=== PATIENT | male | born 1995 | race Caucasian/White ===

== ENCOUNTER 2020-10-13 09:24 | Outpatient (REF) | payer BC, SELFPAY ==
[2020-10-13 09:37] LABS: COVID-19 Test Positive (Negative)
== END 2020-10-13 09:25 | disposition home or self-care (01) ==
LOC: HO.LAB 09:24
PROVIDERS: PCP Internal Medicine; Visit Provider Internal Medicine
DX: Z20.828 Contact with and (suspected) exposure to other viral communicable diseases (principal)
CPT/HCPCS: 87635; C9803

== ENCOUNTER 2020-11-06 09:17 | Outpatient (REF) | payer BC, SELFPAY | END 2020-11-06 09:18 | disposition home or self-care (01) | LOC: HO.LAB 09:17 | PROVIDERS: Visit Provider Internal Medicine | DX: Z20.822 Contact with and (suspected) exposure to COVID-19 (principal) | CPT/HCPCS: 36415; C9803; U0003 ==

== ENCOUNTER 2021-03-29 10:19 | Outpatient (REF) | payer SELFPAY ==
[2021-03-29 11:08] LABS: Valproate 93.3 mcg/mL (50.0-100.0)
== END 2021-03-29 10:20 | disposition home or self-care (01) ==
LOC: HO.LNP 10:19
PROVIDERS: Visit Provider Internal Medicine
DX: G40.909 Epilepsy, unspecified, not intractable, without status epilepticus (principal); Z79.899 Other long term (current) drug therapy
CPT/HCPCS: 80164

== ENCOUNTER 2021-06-05 13:14 | Outpatient (REF) | payer OTHER, SELFPAY ==
[2021-06-05 13:18] LABS: MANUAL DIFF FLAG NO
[2021-06-05 13:22] LABS: Basophils Absolute Auto 0.1 X10*3/uL (0.0-0.2); Eosinophils Absolute Auto 0.1 X10*3/uL (0.0-0.4); Eosinophils Percent Auto 1.4 % (0-4); Hematocrit 42.7 % (42-52); Hemoglobin 14.8 g/dl (14.0-18.0); Imm Gran Abs Auto 0.02 X10*3/uL (0.00-0.03); Imm Gran Pct Auto 0.3 % (0.0-0.4); Lymphocytes Absolute Auto 1.4 X10*3/uL (1.2-4.9); Mean Corpuscular HGB Conc 34.7 g/dl (31.0-36.0); Mean Corpuscular Hemoglobin 33.9 pg (27.0-33.0); Mean Corpuscular Volume 97.7 fL (80-98); Mean Platelet Volume 10.6 fL (9.4-12.4); Monocytes Absolute Auto 0.7 X10*3/uL (0.1-1.2); Monocytes Percent Auto 10.6 % (2-11); Neutrophils Absolute Auto 4.6 X10*3/uL (2.0-8.3); Neutrophils Percent Auto 66.7 % (45-73); Platelet Count 117 X10*3/uL (160-400); Red Blood Count 4.37 X10*6/uL (4.60-5.80); Red Cell Distribution Width 11.9 % (11.0-16.0)
[2021-06-05 14:23] LABS: Alanine Aminotransferase 34 U/L (0-40); Albumin Level 3.9 g/dL (3.5-5.0); Alkaline Phosphatase 237 U/L (39-117); Aspartate Amino Transferase 115 U/L (5-37); Bilirubin Direct 1.3 mg/dL (0.0-0.5); Bilirubin Total 2.4 mg/dL (0.0-1.0); Magnesium 1.3 mg/dL (1.6-2.6); Potassium 3.6 mmol/L (3.3-5.1); Total Protein 7.8 g/dL (6.5-8.0)
== END 2021-06-05 13:15 | disposition home or self-care (01) ==
LOC: HO.LNP 13:14
PROVIDERS: Visit Provider Internal Medicine
DX: D69.6 Thrombocytopenia, unspecified (principal); E87.6 Hypokalemia; E83.42 Hypomagnesemia; K85.20 Alcohol induced acute pancreatitis without necrosis or infection
CPT/HCPCS: 80076; 83735; 84132; 85025

== ENCOUNTER 2021-06-11 11:04 | Outpatient (REF) | payer OTHER, SELFPAY | END 2021-06-11 11:05 | disposition home or self-care (01) | LOC: HO.LNP 11:04 | PROVIDERS: Visit Provider Internal Medicine | DX: E83.42 Hypomagnesemia (principal) | CPT/HCPCS: 83735 ==

== ENCOUNTER 2021-08-11 09:15 | Outpatient (REF) | payer OTHER, SELFPAY ==
[2021-08-11 09:39] LABS: MANUAL DIFF FLAG NO
[2021-08-11 09:51] LABS: Basophils Absolute Auto 0.1 X10*3/uL (0.0-0.2); Basophils Percent Auto 1.6 % (0-2); Eosinophils Absolute Auto 0.1 X10*3/uL (0.0-0.4); Eosinophils Percent Auto 1.9 % (0-4); Hematocrit 38.9 % (42-52); Imm Gran Abs Auto 0.05 X10*3/uL (0.00-0.03); Imm Gran Pct Auto 0.7 % (0.0-0.4); Lymphocytes Absolute Auto 1.5 X10*3/uL (1.2-4.9); Lymphocytes Percent Auto 21.6 % (20-40); Mean Corpuscular Hemoglobin 34.1 pg (27.0-33.0); Mean Corpuscular Volume 94.6 fL (80-98); Mean Platelet Volume 10.8 fL (9.4-12.4); Monocytes Absolute Auto 1.3 X10*3/uL (0.1-1.2); Monocytes Percent Auto 18.2 % (2-11); Neutrophils Absolute Auto 3.9 X10*3/uL (2.0-8.3); Platelet Count 208 X10*3/uL (160-400); Red Blood Count 4.11 X10*6/uL (4.60-5.80); Red Cell Distribution Width 17.9 % (11.0-16.0)
[2021-08-11 09:57] LABS: INTERNATIONAL NORM RATIO 1.5 (0.9-1.1)
[2021-08-11 10:05] LABS: Ammonia 35 umol/L (13-55)
[2021-08-11 10:54] LABS: Ferritin 1037 ng/mL (20-250)
[2021-08-11 11:17] LABS: Alanine Aminotransferase 23 U/L (0-40); Albumin Level 3.2 g/dL (3.5-5.0); Alkaline Phosphatase 203 U/L (39-117); Amylase 28 U/L (28-100); Anion Gap 14 (12-20); Aspartate Amino Transferase 111 U/L (5-37); Blood Urea Nitrogen 4 mg/dL (9-16); Calcium 8.5 mg/dL (8.4-10.2); Carbon Dioxide 28 mmol/L (22-29); Chloride 94 mmol/L (96-108); Estimated Glomerular Filt Rate > 60; Glucose Fasting 93 mg/dL (60-99); Iron 95 mcg/dL (45-160); Lipase 18 U/L (8-78); Percent Iron Saturation 47 % (15-50); Potassium 3.2 mmol/L (3.3-5.1); Sodium 133 mmol/L (135-145); Total Iron Binding Capacity 204 mcg/dL (228-428); Unsaturated Iron Binding 109 ug/dL
[2021-08-11 11:31] LABS: Bilirubin Total 19.8 mg/dL (0.0-1.0)
[2021-08-11 11:33] LABS: Bilirubin Direct 15.1 mg/dL (0.0-0.5)
[2021-08-13 12:47] LABS: Alpha Fetoprotein 5.9 ng/mL (<6.1)
[2021-08-13 18:07] LABS: Anti Nuclear Antibody Screen NEGATIVE (NEGATIVE)
[2021-08-13 21:41] LABS: Alpha 1 Anti-trypsin 229 mg/dL (83-199); Ceruloplasmin 35 mg/dL (18-36)
[2021-08-14 08:52] LABS: ~HepC Num1 0.11 S/CO (0.00-0.79); ~Hepatitis C Antibody Nonreactive (Nonreactive)
[2021-08-14 08:58] LABS: HBS Num1 7.41 mIU/mL (0-7.99); Hepatitis B Core Antibody Nonreactive (Nonreactive); Hepatitis B Surface Antigen Negative (Negative); ~Hepatitis B Surface Antibody NONREACTIVE (Nonreactive)
[2021-08-15 07:56] LABS: Hepatitis A Antibody IgM 0.15 Index (0-0.79); ~Hepatitis A Antibody IgM Nonreactive (Nonreactive)
[2021-08-15 12:35] LABS: Smooth Muscle Antibody <20 U (<20)
[2021-08-16 12:31] LABS: Mitochondrial Antibodies NEGATIVE (NEGATIVE)
== END 2021-08-11 09:16 | disposition home or self-care (01) ==
LOC: HO.LAB 09:15
PROVIDERS: PCP Internal Medicine; Visit Provider Internal Medicine
DX: R17 Unspecified jaundice (principal); K70.9 Alcoholic liver disease, unspecified
CPT/HCPCS: 36415; 80053; 80076; 82103; 82105; 82140; 82150; 82248; 82390; 82728; 83540; 83690; 85025; 85610; 86038; 86039; 86255; 86256; 86704; 86706; 86709; 86803; 87340

== ENCOUNTER 2021-08-17 08:36 | Outpatient (REF) | payer OTHER, SELFPAY ==
--- NOTE | ~2021-08-17 | US_ITS ---
EXAMINATION: US COMPLETE ABDOMEN WITH LIVER ELASTOGRAPHY CLINICAL INFORMATION: Jaundice, elevated liver enzymes. COMPARISON: None. TECHNIQUE: Real-time imaging of the abdominal viscera. Noninvasive ultrasound liver fibrosis assessment is performed using Madelaine ElastPQ point quantification shear wave elastography (pSWE) with a C5-2 MHz transducer. Multiple elastography samples are obtained. FINDINGS: PANCREAS: The head and the body of the pancreas is homogeneous in echotexture. The tail is obscured by overlying gas. ABDOMINAL AORTA: The proximal abdominal aorta is normal caliber. The mid and the distal abdominal segments are obscured by overlying gas. INFERIOR VENA CAVA: Visualized portions are normal. LIVER: The liver demonstrates normal size, contour and increased echogenicity. No focal lesion or intrahepatic biliary duct dilatation. There is moderate free fluid surrounding the liver. The right lobe measures 22.5 cm in length. The left lobe measures 15.4 cm in length. Portal flow is hepatopedal. Shear wave liver elastography median stiffness is 3.12 m/s. (Reference: Normal median stiffness is 1.3 m/s or less). IQR/median stiffness to assess sampling precision is (reference: Good quality data set is IQR/median stiffness of 0.15 or Less). GALLBLADDER: There is echogenic sludge adherent to the wall with mild gallbladder wall thickness measuring 0.98 cm. There is pericholecystic moderate fluid seen. Also visualized is mild fluid within the gallbladder wall. No echogenic stone seen. COMMON BILE DUCT: Normal in caliber measuring 0.54 cm in diameter. RIGHT KIDNEY: Normal. No hydronephrosis. No renal calculi or focal parenchymal lesions. The kidney measures 11.5 cm in maximum dimension. LEFT KIDNEY: Normal. No hydronephrosis. No renal calculi or focal parenchymal lesions. The kidney measures 11.8 cm in maximum dimension. SPLEEN: Normal. The spleen measures 15.8 cm maximum dimension. FREE FLUID: None. US/US abdomen comp w elastography IMPRESSION: 1. Mild hepatic steatosis with moderate fluid surrounding the liver. No focal lesion seen. The liver is enlarged. There is echogenic sludge adherent to gallbladder wall with mild wall thickening and fluid within the gallbladder wall. The gallbladder is enlarged measuring 11.6 cm in maximum length. There is fluid surrounding the gallbladder and the liver. 2. Liver elastography: Median liver stiffness is 2.4 m/s suggestive of CSPH. Reference: Society of Radiologists in ultrasound liver stiffness thresholds (2020): Liver stiffness thresholds: *Liver stiffness equal or less than 1.3 m/s: High probability of being normal. *Liver stiffness less than 1.7 m/s: In the absence of other known clinical signs, rules out compensated advanced chronic liver disease. *Liver stiffness 1.7 to 2.1 m/s: Suggestive of compensated advanced chronic liver disease but need further test for confirmation. *Liver stiffness over 2.1 m/s: Rules in compensated advanced chronic liver disease. *Liver stiffness over 2.4 m/s: Suggestive of clinically significant portal hypertension. Quality of data set: *IQR/median value equal or less than 0.15 implies a quality data set. *IQR/median value over 0.15 implies a poor quality data set. Significant change from prior exam: Significant change if liver stiffness measurement is 10% or greater from prior exam. Other considerations: The stage of liver fibrosis may be overestimated in the setting of acute hepatitis, liver inflammation, elevated liver function tests, hepatic vascular congestion, obstructive cholestasis, nonfasting state, and infiltrative diseases such as amyloidosis and lymphoma. In some patients with NAFLD, the liver stiffness thresholds for compensated advanced chronic liver disease may be lower. In causes other than viral hepatitis stiffness thresholds are not well established.
[2021-08-17 10:17] LABS: INTERNATIONAL NORM RATIO 1.4 (0.9-1.1)
[2021-08-17 10:37] LABS: Alanine Aminotransferase 32 U/L (0-40); Alkaline Phosphatase 199 U/L (39-117); Anion Gap 13 (12-20); Aspartate Amino Transferase 151 U/L (5-37); Blood Urea Nitrogen 3 mg/dL (9-16); Calcium 8.5 mg/dL (8.4-10.2); Carbon Dioxide 30 mmol/L (22-29); Chloride 96 mmol/L (96-108); Estimated Glomerular Filt Rate > 60; Glucose Random 86 mg/dL (60-115); Potassium 3.4 mmol/L (3.3-5.1); Sodium 136 mmol/L (135-145); Total Protein 6.6 g/dL (6.5-8.0)
[2021-08-17 10:51] LABS: Bilirubin Total 18.9 mg/dL (0.0-1.0)
[2021-08-17 10:59] LABS: Bilirubin Direct 14.7 mg/dL (0.0-0.5)
== END 2021-08-17 08:37 | disposition home or self-care (01) ==
LOC: HO.US 08:36
PROVIDERS: PCP Internal Medicine; Visit Provider Internal Medicine
DX: K70.9 Alcoholic liver disease, unspecified (principal); R74.8 Abnormal levels of other serum enzymes
CPT/HCPCS: 36415; 76705; 76981; 80053; 81256; 82248; 85610

== ENCOUNTER 2021-08-24 12:30 | Outpatient (REF) | payer OTHER, SELFPAY ==
[2021-08-24 13:06] LABS: INTERNATIONAL NORM RATIO 1.5 (0.9-1.1); Prothrombin Time 17.6 SEC (9.9-13.0)
[2021-08-24 13:45] LABS: Alanine Aminotransferase 23 U/L (0-40); Albumin Level 2.9 g/dL (3.5-5.0); Alkaline Phosphatase 188 U/L (39-117); Aspartate Amino Transferase 108 U/L (5-37); Bilirubin Direct 18.7 mg/dL (0.0-0.5); Bilirubin Total 24.4 mg/dL (0.0-1.0); Total Protein 6.3 g/dL (6.5-8.0)
== END 2021-08-24 12:31 | disposition home or self-care (01) ==
LOC: HO.LAB 12:30
PROVIDERS: PCP Internal Medicine; Visit Provider Internal Medicine
DX: R17 Unspecified jaundice (principal)
CPT/HCPCS: 36415; 80076; 85610

== ENCOUNTER 2021-08-31 07:06 | Outpatient (REF) | payer OTHER, SELFPAY ==
[2021-08-31 07:25] LABS: MANUAL DIFF FLAG NO
[2021-08-31 08:12] LABS: Basophils Absolute Auto 0.1 X10*3/uL (0.0-0.2); Basophils Percent Auto 1.5 % (0-2); Eosinophils Absolute Auto 0.2 X10*3/uL (0.0-0.4); Eosinophils Percent Auto 2.1 % (0-4); Hematocrit 35.3 % (42-52); Hemoglobin 12.8 g/dl (14.0-18.0); INTERNATIONAL NORM RATIO 1.4 (0.9-1.1); Imm Gran Abs Auto 0.09 X10*3/uL (0.00-0.03); Imm Gran Pct Auto 1.1 % (0.0-0.4); Lymphocytes Absolute Auto 1.6 X10*3/uL (1.2-4.9); Lymphocytes Percent Auto 20.6 % (20-40); Mean Corpuscular HGB Conc 36.3 g/dl (31.0-36.0); Mean Corpuscular Hemoglobin 36.9 pg (27.0-33.0); Mean Corpuscular Volume 101.7 fL (80-98); Monocytes Absolute Auto 1.4 X10*3/uL (0.1-1.2); Monocytes Percent Auto 18.1 % (2-11); Neutrophils Absolute Auto 4.5 X10*3/uL (2.0-8.3); Neutrophils Percent Auto 56.6 % (45-73); Platelet Count 144 X10*3/uL (160-400); Red Blood Count 3.47 X10*6/uL (4.60-5.80); Red Cell Distribution Width 15.3 % (11.0-16.0)
[2021-08-31 08:31] LABS: Alanine Aminotransferase 26 U/L (0-40); Alkaline Phosphatase 206 U/L (39-117); Anion Gap 15 (12-20); Aspartate Amino Transferase 129 U/L (5-37); Blood Urea Nitrogen 5 mg/dL (9-16); Calcium 8.4 mg/dL (8.4-10.2); Carbon Dioxide 27 mmol/L (22-29); Chloride 93 mmol/L (96-108); Estimated Glomerular Filt Rate > 60; Glucose Random 87 mg/dL (60-115); Potassium 3.1 mmol/L (3.3-5.1); Sodium 132 mmol/L (135-145); Total Protein 6.7 g/dL (6.5-8.0)
[2021-08-31 08:50] LABS: Bilirubin Direct 17.2 mg/dL (0.0-0.5); Bilirubin Total 22.6 mg/dL (0.0-1.0)
[2021-08-31 10:36] LABS: Cholesterol 182 mg/dL; HDL Cholesterol < 5 mg/dL; LDL Cholesterol Calculated 98 mg/dl; Triglycerides 396 mg/dL
[2021-08-31 10:48] LABS: Reflex LDLD? No
== END 2021-08-31 07:07 | disposition home or self-care (01) ==
LOC: HO.LABR 07:06
PROVIDERS: PCP Internal Medicine; Visit Provider Internal Medicine
DX: Z00.00 Encounter for general adult medical examination without abnormal findings (principal); I10 Essential (primary) hypertension; R94.5 Abnormal results of liver function studies; E78.00 Pure hypercholesterolemia, unspecified; E78.1 Pure hyperglyceridemia; F10.10 Alcohol abuse, uncomplicated; D69.6 Thrombocytopenia, unspecified; E83.42 Hypomagnesemia
CPT/HCPCS: 36415; 80053; 80061; 82248; 85025; 85610

== ENCOUNTER 2021-09-07 11:07 | Outpatient (REF) | payer OTHER, SELFPAY ==
[2021-09-07 11:19] LABS: MANUAL DIFF FLAG NO
[2021-09-07 11:57] LABS: Basophils Percent Auto 0.2 % (0-2); Eosinophils Percent Auto 0.2 % (0-4); Hematocrit 37.1 % (42.0-52.0); Imm Gran Abs Auto 0.14 X10*3/uL (0.00-0.03); Imm Gran Pct Auto 1.4 % (0.0-0.4); Lymphocytes Absolute Auto 0.8 X10*3/uL (1.2-4.9); Lymphocytes Percent Auto 7.7 % (20-40); Mean Corpuscular Hemoglobin 36.9 pg (27.0-33.0); Mean Corpuscular Volume 105.4 fL (80.0-98.0); Mean Platelet Volume 10.8 fL (9.4-12.4); Monocytes Absolute Auto 0.9 X10*3/uL (0.1-1.2); Monocytes Percent Auto 9.2 % (2-11); Neutrophils Absolute Auto 8.1 x10*3/uL (2.0-8.3); Neutrophils Percent Auto 81.3 % (45-73); Platelet Count 176 X10*3/uL (160-400); Red Blood Count 3.52 X10*6/uL (4.60-5.80); Red Cell Distribution Width 14.7 % (11.0-16.0); White Blood Count 9.9 X10*3/uL (4.8-10.8)
[2021-09-07 12:00] LABS: INTERNATIONAL NORM RATIO 1.3 (0.9-1.1); Prothrombin Time 14.7 SEC (9.9-13.0)
[2021-09-07 12:39] LABS: Alanine Aminotransferase 38 U/L (0-40); Albumin Level 3.3 g/dL (3.5-5.0); Alkaline Phosphatase 231 U/L (39-117); Anion Gap 16 (12-20); Aspartate Amino Transferase 127 U/L (5-37); Bilirubin Direct 10.2 mg/dL (0.0-0.5); Bilirubin Total 14.2 mg/dL (0.0-1.0); Blood Urea Nitrogen 9 mg/dL (9-16); Calcium 8.3 mg/dL (8.4-10.2); Carbon Dioxide 29 mmol/L (22-29); Chloride 95 mmol/L (96-108); Estimated Glomerular Filt Rate > 60; Glucose Random 129 mg/dL (60-115); Potassium 3.4 mmol/L (3.3-5.1); Sodium 137 mmol/L (135-145); Total Protein 7.2 g/dL (6.5-8.0)
== END 2021-09-07 11:08 | disposition home or self-care (01) ==
LOC: HO.LABR 11:07
PROVIDERS: PCP Internal Medicine; Visit Provider Internal Medicine
DX: K70.10 Alcoholic hepatitis without ascites (principal)
CPT/HCPCS: 36415; 80048; 80076; 85025; 85610

== ENCOUNTER 2021-09-07 14:06 | Outpatient (REF) | payer OTHER, SELFPAY ==
[2021-09-07 14:18] LABS: Appearance Urine HAZY; Color Urine BROWN; Glucose Urine UA NEG (NEG); Leukocyte Esterase Urine NEG (NEG); Nitrite Urine NEG (NEG); Urine Blood NEG (NEG); Urine Ketones NEG (NEG); Urine Protein TRACE MG/DL (NEG-TRACE)
[2021-09-07 14:26] LABS: Mucus Urine TRACE /LPF; RBC Urine 0 /HPF (0); Squamous Epithelial Cell Urine TRACE /LPF; WBC Urine 0 /HPF (0-4)
== END 2021-09-07 14:07 | disposition home or self-care (01) ==
LOC: HO.LNP 14:06
PROVIDERS: Visit Provider Internal Medicine
DX: Z00.00 Encounter for general adult medical examination without abnormal findings (principal); I10 Essential (primary) hypertension; R94.5 Abnormal results of liver function studies
CPT/HCPCS: 81001

== ENCOUNTER 2021-09-13 06:54 | Outpatient (REF) | payer OTHER, SELFPAY ==
[2021-09-13 07:39] LABS: Hemoglobin 12.3 g/dl (14.0-18.0); MANUAL DIFF FLAG SCAN; PLT CLUMP 1; SCAN SMEAR FLAG 1
[2021-09-13 07:41] LABS: Basophils Percent Auto 0.3 % (0-2); Eosinophils Percent Auto 0.4 % (0-4); Hematocrit 35.3 % (42.0-52.0); Imm Gran Abs Auto 0.08 X10*3/uL (0.00-0.03); Imm Gran Pct Auto 0.7 % (0.0-0.4); Lymphocytes Absolute Auto 2.5 X10*3/uL (1.2-4.9); Lymphocytes Percent Auto 22.3 % (20-40); Mean Corpuscular HGB Conc 34.8 g/dl (31.0-36.0); Mean Corpuscular Hemoglobin 36.6 pg (27.0-33.0); Mean Corpuscular Volume 105.1 fL (80.0-98.0); Mean Platelet Volume 10.1 fL (9.4-12.4); Monocytes Absolute Auto 1.4 X10*3/uL (0.1-1.2); Neutrophils Absolute Auto 7.3 x10*3/uL (2.0-8.3); Neutrophils Percent Auto 64.3 % (45-73); Platelet Count 131 X10*3/uL (160-400); Red Blood Count 3.36 X10*6/uL (4.60-5.80); White Blood Count 11.3 X10*3/uL (4.8-10.8)
[2021-09-13 07:43] LABS: INTERNATIONAL NORM RATIO 1.2 (0.9-1.1); Prothrombin Time 14.1 SEC (9.9-13.0)
[2021-09-13 08:27] LABS: Alanine Aminotransferase 58 U/L (0-40); Albumin Level 3.2 g/dL (3.5-5.0); Alkaline Phosphatase 210 U/L (39-117); Anion Gap 15 (12-20); Aspartate Amino Transferase 157 U/L (5-37); Bilirubin Direct 7.4 mg/dL (0.0-0.5); Bilirubin Total 10.6 mg/dL (0.0-1.0); Blood Urea Nitrogen 8 mg/dL (9-16); Calcium 8.6 mg/dL (8.4-10.2); Carbon Dioxide 27 mmol/L (22-29); Chloride 97 mmol/L (96-108); Estimated Glomerular Filt Rate > 60; Glucose Random 90 mg/dL (60-115); Potassium 3.7 mmol/L (3.3-5.1); Sodium 135 mmol/L (135-145); Total Protein 6.6 g/dL (6.5-8.0)
== END 2021-09-13 06:55 | disposition home or self-care (01) ==
LOC: HO.LABR 06:54
PROVIDERS: PCP Internal Medicine; Visit Provider Internal Medicine
DX: K70.10 Alcoholic hepatitis without ascites (principal)
CPT/HCPCS: 36415; 80053; 82248; 85025; 85610

== ENCOUNTER 2021-09-20 06:55 | Outpatient (REF) | payer OTHER, SELFPAY ==
[2021-09-20 07:44] LABS: Basophils Absolute Auto 0.1 X10*3/uL (0.0-0.2); Basophils Percent Auto 0.4 % (0-2); Eosinophils Absolute Auto 0.1 X10*3/uL (0.0-0.4); Eosinophils Percent Auto 0.6 % (0-4); Hematocrit 37.1 % (42.0-52.0); Hemoglobin 12.8 g/dl (14.0-18.0); Imm Gran Abs Auto 0.05 X10*3/uL (0.00-0.03); Imm Gran Pct Auto 0.4 % (0.0-0.4); Lymphocytes Absolute Auto 3.4 X10*3/uL (1.2-4.9); Lymphocytes Percent Auto 27.1 % (20-40); MANUAL DIFF FLAG SCAN; Mean Corpuscular HGB Conc 34.5 g/dl (31.0-36.0); Mean Corpuscular Hemoglobin 36.9 pg (27.0-33.0); Mean Corpuscular Volume 106.9 fL (80.0-98.0); Monocytes Absolute Auto 1.9 X10*3/uL (0.1-1.2); Monocytes Percent Auto 15.3 % (2-11); Neutrophils Percent Auto 56.2 % (45-73); Platelet Count 124 X10*3/uL (160-400); Red Blood Count 3.47 X10*6/uL (4.60-5.80); Red Cell Distribution Width 13.1 % (11.0-16.0); SCAN SMEAR FLAG 1; White Blood Count 12.5 X10*3/uL (4.8-10.8)
[2021-09-20 07:55] LABS: INTERNATIONAL NORM RATIO 1.2 (0.9-1.1); Prothrombin Time 13.7 SEC (9.9-13.0)
[2021-09-20 08:09] LABS: Alanine Aminotransferase 54 U/L (0-40); Albumin Level 3.5 g/dL (3.5-5.0); Alkaline Phosphatase 253 U/L (39-117); Anion Gap 16 (12-20); Aspartate Amino Transferase 134 U/L (5-37); Bilirubin Direct 5.6 mg/dL (0.0-0.5); Bilirubin Total 7.3 mg/dL (0.0-1.0); Blood Urea Nitrogen 9 mg/dL (9-16); Calcium 8.7 mg/dL (8.4-10.2); Carbon Dioxide 23 mmol/L (22-29); Chloride 104 mmol/L (96-108); Estimated Glomerular Filt Rate > 60; Glucose Random 83 mg/dL (60-115); Potassium 3.8 mmol/L (3.3-5.1); Sodium 139 mmol/L (135-145); Total Protein 7.1 g/dL (6.5-8.0)
[2021-09-20 08:11] LABS: SLIDE REVIEW VERIFIED
== END 2021-09-20 06:56 | disposition home or self-care (01) ==
LOC: HO.LABR 06:55
PROVIDERS: PCP Internal Medicine; Visit Provider Internal Medicine
DX: K70.10 Alcoholic hepatitis without ascites (principal)
CPT/HCPCS: 36415; 80053; 82248; 85025; 85610

== ENCOUNTER 2021-10-12 06:57 | Outpatient (REF) | payer OTHER, SELFPAY ==
[2021-10-12 07:03] LABS: MANUAL DIFF FLAG NO
[2021-10-12 08:30] LABS: Basophils Absolute Auto 0.1 X10*3/uL (0.0-0.2); Basophils Percent Auto 0.7 % (0-2); Eosinophils Absolute Auto 0.1 X10*3/uL (0.0-0.4); Hematocrit 38.6 % (42.0-52.0); Imm Gran Abs Auto 0.03 X10*3/uL (0.00-0.03); Imm Gran Pct Auto 0.4 % (0.0-0.4); Lymphocytes Absolute Auto 1.8 X10*3/uL (1.2-4.9); Lymphocytes Percent Auto 26.7 % (20-40); Mean Corpuscular HGB Conc 33.7 g/dl (31.0-36.0); Mean Corpuscular Hemoglobin 34.4 pg (27.0-33.0); Mean Corpuscular Volume 102.1 fL (80.0-98.0); Mean Platelet Volume 11.1 fL (9.4-12.4); Monocytes Percent Auto 15.1 % (2-11); Neutrophils Absolute Auto 3.7 x10*3/uL (2.0-8.3); Neutrophils Percent Auto 56.1 % (45-73); Red Blood Count 3.78 X10*6/uL (4.60-5.80); Red Cell Distribution Width 11.9 % (11.0-16.0); White Blood Count 6.7 X10*3/uL (4.8-10.8)
[2021-10-12 08:35] LABS: INTERNATIONAL NORM RATIO 1.4 (0.9-1.1); Prothrombin Time 15.9 SEC (9.9-13.0)
[2021-10-12 08:56] LABS: Platelet Count 78 X10*3/uL (160-400)
[2021-10-12 09:13] LABS: Alanine Aminotransferase 32 U/L (0-40); Albumin Level 3.4 g/dL (3.5-5.0); Alkaline Phosphatase 464 U/L (39-117); Anion Gap 15 (12-20); Aspartate Amino Transferase 100 U/L (5-37); Bilirubin Direct 5.3 mg/dL (0.0-0.5); Blood Urea Nitrogen 2 mg/dL (9-16); Calcium 8.7 mg/dL (8.4-10.2); Carbon Dioxide 26 mmol/L (22-29); Chloride 103 mmol/L (96-108); Estimated Glomerular Filt Rate > 60; Glucose Random 105 mg/dL (60-115); Potassium 3.1 mmol/L (3.3-5.1); Sodium 141 mmol/L (135-145); Total Protein 7.4 g/dL (6.5-8.0)
== END 2021-10-12 06:58 | disposition home or self-care (01) ==
LOC: HO.LABR 06:57
PROVIDERS: PCP Internal Medicine; Visit Provider Internal Medicine
DX: K70.10 Alcoholic hepatitis without ascites (principal)
CPT/HCPCS: 36415; 80053; 82248; 85025; 85610

== ENCOUNTER 2021-10-19 13:58 | Outpatient (REF) | payer OTHER, SELFPAY ==
[2021-10-19 14:11] LABS: Basophils Absolute Auto 0.1 X10*3/uL (0.0-0.2); Eosinophils Percent Auto 0.7 % (0-4); Hematocrit 38.9 % (42.0-52.0); Hemoglobin 13.4 g/dl (14.0-18.0); Imm Gran Abs Auto 0.03 X10*3/uL (0.00-0.03); Imm Gran Pct Auto 0.5 % (0.0-0.4); Lymphocytes Percent Auto 16.4 % (20-40); MANUAL DIFF FLAG SCAN; Mean Corpuscular HGB Conc 34.4 g/dl (31.0-36.0); Mean Corpuscular Volume 101.6 fL (80.0-98.0); Mean Platelet Volume 11.1 fL (9.4-12.4); Monocytes Absolute Auto 1.3 X10*3/uL (0.1-1.2); Monocytes Percent Auto 21.3 % (2-11); Neutrophils Absolute Auto 3.7 x10*3/uL (2.0-8.3); Neutrophils Percent Auto 60.1 % (45-73); Platelet Count 126 X10*3/uL (160-400); Red Blood Count 3.83 X10*6/uL (4.60-5.80); Red Cell Distribution Width 12.1 % (11.0-16.0); SCAN SMEAR FLAG 1; White Blood Count 6.1 X10*3/uL (4.8-10.8)
[2021-10-19 14:21] LABS: INTERNATIONAL NORM RATIO 1.6 (0.9-1.1); Prothrombin Time 18.5 SEC (9.9-13.0)
[2021-10-19 14:26] LABS: Alanine Aminotransferase 22 U/L (0-40); Albumin Level 3.1 g/dL (3.5-5.0); Alkaline Phosphatase 474 U/L (39-117); Anion Gap 15 (12-20); Aspartate Amino Transferase 97 U/L (5-37); Bilirubin Total 9.9 mg/dL (0.0-1.0); Blood Urea Nitrogen 3 mg/dL (9-16); Calcium 8.2 mg/dL (8.4-10.2); Carbon Dioxide 23 mmol/L (22-29); Chloride 98 mmol/L (96-108); Estimated Glomerular Filt Rate > 60; Glucose Random 100 mg/dL (60-115); Potassium 3.4 mmol/L (3.3-5.1); Sodium 133 mmol/L (135-145); Total Protein 7.4 g/dL (6.5-8.0)
[2021-10-19 14:43] LABS: SLIDE REVIEW VERIFIED
== END 2021-10-19 13:59 | disposition home or self-care (01) ==
LOC: HO.LNP 13:58
PROVIDERS: PCP Internal Medicine; Visit Provider Internal Medicine
DX: K72.00 Acute and subacute hepatic failure without coma (principal); D69.6 Thrombocytopenia, unspecified
CPT/HCPCS: 80053; 85025; 85610

== ENCOUNTER 2021-10-23 10:17 | Outpatient (REF) | payer OTHER, SELFPAY ==
[2021-10-23 10:41] LABS: Basophils Absolute Auto 0.1 X10*3/uL (0.0-0.2); Basophils Percent Auto 1.6 % (0-2); Eosinophils Absolute Auto 0.1 X10*3/uL (0.0-0.4); Hemoglobin 13.1 g/dl (14.0-18.0); Imm Gran Abs Auto 0.06 X10*3/uL (0.00-0.03); Imm Gran Pct Auto 0.8 % (0.0-0.4); Lymphocytes Absolute Auto 2.4 X10*3/uL (1.2-4.9); Lymphocytes Percent Auto 30.4 % (20-40); MANUAL DIFF FLAG SCAN; Mean Corpuscular HGB Conc 34.5 g/dl (31.0-36.0); Mean Corpuscular Hemoglobin 34.9 pg (27.0-33.0); Mean Corpuscular Volume 101.3 fL (80.0-98.0); Monocytes Absolute Auto 1.6 X10*3/uL (0.1-1.2); Monocytes Percent Auto 19.6 % (2-11); Neutrophils Absolute Auto 3.7 x10*3/uL (2.0-8.3); Neutrophils Percent Auto 46.6 % (45-73); Platelet Count 153 X10*3/uL (160-400); Red Blood Count 3.75 X10*6/uL (4.60-5.80); Red Cell Distribution Width 12.6 % (11.0-16.0); SCAN SMEAR FLAG 1
[2021-10-23 11:07] LABS: SLIDE REVIEW VERIFIED
== END 2021-10-23 10:18 | disposition home or self-care (01) ==
LOC: HO.LNP 10:17
PROVIDERS: Visit Provider Internal Medicine
DX: D69.6 Thrombocytopenia, unspecified (principal)
CPT/HCPCS: 85025

== ENCOUNTER 2022-01-07 15:44 | Outpatient (REF) | payer OTHER, SELFPAY ==
--- NOTE | ~2022-01-07 | XR_ITS ---
EXAMINATION: XR CHEST CLINICAL INFORMATION: Alcoholic hepatitis with ascites, chronic cough. COMPARISON: 11/16/2019 TECHNIQUE: 2 views of the chest were obtained. FINDINGS: The cardiomediastinal silhouette is stable. No vascular congestion or edema. New left basilar airspace disease and small to moderate pleural effusion. XR/XR chest 2V IMPRESSION: New left basilar airspace disease and small to moderate pleural effusion.
== END 2022-01-07 15:45 | disposition home or self-care (01) ==
LOC: HO.XRAY 15:44
PROVIDERS: PCP Internal Medicine; Visit Provider Internal Medicine
DX: K70.11 Alcoholic hepatitis with ascites (principal); R05.3 Chronic cough
CPT/HCPCS: 71046

== ENCOUNTER 2022-01-07 16:25 | Outpatient (REF) | payer OTHER, SELFPAY ==
[2022-01-07 16:29] LABS: MANUAL DIFF FLAG NO
[2022-01-07 16:37] LABS: Basophils Percent Auto 0.3 % (0-2); Eosinophils Percent Auto 0.1 % (0-4); Hematocrit 32.9 % (42.0-52.0); Hemoglobin 11.4 g/dl (14.0-18.0); Imm Gran Abs Auto 0.11 X10*3/uL (0.00-0.03); Lymphocytes Absolute Auto 2.1 X10*3/uL (1.2-4.9); Lymphocytes Percent Auto 19.4 % (20-40); Mean Corpuscular HGB Conc 34.7 g/dl (31.0-36.0); Mean Corpuscular Hemoglobin 37.3 pg (27.0-33.0); Mean Corpuscular Volume 107.5 fL (80.0-98.0); Mean Platelet Volume 9.4 fL (9.4-12.4); Monocytes Absolute Auto 1.6 X10*3/uL (0.1-1.2); Monocytes Percent Auto 14.9 % (2-11); Neutrophils Absolute Auto 6.8 x10*3/uL (2.0-8.3); Neutrophils Percent Auto 64.3 % (45-73); Platelet Count 147 X10*3/uL (160-400); Red Blood Count 3.06 X10*6/uL (4.60-5.80); Red Cell Distribution Width 14.6 % (11.0-16.0); SCAN SMEAR FLAG 1; White Blood Count 10.6 X10*3/uL (4.8-10.8)
[2022-01-07 16:44] LABS: INTERNATIONAL NORM RATIO 1.8 (0.9-1.1); Prothrombin Time 21.1 SEC (9.9-13.0)
[2022-01-07 16:55] LABS: Alanine Aminotransferase < 6 U/L (0-40); Albumin Level 2.7 g/dL (3.5-5.0); Alkaline Phosphatase 143 U/L (39-117); Anion Gap 15 (12-20); Aspartate Amino Transferase 46 U/L (5-37); Bilirubin Total 6.3 mg/dL (0.0-1.0); Blood Urea Nitrogen 9 mg/dL (9-16); Calcium 8.9 mg/dL (8.4-10.2); Carbon Dioxide 27 mmol/L (22-29); Chloride 92 mmol/L (96-108); Estimated Glomerular Filt Rate > 60; Glucose Random 99 mg/dL (60-115); Sodium 131 mmol/L (135-145); Total Protein 7.3 g/dL (6.5-8.0)
[2022-01-08 11:46] LABS: Appearance Urine CLOUDY; Color Urine BROWN; Glucose Urine UA 250 MG/DL (NEG); Leukocyte Esterase Urine TRACE (NEG); Nitrite Urine POS (NEG); Specific Gravity - Urine 1.015 (1.005-1.025); Urine Blood NEG (NEG); Urine Ketones 15 MG/DL (NEG); Urine Protein 2+ MG/DL (NEG-TRACE)
[2022-01-08 12:02] LABS: Bacteria Urine TRACE /LPF; Squamous Epithelial Cell Urine 1+ /LPF
== END 2022-01-07 16:26 | disposition home or self-care (01) ==
LOC: HO.LNP 16:25
PROVIDERS: PCP Internal Medicine; Visit Provider Internal Medicine
DX: K70.11 Alcoholic hepatitis with ascites (principal)
CPT/HCPCS: 80053; 81001; 85025; 85610

== ENCOUNTER 2022-01-10 14:57 | Outpatient (REF) | payer OTHER, SELFPAY ==
--- NOTE | ~2022-01-10 | US_ITS ---
EXAMINATION: US CHEST CLINICAL INFORMATION: Pleural effusion COMPARISON: Chest radiograph 01/07/2022 TECHNIQUE: Focused sonographic evaluation of the chest performed bilaterally. FINDINGS: There is a moderate to large left pleural effusion without loculation. There is no right pleural effusion. There is partially visualized ascites within the right upper quadrant. US/US chest IMPRESSION: Moderate to large right pleural effusion and partially visualized perihepatic ascites.
== END 2022-01-10 14:58 | disposition home or self-care (01) ==
LOC: HO.US 14:57
PROVIDERS: PCP Internal Medicine; Visit Provider Internal Medicine
DX: J90 Pleural effusion, not elsewhere classified (principal)
CPT/HCPCS: 76604

== ENCOUNTER 2022-01-10 15:23 | Inpatient (IN) | payer OTHER, SELFPAY ==
--- NOTE | ~2022-01-10 | XR_ITS ---
EXAMINATION: XR CHEST CLINICAL INFORMATION: Shortness of breath. COMPARISON: Chest radiograph 01/07/2022. TECHNIQUE: 2 views of the chest were obtained. FINDINGS: Lung volumes are low. There is a moderately sized left pleural effusion that obscures the left cardiac border. The right lung is clear. Upper mediastinal contours are normal. No acute osseous finding. XR/XR chest 2V IMPRESSION: There is a moderately sized left pleural effusion. Findings have not substantially changed when compared to recent prior imaging from 01/07/2022.
--- NOTE | ~2022-01-10 | XR_ITS ---
EXAMINATION: XR CHEST CLINICAL INFORMATION: Follow-up left pleural effusion, worsening cough. COMPARISON: Chest x-ray 01/10/[address] abdomen a chest 01/10/2022. TECHNIQUE: Frontal view of the chest was obtained. FINDINGS: There is moderate left pleural effusion with underlying atelectasis, similar to previous study 01/12/2022. The left upper lung remains expanded and clear. The right lung is hypoexpanded and clear. Heart size and progress clarities normal. XR/XR chest 1V IMPRESSION: Moderate left pleural effusion with underlying atelectasis. Recommend left thoracentesis.
--- NOTE | ~2022-01-10 | US_ITS ---
CLINICAL HISTORY: This patient is a 26-year-old male with a left pleural effusion jaundice, elevated liver enzymes.. The patient is referred to interventional radiology for ultrasound-guided thoracentesis. PROCEDURE: Ultrasound-guided thoracentesis. COMPARISON: Comparison is made to the CT scan demonstrating a large left pleural effusion. ACCESS: 5 Fr closed needle/catheter system. PROCEDURALIST: Interventional Radiologist: Mert Staton M.D., F.S.I.R., F.A.C.R.. MEDICATIONS: 10 mL of 1% lidocaine SQ. COMPLICATIONS: None. ESTIMATED BLOOD LOSS: <5 mL. SPECIMENS: Yellow, bilious-color fluid was drained. A sample of fluid was sent for the laboratory tests that were requested. PROCEDURE NOTE: Appropriate pre-procedure medical history and imaging studies were reviewed. Informed consent was obtained from the patient prior to the procedure. During this process, the procedure and potential alternatives were explained along with the intended outcome and benefits. The risks of the procedure, including the possibility of an unsuccessful procedure, as well as the risk of not doing the procedure, were discussed. The patient was given the opportunity to ask questions regarding the procedure and appeared competent to make decisions. A signed consent form documenting this discussion was placed in the medical record. SITE MARKING: As part of the preprocedure verification policy, a site marking procedure was initiated. Due to the nature the procedure, the insertion site could not be predetermined thus invoking the policy of exemption to site laterality and marking. Insertion site marking was performed in the procedure room in conjunction with imaging confirmation. A time-out procedure was performed. All elements of maximal sterile barrier technique followed including use of cap, mask, sterile gown, sterile gloves, a sterile full body drape and hand hygiene. Also followed skin preparation with 2% chlorhexidine for cutaneous antisepsis, and sterile ultrasound preparation with sterile gel and probe cover when applicable. The patient was brought to the ultrasound department and placed in the seated position. Ultrasound images of the left thorax were obtained to localize a moderate pleural effusion. Images were permanently saved to the record. An area of the patient's left back was prepped and draped in the standard sterile fashion. 10 mL of 1% lidocaine was used to obtain local anesthesia of the skin and deeper tissues. A standard small-bore needle was introduced to sample fluid and demonstrated a safe access route. There was no evidence of traversing adjacent organs or vascular structures. A 5 [place] closed needle/catheter system was utilized for access. 2800 mL of clear yellow fluid was aspirated before drainage ceased. The catheter was removed and a sterile dressing applied. The patient tolerated the procedure well without evidence of immediate complications. The patient tolerated the procedure well. A sterile dressing was placed. The patient was discharged from the room in unchanged condition. A post procedure chest x-ray was not necessary or performed. FINDINGS: Moderate simple left pleural effusion. Complications: None. US/US thoracentesis IMPRESSION: Successful left ultrasound-guided therapeutic and diagnostic thoracentesis. PLAN: 1. The patient was stable after the procedure and was discharged from the room in good condition after standard monitoring.
--- NOTE | ~2022-01-10 | US_ITS ---
EXAMINATION: US-GUIDED LEFT THORACENTESIS CLINICAL INFORMATION: SOB, dyspnea and coughing. COMPARISON: Ultrasound-guided left thoracentesis 01/11/2022 TECHNIQUE: Following explaining ultrasound-guided left thoracentesis procedure, benefits and risk, a written consent was obtained. Patient was placed sitting upright on ultrasound stretcher and preliminary ultrasound imaging was obtained through the left posterior chest. An optimal site was selected along the infrascapular line at approximately the T10 interspace and marked on the skin. The marked area was cleaned and draped in the usual sterile manner. 1% lidocaine was injected at puncture site. Through a small skin incision, a 4-[employer] catheter was advanced into the pleural space. After observing fluid return, stylet was withdrawn and catheter connected to vacuum bottle via connecting cannula. After obtaining all fluid and observing no more fluid return, catheter was withdrawn and complete hemostasis achieved at puncture site. FINDINGS: There is moderate left pleural effusion seen. Approximately 1.3 L of reddish color fluid was drained from the left pleural space. None of this fluid was sent to lab. US/US thoracentesis IMPRESSION: Successful therapeutic left thoracentesis performed without immediate compilations. A chest x-ray was to be obtained.
--- NOTE | ~2022-01-10 | XR_ITS ---
EXAMINATION: XR CHEST CLINICAL INFORMATION: Status post left thoracentesis. COMPARISON: Chest x-ray 01/12/2022 TECHNIQUE: 2 views of the chest were obtained. FINDINGS: Inspiration and expiration views of the chest reveal interval decrease in the left pleural effusion with left lower lobe platelike atelectasis. There is no visible pneumothorax. The heart size and pulmonary vascularity is normal. XR/XR chest 2V IMPRESSION: Status post left thoracentesis there is no pneumothorax. There is left lower lobe platelike atelectasis.
--- NOTE | ~2022-01-10 | CT_ITS ---
EXAMINATION: CT ANGIOGRAM OF THE CHEST WITH AND WITHOUT CONTRAST (CT PULMONARY ANGIOGRAM FOR PE) CLINICAL INFORMATION: Reason for Exam dyspnea, elevated ddimer COMPARISON: Chest x-ray earlier today as well as chest ultrasound. Abdominal ultrasound 08/17/2021 TECHNIQUE: Prior to contrast administration, noncontrast localization images were obtained. Subsequently, multidetector volumetric imaging was performed from the thoracic inlet to below the diaphragms following the administration of 70 mL Omnipaque 350 intravenous contrast. No contrast reaction reported Sagittal, coronal, and MIP oblique sagittal reformatted images were obtained on the CT workstation, uploaded to PACS, and reviewed. This CT examination was performed using dose optimization techniques as appropriate, variously including the following: *Automated exposure control *Adjustment of mA and/or kV according to patient size (this includes techniques or standardized protocols for targeted exams where dose is matched to indication/reason for exam; i.e. extremities or head) *Use of iterative reconstruction technique Total exam dose-length product 282 mGy-cm FINDINGS: QUALITY OF STUDY/CONTRAST BOLUS: Satisfactory. PULMONARY ARTERIES: No central or segmental pulmonary emboli. THORACIC AORTA: No aneurysm or dissection. LUNGS AND PLEURA: The lung volumes are low with elevation right hemidiaphragm and a large left pleural effusion with only a small amount of aerated lung in the left upper lobe. There is complete collapse of the lingula and left lower lobe. No right-sided infiltrates are seen. Some right basilar atelectasis is present. No suspicious lung masses are seen. MEDIASTINUM: Normal heart size. No pericardial effusion. No hilar or mediastinal lymphadenopathy. No evidence of septal bowing or right heart strain. CHEST WALL/AXILLA: No axillary or internal mammary lymphadenopathy. OSSEOUS STRUCTURES: No acute or suspicious osseous abnormality. UPPER ABDOMEN: Large volume ascites is present. On the abdominal ultrasound dated 08/17/2021, no ascites was present. No reflux of contrast into the hepatic veins to suggest elevated right heart pressures. CT/CT angio chest PE protocol IMPRESSION: 1. No evidence of pulmonary emboli 2. Large left pleural effusion with complete collapse of the lingula and left lower lobe. 3. Large volume ascites. 4. These 2 factors could probably account for the patient's dyspnea. VTE: negative
--- NOTE | ~2022-01-10 | XR_ITS ---
EXAMINATION: XR CHEST CLINICAL INFORMATION: Shortness of breath. COMPARISON: 01/14/2022 TECHNIQUE: Frontal view of the chest was obtained. FINDINGS: Low lung volumes. Left basilar airspace opacities. Small left pleural effusion. No pneumothorax. The cardiomediastinal silhouette is within normal limits. XR/XR chest 1V IMPRESSION: Small left pleural effusion. Left basilar airspace opacities could represent atelectasis or pneumonia.
--- NOTE | ~2022-01-10 | US_ITS ---
CLINICAL HISTORY: This patient is a 26 years old Male with ascites and jaundice found on physical exam, who is referred to interventional radiology for ultrasound-guided paracentesis. PROCEDURE: Ultrasound-guided paracentesis. PROCEDURALIST: Interventional Radiologist: Mert Staton M.D., F.S.I.R., F.KylieC.Amy. MEDICATIONS: 10 mL of 1% lidocaine SQ. COMPLICATIONS: None. ESTIMATED BLOOD LOSS: <5 mL. SPECIMENS: A sample of fluid was sent for the laboratory tests that were requested. The specimen was marked appropriately in order to inform the referring physician of the results. PROCEDURE NOTE: Informed consent was obtained from the patient prior to the procedure. During this process, the procedure and potential alternatives were explained along with the intended outcome and benefits. The risks of the procedure, including the possibility of an unsuccessful procedure, as well as the risk of not doing the procedure, were discussed. The patient was given the opportunity to ask questions regarding the procedure and appeared competent to make decisions. A signed consent form documenting this discussion was placed in the medical record. SITE MARKING: As part of the preprocedure verification policy, a site marking procedure was initiated. Due to the nature the procedure, the insertion site could not be predetermined thus invoking the policy of exemption to site laterality and marking. Insertion site marking was performed in the procedure room in conjunction with imaging confirmation. All elements of maximal sterile barrier technique followed including use of cap, mask, sterile gown, sterile gloves, a sterile full body drape and hand hygiene. Also followed skin preparation with 2% chlorhexidine for cutaneous antisepsis, and sterile ultrasound preparation with sterile gel and probe cover when applicable. Appropriate pre-procedure medical history and imaging studies were reviewed. The patient was brought to the ultrasound room and placed in the supine position. A time-out procedure was performed. Ultrasound images of the abdomen were obtained to localize a large collection of ascites. Images were permanently saved to the record. An area of the right lower quadrant was prepped and draped in the standard sterile fashion. 10 mL of 1% lidocaine was used to obtain local anesthesia of the skin and deeper tissues. A standard small-bore needle was introduced to sample fluid and demonstrated a safe access route. There was no evidence of traversing adjacent organs or vascular structures. A 5 [place] closed needle/catheter system was utilized for access. 2800 mL of clear mario-colored fluid was aspirated before drainage ceased. The catheter was removed and sterile dressing applied. The patient tolerated the procedure well without evidence of complications. The patient tolerated the procedure well. The patient was discharged from the room in unchanged condition. FINDINGS: Moderate simple abdominal ascites as detailed above. Complications: None. US/US paracentesis abd w/image IMPRESSION: Successful ultrasound-guided therapeutic and diagnostic paracentesis. PLAN: The patient was stable after the procedure. The patient will be transferred to his room in unchanged condition.
[2022-01-10 15:54] VITALS: BP 154/81; PULSE 123; RESP 16; TEMP 36.5; O2SAT 100; BMI 27.0
--- NOTE | 2022-01-10 19:30 | ECG_ITS ---
Test Reason : shortness of breath Blood Pressure : / mmHG Vent. Rate : 119 BPM Atrial Rate : 000 BPM P-R Int : 000 ms QRS Dur : 080 ms QT Int : 444 ms P-R-T Axes : 000 -07 052 degrees QTc Int : 624 ms Sinus tachycardia Cannot rule out Anterior infarct , age undetermined Nonspecific ST and T wave abnormality Abnormal ECG When compared with ECG of 21-MAR-2017 15:04, Vent. rate has increased BY [address] no longer elevated in Lateral leads Nonspecific T wave abnormality now evident in Lateral leads Referred By: Leida Fuller Electronically Signed By:LITO MORENO MD
--- NOTE | 2022-01-10 19:34 | ED_ITS ---
HPI - SOB/Dyspnea General Chief Complaint: Dyspnea Stated Complaint: sent from ultrasound,sob Time Seen by Provider: 01/10/22 15:32 Source: patient and family Mode of arrival: ambulatory Limitations: no limitations History of Present Illness HPI Narrative: 26-year-old male with a history of alcoholic hepatitis here with reports of shortness of breath and cough. Patient tells me he was diagnosed with alcoholic hepatitis last fall. He has been seen and followed by Dr. Silav. At that time he completed a course of prednisone and has a follow-up appointment with Dr. Silva on January 25 to discuss his plan of care. He tells me he has been feeling well. Unfortunately, over the last 2 months he developed a dry cough and over the last few weeks increasing shortness of breath. There is no associated fevers, chills, chest pain. He had outpatient x-ray on January 07 that was concerning for pleural effusion and he had a ultrasound today that showed a moderate to large right pleural effusion. The patient tells me over the last few days his shortness of breath has gotten worse. Initially it was only with exertion but now it occurs with lying flat and even talking. Related Data Home Medications Medication Instructions Recorded Confirmed amlodipine 5 mg tablet 2 tab PO DAILY 01/10/22 01/10/22 clonidine HCl 0.1 mg tablet 1 tab PO DAILY 01/10/22 01/10/22 divalproex 500 mg tablet,extended 1 tab PO BID 01/10/22 01/10/22 release 24 hr potassium chloride 10 mEq 1 tab PO DAILY 01/10/22 01/10/22 tablet,extended release spironolactone 25 mg tablet 1 tab PO DAILY 01/10/22 01/10/22 Allergies Allergy/AdvReac Type Severity Reaction Status Date / Time No Known Allergies Allergy Unverified 01/10/22 15:53 Review of Systems Review of Systems: Yes all other systems are reviewed and are negative Constitutional: Constitutional: Reports no additional constitutional complaints, Denies body ache(s), Denies chills, Denies fever(s), Denies headache(s) and Denies weakness Eyes: Eyes: Reports no additional eye complaints and Denies change in vision ENT: Reports system reviewed and no additional complaints, except as documented, Denies dizziness, Denies headache(s), Denies nasal congestion, Denies nasal discharge and Denies neck pain Cardiovascular: Cardiovascular: Reports no additional cardiovascular complaints, Denies chest pain, Denies leg edema and Reports dyspnea Respiratory: Respiratory: Reports no additional respiratory complaints, Reports cough and Reports dyspnea Gastrointestinal: Gastrointestinal: Reports no additional gastrointestinal complaints, Denies abdominal pain, Denies diarrhea, Denies nausea and Denies vomiting Genitourinary: Genitourinary: Denies urinary incontinence Musculoskeletal: Musculoskeletal: Reports no additional musculoskeletal complaints, Denies back pain, Denies arthralgias, Denies joint swelling, Denies neck pain, Denies numbness and Denies tingling Integumentary/Breasts: Skin/Breast: Reports system reviewed and no additional complaints, except as docu and Denies rash Neurologic: Reports system reviewed and no additional complaints, except as documented, Denies Abnormal speech present, Denies dizziness, Denies headache(s), Denies numbness, Denies tingling and Denies weakness PMFSH Past Medical History Attestation statement: The following information was validated with the patient. Source: old records reviewed and nursing notes reviewed Medical History HTN (hypertension) Social History Social History Advance Directives: No Advance Directives Information Provided: No Physical Exam Vital Signs: Vital Signs: Last Vital Signs Temp 98.5 F 01/10/22 20:24 Pulse 118 H 01/10/22 20:24 Resp 18 01/10/22 20:24 BP 135/71 01/10/22 20:24 Pulse Ox 95 01/10/22 20:24 BMI result Body Mass Index 27.0 Const: General: cooperative, healthy appearing, comfortable and no acute distress Orientation/consciousness: patient oriented x3 Limitations: no limitations HENMT: Other: Tacky mucous membranes Head: Yes normal to inspection Ears: hearing grossly normal bilaterally General nose exam: Normal external nose present Face and sinus: Yes normal facial exam Mouth: Normal oral and palatal mucosa present Throat: Yes posterior oropharynx normal Eyes: General: appearance normal, both eyes and all related structures Sclerae: scleral abnormal (icterus ) Pupils: Equal, round and reactive pupils present Neck: Neck: Yes normal visual inspection, Yes full ROM, Yes no lymphadenopathy and Yes no meningeal signs Chest: Chest palpation & inspection: normal inspection of the chest Resp: Other: Diminished breath sounds right-sided Tachypnea with talking Cardio: Rate: tachycardic (123) Rhythm: regular rhythm Peripheral pulses: Peripheral pulses 2+ throughout GI: Inspection: Yes normal to inspection Palpation (GI): Soft to palpation and nontender Auscultation: normal bowel sounds Back/Spine/Pelvis: Thoracic/Lumbar Spine: thoracic and lumbar spine normal to inspection Skin: General skin exam: no rashes or lesions noted Neuro: General: patient oriented x3, no meningeal signs, no focal motor deficits and normal sensation to monofilament Cranial nerves: Yes Equal, round and reactive pupils present Cognition (Neuro): normal cognition Speech: No Abnormal speech present Gait exam (Neuro): Normal gait present Motor exam (neuro): 5/5 motor strength present throughout Extrem: General: Yes normal to inspection Course Course Course Narrative: 26-year-old male with a history of alcoholic hepatitis now with cough and increasing shortness of breath over the last 2 months with a new pleural effusion noted on chest ultrasound today. Patient on arrival is tachypneic with speaking and has diminished breath sounds on right side with tachycardia 123. He has tacky MM. Will check labs, EKG, give gentle hydration. Anticipate admission for thoracentesis 2119-reviewed labs which show transaminitis, hypo magnesemia, hyponatremia, thrombocytopenia, hypokalemia all likely secondary to underlying alcohol hepatitis. Patient tells me he is currently sober and has not had a drink since September. His heart rate has improved with mild hydration. Will give 1 dose of IV Lasix. Discussed case with Dr. Bailey who accepted patient. She is requesting a repeat chest x-ray and D-dimer that she will follow. MDM - SOB/Dyspnea Medical Records Attestation: I reviewed the patient's medical records. Lab Data Attestation: I reviewed the patient's lab results. Result diagrams: 01/10/22 20:19 01/10/22 20:19 Labs: Lab Results 01/10/22 01/10/22 01/10/22 Range/Units 20:19 20:19 20:19 WBC 11.6 H (4.8-10.8) X10*3/uL RBC 2.68 L (4.60-5.80) X10*6/uL Hgb 10.3 L (14.0-18.0) g/dl Hct 29.5 L (42.0-52.0) % MCV 110.1 H (80.0-98.0) fL MCH 38.4 H (27.0-33.0) pg MCHC 34.9 (31.0-36.0) g/dl RDW 15.9 (11.0-16.0) % Plt Count 102 L D (160-400) X10*3/uL MPV 8.7 L (9.4-12.4) fL Immature Gran % (Auto) 1.0 H (0.0-0.4) % Neut % (Auto) 73.4 H (45-73) % Lymph % (Auto) 11.8 L (20-40) % [place] % (Auto) 13.1 H (2-11) % Eos % (Auto) 0.3 (0-4) % Baso % (Auto) 0.4 (0-2) % Lymph # (Auto) 1.4 (1.2-4.9) X10*3/uL [place] # (Auto) 1.5 H (0.1-1.2) X10*3/uL Eos # (Auto) 0.0 (0.0-0.4) X10*3/uL Baso # (Auto) 0.1 (0.0-0.2) X10*3/uL Abs Immat Gran (auto) 0.12 H (0.00-0.03) X10*3/uL Absolute Neuts (auto) 8.5 H (2.0-8.3) x10*3/uL Absolute Nucleated RBC 0.000 (0.0-0.012) X10*3/uL Nucleated RBC % (auto) 0.0 (0.0-0.2) /100WBC Smear Tech's Comments VERIFIED PT 22.6 H (9.9-13.0) SEC INR 2.0 H (0.9-1.1) D-Dimer High Sensitivty 9597 NG/ML Sodium 130 L (135-145) mmol/L Potassium 3.2 L (3.3-5.1) mmol/L Chloride 91 L (96-108) mmol/L Carbon Dioxide 27 (22-29) mmol/L Anion Gap 15 (12-20) BUN 15 D (9-16) mg/dL Creatinine 0.84 (0.5-1.4) mg/dL Estim Creat Clear Calc 147.9 Estimated GFR > 60 Random Glucose 97 (60-115) mg/dL Calcium 8.6 (8.4-10.2) mg/dL Magnesium 1.5 L (1.6-2.6) mg/dL Total Bilirubin 8.0 H (0.0-1.0) mg/dL Direct Bilirubin 5.6 H (0.0-0.5) mg/dL AST 40 H (5-37) U/L ALT 6 (0-40) U/L Alkaline Phosphatase 142 H (39-117) U/L Total Protein 7.0 (6.5-8.0) g/dL Albumin 2.7 L (3.5-5.0) g/dL COVID-19 ([facility]) (Negative) COVID-19 Clin Com 01/10/22 Range/Units 20:19 WBC (4.8-10.8) X10*3/uL RBC (4.60-5.80) X10*6/uL Hgb (14.0-18.0) g/dl Hct (42.0-52.0) % MCV (80.0-98.0) fL MCH (27.0-33.0) pg MCHC (31.0-36.0) g/dl RDW (11.0-16.0) % Plt Count (160-400) X10*3/uL MPV (9.4-12.4) fL Immature Gran % (Auto) (0.0-0.4) % Neut % (Auto) (45-73) % Lymph % (Auto) (20-40) % [place] % (Auto) (2-11) % Eos % (Auto) (0-4) % Baso % (Auto) (0-2) % Lymph # (Auto) (1.2-4.9) X10*3/uL [place] # (Auto) (0.1-1.2) X10*3/uL Eos # (Auto) (0.0-0.4) X10*3/uL Baso # (Auto) (0.0-0.2) X10*3/uL Abs Immat Gran (auto) (0.00-0.03) X10*3/uL Absolute Neuts (auto) (2.0-8.3) x10*3/uL Absolute Nucleated RBC (0.0-0.012) X10*3/uL Nucleated RBC % (auto) (0.0-0.2) /100WBC Smear Tech's Comments PT (9.9-13.0) SEC INR (0.9-1.1) D-Dimer High Sensitivty NG/ML Sodium (135-145) mmol/L Potassium (3.3-5.1) mmol/L Chloride (96-108) mmol/L Carbon Dioxide (22-29) mmol/L Anion Gap (12-20) BUN (9-16) mg/dL Creatinine (0.5-1.4) mg/dL Estim Creat Clear Calc Estimated GFR Random Glucose (60-115) mg/dL Calcium (8.4-10.2) mg/dL Magnesium (1.6-2.6) mg/dL Total Bilirubin (0.0-1.0) mg/dL Direct Bilirubin (0.0-0.5) mg/dL AST (5-37) U/L ALT (0-40) U/L Alkaline Phosphatase (39-117) U/L Total Protein (6.5-8.0) g/dL Albumin (3.5-5.0) g/dL COVID-19 ([facility]) Negative (Negative) COVID-19 Clin Com See Note Imaging Data chest US: Attestation: I personally reviewed and interpreted this imaging study as follows: Radiologist's impression: EXAMINATION: US CHEST CLINICAL INFORMATION: Pleural effusion? COMPARISON: Chest radiograph 01/07/2022? TECHNIQUE: Focused sonographic evaluation of the chest performed bilaterally.? FINDINGS: There is a moderate to large left pleural effusion without loculation. There is no right pleural effusion. There is partially visualized ascites within the right upper quadrant.? US/US chest IMPRESSION: Moderate to large right pleural effusion and partially visualized perihepatic ascites.? ? ECG Data Attestation: I personally reviewed and interpreted this ECG as follows: ECG interpretation date: 01/10/22 ECG interpretation time: 20:09 Interpretation: Normal sinus rhythm with a rate of 119, normal QRS, QTC is 624 Discharge Plan Discharge Clinical Impression: Alcoholic hepatitis, Acute hyponatremia, Acute hypokalemia, Hypochloremia, Hypomagnesemia, Thrombocytopenia, Shortness of breath, Pleural effusion Patient Disposition: Admitted As Inpatient Prescriptions: No Action clonidine HCl 0.1 mg tablet 1 tab PO DAILY 0RF potassium chloride 10 mEq tablet extended release 1 tab PO DAILY 0RF amlodipine 5 mg tablet 2 tab PO DAILY 0RF spironolactone 25 mg tablet 1 tab PO DAILY 0RF divalproex 500 mg tablet extended release 24 hr 1 tab PO BID 0RF
[2022-01-10 20:24] VITALS: BP 135/71; PULSE 118; RESP 18; TEMP 36.9; O2SAT 95
[2022-01-10 20:26] LABS: Basophils Absolute Auto 0.1 X10*3/uL (0.0-0.2); Basophils Percent Auto 0.4 % (0-2); Eosinophils Percent Auto 0.3 % (0-4); Hematocrit 29.5 % (42.0-52.0); Hemoglobin 10.3 g/dl (14.0-18.0); Imm Gran Abs Auto 0.12 X10*3/uL (0.00-0.03); Lymphocytes Absolute Auto 1.4 X10*3/uL (1.2-4.9); Lymphocytes Percent Auto 11.8 % (20-40); MANUAL DIFF FLAG SCAN; Mean Corpuscular HGB Conc 34.9 g/dl (31.0-36.0); Mean Corpuscular Hemoglobin 38.4 pg (27.0-33.0); Mean Corpuscular Volume 110.1 fL (80.0-98.0); Mean Platelet Volume 8.7 fL (9.4-12.4); Monocytes Absolute Auto 1.5 X10*3/uL (0.1-1.2); Monocytes Percent Auto 13.1 % (2-11); Neutrophils Absolute Auto 8.5 x10*3/uL (2.0-8.3); Neutrophils Percent Auto 73.4 % (45-73); Platelet Count 102 X10*3/uL (160-400); Red Blood Count 2.68 X10*6/uL (4.60-5.80); Red Cell Distribution Width 15.9 % (11.0-16.0); SCAN SMEAR FLAG 1; White Blood Count 11.6 X10*3/uL (4.8-10.8)
[2022-01-10 20:37] LABS: Prothrombin Time 22.6 SEC (9.9-13.0)
[2022-01-10 20:42] LABS: COVID-19 Test Negative (Negative)
[2022-01-10 20:46] LABS: Alanine Aminotransferase 6 U/L (0-40); Albumin Level 2.7 g/dL (3.5-5.0); Alkaline Phosphatase 142 U/L (39-117); Anion Gap 15 (12-20); Aspartate Amino Transferase 40 U/L (5-37); Bilirubin Direct 5.6 mg/dL (0.0-0.5); Blood Urea Nitrogen 15 mg/dL (9-16); Calcium 8.6 mg/dL (8.4-10.2); Carbon Dioxide 27 mmol/L (22-29); Chloride 91 mmol/L (96-108); Creatinine Clr Calc Pharmacy 147.9; Estimated Glomerular Filt Rate > 60; Glucose Random 97 mg/dL (60-115); Magnesium 1.5 mg/dL (1.6-2.6); Potassium 3.2 mmol/L (3.3-5.1); Sodium 130 mmol/L (135-145)
[2022-01-10 20:49] LABS: SLIDE REVIEW VERIFIED
[2022-01-10] MEDS: 0.9 % Sodium Chloride 500 ML 999 ML IV (20:49)
[2022-01-10] MEDS: Furosemide 40 MG/4 ML VIAL IVPUSH (21:05)
--- NOTE | 2022-01-10 21:08 | PC.NURSE ---
pt taken to rad.
[2022-01-10 21:16] LABS: D Dimer High Sensitivity 9597 NG/ML
--- NOTE | 2022-01-10 21:22 | PHA.MEDREC ---
Pharmacy Consult ? Medication Reconciliation Pharmacy has completed the medication reconciliation. SPOKE WITH PATIENT WHO KNEW ALL MEDICATIONS. PT TOOK ALL MEDICATIONS TODAY
[2022-01-10] MEDS: Potassium Chloride Packet 20 MEQ PACKET 30 MEQ PO (21:29)
[2022-01-10] MEDS: Magnesium Sulfate/H2O 2 GM/50 ML PIGGYBACK IV (21:30)
[2022-01-10 22:00] VITALS: BP 135/71; PULSE 116; RESP 18
[2022-01-10] MEDS: iohexoL 350 MG/ML 100 ML INFUS..BTL IV (22:50)
--- NOTE | 2022-01-10 23:25 | P.HPHOSP_ITS ---
History of Present Illness Date of Service: 01/10/22 Chief Complaint: cough, sob This is a 26-year-old male with a recently diagnosed alcoholic hepatitis who presents to the hospital with worsening shortness of breath and cough. Patient reports that he has had a cough for few months, but then developed worsening shortness of breath for the past 1 month. He had an x-ray done at his PCPs office on 01/07 which showed new left basilar airspace disease and small to moderate pleural effusion, he then went to his doctor for follow-up on 01/10 and had a chest ultrasound done which showed moderate to large right pleural effusion and partially visualized perihepatic ascites. Due to his severe symptoms including dyspnea at rest and tachycardia patient was sent to the ED. patient denies having any chest pain but has left upper quadrant pain, denies any fever but has chills, no nausea or vomiting, no diarrhea constipation, no urinary symptoms and no lower extremity edema. He reports that his abdominal distention is not increased more than usual, he is jaundice but reports that has improved since his diagnosis of liver failure in August. He denies having any headache, no change in vision, no weakness numbness or tingling. On arrival to the ED patient's vitals are significant for heart rate of 123, respiratory rate of 16, satting 100% on room air. Has a temp of 97.7 degrees Labs are significant for WBC count of 11.6, hemoglobin of 10.3, hematocrit 29.5, INR of 2.0, plt ct of 102, sodium of 130, potassium of 3.2, Mag of 1.5, total bili of 8.0, direct bili of 5.6, AST of 40, alk-phos of 142, although in of 2.7. D-dimer of [address] angiogram of the chest which showed no evidence of PE, large left pleural effusion with complete collapse of the left lingula and left lower lobe, large volume ascites patient will be admitted for further management Review of Systems Review of Systems: Yes all other systems are reviewed and are negative [facility] Medical History (Updated 01/11/22 @ 05:59 by Calvin Bailey MD) Alcoholic hepatitis HTN (hypertension) Family History (Updated 01/11/22 @ 05:55 by Calvin Bailey MD) Other No family history of coronary artery disease Surgical History (Updated 01/11/22 @ 05:55 by Calvin Bailey MD) No pertinent past surgical history Social History (Updated 01/11/22 @ 05:56 by Calvin Bailey MD) Alcohol intake: former Patient Tobacco Use Status: Never used Tobacco Use of substances other than those prescribed or required for medical reasons: No Advance Directives: No Advance Directives Information Provided: No Meds Allergies Allergy/AdvReac Type Severity Reaction Status Date / Time No Known Allergies Allergy Unverified 01/10/22 15:53 Active Medications: Current Medications Pharmacy Consult (Consult Rx Perform Med Rec) 1 each MISCELLANE ONCE PRN PRN Reason: Consult order Home Medications Medication Instructions Recorded Confirmed Last Taken Type amlodipine 5 mg tablet 2 tab PO DAILY 01/10/22 01/10/22 01/10/22 History clonidine HCl 0.1 mg tablet 1 tab PO DAILY 01/10/22 01/10/22 01/10/22 History divalproex 500 mg tablet,extended 1 tab PO BID 01/10/22 01/10/22 01/10/22 History release 24 hr potassium chloride 10 mEq 1 tab PO DAILY 01/10/22 01/10/22 01/10/22 History tablet,extended release spironolactone 25 mg tablet 1 tab PO DAILY 01/10/22 01/10/22 01/10/22 History Physical Exam Vital Signs and Narrative: Vital Signs: Last Vital Signs Temp 98.5 F 01/10/22 20:24 Pulse 116 H 01/10/22 22:00 Resp 18 01/10/22 22:00 BP 135/71 01/10/22 22:00 Pulse Ox 95 01/10/22 20:24 BMI result Body Mass Index 27.0 Const: Other: patient appears labored, fatigue to, jaundiced General: cooperative Orientation/consciousness: patient oriented x3 Eyes: Other: scleral icterus General: appearance normal, both eyes and all related structures Pupils: Equal, round and reactive pupils present Resp: Effort & Inspection: normal respiratory effort Auscultation: clear to auscultation bilaterally Cardio: Rate: regular rate Rhythm: regular rhythm GI: Other: abdomen is soft, no tenderness, no rebound or guarding Palpation (GI): Soft to palpation Auscultation: normal bowel sounds Skin: Other: jaundice skin Neuro: General: patient oriented x3 Cranial nerves: Yes Equal, round and reactive pupils present Cognition (Neuro): normal cognition Extrem: General: Yes normal to inspection and Yes no pedal edema Results Labs CBC and Chem 7: 01/10/22 20:19 01/10/22 20:19 Labs: Laboratory Results - last 24 hr 01/10/22 01/10/22 01/10/22 20:19 20:19 20:19 MCV 110.1 H MCH 38.4 H MCHC 34.9 RDW 15.9 Plt Count 102 L D MPV 8.7 L Immature Gran % (Auto) 1.0 H Neut % (Auto) 73.4 H Lymph % (Auto) 11.8 L Tyrrell % (Auto) 13.1 H Eos % (Auto) 0.3 Baso % (Auto) 0.4 Lymph # (Auto) 1.4 Tyrrell # (Auto) 1.5 H Eos # (Auto) 0.0 Baso # (Auto) 0.1 Abs Immat Gran (auto) 0.12 H Absolute Neuts (auto) 8.5 H Absolute Nucleated RBC 0.000 Nucleated RBC % (auto) 0.0 Smear Tech's Comments VERIFIED PT 22.6 H INR 2.0 H D-Dimer High Sensitivty 9597 Anion Gap 15 Estim Creat Clear Calc 147.9 Estimated GFR > 60 Random Glucose 97 Calcium 8.6 Magnesium 1.5 L Total Bilirubin 8.0 H Direct Bilirubin 5.6 H AST 40 H ALT 6 Alkaline Phosphatase 142 H Total Protein 7.0 Albumin 2.7 L COVID-19 ([facility]) COVID-19 Clin Com 01/10/22 20:19 MCV MCH MCHC RDW Plt Count MPV Immature Gran % (Auto) Neut % (Auto) Lymph % (Auto) Tyrrell % (Auto) Eos % (Auto) Baso % (Auto) Lymph # (Auto) Tyrrell # (Auto) Eos # (Auto) Baso # (Auto) Abs Immat Gran (auto) Absolute Neuts (auto) Absolute Nucleated RBC Nucleated RBC % (auto) Smear Tech's Comments PT INR D-Dimer High Sensitivty Anion Gap Estim Creat Clear Calc Estimated GFR Random Glucose Calcium Magnesium Total Bilirubin Direct Bilirubin AST ALT Alkaline Phosphatase Total Protein Albumin COVID-19 ([facility]) Negative COVID-19 Clin Com See Note Imaging Radiologist's Impressions: Impressions Chest X-Ray 01/10/22 21:12 IMPRESSION: There is a moderately sized left pleural effusion. Findings have not substantially changed when compared to recent prior imaging from 01/07/2022. Chest CTA 01/10/22 22:50 IMPRESSION: 1. No evidence of pulmonary emboli 2. Large left pleural effusion with complete collapse of the lingula and left lower lobe. 3. Large volume ascites. 4. These 2 factors could probably account for the patient's dyspnea. VTE: negative Assessment and Plan (1) Pleural effusion: Status: Acute (2) Shortness of breath: Status: Acute (3) Thrombocytopenia: Status: Acute (4) Hypomagnesemia: Status: Acute (5) Acute hypokalemia: Status: Acute (6) Acute hyponatremia: Status: Acute (7) Coagulopathy: Status: Acute (8) Abdominal ascites: Status: Acute Plan 26-year-old male with recently diagnosed alcoholic hepatitis presents to the hospital with shortness of breath found to have a large pleural effusion # dyspnea - acute on chronic - secondary to large pleural effusion as well as abdominal ascites - CT of the chest shows large left pleural effusion with complete collapse of the lingula and left lower lobe of - no evidence of PE or pneumonia - will consult thoracic surgery for thoracocentesis in a.m. # abdominal ascites - secondary to liver failure - will consult GI - possibly need for paracentesis given his symptoms - patient has no abdominal pain, afebrile, no leukocytosis, SBP unlikely # electrolyte abnormality including hypomagnesemia, acute hypokalemia as well as hyponatremia - likely secondary to poor oral intake as well as liver failure - electrolytes have been repleted - follow BMP and magnesium level # hypernatremia - likely secondary hypovolemic hyponatremia - monitor BMP # coagulopathy - secondary to liver - follow PT INR - monitor for bleed # thrombocytopenia - secondary to above - follow CBC - monitor for bleed # history of alcoholic hepatitis - will consult GI DVT prophylaxis: SCDS in setting of anticipated thoracocentesis and paracentesis Quality Stroke Does the patient have a stroke diagnosis?: No VTE Prior VTE?: No VTE Risk Level:: Medical - moderate - high VTE Device Contraindication: N/A - Device Ordered VTE Drug Contraindication: Treatment Not Indicated
[2022-01-11] VITALS (9 sets, daily range): BP systolic 116–138; BP diastolic 63–77; PULSE 98–119; RESP 16–18; TEMP 36.3–37.2; O2SAT 92–97; BMI 27.8; BMI 24.6
--- NOTE | 2022-01-11 03:55 | PC.NURSE ---
pt sleeping skin warm dry and jaundice. pt resting and has been npo since midnight.
--- NOTE | 2022-01-11 04:48 | PC.NURSE ---
report given to luca stevenson in overflow pt is ready for transfer.
[2022-01-11] MEDS: oxyCODONE HCl Immed Release 5 MG TABLET PO (06:04)
[2022-01-11] MEDS: Potassium Chloride Packet 20 MEQ PACKET 40 MEQ PO (06:04)
--- NOTE | 2022-01-11 06:17 | PC.NURSE ---
Received report from ED nurse and took over patient care around 05:20. Pt A&Ox3, pleasant and cooperative. +Jaundice. LS-dim throughout. Pt c/o sob and dry cough. Abdomen distended and tender in left quadrant. Dr notified and Oxycodone given for pain. BS hypoactive throughtout. Pt tolerated PO Potassium in apple juice. IV RAC patent. PP+, No edema. Pt ambulates with a steady gait. Pt resting in bed with eyes closed and call rdz within reach. Will continue to monitor.
[2022-01-11 06:37] LABS: MANUAL DIFF FLAG NO
[2022-01-11 06:44] LABS: Basophils Absolute Auto 0.1 X10*3/uL (0.0-0.2); Basophils Percent Auto 0.5 % (0-2); Eosinophils Absolute Auto 0.1 X10*3/uL (0.0-0.4); Eosinophils Percent Auto 0.7 % (0-4); Hematocrit 27.2 % (42.0-52.0); Hemoglobin 9.3 g/dl (14.0-18.0); Imm Gran Abs Auto 0.12 X10*3/uL (0.00-0.03); Imm Gran Pct Auto 1.3 % (0.0-0.4); Lymphocytes Absolute Auto 1.2 X10*3/uL (1.2-4.9); Lymphocytes Percent Auto 12.6 % (20-40); Mean Corpuscular HGB Conc 34.2 g/dl (31.0-36.0); Mean Platelet Volume 9.3 fL (9.4-12.4); Monocytes Absolute Auto 1.3 X10*3/uL (0.1-1.2); Monocytes Percent Auto 14.2 % (2-11); Neutrophils Absolute Auto 6.7 x10*3/uL (2.0-8.3); Neutrophils Percent Auto 70.7 % (45-73); Red Blood Count 2.45 X10*6/uL (4.60-5.80); Red Cell Distribution Width 16.1 % (11.0-16.0); White Blood Count 9.5 X10*3/uL (4.8-10.8)
[2022-01-11 07:09] LABS: Anion Gap 14 (12-20); Blood Urea Nitrogen 16 mg/dL (9-16); Calcium 8.1 mg/dL (8.4-10.2); Carbon Dioxide 26 mmol/L (22-29); Chloride 92 mmol/L (96-108); Creatinine Clr Calc Pharmacy 169.9; Estimated Glomerular Filt Rate > 60; Glucose Random 92 mg/dL (60-115); Magnesium 1.8 mg/dL (1.6-2.6); Potassium 3.4 mmol/L (3.3-5.1); Sodium 129 mmol/L (135-145)
[2022-01-11 07:16] LABS: Platelet Count 75 X10*3/uL (160-400)
[2022-01-11] MEDS: Furosemide 40 MG/4 ML VIAL IVPUSH (09:52)
[2022-01-11] MEDS: Spironolactone 25 MG TABLET PO (09:52)
[2022-01-11] MEDS: Phytonadione (Vit K1) Oral 10 MG/ML AMPUL 5 MG PO (09:52)
--- NOTE | 2022-01-11 09:52 | HO.PM.IMPN ---
Subjective Subjective Date of Service: 01/11/22 Interval History: the patient was seen and evaluated this morning Laying in bed, complaining of difficulty breathing and coughing Denies any fever, chills or abdominal pain No reported other overnight events. Systemic review: No fever, chills but has increased ascites and difficulty breathing No chest pain, palpitation report dyspnea on exertion and coughing No abdominal pain, nausea or vomiting but abdominal distension No urinary symptoms No any rash or wounds Physical Exam Vital Signs: Vital Signs: Last Vital Signs Temp 98.2 F 01/11/22 05:24 Pulse 110 H 01/11/22 09:06 Resp 18 01/11/22 09:06 BP 126/73 01/11/22 09:06 Pulse Ox 96 01/11/22 09:06 BMI result Body Mass Index 27.8 Const: Other: Constitutional : Alert, oriented, jaundiced, not in distress Neck : Normal inspection, Supple Cardiovascular : RRR, S1 S2, trace bilateral lower extremity edema Respiratory : decreased air entry over the left lung to the mid lung level, fair entry on the right side, no wheezes Gastrointestinal: soft, lax, Normal bowel sounds, Non tender, moderately distended with ascites fluid Skin : Warm, Dry Neurological : Alert & oriented x3, No focal deficit Objective Data Active Medications Amlodipine Besylate (Amlodipine Besylate 10 Mg Tablet) 10 mg PO DAILY [facility]; Protocol Clonidine HCl (Clonidine Hcl 0.1 Mg Tablet) 0.1 mg PO DAILY [facility]; Protocol Divalproex Sodium (Divalproex Sodium Er 500 Mg Tab.Er.24h) 500 mg PO BID [facility] Docusate Sodium (Docusate Sodium 100 Mg Capsule) 100 mg PO DAILY PRN PRN Reason: Constipation Furosemide (Furosemide 40 Mg/4 Ml Vial) 40 mg IVPUSH DAILY [facility]; Protocol Ondansetron HCl (Ondansetron Hcl 4 Mg/2 Ml Vial) 4 mg IVPUSH Q8H PRN PRN Reason: Nausea and Vomiting Pharmacy Consult (Consult Rx Perform Med Rec) 1 each MISCELLANE ONCE PRN PRN Reason: Consult order Potassium Chloride (Potassium Chloride Er 10 Meq Capsule.Er) 10 meq PO DAILY [facility] Sodium Chloride (0.9 % Sodium Chloride Flush 3 Ml Syringe) 3 ml IVFLUSH QSHIFT [facility] Last Admin: 01/11/22 02:11 Dose: Not Given Documented by: HO.MCTA Non-Admin Reason: Med Not Available Spironolactone (Spironolactone 25 Mg Tablet) 25 mg PO DAILY [facility]; Protocol Labs CBC & Chem 7: 01/11/22 06:33 01/11/22 06:33 Labs: Laboratory Results - last 24 hr 01/10/22 01/10/22 01/10/22 20:19 20:19 20:19 MCV 110.1 H MCH 38.4 H MCHC 34.9 RDW 15.9 Plt Count 102 L D MPV 8.7 L Immature Gran % (Auto) 1.0 H Neut % (Auto) 73.4 H Lymph % (Auto) 11.8 L [place] % (Auto) 13.1 H Eos % (Auto) 0.3 Baso % (Auto) 0.4 Lymph # (Auto) 1.4 [place] # (Auto) 1.5 H Eos # (Auto) 0.0 Baso # (Auto) 0.1 Abs Immat Gran (auto) 0.12 H Absolute Neuts (auto) 8.5 H Absolute Nucleated RBC 0.000 Nucleated RBC % (auto) 0.0 Smear Tech's Comments VERIFIED Smear Path Review SEE NOTE PT 22.6 H INR 2.0 H D-Dimer High Sensitivty 9597 Anion Gap 15 Estim Creat Clear Calc 147.9 Estimated GFR > 60 Random Glucose 97 Calcium 8.6 Magnesium 1.5 L Total Bilirubin 8.0 H Direct Bilirubin 5.6 H AST 40 H ALT 6 Alkaline Phosphatase 142 H Total Protein 7.0 Albumin 2.7 L COVID-19 ([facility]) COVID-19 Clin Com 01/10/22 01/11/22 01/11/22 20:19 06:33 06:33 MCV 111.0 H MCH 38.0 H MCHC 34.2 RDW 16.1 H Plt Count 75 L D MPV 9.3 L Immature Gran % (Auto) 1.3 H Neut % (Auto) 70.7 Lymph % (Auto) 12.6 L [place] % (Auto) 14.2 H Eos % (Auto) 0.7 Baso % (Auto) 0.5 Lymph # (Auto) 1.2 [place] # (Auto) 1.3 H Eos # (Auto) 0.1 Baso # (Auto) 0.1 Abs Immat Gran (auto) 0.12 H Absolute Neuts (auto) 6.7 Absolute Nucleated RBC 0.000 Nucleated RBC % (auto) 0.0 Smear Tech's Comments Smear Path Review PT INR D-Dimer High Sensitivty Anion Gap 14 Estim Creat Clear Calc 169.9 Estimated GFR > 60 Random Glucose 92 Calcium 8.1 L Magnesium 1.8 Total Bilirubin Direct Bilirubin AST ALT Alkaline Phosphatase Total Protein Albumin COVID-19 ([facility]) Negative COVID-19 Clin Com See Note Assessment and Plan (1) Abdominal ascites: Status: Acute (2) Coagulopathy: Status: Acute (3) Alcoholic hepatitis: Status: Acute (4) Thrombocytopenia: Status: Acute (5) Acute hyponatremia: Status: Acute Plan 26-year-old male with recently diagnosed alcoholic hepatitis presents to the hospital with shortness of breath found to have a large pleural effusion # dyspnea 2/2 large left pleural effusion CT of the chest shows large left pleural effusion with complete collapse of the lingula and left lower lobe started on Lasix IR to do thoracentesis # alcoholic liver disease with ascites moderate amount to do paracentesis no abdominal pain, afebrile, no leukocytosis, SBP unlikely pending GI evaluation # hypomagnesemia, acute hypokalemia repleted Follow electrolyte levels # hyponatremia secondary to liver disease, likely chronic monitor BMP # coagulopathy secondary to liver, INR of 2 at admission follow PT INR monitor for bleed # thrombocytopenia secondary to chronic liver disease follow CBC monitor for bleed DVT prophylaxis SCDS in setting of anticipated thoracocentesis and paracentesis the patient needs to stay in the hospital for evaluation of pleural effusion and ascites with plan for Thoracentesis and paracentesis. pending GI evaluation. Quality Stroke Does the patient have a stroke diagnosis?: No VTE Prior VTE?: No VTE Risk Level:: Medical - moderate - high VTE Device Contraindication: N/A - Device Ordered VTE Drug Contraindication: Treatment Not Indicated
[2022-01-11] MEDS: Divalproex Sodium ER 500 MG TAB.ER.24H PO ×2 (09:53→22:15)
[2022-01-11] MEDS: amLODIPine Besylate 10 MG TABLET PO (09:53)
[2022-01-11 10:04] LABS: Prothrombin Time 23.5 SEC (9.9-13.0)
--- NOTE | 2022-01-11 11:00 | PC.NURSE ---
Addendum entered by Mouna Valderrama RN 01/11/22 11:02: Pt skin is jaundice and pt with distended abdomen. pt denies pain to the abdomen but verbalizes some discomfort in his left flank. Original Note: Pt is a/ox3. Medicated per MAR. Resting in the hospital bed. Pt independent and ambulatory. pt c/o sob on exertion but verbalizes that he is feeling better than when he came in to the hospital. Plan for pt to have a thoracentesis and paracentesis per providers note. Belongings and callbell within reach at this time.
--- NOTE | 2022-01-11 12:10 | PM.CNGS ---
History of Present Illness Consult details Consult date: 01/11/22 Narrative: 26-year-old male with known alcoholic hepatitis and liver failure who presented initially to his PCP with worsening cough and shortness of breath and had a chest x-ray done on 01/07/2022 which showed small possible pleural effusion on the left side. His symptoms continued to worsen and he had a chest x-ray again done on 01/10/2022 which showed a worsening effusion on the left and ultrasound which again showed moderate to large left-sided pleural effusion. He ultimately had a CTA on 01/10/2022 reviewed by me directly which shows a large simple left-sided pleural effusion and large volume ascites. Other than above, 12 point review of systems was done and documented separately in the office chart with detailed social and family history. [facility] Past Medical History Medical History Alcoholic hepatitis HTN (hypertension) Family History Family History Other No family history of coronary artery disease Surgical History Surgical History No pertinent past surgical history Social History Social History Alcohol intake: former Patient Tobacco Use Status: Never used Tobacco Use of substances other than those prescribed or required for medical reasons: No Advance Directives: No Advance Directives Information Provided: No Meds Allergies Allergy/AdvReac Type Severity Reaction Status Date / Time No Known Allergies Allergy Unverified 01/10/22 15:53 Active Medications: Current Medications Amlodipine Besylate (Amlodipine Besylate 10 Mg Tablet) 10 mg PO DAILY [facility]; Protocol Last Admin: 01/11/22 09:53 Dose: 10 mg Documented by: Clonidine HCl (Clonidine Hcl 0.1 Mg Tablet) 0.1 mg PO DAILY [facility]; Protocol Last Admin: 01/11/22 09:51 Dose: Not Given Documented by: Divalproex Sodium (Divalproex Sodium Er 500 Mg Tab.Er.24h) 500 mg PO BID [facility] Last Admin: 01/11/22 09:53 Dose: 500 mg Documented by: Docusate Sodium (Docusate Sodium 100 Mg Capsule) 100 mg PO DAILY PRN PRN Reason: Constipation Furosemide (Furosemide 40 Mg/4 Ml Vial) 40 mg IVPUSH DAILY [facility]; Protocol Last Admin: 01/11/22 09:52 Dose: 40 mg Documented by: Ondansetron HCl (Ondansetron Hcl 4 Mg/2 Ml Vial) 4 mg IVPUSH Q8H PRN PRN Reason: Nausea and Vomiting Pharmacy Consult (Consult Rx Perform Med Rec) 1 each MISCELLANE ONCE PRN PRN Reason: Consult order Potassium Chloride (Potassium Chloride Er 10 Meq Capsule.Er) 10 meq PO DAILY [facility] Last Admin: 01/11/22 09:53 Dose: 10 meq Documented by: Sodium Chloride (0.9 % Sodium Chloride Flush 3 Ml Syringe) 3 ml IVFLUSH QSHIFT [facility] Last Admin: 01/11/22 10:01 Dose: Not Given Documented by: Spironolactone (Spironolactone 25 Mg Tablet) 25 mg PO DAILY [facility]; Protocol Last Admin: 01/11/22 09:52 Dose: 25 mg Documented by: Home Medications Medication Instructions Recorded Confirmed Last Taken Type amlodipine 5 mg tablet 2 tab PO DAILY 01/10/22 01/10/22 01/10/22 History clonidine HCl 0.1 mg tablet 1 tab PO DAILY 01/10/22 01/10/22 01/10/22 History divalproex 500 mg tablet,extended 1 tab PO BID 01/10/22 01/10/22 01/10/22 History release 24 hr potassium chloride 10 mEq 1 tab PO DAILY 01/10/22 01/10/22 01/10/22 History tablet,extended release spironolactone 25 mg tablet 1 tab PO DAILY 01/10/22 01/10/22 01/10/22 History Physical Exam Vital Signs: Vital Signs: Last Vital Signs Temp 98.2 F 01/11/22 05:24 Pulse 110 H 01/11/22 09:06 Resp 18 01/11/22 09:06 BP 126/73 01/11/22 09:06 Pulse Ox 96 01/11/22 09:06 BMI result Body Mass Index 27.8 General: No acute distress, jaundice HEENT: Moist mucous membranes, normocephalic, pupils equal round and reactive to light. Neck: No thyromegaly, supple, no JVD Lymph: No cervical, supraclavicular, or other lymphadenopathy Chest: No chest wall abnormalities or deformities somewhat tachycardic Heart: Regular rate and rhythm Lungs: Clear to auscultation bilaterally Abdomen: Soft, nontender, distended with distant l bowel sounds Extremities: No edema, cyanosis, or clubbing. Full range of motion Neuro: Grossly intact, alert and oriented x3, and nonfocal Skin: Warm and dry no rashes Affect: Normal Results Labs Result diagrams: 01/11/22 06:33 01/11/22 06:33 Labs: Abnormal lab results 01/10/22 01/10/22 01/10/22 Range/Units 20:19 20:19 20:19 WBC 11.6 H (4.8-10.8) X10*3/uL RBC 2.68 L (4.60-5.80) X10*6/uL Hgb 10.3 L (14.0-18.0) g/dl Hct 29.5 L (42.0-52.0) % MCV 110.1 H (80.0-98.0) fL MCH 38.4 H (27.0-33.0) pg RDW (11.0-16.0) % Plt Count 102 L D (160-400) X10*3/uL MPV 8.7 L (9.4-12.4) fL Immature Gran % (Auto) 1.0 H (0.0-0.4) % Neut % (Auto) 73.4 H (45-73) % Lymph % (Auto) 11.8 L (20-40) % [place] % (Auto) 13.1 H (2-11) % [place] # (Auto) 1.5 H (0.1-1.2) X10*3/uL Abs Immat Gran (auto) 0.12 H (0.00-0.03) X10*3/uL Absolute Neuts (auto) 8.5 H (2.0-8.3) x10*3/uL PT 22.6 H (9.9-13.0) SEC INR 2.0 H (0.9-1.1) Sodium 130 L (135-145) mmol/L Potassium 3.2 L (3.3-5.1) mmol/L Chloride 91 L (96-108) mmol/L Calcium (8.4-10.2) mg/dL Magnesium 1.5 L (1.6-2.6) mg/dL Total Bilirubin 8.0 H (0.0-1.0) mg/dL Direct Bilirubin 5.6 H (0.0-0.5) mg/dL AST 40 H (5-37) U/L Alkaline Phosphatase 142 H (39-117) U/L Albumin 2.7 L (3.5-5.0) g/dL 01/11/22 01/11/22 01/11/22 Range/Units 06:33 06:33 09:50 WBC (4.8-10.8) X10*3/uL RBC 2.45 L (4.60-5.80) X10*6/uL Hgb 9.3 L (14.0-18.0) g/dl Hct 27.2 L (42.0-52.0) % MCV 111.0 H (80.0-98.0) fL MCH 38.0 H (27.0-33.0) pg RDW 16.1 H (11.0-16.0) % Plt Count 75 L D (160-400) X10*3/uL MPV 9.3 L (9.4-12.4) fL Immature Gran % (Auto) 1.3 H (0.0-0.4) % Neut % (Auto) (45-73) % Lymph % (Auto) 12.6 L (20-40) % [place] % (Auto) 14.2 H (2-11) % [place] # (Auto) 1.3 H (0.1-1.2) X10*3/uL Abs Immat Gran (auto) 0.12 H (0.00-0.03) X10*3/uL Absolute Neuts (auto) (2.0-8.3) x10*3/uL PT 23.5 H (9.9-13.0) SEC INR 2.0 H (0.9-1.1) Sodium 129 L (135-145) mmol/L Potassium (3.3-5.1) mmol/L Chloride 92 L (96-108) mmol/L Calcium 8.1 L (8.4-10.2) mg/dL Magnesium (1.6-2.6) mg/dL Total Bilirubin (0.0-1.0) mg/dL Direct Bilirubin (0.0-0.5) mg/dL AST (5-37) U/L Alkaline Phosphatase (39-117) U/L Albumin (3.5-5.0) g/dL Short CBC 01/10/22 01/11/22 Range/Units 20:19 06:33 WBC 11.6 H 9.5 (4.8-10.8) X10*3/uL Hgb 10.3 L 9.3 L (14.0-18.0) g/dl Hct 29.5 L 27.2 L (42.0-52.0) % Plt Count 102 L D 75 L D (160-400) X10*3/uL BMP 01/10/22 01/11/22 20:19 06:33 Sodium 130 L 129 L Potassium 3.2 L 3.4 Chloride 91 L 92 L Carbon Dioxide 27 26 BUN 15 D 16 Creatinine 0.84 0.79 Calcium 8.6 8.1 L Liver Function 01/10/22 Range/Units 20:19 Total Bilirubin 8.0 H (0.0-1.0) mg/dL Direct Bilirubin 5.6 H (0.0-0.5) mg/dL AST 40 H (5-37) U/L ALT 6 (0-40) U/L Alkaline Phosphatase 142 H (39-117) U/L Albumin 2.7 L (3.5-5.0) g/dL All other labs normal. 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 Recommendation for this would be for optimization of the medical management of his liver failure and a IR thoracentesis of large volume without leaving a tube in place as this would likely create significant electrolyte abnormalities and constant significant drainage. Again, the teresa here is optimization of the medical management of his liver failure. (2) Alcoholic hepatitis: Status: Acute See above Procedures Date of Service Date of Service: 01/11/22
--- NOTE | 2022-01-11 14:17 | MHC.CM.PN ---
PT REPORTS HE LIVES ALONE AND IS INDEPENDENT WITH CARE, WORKS AND DRIVES PT HAS NO DME AND NO HOME SERVICES PT DECLINES TO COMPLETE A HCP PT CONFIRMS HIS PCP BETH FERRIS PT REPORTS HE IS COVID-19 VACCINATED WITH PFIZER, NOT BOOSTED CURRENT DC PLAN IS HOME NO SERVICES PT WILL DRIVE HIMSELF HOME IF FEELING WELL ENOUGH, OTHERWISE FAMILY WILL TRANSPORT
[2022-01-11] MEDS: Lidocaine HCl 1 % MPF 5 ML VIAL 10 ML SUBCUT ×2 (16:10→16:15)
[2022-01-11 17:04] LABS: MN% 97.3 %; PMN% 2.7 %; RBC Pleural Fluid 0.049 X10*3/uL; WBC Pleural Fluid 1.004 X10*3/uL
[2022-01-11 17:08] LABS: MN% 81.2 %; PMN% 18.8 %; RBC Peritoneal Fluid 0.004 X10*6/uL; WBC Peritoneal Fluid 0.188 X10*3/uL
[2022-01-11 17:49] LABS: BF Shift QC OK YES
--- NOTE | 2022-01-11 18:09 | PM.EVENT ---
Event Note Date of Service: 01/11/22 Event Note: GI Consult-Full note dictated-History via patient, his mother at the bedside, and the EMR. Imp: 26 yo male known to me from the office with a history of EtOH abuse and cirrhosis presenting with worsening ascites and left pleural effusion. He has reportedly been sober from EtOH since 06/2021. His liver workup was otherwise negative in 08/2021. I treated him with a course of outpatient prednisolone for fairly severe EtOH-induced hepatitis in fall with an initial TBili of 24 and PT of 17.6 /INR 1.5. His labs did improve with a TBili of 7 and a PT of 13.7/INR of 1.2 on 09/20/2021. Since admission here he has had a thoracentesis and paracentesis. The ascites fluid appears to be negative for SBP based on the cell count. There has been no reported GI bleeding, fevers, nor confusion. He has tolerated his diet. Rec: I would recommend continuing diuretics with initially Aldactone 50mg BID and Lasix 20 or 40mg QD. Sodium restriction. F/U labs re: chemistries/renal function. Avoid any hepatotoxic meds and all NSAIDs. Add a po PPI given his coagulopathy and thrombocytopenia. He does have an appointment to see me toward the end of this month and I will plan to initiate a referral to [facility] at that time. 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 I did review the severity of his liver disease with him and his mother in detail. They understood and were comfortable with this plan. Dr. Alex is covering the weekend if there are problems or questions. Thanks
[2022-01-11 18:17] LABS: BF Shift QC OK YES; Lymphocyte Peritoneal Fl 43 %; Monocytes Peritoneal Fl 36 %; Neutrophils Peritoneal Fluid 11 %; Other Peritioneal Fl 10 %
[2022-01-11 18:34] LABS: Lymphocytes Pleural Fluid 85 %; Monocytes Pleural Fluid 8 %; Neutrophils Pleural Fluid 2 %
[2022-01-11 18:35] LABS: Other Cells Plerual Fl 5 %
[2022-01-11] MEDS: Omeprazole 20 MG CAPSULE.DR PO (18:41)
[2022-01-11] MEDS: Spironolactone 25 MG TABLET 50 MG PO (18:41)
[2022-01-11] MEDS: Morphine Sulfate 4 MG/ML CARTRIDGE IVPUSH (22:15)
[2022-01-11] MEDS: guaiFENesin DM 100/10/5 ML 5 ML SYRUP PO (22:16)
[2022-01-11] MEDS: 0.9 % Sodium Chloride Flush 3 ML SYRINGE IVFLUSH (22:16)
--- NOTE | 2022-01-12 01:32 | CONS_ITS ---
DATE OF SERVICE: 01/11/2022 REASON FOR CONSULTATION: Cirrhosis, ascites, and jaundice. HISTORY OF PRESENT ILLNESS: This has been obtained from the patient, his mother who is at the bedside, the medical record, and my office notes. The patient is a 26-year-old male with a long-standing history of alcohol abuse, but with reported sobriety since June 2021. I met him in the office in August 2021 when he had an alcohol-induced hepatitis with a total bilirubin as high as 24 and an INR as high as 1.5. He did not require hospitalization, He was treated with a course of prednisolone as an outpatient with improvement of his laboratories with the total bilirubin down to a level of 7.3 on September 20 and a PT of 13.7 with INR 1.2 on September 20. Since that time, he has reportedly remained abstinent from alcohol. 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 He has noticed some discoloration of his skin and urine, but overall seemed to be much improved from last fall. More recently, he has developed a cough and shortness of breath, which prompted his workup revealing a large pleural effusion on the left side and significant amount of ascites. He denies any signs of melena nor hematochezia. He denies any nausea nor vomiting. He denies any abdominal pain. He denies any fevers at home. He has not been using any acetaminophen nor NSAIDs. He is not on any other new medication. His appetite at home has been diminished. He denies any significant heartburn nor dysphagia. He denies any abdominal pain. MEDICATIONS: At home included Aldactone 25 mg daily, Depakote, amlodipine, and clonidine. His medications here in the hospital include Lasix 40 mg IV daily, aldactone 50 mg daily, amlodipine, clonidine, Depakote, Colace, Zofran p.r.n., oxycodone x1 dose. PAST MEDICAL HISTORY: Cirrhosis with associated ascites and jaundice and episode of alcohol-induced hepatitis. Alcohol abuse. Hypertension. Seizures. There is no reported history of CO, diabetes, stroke, lung disease, or kidney disease. He does have a history of alcohol-induced pancreatitis in May 2021 as well. PAST SURGICAL HISTORY: He denies any surgeries. 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 He has a history of alcohol abuse as above, but with reported sobriety since June 2021. He is a nonsmoker. He denies any drugs. REVIEW OF SYSTEMS: CONSTITUTIONAL: He has been feeling tired at home with some coughing and shortness of breath. SKIN: Jaundiced but without rash. CARDIAC: No chest pain. PULMONARY: No hemoptysis, but does have coughing. GI: As above. PHYSICAL EXAMINATION: GENERAL: The patient is a jaundiced, alert male. He is oriented to person, place, and year. SKIN: Warm and dry but does show some jaundice. NECK: Supple. CARDIAC: Normal S1, S2. ABDOMEN: Soft, nondistended, nontender. There is no palpable mass. EXTREMITIES: Reveal some mild pretibial edema. NEUROLOGIC: He is alert and oriented. There is some minimal asterixis/tremor noted. LABORATORY DATA: His PT was 22.6 with an INR of 2.0. Yesterday, his PT 23.5 with INR 2.0. In October 2021, his PT was 18.5 with INR 1.6. White blood cell count 9.5, hemoglobin 9.3, MCV 111, platelets 75,000. Hemoglobin on January 07 was 11.4. Hemoglobin in October 2021 was 13.1. Sodium 129, potassium 3.4, chloride 92, CO2 26, BUN 16, creatinine 0.8. Total bilirubin is 8.0 today with a direct bilirubin of 5.6. AST 40, ALT 6, alkaline phosphatase 142. Albumin 2.7. His ascites cell count from the paracentesis revealed 188 WBCs with 11% neutrophils. Gram stain and culture of the fluid are pending. His ultrasound and thoracentesis removed over 2 L of fluid from each area. The CT angiogram of his chest on admission was negative for pulmonary embolus, but did show a large left pleural effusion and the significant amount of ascites. IMPRESSION: Given the patient's clinical history, he clearly does have advanced liver disease, which has resulted in his ascites and development of a hydrothorax on the left side. He does not show any other complicating features such as gastrointestinal bleeding, encephalopathy, nor any sign of SBP based on the ascites cell count. I did have a very detailed discussion with the patient and his mother today regarding the advanced nature of his liver disease and the very important need for him to remain completely abstinent from alcohol, both for his overall health as well as to maintain our ability to transfer him or refer him to a liver transplant center. At this point, I would maintain him on diuretics and increase the Aldactone to 50 mg b.i.d. and continue Lasix at either 20 or 40 mg daily. He will have his laboratories followed. I would change him to a sodium- restricted diet. I shall start him on omeprazole given the increased risk of GI bleeding with coagulopathy and thrombocytopenia. He should not be given any hepatotoxic medication nor any NSAIDs. He does have an appointment to see me toward the end of this month, and we shall review things again. At that time, I would then plan to make a referral for him to [facility]. Again, I did advise him that he needs to remain completely sober from alcohol if he has hopes of receiving a liver transplant at some point, if the need should arise. This has all been discussed in detail with the patient and his mother. They are comfortable with this plan. Thank you for the consultation. MD MILAGRO Russ/MIRTA / [id number] BRAULIO
[2022-01-12 03:28] VITALS: BP 124/70; PULSE 95; RESP 17; TEMP 36.3; O2SAT 97
--- NOTE | 2022-01-12 04:30 | PC.NURSE ---
Pt came from ED overflow at around 1999 last night, alert and oriented, still with SOB mild at rest and worsened with activity, incentive spirometry provided and as able to do up to 500 level, c/o left flank pain and persistent dry cough, noted also with some tachcardia at 119, Dr. Bailey was updated, Morphine 4 mg IV given and Robitussin DM po also was given, pt had slept comfortably after.
[2022-01-12] MEDS: Omeprazole 20 MG CAPSULE.DR PO (05:32)
[2022-01-12 06:22] LABS: Hematocrit 29.9 % (42.0-52.0); Hemoglobin 10.3 g/dl (14.0-18.0); Mean Corpuscular HGB Conc 34.4 g/dl (31.0-36.0); Mean Corpuscular Hemoglobin 39.2 pg (27.0-33.0); Mean Platelet Volume 9.4 fL (9.4-12.4); NRBC Pct Auto 0.3 /100WBC (0.0-0.2); Platelet Count 108 X10*3/uL (160-400); Red Blood Count 2.63 X10*6/uL (4.60-5.80); Red Cell Distribution Width 16.5 % (11.0-16.0); White Blood Count 15.1 X10*3/uL (4.8-10.8)
[2022-01-12 06:26] LABS: Mean Corpuscular Volume 113.7 fL (80.0-98.0)
[2022-01-12 06:34] LABS: Anion Gap 16 (12-20); Blood Urea Nitrogen 18 mg/dL (9-16); Carbon Dioxide 24 mmol/L (22-29); Chloride 92 mmol/L (96-108); Creatinine Clr Calc Pharmacy 157.3; Estimated Glomerular Filt Rate > 60; Glucose Random 88 mg/dL (60-115); Potassium 3.7 mmol/L (3.3-5.1); Sodium 128 mmol/L (135-145)
[2022-01-12 06:37] LABS: Alanine Aminotransferase < 6 U/L (0-40); Albumin Level 2.3 g/dL (3.5-5.0); Alkaline Phosphatase 140 U/L (39-117); Aspartate Amino Transferase 34 U/L (5-37); Bilirubin Direct 5.6 mg/dL (0.0-0.5); Bilirubin Total 8.1 mg/dL (0.0-1.0); Total Protein 6.3 g/dL (6.5-8.0)
[2022-01-12 07:25] VITALS: BP 139/70; PULSE 112; RESP 18; TEMP 37.3; O2SAT 92
[2022-01-12 07:59] LABS: LDH Peritoneal Fluid 152
[2022-01-12 07:59] LABS: LDH Pleural Fluid 146; Total Protein Pleural Fluid 3.5
[2022-01-12] MEDS: Divalproex Sodium ER 500 MG TAB.ER.24H PO ×2 (09:06→20:05)
[2022-01-12] MEDS: Morphine Sulfate 4 MG/ML CARTRIDGE IVPUSH ×2 (09:07→16:19)
[2022-01-12] MEDS: 0.9 % Sodium Chloride Flush 3 ML SYRINGE IVFLUSH ×2 (09:07→20:05)
[2022-01-12] MEDS: Furosemide 40 MG/4 ML VIAL IVPUSH (09:07)
[2022-01-12] MEDS: amLODIPine Besylate 10 MG TABLET PO (09:07)
[2022-01-12] MEDS: Spironolactone 25 MG TABLET 50 MG PO ×2 (09:07→16:19)
[2022-01-12] MEDS: cloNIDine HCL 0.1 MG TABLET PO (09:07)
[2022-01-12] MEDS: guaiFENesin LA 600 MG TAB.ER.12H PO ×2 (11:26→20:05)
[2022-01-12] MEDS: Benzonatate 100 MG CAPSULE PO ×3 (11:26→20:05)
[2022-01-12 11:34] VITALS: BP 140/69; PULSE 118; RESP 20; TEMP 37.2; O2SAT 94
--- NOTE | 2022-01-12 12:02 | P.PNIM_ITS ---
Subjective Subjective Date of Service: 01/12/22 Interval History: the patient was seen and evaluated this morning Laying in bed, complaining of pain in the right side of his back Worsening cough reporting pain upon urination No reported other overnight events. Systemic review: No fever, chills but has reporting back pain No chest pain, palpitation dyspnea improved a little but still having significant cough No abdominal pain, nausea or vomiting burning with urination No any rash or wounds Physical Exam Vital Signs: Vital Signs: Last Vital Signs Temp 98.9 F 01/12/22 11:34 Pulse 118 H 01/12/22 11:34 Resp 20 01/12/22 11:34 BP 140/69 H 01/12/22 11:34 Pulse Ox 94 01/12/22 11:34 BMI result Body Mass Index 24.6 Const: Other: Constitutional : Alert, oriented, jaundiced, in mild distress from pain Neck : Normal inspection, Supple Cardiovascular : RRR, S1 S2, trace bilateral lower extremity edema Respiratory : decreased air entry over the left lung to the lower lung level, fair entry on the right side, no wheezes Gastrointestinal: soft, lax, Normal bowel sounds, Non tender, moderately distended with ascites fluid Skin : Warm, Dry musculoskeletal; tenderness upon palpation is back on the left side around the thoracentesis area. Neurological : Alert & oriented x3, No focal deficit Objective Data Active Medications Amlodipine Besylate (Amlodipine Besylate 10 Mg Tablet) 10 mg PO DAILY [facility]; Protocol Last Admin: 01/12/22 09:07 Dose: 10 mg Documented by: JEMAL Benzonatate (Benzonatate 100 Mg Capsule) 100 mg PO TID [facility] Last Admin: 01/12/22 11:26 Dose: 100 mg Documented by: JEMAL Clonidine HCl (Clonidine Hcl 0.1 Mg Tablet) 0.1 mg PO DAILY [facility]; Protocol Last Admin: 01/12/22 09:07 Dose: 0.1 mg Documented by: JEMAL Divalproex Sodium (Divalproex Sodium Er 500 Mg Tab.Er.24h) 500 mg PO BID [facility] Last Admin: 01/12/22 09:06 Dose: 500 mg Documented by: JEMAL Docusate Sodium (Docusate Sodium 100 Mg Capsule) 100 mg PO DAILY PRN PRN Reason: Constipation Furosemide (Furosemide 40 Mg/4 Ml Vial) 40 mg IVPUSH DAILY [facility]; Protocol Last Admin: 01/12/22 09:07 Dose: 40 mg Documented by: JEMAL Guaifenesin (Guaifenesin La 600 Mg Tab.Er.12h) 600 mg PO BID [facility] Last Admin: 01/12/22 11:26 Dose: 600 mg Documented by: JEMAL Guaifenesin/Dextromethorphan (Guaifenesin Dm 100/10/5 Ml 5 Ml Syrup) 5 ml PO Q4H PRN PRN Reason: cough Last Admin: 01/11/22 22:16 Dose: 5 ml Documented by: SANTANA Ibuprofen (Ibuprofen 200 Mg Tablet) 200 mg PO Q8H [facility] Stop: 01/14/22 04:01 Morphine Sulfate (Morphine Sulfate 4 Mg/Ml Cartridge) 4 mg IVPUSH Q6H [facility]N; Protocol PRN Reason: Pain, Severe (Pain Scale 7-10) Last Admin: 01/12/22 09:07 Dose: 4 mg Documented by: JEMAL Omeprazole (Omeprazole 20 Mg Capsule.Dr) 20 mg PO DAILY@0630 [facility] Last Admin: 01/12/22 05:32 Dose: 20 mg Documented by: SANTANA Ondansetron HCl (Ondansetron Hcl 4 Mg/2 Ml Vial) 4 mg IVPUSH Q8H PRN PRN Reason: Nausea and Vomiting Pharmacy Consult (Consult Rx Perform Med Rec) 1 each MISCELLANE ONCE PRN PRN Reason: Consult order Potassium Chloride (Potassium Chloride Er 10 Meq Capsule.Er) 10 meq PO DAILY [facility] Last Admin: 01/12/22 09:06 Dose: 10 meq Documented by: JEMAL Sodium Chloride (0.9 % Sodium Chloride Flush 3 Ml Syringe) [facility] Admin: 01/12/22 09:07 Dose: 3 ml Documented by: JEMAL Spironolactone (Spironolactone 25 Mg Tablet) 50 mg PO BID@0900,1800 [facility]; Protocol Last Admin: 01/12/22 09:07 Dose: 50 mg Documented by: JEMAL Labs CBC & Chem 7: 01/12/22 05:53 01/12/22 05:53 Labs: Laboratory Results - last 24 hr 01/11/22 01/11/22 01/11/22 15:20 15:40 16:41 MCV MCH MCHC RDW Plt Count MPV Absolute Nucleated RBC Nucleated RBC % (auto) Anion Gap Estim Creat Clear Calc Estimated GFR Random Glucose Calcium Total Bilirubin Direct Bilirubin AST ALT Alkaline Phosphatase Total Protein Albumin Peritoneal WBC Peritoneal RBC Periton Neutrophils Periton Lymphocytes Peritoneal Monocytes Peritoneal Other Cells Peritoneal LDH 152 Pleural WBC 1.004 Pleural RBC 0.049 Pleural Neutrophils 2 Pleural Lymphocytes 85 Pleural Monocytes 8 Pleural Other Cells 5 Pleural Total Protein 3.5 Pleural LDH 146 01/11/22 01/12/22 01/12/22 16:41 05:53 05:53 MCV 113.7 H MCH 39.2 H MCHC 34.4 RDW 16.5 H Plt Count 108 L D MPV 9.4 Absolute Nucleated RBC 0.040 H Nucleated RBC % (auto) 0.3 H Anion Gap 16 Estim Creat Clear Calc 157.3 Estimated GFR > 60 Random Glucose 88 Calcium 8.0 L Total Bilirubin Direct Bilirubin AST ALT Alkaline Phosphatase Total Protein Albumin Peritoneal WBC 0.188 Peritoneal RBC 0.004 Periton Neutrophils 11 Periton Lymphocytes 43 Peritoneal Monocytes 36 Peritoneal Other Cells 10 Peritoneal LDH Pleural WBC Pleural RBC Pleural Neutrophils Pleural Lymphocytes Pleural Monocytes Pleural Other Cells Pleural Total Protein Pleural LDH 01/12/22 05:53 MCV MCH MCHC RDW Plt Count MPV Absolute Nucleated RBC Nucleated RBC % (auto) Anion Gap Estim Creat Clear Calc Estimated GFR Random Glucose Calcium Total Bilirubin 8.1 H Direct Bilirubin 5.6 H AST 34 ALT < 6 Alkaline Phosphatase 140 H Total Protein 6.3 L Albumin 2.3 L Peritoneal WBC Peritoneal RBC Periton Neutrophils Periton Lymphocytes Peritoneal Monocytes Peritoneal Other Cells Peritoneal LDH Pleural WBC Pleural RBC Pleural Neutrophils Pleural Lymphocytes Pleural Monocytes Pleural Other Cells Pleural Total Protein Pleural LDH Microbiology Microbiology Results: Microbiology 01/11/22 15:40 Gram Stain - Final Peritoneal Fluid Routine Culture - Preliminary No growth to date. Anaerobic Culture - Preliminary No growth to date. Assessment and Plan (1) Abdominal ascites: Status: Acute (2) Coagulopathy: Status: Acute (3) Alcoholic hepatitis: Status: Acute (4) Acute hyponatremia: Status: Acute (5) Thrombocytopenia: Status: Acute (6) UTI (urinary tract infection): Status: Acute (7) Atelectasis: Status: Acute Plan 26-year-old male with recently diagnosed alcoholic hepatitis presents to the hospital with shortness of breath found to have a large pleural effusion # UTI Noted on previous urine analysis, to repeat UA With cultures reporting pain with urination start IV ceftriaxone # Coughing 2/2 Atelactasis\pneumonia developed leukocytosis with worsening coughing Possible re-collection, atelectasisTurning into infection Add azithromycin To do incentive spirometry Cough medication Repeat chest x-ray # dyspnea 2/2 large left pleural effusion CT of the chest shows large left pleural effusion with complete collapse of the lingula and left lower lobe continue Lasix IR Did thoracentesis with removal of 1.2 L # Back pain Seems muscular around the area of thoracentesis To repeat x-ray To use pain medication as needed # alcoholic liver disease with ascites moderate amount paracentesis done removing 2.8 L of fluid no abdominal pain, afebrile, no leukocytosis, SBP unlikely GI input appreciated, continue to monitor and discharge when stable # hypomagnesemia, acute hypokalemia repleted Follow electrolyte levels # hyponatremia secondary to liver disease, likely chronic monitor BMP # coagulopathy secondary to liver, INR of 2 at admission follow PT INR monitor for bleed # thrombocytopenia secondary to chronic liver disease follow CBC monitor for bleed DVT prophylaxis SCDS in setting of anticipated thoracocentesis and paracentesis the patient needs to stay in the hospital for treatment of underlying infections of urine and lung, controlled cough and heart rate. Quality Stroke Does the patient have a stroke diagnosis?: No VTE Prior VTE?: No VTE Risk Level:: Medical - moderate - high VTE Device Contraindication: N/A - Device Ordered VTE Drug Contraindication: Treatment Not Indicated
[2022-01-12] MEDS: cefTRIAXone sodium 1 GM in 0.9 % Sodium Chloride 50 ML IV (12:46)
[2022-01-12 13:24] LABS: Appearance Urine CLEAR; Color Urine DK YELLOW; Glucose Urine UA NEG (NEG); Leukocyte Esterase Urine NEG (NEG); Nitrite Urine NEG (NEG); PH 6.5 (5.0-8.0); Urine Blood NEG (NEG); Urine Ketones NEG (NEG); Urine Protein NEG (NEG-TRACE)
[2022-01-12] MEDS: Azithromycin 500 MG in 0.9 % Sodium Chloride 250 ML 125 MG IV (13:57)
[2022-01-12 16:00] VITALS: BP 120/65; PULSE 118; RESP 18; TEMP 36.3; O2SAT 95
[2022-01-12] MEDS: guaiFENesin DM 100/10/5 ML 5 ML SYRUP PO (16:19)
[2022-01-12 20:00] VITALS: BP 135/73; PULSE 114; RESP 18; TEMP 36.2; O2SAT 96
[2022-01-13] VITALS (7 sets, daily range): BP systolic 121–135; BP diastolic 67–77; PULSE 101–110; RESP 16–18; TEMP 36.1–36.8; O2SAT 93–97
[2022-01-13] MEDS: Omeprazole 20 MG CAPSULE.DR PO (06:11)
[2022-01-13 06:55] LABS: Anion Gap 13 (12-20); Blood Urea Nitrogen 24 mg/dL (9-16); Calcium 8.4 mg/dL (8.4-10.2); Carbon Dioxide 29 mmol/L (22-29); Chloride 90 mmol/L (96-108); Creatinine Clr Calc Pharmacy 157.3; Estimated Glomerular Filt Rate > 60; Glucose Random 112 mg/dL (60-115); Potassium 3.7 mmol/L (3.3-5.1); Sodium 128 mmol/L (135-145)
[2022-01-13] MEDS: amLODIPine Besylate 10 MG TABLET PO (08:24)
[2022-01-13] MEDS: Divalproex Sodium ER 500 MG TAB.ER.24H PO ×2 (08:24→21:12)
[2022-01-13] MEDS: Spironolactone 25 MG TABLET 50 MG PO ×2 (08:24→17:23)
[2022-01-13] MEDS: guaiFENesin LA 600 MG TAB.ER.12H PO ×2 (08:24→21:12)
[2022-01-13] MEDS: Benzonatate 100 MG CAPSULE PO ×3 (08:24→21:12)
[2022-01-13] MEDS: cloNIDine HCL 0.1 MG TABLET PO (08:24)
[2022-01-13] MEDS: 0.9 % Sodium Chloride Flush 3 ML SYRINGE IVFLUSH ×2 (08:26→17:24)
[2022-01-13] MEDS: Lidocaine 4 % Patch ADH..PATCH 2 PATCH TRANSDERMA (08:26)
--- NOTE | 2022-01-13 10:28 | P.PNIM_ITS ---
Subjective Subjective Date of Service: 01/13/22 Interval History: chief complaint, coughing and difficulty breathing Improving complaining of pain in the right side of his back Less coughing and less pain but mainly associated with coughing No reported other overnight events. Systemic review: No fever, chills but has reporting back pain No chest pain, palpitation dyspnea improved a little but still having significant cough No abdominal pain, nausea or vomiting no more burning with urination No any rash or wounds Physical Exam Vital Signs: Vital Signs: Last Vital Signs Temp 97.5 F 01/13/22 07:17 Pulse 107 H 01/13/22 07:17 Resp 18 01/13/22 07:17 BP 126/72 01/13/22 07:17 Pulse Ox 96 01/13/22 07:17 BMI result Body Mass Index 24.6 Const: Other: Constitutional : Alert, oriented, jaundiced, in mild distress from pain Neck : Normal inspection, Supple Cardiovascular : RRR, S1 S2, trace bilateral lower extremity edema Respiratory : decreased air entry over the left lung to the lower lung level, fair entry on the right side, no wheezes Gastrointestinal: soft, lax, Normal bowel sounds, Non tender, moderately distended with ascites fluid Skin : Warm, Dry musculoskeletal; tenderness upon palpation is back on the left side around the thoracentesis area. Neurological : Alert & oriented x3, No focal deficit Objective Data Active Medications Amlodipine Besylate (Amlodipine Besylate 10 Mg Tablet) 10 mg PO DAILY [facility]; Protocol Last Admin: 01/13/22 08:24 Dose: 10 mg Documented by: THOR Benzonatate (Benzonatate 100 Mg Capsule) 100 mg PO TID [facility] Last Admin: 01/13/22 08:24 Dose: 100 mg Documented by: THOR Clonidine HCl (Clonidine Hcl 0.1 Mg Tablet) 0.1 mg PO DAILY [facility]; Protocol Last Admin: 01/13/22 08:24 Dose: 0.1 mg Documented by: THOR Divalproex Sodium (Divalproex Sodium Er 500 Mg Tab.Er.24h) 500 mg PO BID [facility] Last Admin: 01/13/22 08:24 Dose: 500 mg Documented by: THOR Docusate Sodium (Docusate Sodium 100 Mg Capsule) 100 mg PO DAILY PRN PRN Reason: Constipation Furosemide (Furosemide 20 Mg Tablet) 20 mg PO DAILY [facility]; Protocol Guaifenesin (Guaifenesin La 600 Mg Tab.Er.12h) 600 mg PO BID [facility] Last Admin: 01/13/22 08:24 Dose: 600 mg Documented by: THOR Guaifenesin/Dextromethorphan (Guaifenesin Dm 100/10/5 Ml 5 Ml Syrup) 5 ml PO Q4H PRN PRN Reason: cough Last Admin: 01/12/22 16:19 Dose: 5 ml Documented by: JAMES Ceftriaxone Sodium 1 gm/ (Sodium Chloride) 50 mls @ 100 mls/hr IV Q24H [facility] Last Infusion: 01/12/22 14:18 Dose: 100 mls/hr Documented by: JEMAL Azithromycin 500 mg/ Sodium (Chloride) 250 mls @ 125 mls/hr IV Q24H [facility] Last Infusion: 01/12/22 15:58 Dose: 0 mls/hr Documented by: JAMES Lidocaine (Lidocaine 4 % Patch Adh..Patch) 2 patch TRANSDERMA DAILY [facility]; Protocol Last Admin: 01/13/22 08:26 Dose: 2 patch Documented by: THOR Morphine Sulfate (Morphine Sulfate 4 Mg/Ml Cartridge) 2 mg IVPUSH Q6H PRN; Protocol PRN Reason: Pain, Severe (Pain Scale 7-10) Omeprazole (Omeprazole 20 Mg Capsule.Dr) 20 mg PO DAILY@0630 [facility] Last Admin: 01/13/22 06:11 Dose: 20 mg Documented by: SANTANA Ondansetron HCl (Ondansetron Hcl 4 Mg/2 Ml Vial) 4 mg IVPUSH Q8H PRN PRN Reason: Nausea and Vomiting Pharmacy Consult (Consult Rx Perform Med Rec) 1 each MISCELLANE ONCE PRN PRN Reason: Consult order Potassium Chloride (Potassium Chloride Er 10 Meq Capsule.Er) 10 meq PO DAILY [facility] Last Admin: 01/13/22 08:25 Dose: 10 meq Documented by: THOR Sodium Chloride (0.9 % Sodium Chloride Flush 3 Ml Syringe) 3 ml IVFLUSH QSHIFT [facility] Last Admin: 01/13/22 08:26 Dose: 3 ml Documented by: THOR Spironolactone (Spironolactone 25 Mg Tablet) 50 mg PO BID@0900,1800 [facility]; Protocol Last Admin: 01/13/22 08:24 Dose: 50 mg Documented by: THOR Labs CBC & Chem 7: 01/12/22 05:53 01/13/22 05:57 Labs: Laboratory Results - last 24 hr 01/12/22 01/13/22 12:46 05:57 Anion Gap 13 Estim Creat Clear Calc 157.3 Estimated GFR > 60 Random Glucose 112 Calcium 8.4 Urine Color DK YELLOW Urine Appearance CLEAR Urine pH 6.5 Ur Specific [place] 1.010 Urine Protein NEG Urine Glucose (UA) NEG Urine Ketones NEG Urine Blood NEG Urine Nitrite NEG Ur Leukocyte Esterase NEG Microbiology Microbiology Results: Microbiology 01/11/22 15:40 Gram Stain - Final Peritoneal Fluid Routine Culture - Preliminary No growth to date. Anaerobic Culture - Preliminary No growth to date. Assessment and Plan (1) Atelectasis: Status: Acute (2) Abdominal ascites: Status: Acute (3) Alcoholic hepatitis: Status: Acute (4) Acute hyponatremia: Status: Acute (5) Pneumonia: Status: Acute Plan 26-year-old male with recently diagnosed alcoholic hepatitis presents to the hospital with shortness of breath found to have a large pleural effusion # Coughing 2/2 Atelactasis\pneumonia from pleural effusion developed leukocytosis with worsening coughing Possible re-collection, atelectasisTurning into infection continue azithromycin and ceftriaxone To do incentive spirometry Cough medication Repeat chest x-ray # dyspnea 2/2 large left pleural effusion CT of the chest shows large left pleural effusion with complete collapse of the lingula and left lower lobe continue Lasix IR Did thoracentesis with removal of 1.2 L repeated x-ray showed moderate pleural effusion, to repeat thoracentesis by tomorrow # Back pain Seems muscular around the area of thoracentesis To use pain medication as needed # alcoholic liver disease with ascites moderate amount paracentesis done removing 2.8 L of fluid no abdominal pain, afebrile, no leukocytosis, SBP unlikely GI input appreciated, continue to monitor and discharge when stable Spironolactone increased to 50 mg b.i.d. Changed to p.o. Lasix 20 mg daily # hypomagnesemia, acute hypokalemia repleted Follow electrolyte levels # hyponatremia secondary to liver disease, likely chronic Sodium stable around 128 monitor BMP # coagulopathy secondary to liver, INR of 2 at admission follow PT INR monitor for bleed # thrombocytopenia secondary to chronic liver disease follow CBC monitor for bleed DVT prophylaxis SCDS in setting of anticipated thoracocentesis and paracentesis the patient needs to stay in the hospital for treatment of underlying infections of urine and lung, controlled cough and heart rate.Will need thoracentesis repeated tomorrow. Quality Stroke Does the patient have a stroke diagnosis?: No VTE Prior VTE?: No VTE Risk Level:: Medical - moderate - high VTE Device Contraindication: N/A - Device Ordered VTE Drug Contraindication: Treatment Not Indicated
[2022-01-13] MEDS: cefTRIAXone sodium 1 GM in 0.9 % Sodium Chloride 50 ML IV (11:17)
[2022-01-13] MEDS: Azithromycin 500 MG in 0.9 % Sodium Chloride 250 ML 125 MG IV (11:59)
[2022-01-13] MEDS: Morphine Sulfate 4 MG/ML CARTRIDGE 2 MG IVPUSH ×2 (12:03→21:13)
[2022-01-14] VITALS (10 sets, daily range): BP systolic 118–133; BP diastolic 62–77; PULSE 98–110; RESP 16–20; TEMP 35.7–37.1; O2SAT 95–99
[2022-01-14 05:56] LABS: Hemoglobin 9.7 g/dl (14.0-18.0); Mean Corpuscular HGB Conc 34.6 g/dl (31.0-36.0); Mean Platelet Volume 9.2 fL (9.4-12.4); NRBC Pct Auto 0.3 /100WBC (0.0-0.2); Red Blood Count 2.49 X10*6/uL (4.60-5.80); Red Cell Distribution Width 16.7 % (11.0-16.0); White Blood Count 10.2 X10*3/uL (4.8-10.8)
[2022-01-14 05:59] LABS: Anion Gap 11 (12-20); Blood Urea Nitrogen 21 mg/dL (9-16); Calcium 7.9 mg/dL (8.4-10.2); Carbon Dioxide 29 mmol/L (22-29); Chloride 90 mmol/L (96-108); Creatinine Clr Calc Pharmacy 181.1; Estimated Glomerular Filt Rate > 60; Glucose Random 105 mg/dL (60-115); Mean Corpuscular Volume 112.4 fL (80.0-98.0); Platelet Count 74 X10*3/uL (160-400); Potassium 3.8 mmol/L (3.3-5.1); Sodium 126 mmol/L (135-145)
[2022-01-14] MEDS: guaiFENesin DM 100/10/5 ML 5 ML SYRUP PO (06:07)
[2022-01-14] MEDS: Omeprazole 20 MG CAPSULE.DR PO (06:07)
[2022-01-14] MEDS: Morphine Sulfate 4 MG/ML CARTRIDGE 2 MG IVPUSH ×3 (06:09→21:30)
[2022-01-14] MEDS: guaiFENesin LA 600 MG TAB.ER.12H PO ×2 (08:00→21:29)
[2022-01-14] MEDS: Furosemide 20 MG TABLET PO (08:00)
[2022-01-14] MEDS: Spironolactone 25 MG TABLET 50 MG PO ×2 (08:01→17:09)
[2022-01-14] MEDS: cloNIDine HCL 0.1 MG TABLET PO (08:01)
[2022-01-14] MEDS: Divalproex Sodium ER 500 MG TAB.ER.24H PO ×2 (08:01→21:29)
[2022-01-14] MEDS: Benzonatate 100 MG CAPSULE PO ×3 (08:01→21:29)
[2022-01-14] MEDS: amLODIPine Besylate 10 MG TABLET PO (08:01)
[2022-01-14] MEDS: 0.9 % Sodium Chloride Flush 3 ML SYRINGE IVFLUSH ×3 (08:12→21:38)
--- NOTE | 2022-01-14 09:18 | MHC.CM.PN ---
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 MET WITH PATIENT HE REPORTED HE IS FEELING BETTER AND AT EASE WITH HIS BREACHING AND COUGHING, HOWEVER WITH GETTIGN UP OR GOING TO THE BATHROOM HE EASILY GETS SHORT OF BREATH AND TIRED, PER DOCUMENTATION: ( PATIENT WITH ATELCTASIS,PNA,PLEURAL EFFUSION, S/P THORACENTESIS 1.2 LITERS REMOVED. ETOH LIVER DISEASE WITH ASCITES S/P PARACENTESIS WITH REMOVAL OF 2.8L OF FLUID, GASTROENTEROLOGY FOLLOWING, PLAN-THORACENTESIS TODAY , CONTINUE MONITOR ALL LABS, INR, CONTINUE CURRENT MEDICATION REGIME. DISCHARGE PLAN ANTICIPATE HOME WITH NO SERVICES PCP DR TRICIA FERRIS PATIENT INSTRUCTED TO CALL FOR POST HOSPITAL DISCHARGE FOLLOW UP WHEN DISCHARGED. COIVD NEG ON ADMISSION HAD 2 COIVD VACCINATIONS WILL NEED RETURN TO WORK NOTE AT TIME OF DISCHARGE
[2022-01-14] MEDS: Azithromycin 500 MG TABLET PO (10:23)
[2022-01-14] MEDS: Lidocaine 4 % Patch ADH..PATCH 2 PATCH TRANSDERMA (10:28)
--- NOTE | 2022-01-14 12:19 | PC.NURSE ---
patient off the floor to Interventional radiologyat 1130 am.
[2022-01-14] MEDS: Lidocaine HCl 1 % MPF 5 ML VIAL SUBCUT (12:21)
--- NOTE | 2022-01-14 13:26 | P.PNIM_ITS ---
Subjective Subjective Date of Service: 01/14/22 Interval History: chief complaint, coughing and difficulty breathing cough is improving complaining of pain in left side of his back Less coughing and less pain sodium drip down to 124 to do thoracentesis today No reported other overnight events. Systemic review: No fever, chills but has reporting back pain No chest pain, palpitation dyspnea improved a little but still having significant cough No abdominal pain, nausea or vomiting no more burning with urination No any rash or wounds Physical Exam Vital Signs: Vital Signs: Last Vital Signs Temp 96.2 F L 01/14/22 13:23 Pulse 106 H 01/14/22 13:23 Resp 18 01/14/22 13:23 BP 118/62 01/14/22 13:23 Pulse Ox 99 01/14/22 13:23 BMI result Body Mass Index 24.6 Const: Other: Constitutional : Alert, oriented, jaundiced, list distressed Neck : Normal inspection, Supple Cardiovascular : RRR, S1 S2, trace bilateral lower extremity edema Respiratory : decreased air entry over the left lung to the lower lung level, fair entry on the right side, no wheezes Gastrointestinal: soft, lax, Normal bowel sounds, Non tender, moderately distended with ascites fluid Skin : Warm, Dry musculoskeletal; tenderness upon palpation is back on the left side around the thoracentesis area. Neurological : Alert & oriented x3, No focal deficit Objective Data Active Medications Amlodipine Besylate (Amlodipine Besylate 10 Mg Tablet) 10 mg PO DAILY [facility]; Protocol Last Admin: 01/14/22 08:01 Dose: 10 mg Documented by: GABRIEL Azithromycin (Azithromycin 500 Mg Tablet) 500 mg PO Q24H [facility] Last Admin: 01/14/22 10:23 Dose: 500 mg Documented by: GABRIEL Benzonatate (Benzonatate 100 Mg Capsule) 100 mg PO TID [facility] Last Admin: 01/14/22 08:01 Dose: 100 mg Documented by: GABRIEL Cefuroxime Axetil (Cefuroxime Axetil 500 Mg Tablet) 500 mg PO Q12H [facility] Last Admin: 01/14/22 10:23 Dose: 500 mg Documented by: GABRIEL Clonidine HCl (Clonidine Hcl 0.1 Mg Tablet) 0.1 mg PO DAILY [facility]; Protocol Last Admin: 01/14/22 08:01 Dose: 0.1 mg Documented by: GABRIEL Divalproex Sodium (Divalproex Sodium Er 500 Mg Tab.Er.24h) 500 mg PO BID [facility] Last Admin: 01/14/22 08:01 Dose: 500 mg Documented by: GABRIEL Docusate Sodium (Docusate Sodium 100 Mg Capsule) 100 mg PO DAILY PRN PRN Reason: Constipation Furosemide (Furosemide 20 Mg Tablet) 20 mg PO DAILY [facility]; Protocol Last Admin: 01/14/22 08:00 Dose: 20 mg Documented by: GABRIEL Guaifenesin (Guaifenesin La 600 Mg Tab.Er.12h) 600 mg PO BID [facility] Last Admin: 01/14/22 08:00 Dose: 600 mg Documented by: GABRIEL Guaifenesin/Dextromethorphan (Guaifenesin Dm 100/10/5 Ml 5 Ml Syrup) 5 ml PO Q4H PRN PRN Reason: cough Last Admin: 01/14/22 06:07 Dose: 5 ml Documented by: JACQUELINE Lidocaine (Lidocaine 4 % Patch Adh..Patch) 2 patch TRANSDERMA DAILY [facility]; Protocol Last Admin: 01/14/22 10:28 Dose: 1 patch Documented by: GABRIEL Morphine Sulfate (Morphine Sulfate 4 Mg/Ml Cartridge) 2 mg IVPUSH Q6H PRN; Protocol PRN Reason: Pain, Severe (Pain Scale 7-10) Last Admin: 01/14/22 06:09 Dose: 2 mg Documented by: JACQUELINE Omeprazole (Omeprazole 20 Mg Capsule.Dr) 20 mg PO DAILY@0630 [facility] Last Admin: 01/14/22 06:07 Dose: 20 mg Documented by: JACQUELINE Ondansetron HCl (Ondansetron Hcl 4 Mg/2 Ml Vial) 4 mg IVPUSH Q8H PRN PRN Reason: Nausea and Vomiting Pharmacy Consult (Consult Rx Perform Med Rec) 1 each MISCELLANE ONCE PRN PRN Reason: Consult order Potassium Chloride (Potassium Chloride Er 10 Meq Capsule.Er) 10 meq PO DAILY [facility] Last Admin: 01/14/22 08:00 Dose: 10 meq Documented by: GABRIEL Sodium Chloride (0.9 % Sodium Chloride Flush 3 Ml Syringe) 3 ml IVFLUSH QSHIFT [facility] Last Admin: 01/14/22 08:12 Dose: 3 ml Documented by: GABRIEL Spironolactone (Spironolactone 25 Mg Tablet) 50 mg PO BID@0900,1800 [facility]; Protocol Last Admin: 01/14/22 08:01 Dose: 50 mg Documented by: GABRIEL Labs CBC & Chem 7: 01/14/22 05:33 01/14/22 05:33 Labs: Laboratory Results - last 24 hr 01/14/22 01/14/22 05:33 05:33 MCV 112.4 H MCH 39.0 H MCHC 34.6 RDW 16.7 H Plt Count 74 L D MPV 9.2 L Absolute Nucleated RBC 0.030 H Nucleated RBC % (auto) 0.3 H Anion Gap 11 L Estim Creat Clear Calc 181.1 Estimated GFR > 60 Random Glucose 105 Calcium 7.9 L Microbiology Microbiology Results: Microbiology 01/11/22 15:40 Gram Stain - Final Peritoneal Fluid Routine Culture - Final No growth after 2 days Anaerobic Culture - Preliminary No growth to date. Assessment and Plan (1) Pneumonia: Status: Acute (2) Atelectasis: Status: Acute (3) Hyponatremia: Status: Acute (4) Abdominal ascites: Status: Acute (5) Pleural effusion: Status: Acute Plan 26-year-old male with recently diagnosed alcoholic hepatitis presents to the hospital with shortness of breath found to have a large pleural effusion # acute on chronic hyponatremia secondary to liver disease Sodium dropped to 126 hold Lasix if continues to drop Nephrology input appreciated , accepted levels above 128 monitor BMP # Coughing 2/2 Atelactasis\pneumonia from pleural effusion Leukocytosis resolved Possible re-collection, atelectasis Turning into infection continue azithromycin and ceftriaxone To do incentive spirometry Cough medication thoracentesis done earlier this morning, repeated CXR showing resolution of the effusion # dyspnea 2/2 large left pleural effusion CT of the chest shows large left pleural effusion with complete collapse of the lingula and left lower lobe continue Lasix IR Did thoracentesis with removal of 1.2 L on 01/11, repeated on 01/14 repeated x-ray showed resolution of effusion with treatment atelectasis # Back pain Seems muscular around the area of thoracentesis To use pain medication as needed # alcoholic liver disease with ascites moderate amount paracentesis done removing 2.8 L of fluid no abdominal pain, afebrile, no leukocytosis, SBP unlikely GI input appreciated, continue to monitor and discharge when stable Spironolactone increased to 50 mg b.i.d. Changed to p.o. Lasix 20 mg daily # hypomagnesemia, acute hypokalemia repleted Follow electrolyte levels # coagulopathy secondary to liver, INR of 2 at admission follow PT INR monitor for bleed # thrombocytopenia secondary to chronic liver disease follow CBC monitor for bleed DVT prophylaxis SCDS in setting of anticipated thoracocentesis and paracentesis the patient needs to stay in the hospital for treatment of underlying infections of urine and lung, controlled cough and heart rate.Will need thoracentesis repeated tomorrow. Quality Stroke Does the patient have a stroke diagnosis?: No VTE Prior VTE?: No VTE Risk Level:: Medical - moderate - high VTE Device Contraindication: N/A - Device Ordered VTE Drug Contraindication: Treatment Not Indicated
--- NOTE | 2022-01-14 14:12 | MHC.CLN ---
NUTRITION CONSULT PER HISTORY PATIENT WITH PLEURAL EFFUSION AND ASCITES. SHOWS PLANNED SIGNIFICANT WEIGHT LOSS OF 8.8% WITH CURRENT HOSPITALIZATION. RECEIVED THORACENTESIS X 2 AND PARACENTESIS. DIET=2 GRAM SODIUM-APPROPRIATE. CURRENT INTAKE VARIABLE.
--- NOTE | 2022-01-14 16:03 | PM.GIPN ---
Subjective Subjective Date of Service: 01/14/22 Interval History: Mother present at bedside. Course noted. He required another left thoracentesis today. He doesn't think his abdominal girth is increasing. Denies abdominal pain. Feels fatigued. Denies any signs of bleeding. Denies abdominal pain, N/V, diarrhea. Appetite is fair. Critical Care Time (minutes): 0 Physical Exam Vital Signs: Vital Signs: Last Vital Signs Temp 97.8 F 01/14/22 14:00 Pulse 106 H 01/14/22 14:00 Resp 16 01/14/22 15:05 BP 118/70 01/14/22 14:00 Pulse Ox 99 01/14/22 14:00 BMI result Body Mass Index 24.6 Const: General: cooperative, comfortable, no acute distress and awake Orientation/consciousness: patient oriented x3 and Other orientation findings (Seems a little sleepy ) Eyes: Sclerae: scleral abnormal (Icteric sclerae) GI: Other: Abd-soft, +BS, slightly distended, NT Neuro: Other: + Asterixis General: patient oriented x3 Extrem: Other: No edema Objective Data Labs CBC & Chem 7: 01/14/22 05:33 01/14/22 05:33 Labs: Laboratory Results - last 24 hr 01/14/22 01/14/22 05:33 05:33 WBC 10.2 RBC 2.49 L Hgb 9.7 L Hct 28.0 L MCV 112.4 H MCH 39.0 H MCHC 34.6 RDW 16.7 H Plt Count 74 L D MPV 9.2 L Absolute Nucleated RBC 0.030 H Nucleated RBC % (auto) 0.3 H Sodium 126 L Potassium 3.8 Chloride 90 L Carbon Dioxide 29 Anion Gap 11 L BUN 21 H Creatinine 0.68 Estim Creat Clear Calc 181.1 Estimated GFR > 60 Random Glucose 105 Calcium 7.9 L Microbiology Microbiology Results: Microbiology 01/11/22 15:40 Peritoneal Fluid Gram Stain - Final 01/11/22 15:40 Peritoneal Fluid Routine Culture - Final No growth after 2 days 01/11/22 15:40 Peritoneal Fluid Anaerobic Culture - Preliminary No growth to date. Procedures Date of Service Date of Service: 01/14/22 Progress Note: A&P Assessment and plan (1) Alcoholic cirrhosis of liver with ascites: Status: Acute Plan Imp/Recs: 1. Alcohol-induced cirrhosis with associated jaundice, ascites, recurrent left hydrothorax, coagulopathy, and probably some hepatic encephalopathy. Advanced liver disease with a MELD score of 22. No bleeding nor SBP. At this point I would continue diuretics as tolerated and will let Renal toy consultant manage those. Continue oral PPI, give further trial of Vit K(I think he just received one dose), and avoid any hepatotoxins. Will check ammonia level, although Depakote can cause an increased ammonia level. However, I do suspect he has a component of HE and may benefit from some Lactulose and/or Rifaximin. If the hydrothorax and/or ascites prove refractory despite diuretics I would recommend consideration of a TIPS placement, preferably at a liver transplant center like [facility] in [place]. Maximize nutrition. The severity of his liver disease and my recommendations were discussed with the patient and his mother in detail today. They were comfortable with this plan. Thanks Fall Risk Details Current Medications: Current Medications Amlodipine Besylate (Amlodipine Besylate 10 Mg Tablet) 10 mg PO DAILY [facility]; Protocol Last Admin: 01/14/22 08:01 Dose: 10 mg Documented by: Azithromycin (Azithromycin 500 Mg Tablet) 500 mg PO Q24H [facility] Last Admin: 01/14/22 10:23 Dose: 500 mg Documented by: Benzonatate (Benzonatate 100 Mg Capsule) 100 mg PO TID [facility] Last Admin: 01/14/22 08:01 Dose: 100 mg Documented by: Cefuroxime Axetil (Cefuroxime Axetil 500 Mg Tablet) 500 mg PO Q12H [facility] Last Admin: 01/14/22 10:23 Dose: 500 mg Documented by: Clonidine HCl (Clonidine Hcl 0.1 Mg Tablet) 0.1 mg PO DAILY [facility]; Protocol Last Admin: 01/14/22 08:01 Dose: 0.1 mg Documented by: Divalproex Sodium (Divalproex Sodium Er 500 Mg Tab.Er.24h) 500 mg PO BID [facility] Last Admin: 01/14/22 08:01 Dose: 500 mg Documented by: Docusate Sodium (Docusate Sodium 100 Mg Capsule) 100 mg PO DAILY PRN PRN Reason: Constipation Furosemide (Furosemide 20 Mg Tablet) 20 mg PO DAILY [facility]; Protocol Last Admin: 01/14/22 08:00 Dose: 20 mg Documented by: Guaifenesin (Guaifenesin La 600 Mg Tab.Er.12h) 600 mg PO BID [facility] Last Admin: 01/14/22 08:00 Dose: 600 mg Documented by: Guaifenesin/Dextromethorphan (Guaifenesin Dm 100/10/5 Ml 5 Ml Syrup) 5 ml PO Q4H PRN PRN Reason: cough Last Admin: 01/14/22 06:07 Dose: 5 ml Documented by: Lidocaine (Lidocaine 4 % Patch Adh..Patch) 2 patch TRANSDERMA DAILY [facility]; Protocol Last Admin: 01/14/22 10:28 Dose: 1 patch Documented by: Morphine Sulfate (Morphine Sulfate 4 Mg/Ml Cartridge) 2 mg IVPUSH Q6H PRN; Protocol PRN Reason: Pain, Severe (Pain Scale 7-10) Last Admin: 01/14/22 15:05 Dose: 2 mg Documented by: Omeprazole (Omeprazole 20 Mg Capsule.Dr) 20 mg PO DAILY@0630 [facility] Last Admin: 01/14/22 06:07 Dose: 20 mg Documented by: Ondansetron HCl (Ondansetron Hcl 4 Mg/2 Ml Vial) 4 mg IVPUSH Q8H PRN PRN Reason: Nausea and Vomiting Pharmacy Consult (Consult Rx Perform Med Rec) 1 each MISCELLANE ONCE PRN PRN Reason: Consult order Potassium Chloride (Potassium Chloride Er 10 Meq Capsule.Er) 10 meq PO DAILY [facility] Last Admin: 01/14/22 08:00 Dose: 10 meq Documented by: Sodium Chloride (0.9 % Sodium Chloride Flush 3 Ml Syringe) 3 ml IVFLUSH QSHIFT [facility] Last Admin: 01/14/22 08:12 Dose: 3 ml Documented by: Spironolactone (Spironolactone 25 Mg Tablet) 50 mg PO BID@0900,1800 [facility]; Protocol Last Admin: 01/14/22 08:01 Dose: 50 mg Documented by: Time Spent With Patient Time: Total time spent is greater than 50% in coordination of care (as documented) at patient's floor/unit and/or counseling patient: Time with patient: 25 - 35 minutes Quality Stroke Does the patient have a stroke diagnosis?: No VTE Prior VTE?: No VTE Risk Level:: Medical - moderate - high VTE Device Contraindication: N/A - Device Ordered VTE Drug Contraindication: Treatment Not Indicated
[2022-01-14] MEDS: Phytonadione (Vit K1) 10 MG in 0.9 % Sodium Chloride 50 ML 51 MG IV (17:30)
[2022-01-15] VITALS (7 sets, daily range): BP systolic 108–128; BP diastolic 59–72; PULSE 98–107; RESP 14–18; TEMP 36.1–36.4; O2SAT 96–100
[2022-01-15] MEDS: Morphine Sulfate 4 MG/ML CARTRIDGE 2 MG IVPUSH ×3 (05:31→21:09)
[2022-01-15] MEDS: Omeprazole 20 MG CAPSULE.DR PO (05:31)
[2022-01-15 06:30] LABS: Basophils Absolute Auto 0.1 X10*3/uL (0.0-0.2); Basophils Percent Auto 0.5 % (0-2); Eosinophils Absolute Auto 0.2 X10*3/uL (0.0-0.4); Eosinophils Percent Auto 1.4 % (0-4); Hematocrit 28.5 % (42.0-52.0); Hemoglobin 10.1 g/dl (14.0-18.0); Imm Gran Pct Auto 2.7 % (0.0-0.4); Lymphocytes Absolute Auto 2.2 X10*3/uL (1.2-4.9); Lymphocytes Percent Auto 15.1 % (20-40); MANUAL DIFF FLAG SCAN; Mean Corpuscular HGB Conc 35.4 g/dl (31.0-36.0); Mean Corpuscular Hemoglobin 40.2 pg (27.0-33.0); Mean Platelet Volume 9.5 fL (9.4-12.4); Monocytes Absolute Auto 1.6 X10*3/uL (0.1-1.2); Monocytes Percent Auto 10.9 % (2-11); NRBC Pct Auto 0.1 /100WBC (0.0-0.2); Neutrophils Absolute Auto 10.2 x10*3/uL (2.0-8.3); Neutrophils Percent Auto 69.4 % (45-73); Platelet Count 100 X10*3/uL (160-400); Red Blood Count 2.51 X10*6/uL (4.60-5.80); Red Cell Distribution Width 17.3 % (11.0-16.0); SCAN SMEAR FLAG 1; White Blood Count 14.7 X10*3/uL (4.8-10.8)
[2022-01-15 06:32] LABS: Mean Corpuscular Volume 113.5 fL (80.0-98.0)
[2022-01-15 06:35] LABS: Ammonia 58 umol/L (13-55)
[2022-01-15 06:44] LABS: INTERNATIONAL NORM RATIO 1.4 (0.9-1.1); Prothrombin Time 16.3 SEC (9.9-13.0)
[2022-01-15 06:45] LABS: Anion Gap 11 (12-20); Blood Urea Nitrogen 26 mg/dL (9-16); Calcium 8.1 mg/dL (8.4-10.2); Carbon Dioxide 29 mmol/L (22-29); Chloride 89 mmol/L (96-108); Estimated Glomerular Filt Rate > 60; Glucose Random 112 mg/dL (60-115); Potassium 4.2 mmol/L (3.3-5.1); Sodium 125 mmol/L (135-145)
[2022-01-15 06:45] LABS: Alanine Aminotransferase 7 U/L (0-40); Albumin Level 2.3 g/dL (3.5-5.0); Alkaline Phosphatase 162 U/L (39-117); Aspartate Amino Transferase 35 U/L (5-37); Bilirubin Direct 6.2 mg/dL (0.0-0.5); Bilirubin Total 8.1 mg/dL (0.0-1.0); Total Protein 6.4 g/dL (6.5-8.0)
[2022-01-15 06:47] LABS: Magnesium 1.9 mg/dL (1.6-2.6)
[2022-01-15 07:31] LABS: SLIDE REVIEW VERIFIED
[2022-01-15] MEDS: Azithromycin 500 MG TABLET PO (08:07)
[2022-01-15] MEDS: Benzonatate 100 MG CAPSULE PO ×3 (08:07→20:58)
[2022-01-15] MEDS: guaiFENesin LA 600 MG TAB.ER.12H PO ×2 (08:07→20:58)
[2022-01-15] MEDS: cloNIDine HCL 0.1 MG TABLET PO (08:08)
[2022-01-15] MEDS: amLODIPine Besylate 10 MG TABLET PO (08:08)
[2022-01-15] MEDS: Spironolactone 25 MG TABLET 50 MG PO ×2 (08:08→18:32)
[2022-01-15] MEDS: Divalproex Sodium ER 500 MG TAB.ER.24H PO ×2 (08:08→20:58)
[2022-01-15] MEDS: 0.9 % Sodium Chloride Flush 3 ML SYRINGE IVFLUSH ×3 (08:17→20:58)
--- NOTE | 2022-01-15 09:37 | P.CONNP_ITS ---
History of Present Illness Reason for Consult Consult date: 01/14/22 Chief Complaint Chief complaint: Large pleural effusion, ascites History of Present Illness Narrative: 26-year-old male with a recently diagnosed alcoholic hepatitis who presents to the hospital with worsening shortness of breath and cough.? Recent imaging done showed moderate to large right pleural effusion and partially visualized perihepatic ascites.? Due to his severe symptoms including dyspnea? at rest and tachycardia patient was sent to the ED. He has? no nausea or vomiting, no diarrhea constipation, no urinary symptoms and no lower extremity edema.? He re ports that his abdominal distention is not increased more than usual, he is jaundice but reports that has improved since his diagnosis of? liver failure in August.? He denies having any headache, no change in vision, no weakness numbness or tingling.?He continues to have ascites with hyponatremia. Inspite of diuresis, his serum sodium has not improved. Nephrology has been consulted to assist in his clinical management Review of Systems Review of Systems Yes all other systems are reviewed and are negative PMFSH Past Medical History Medical History Alcoholic hepatitis HTN (hypertension) Family History Family History Other No family history of coronary artery disease Surgical History Surgical History No pertinent past surgical history Social History Social History Household Members: None Housing: House Alcohol intake: former Patient Tobacco Use Status: Never used Tobacco service: No Current occupational status: employed Meds Allergies Allergy/AdvReac Type Severity Reaction Status Date / Time No Known Allergies Allergy Unverified 01/10/22 15:53 Active Medications: Current Medications Amlodipine Besylate (Amlodipine Besylate 10 Mg Tablet) 10 mg PO DAILY [facility]; Protocol Last Admin: 01/15/22 08:08 Dose: 10 mg Documented by: Azithromycin (Azithromycin 500 Mg Tablet) 500 mg PO Q24H [facility] Last Admin: 01/15/22 08:07 Dose: 500 mg Documented by: Benzonatate (Benzonatate 100 Mg Capsule) 100 mg PO TID [facility] Last Admin: 01/15/22 08:07 Dose: 100 mg Documented by: Cefuroxime Axetil (Cefuroxime Axetil 500 Mg Tablet) 500 mg PO Q12H [facility] Last Admin: 01/14/22 21:29 Dose: 500 mg Documented by: Clonidine HCl (Clonidine Hcl 0.1 Mg Tablet) 0.1 mg PO DAILY [facility]; Protocol Last Admin: 01/15/22 08:08 Dose: 0.1 mg Documented by: Divalproex Sodium (Divalproex Sodium Er 500 Mg Tab.Er.24h) 500 mg PO BID [facility] Last Admin: 01/15/22 08:08 Dose: 500 mg Documented by: Docusate Sodium (Docusate Sodium 100 Mg Capsule) 100 mg PO DAILY PRN PRN Reason: Constipation Guaifenesin (Guaifenesin La 600 Mg Tab.Er.12h) 600 mg PO BID [facility] Last Admin: 01/15/22 08:07 Dose: 600 mg Documented by: Guaifenesin/Dextromethorphan (Guaifenesin Dm 100/10/5 Ml 5 Ml Syrup) 5 ml PO Q4H PRN PRN Reason: cough Last Admin: 01/14/22 06:07 Dose: 5 ml Documented by: Lidocaine (Lidocaine 4 % Patch Adh..Patch) 2 patch TRANSDERMA DAILY [facility]; Protocol Last Admin: 01/14/22 10:28 Dose: 1 patch Documented by: Morphine Sulfate (Morphine Sulfate 4 Mg/Ml Cartridge) 2 mg IVPUSH Q6H PRN; Protocol PRN Reason: Pain, Severe (Pain Scale 7-10) Last Admin: 01/15/22 05:31 Dose: 2 mg Documented by: Omeprazole (Omeprazole 20 Mg Capsule.Dr) 20 mg PO DAILY@0630 [facility] Last Admin: 01/15/22 05:31 Dose: 20 mg Documented by: Ondansetron HCl (Ondansetron Hcl 4 Mg/2 Ml Vial) 4 mg IVPUSH Q8H PRN PRN Reason: Nausea and Vomiting Pharmacy Consult (Consult Rx Perform Med Rec) 1 each MISCELLANE ONCE PRN PRN Reason: Consult order Potassium Chloride (Potassium Chloride Er 10 Meq Capsule.Er) 10 meq PO DAILY [facility] Last Admin: 01/15/22 08:08 Dose: 10 meq Documented by: Sodium Chloride (0.9 % Sodium Chloride Flush 3 Ml Syringe) 3 ml IVFLUSH QSHIFT [facility] Last Admin: 01/15/22 08:17 Dose: 3 ml Documented by: Spironolactone (Spironolactone 25 Mg Tablet) 50 mg PO BID@0900,1800 [facility]; Protocol Last Admin: 01/15/22 08:08 Dose: 50 mg Documented by: Home Medications Medication Instructions Recorded Confirmed Last Taken Type amlodipine 5 mg tablet 2 tab PO DAILY 01/10/22 01/10/22 01/10/22 History clonidine HCl 0.1 mg tablet 1 tab PO DAILY 01/10/22 01/10/22 01/10/22 History divalproex 500 mg tablet,extended 1 tab PO BID 01/10/22 01/10/22 01/10/22 Hist ory release 24 hr potassium chloride 10 mEq 1 tab PO DAILY 01/10/22 01/10/22 01/10/22 History tablet,extended release spironolactone 25 mg tablet 1 tab PO DAILY 01/10/22 01/10/22 01/10/22 History Physical Exam Vital Signs: Last Vital Signs Temp 97.5 F 01/15/22 07:22 Pulse 100 01/15/22 07:22 Resp 18 01/15/22 07:22 BP 112/59 L 01/15/22 07:22 Pulse Ox 97 01/15/22 07:22 BMI result Body Mass Index 24.6 Const General: cooperative Eyes EOM: EOMs intact bilaterally Resp Auscultation: diminished lung sounds Cardio Rate: regular rate GI Other: Ascites Inspection: Yes distended Neuro General: moves all extremities Results Lab Results Result Diagrams: 01/15/22 06:20 01/15/22 06:21 Lab results: Chemistry 01/13/22 01/14/22 01/15/22 05:57 05:33 06:21 Sodium 128 L 126 L 125 L Potassium 3.7 3.8 4.2 Carbon Dioxide 29 29 29 BUN 24 H 21 H 26 H Creatinine 0.79 0.68 0.81 Calcium 8.4 7.9 L 8.1 L Hematology 01/14/22 01/15/22 05:33 06:20 WBC 10.2 14.7 H Hgb 9.7 L 10.1 L Plt Count 74 L D 100 L D Urinalysis 01/12/22 12:46 Urine Color DK YELLOW Urine Appearance CLEAR Urine pH 6.5 Ur Specific [place] 1.010 Urine Protein NEG Urine Glucose (UA) NEG Urine Ketones NEG Urine Blood NEG Urine Nitrite NEG Ur Leukocyte Esterase NEG Assessment and Plan (1) Hyponatremia: Status: Acute Plan Hypervolemic Hyponatremia 2 Gram Na restriction Fluid restriction Maximize Spironolactone Ascitic tap today Daily weights; Labs AM Shall closely follow up Procedures Date of Service Date of Service: 01/14/22
--- NOTE | 2022-01-15 10:55 | P.PNNP_ITS ---
Subjective Subjective Date of Service: 01/15/22 Interval history: Events noted. All recent data reviewed Physical Exam Vital Signs: Vital Signs: Last Vital Signs Temp 97.5 F 01/15/22 07:22 Pulse 100 01/15/22 07:22 Resp 18 01/15/22 07:22 BP 112/59 L 01/15/22 07:22 Pulse Ox 97 01/15/22 07:22 BMI result Body Mass Index 24.6 Const: General: no acute distress Eyes: EOM: EOMs intact bilaterally Neck: Neck: Yes supple Resp: Auscultation: diminished lung sounds Cardio: Rate: regular rate GI: Palpation (GI): Soft to palpation Neuro: General: moves all extremities Objective Data Labs CBC & Chem 7: 01/15/22 06:20 01/15/22 06:21 Labs: Laboratory Results - last 24 hr 01/15/22 01/15/22 01/15/22 06:20 06:20 06:20 WBC 14.7 H RBC 2.51 L Hgb 10.1 L Hct 28.5 L MCV 113.5 H MCH 40.2 H MCHC 35.4 RDW 17.3 H Plt Count 100 L D MPV 9.5 Immature Gran % (Auto) 2.7 H Neut % (Auto) 69.4 Lymph % (Auto) 15.1 L [place] % (Auto) 10.9 Eos % (Auto) 1.4 Baso % (Auto) 0.5 Lymph # (Auto) 2.2 [place] # (Auto) 1.6 H Eos # (Auto) 0.2 Baso # (Auto) 0.1 Abs Immat Gran (auto) 0.40 H Absolute Neuts (auto) 10.2 H Absolute Nucleated RBC 0.020 H Nucleated RBC % (auto) 0.1 Smear Tech's Comments VERIFIED PT 16.3 H INR 1.4 H Sodium Potassium Chloride Carbon Dioxide Anion Gap BUN Creatinine Estim Creat Clear Calc Estimated GFR Random Glucose Calcium Magnesium Total Bilirubin 8.1 H Direct Bilirubin 6.2 H AST 35 ALT 7 Alkaline Phosphatase 162 H Ammonia Total Protein 6.4 L Albumin 2.3 L 01/15/22 01/15/22 01/15/22 06:20 06:21 06:21 WBC RBC Hgb Hct MCV MCH MCHC RDW Plt Count MPV Immature Gran % (Auto) Neut % (Auto) Lymph % (Auto) [place] % (Auto) Eos % (Auto) Baso % (Auto) Lymph # (Auto) [place] # (Auto) Eos # (Auto) Baso # (Auto) Abs Immat Gran (auto) Absolute Neuts (auto) Absolute Nucleated RBC Nucleated RBC % (auto) Smear Tech's Comments PT INR Sodium 125 L Potassium 4.2 Chloride 89 L Carbon Dioxide 29 Anion Gap 11 L BUN 26 H Creatinine 0.81 Estim Creat Clear Calc 152.0 Estimated GFR > 60 Random Glucose 112 Calcium 8.1 L Magnesium 1.9 Total Bilirubin Direct Bilirubin AST ALT Alkaline Phosphatase Ammonia 58 H Total Protein Albumin Microbiology Microbiology Results: Microbiology 01/11/22 15:40 Peritoneal Fluid Gram Stain - Final 01/11/22 15:40 Peritoneal Fluid Routine Culture - Final No growth after 2 days 01/11/22 15:40 Peritoneal Fluid Anaerobic Culture - Preliminary No growth to date. Procedures Date of Service Date of Service: 01/15/22 Assessment & Plan Assessment and plan (1) Hyponatremia: Status: Acute Assessment and Plan: Hypervolemic Hyponatremia 2 Gram Na restriction Fluid restriction Maximize Spironolactone Daily weights; Labs AM Shall closely follow up Time Spent With Patient Time: Total time spent is greater than 50% in coordination of care (as documented) at patient's floor/unit and/or counseling patient: Progress Note: Quality Stroke Does the patient have a stroke diagnosis?: No
--- NOTE | 2022-01-15 11:51 | PM.DS ---
DS: Providers Provider Date of admission: 01/10/22 23:23 Primary care physician: Vitaly Urbano MD Consults: 01/10/22 23:21 Consult to Gastroenterology Routine Consulting Provider: Gunnar Silva Reason for consultation: ascites, SOB Has provider been notified: No 01/14/22 08:41 Consult to Nephrology Routine Consulting Provider: Onur Bell Reason for consultation: Hyponatremia in alcoholic liver disease DS: Diagnosis Discharge Diagnosis (1) Hyponatremia: Status: Acute (2) Alcoholic cirrhosis of liver with ascites: Status: Acute (3) Pneumonia: Status: Acute (4) Atelectasis: Status: Acute (5) Coagulopathy: Status: Acute (6) Thrombocytopenia: Status: Acute (7) Pleural effusion: Status: Acute DS: Summary Hospital Course Hospital Course: admission note HPI This is a 26-year-old male with a recently diagnosed alcoholic hepatitis who presents to the hospital with worsening shortness of breath and cough.? Patient reports that he has had a cough for few months, but then developed worsening shortness of breath for the past 1 month.? He had an x-ray done at his PCPs office on 01/07 which showed new left basilar airspace disease and small to moderate pleural effusion, he then went to his doctor for follow-up on 01/10 and had a chest ultrasound done which showed moderate to large right pleural effusion and partially visualized perihepatic ascites.? Due to his severe symptoms including dyspnea? at rest and tachycardia patient was sent to the ED. ?patient denies having any chest pain but has left upper quadrant pain, denies any fever but has chills,? no nausea or vomiting, no diarrhea constipation, no urinary symptoms and no lower extremity edema.? He reports that his abdominal distention is not increased more than usual, he is jaundice but reports that has improved since his diagnosis of? liver failure in August.? He denies having any headache, no change in vision, no weakness numbness or tingling.? On arrival to the ED patient's vitals are significant for heart rate of 123, respiratory rate of 16, satting? 100% on room air.? Has a temp of 97.7 degrees Labs are significant for WBC count of 11.6, hemoglobin of 10.3, hematocrit 29.5, INR of 2.0, plt ct of 102, sodium of 130, potassium of 3.2, Mag of 1.5, total bili of 8.0, direct bili of 5.6, AST of 40, alk-phos of 142, although in of 2.7.? D-dimer of [id number] ?patient received CT angiogram of the chest which showed no evidence of PE, large left pleural effusion with complete collapse of the left lingula and left lower lobe, large volume ascites ?patient will be admitted for further? management Hospital course The patient was admitted to the hospital for evaluation of shortness of breath. images of the chest showed left-sided moderate-sized pleural effusion that was drained twice during the hospital stay on January 11 and removing almost total of 2 L of fluid which was transudate with no evidence of infection. repeated CXR showing resolution of the effusion. Noted to have left lower lobe atelectasis and possible pneumonia with leukocytosis treated with IV antibiotics of azithromycin and ceftriaxone with addition of incentive spirometry with good response over the course of hospital stay. Diuresis was done as well using Lasix. Developed worsening hyponatremia during the hospital stay with his baseline between 130-135 but remain below 130 for most of the hospital stay. Evaluated by Nephrology team who recommended low-salt diet, free water restriction. Lasix was discontinued as a result of continuous drop of the sodium. Recommendations to follow-up as outpatient with Nephrology and to continue with water restriction and low-sodium diet. Ascites was treated mainly with diuresis and had paracentesis done removing almost 3 L of fluid which was transudative with no evidence of SBP. Gastroenterology evaluated the patient and recommended increasing spironolactone to 50 mg b.i.d. and to follow-up as outpatient to start the process of liver transplant. Noted to have low magnesium and low potassium levels which both replaced and corrected. Continue azithromycin and Ceftin as prescribed Start spironolactone as prescribed Start omeprazole To follow-up with Dr. Silva in the office as scheduled To follow-up with Dr. Perez in Nephrology office for monitoring of low sodium Will repeat blood test in 3 days and next week Time Spent with Patient Time attestation: Total time spent providing and/or coordinating discharge services: Physical Exam Vital Signs: Vital Signs: Last Vital Signs Temp 97.4 F 01/15/22 11:34 Pulse 100 01/15/22 11:34 Resp 18 01/15/22 11:34 BP 113/59 L 01/15/22 11:34 Pulse Ox 96 01/15/22 11:34 BMI result Body Mass Index 24.6 Const: Other: Constitutional : Alert, oriented, jaundiced, Not in distress Neck : Normal inspection, Supple Cardiovascular : RRR, S1 S2, no bilateral lower extremity edema Respiratory : fair bilateral air entry, fine basal crackles on LLL, no wheezes Gastrointestinal: soft, lax, Normal bowel sounds, Non tender, mildly distended with small amount of ascites fluid Skin : Warm, Dry musculoskeletal; much less tenderness in the back on the left side around the thoracentesis area. Neurological : Alert & oriented x3, No focal deficit DS: Data Data Completed and Pending Labs on day of discharge: Laboratory Results - last 24 hr 01/15/22 01/15/22 01/15/22 06:20 06:20 06:20 WBC 14.7 H RBC 2.51 L Hgb 10.1 L Hct 28.5 L MCV 113.5 H MCH 40.2 H MCHC 35.4 RDW 17.3 H Plt Count 100 L D MPV 9.5 Immature Gran % (Auto) 2.7 H Neut % (Auto) 69.4 Lymph % (Auto) 15.1 L [place] % (Auto) 10.9 Eos % (Auto) 1.4 Baso % (Auto) 0.5 Lymph # (Auto) 2.2 [place] # (Auto) 1.6 H Eos # (Auto) 0.2 Baso # (Auto) 0.1 Abs Immat Gran (auto) 0.40 H Absolute Neuts (auto) 10.2 H Absolute Nucleated RBC 0.020 H Nucleated RBC % (auto) 0.1 Smear Tech's Comments VERIFIED PT 16.3 H INR 1.4 H Sodium Potassium Chloride Carbon Dioxide Anion Gap BUN Creatinine Estim Creat Clear Calc Estimated GFR Random Glucose Calcium Magnesium Total Bilirubin 8.1 H Direct Bilirubin 6.2 H AST 35 ALT 7 Alkaline Phosphatase 162 H Ammonia Total Protein 6.4 L Albumin 2.3 L 01/15/22 01/15/22 01/15/22 06:20 06:21 06:21 WBC RBC Hgb Hct MCV MCH MCHC RDW Plt Count MPV Immature Gran % (Auto) Neut % (Auto) Lymph % (Auto) [place] % (Auto) Eos % (Auto) Baso % (Auto) Lymph # (Auto) [place] # (Auto) Eos # (Auto) Baso # (Auto) Abs Immat Gran (auto) Absolute Neuts (auto) Absolute Nucleated RBC Nucleated RBC % (auto) Smear Tech's Comments PT INR Sodium 125 L Potassium 4.2 Chloride 89 L Carbon Dioxide 29 Anion Gap 11 L BUN 26 H Creatinine 0.81 Estim Creat Clear Calc 152.0 Estimated GFR > 60 Random Glucose 112 Calcium 8.1 L Magnesium 1.9 Total Bilirubin Direct Bilirubin AST ALT Alkaline Phosphatase Ammonia 58 H Total Protein Albumin Preliminary micro results at discharge 01/11/22 15:40 Anaerobic Culture - Preliminary Peritoneal Fluid No growth to date. Discharge Plan Discharge Patient Disposition: Home, Self-Care Discharge Diagnosis: Pleural effusion, abdominal ascites Pneumonia Low sodium level Referrals: Vitaly Urbano MD [Primary Care Provider] - 1 Week Discharge Medications: New spironolactone 25 mg Tablet 50 mg PO BID@0900,1800 30 Days 0RF Protocol: Hold for SBP< HOLD for SBP < : 90 benzonatate 100 mg Capsule 100 mg PO TID 7 Days Qty: 21 0RF omeprazole 20 mg Capsule,Delayed Release(Dr/Ec) 20 mg PO DAILY@0630 30 Days Qty: 30 0RF cefuroxime axetil 500 mg Tablet 500 mg PO Q12H 4 Days Qty: 8 0RF azithromycin 500 mg Tablet 500 mg PO Q24H 4 Days Qty: 4 0RF Continued clonidine HCl 0.1 mg tablet 1 tab PO DAILY 0RF potassium chloride 10 mEq tablet extended release 1 tab PO DAILY 0RF amlodipine 5 mg tablet 2 tab PO DAILY 0RF divalproex 500 mg tablet extended release 24 hr 1 tab PO BID 0RF Discontinued spironolactone 25 mg tablet 1 tab PO DAILY 0RF Discharge Orders: Discharge Order (Routine); Ordered 01/15/22 Ordered By: Attila Rodrigues Diet: advance to usual diet and low salt diet Activity on Discharge: As tolerated Stand Alone Forms: Patient Portal Discharge page Other Ambulatory Orders: Basic Metabolic Panel (Routine) Timeframe: 1 Week Facility: [facility] - Location: Laboratory Ordered By: Attila Rodrigues Basic Metabolic Panel (Routine) Timeframe: 2 Days Facility: [facility] - Location: Laboratory Ordered By: Attila Rodrigues Care Plan Goals: Read below Health Concerns: Read below Plan of Treatment: Read below Assessment: You were admitted to the hospital for evaluation of cough. Found to have left-sided fluid collection around the lung requiring aspiration twice during the hospital stay with good result as repeated x-ray showed almost resolution of the fluids. Noted to have pneumonia that was treated with IV antibiotics. Your sodium level was noted to be low. Evaluated by Nephrology team who recommended low-salt diet, water restriction and follow-up as outpatient. Seen by medical coding specialist Dr. Silva who recommended increasing spironolactone and to follow-up in the office to start planning for liver transplant Continue azithromycin and Ceftin as prescribed Start spironolactone as prescribed Start omeprazole To follow-up with Dr. Silva in the office as scheduled To follow-up with Dr. Perez in Nephrology office for monitoring of low sodium Will repeat blood test in 3 days and next week Patient Instructions: Hyponatremia (DC)
[2022-01-15 12:34] LABS: Anion Gap 15 (12-20); Blood Urea Nitrogen 29 mg/dL (9-16); Calcium 8.2 mg/dL (8.4-10.2); Carbon Dioxide 25 mmol/L (22-29); Chloride 89 mmol/L (96-108); Creatinine Clr Calc Pharmacy 126.9; Estimated Glomerular Filt Rate > 60; Glucose Random 129 mg/dL (60-115); Potassium 4.1 mmol/L (3.3-5.1); Sodium 125 mmol/L (135-145)
--- NOTE | 2022-01-15 12:58 | HO.PM.IMPN ---
Subjective Subjective Date of Service: 01/15/22 Interval History: chief complaint, coughing and difficulty breathing breathing back to baseline Less coughing and less pain sodium drip down to 125 No reported other overnight events. Systemic review: No fever, chills but has reporting back pain No chest pain, palpitation dyspnea improved significantly No abdominal pain, nausea or vomiting no more burning with urination No any rash or wounds Physical Exam Vital Signs: Vital Signs: Last Vital Signs Temp 97.4 F 01/15/22 11:34 Pulse 100 01/15/22 11:34 Resp 18 01/15/22 11:34 BP 113/59 L 01/15/22 11:34 Pulse Ox 96 01/15/22 11:34 BMI result Body Mass Index 24.6 Const: Other: Constitutional : Alert, oriented, jaundiced, Not in distress Neck : Normal inspection, Supple Cardiovascular : RRR, S1 S2, no bilateral lower extremity edema Respiratory : fair bilateral air entry, fine basal crackles on LLL, no wheezes Gastrointestinal: soft, lax, Normal bowel sounds, Non tender, mildly distended with small amount of ascites fluid Skin : Warm, Dry musculoskeletal; much less tenderness in the back on the left side around the thoracentesis area. Neurological : Alert & oriented x3, No focal deficit Objective Data Active Medications Amlodipine Besylate (Amlodipine Besylate 10 Mg Tablet) 10 mg PO DAILY [facility]; Protocol Last Admin: 01/15/22 08:08 Dose: 10 mg Documented by: GABRIEL Azithromycin (Azithromycin 500 Mg Tablet) 500 mg PO Q24H [facility] Last Admin: 01/15/22 08:07 Dose: 500 mg Documented by: GABRIEL Benzonatate (Benzonatate 100 Mg Capsule) 100 mg PO TID [facility] Last Admin: 01/15/22 08:07 Dose: 100 mg Documented by: GABRIEL Cefuroxime Axetil (Cefuroxime Axetil 500 Mg Tablet) 500 mg PO Q12H [facility] Last Admin: 01/15/22 11:32 Dose: 500 mg Documented by: GABRIEL Clonidine HCl (Clonidine Hcl 0.1 Mg Tablet) 0.1 mg PO DAILY [facility]; Protocol Last Admin: 01/15/22 08:08 Dose: 0.1 mg Documented by: GABRIEL Divalproex Sodium (Divalproex Sodium Er 500 Mg Tab.Er.24h) 500 mg PO BID [facility] Last Admin: 01/15/22 08:08 Dose: 500 mg Documented by: GABRIEL Docusate Sodium (Docusate Sodium 100 Mg Capsule) 100 mg PO DAILY PRN PRN Reason: Constipation Guaifenesin (Guaifenesin La 600 Mg Tab.Er.12h) 600 mg PO BID [facility] Last Admin: 01/15/22 08:07 Dose: 600 mg Documented by: GABRIEL Guaifenesin/Dextromethorphan (Guaifenesin Dm 100/10/5 Ml 5 Ml Syrup) 5 ml PO Q4H PRN PRN Reason: cough Last Admin: 01/14/22 06:07 Dose: 5 ml Documented by: JACQUELINE Lidocaine (Lidocaine 4 % Patch Adh..Patch) 2 patch TRANSDERMA DAILY [facility]; Protocol Last Admin: 01/15/22 11:05 Dose: Not Given Documented by: GABRIEL Non-Admin Reason: Patient Refused Morphine Sulfate (Morphine Sulfate 4 Mg/Ml Cartridge) 2 mg IVPUSH Q6H PRN; Protocol PRN Reason: Pain, Severe (Pain Scale 7-10) Last Admin: 01/15/22 11:25 Dose: 2 mg Documented by: GABRIEL Omeprazole (Omeprazole 20 Mg Capsule.Dr) 20 mg PO DAILY@0630 [facility] Last Admin: 01/15/22 05:31 Dose: 20 mg Documented by: JACQUELINE Ondansetron HCl (Ondansetron Hcl 4 Mg/2 Ml Vial) 4 mg IVPUSH Q8H PRN PRN Reason: Nausea and Vomiting Pharmacy Consult (Consult Rx Perform Med Rec) 1 each MISCELLANE ONCE PRN PRN Reason: Consult order Potassium Chloride (Potassium Chloride Er 10 Meq Capsule.Er) 10 meq PO DAILY [facility] Last Admin: 01/15/22 08:08 Dose: 10 meq Documented by: GABRIEL Sodium Chloride (0.9 % Sodium Chloride Flush 3 Ml Syringe) 3 ml IVFLUSH QSHIFT [facility] Last Admin: 01/15/22 08:17 Dose: 3 ml Documented by: GABRIEL Spironolactone (Spironolactone 25 Mg Tablet) 50 mg PO BID@0900,1800 [facility]; Protocol Last Admin: 01/15/22 08:08 Dose: 50 mg Documented by: GABRIEL Labs CBC & Chem 7: 01/15/22 06:20 01/15/22 12:06 Labs: Laboratory Results - last 24 hr 01/15/22 01/15/22 01/15/22 06:20 06:20 06:20 MCV 113.5 H MCH 40.2 H MCHC 35.4 RDW 17.3 H Plt Count 100 L D MPV 9.5 Immature Gran % (Auto) 2.7 H Neut % (Auto) 69.4 Lymph % (Auto) 15.1 L [place] % (Auto) 10.9 Eos % (Auto) 1.4 Baso % (Auto) 0.5 Lymph # (Auto) 2.2 [place] # (Auto) 1.6 H Eos # (Auto) 0.2 Baso # (Auto) 0.1 Abs Immat Gran (auto) 0.40 H Absolute Neuts (auto) 10.2 H Absolute Nucleated RBC 0.020 H Nucleated RBC % (auto) 0.1 Smear Tech's Comments VERIFIED PT 16.3 H INR 1.4 H Anion Gap Estim Creat Clear Calc Estimated GFR Random Glucose Calcium Magnesium Total Bilirubin 8.1 H Direct Bilirubin 6.2 H AST 35 ALT 7 Alkaline Phosphatase 162 H Ammonia Total Protein 6.4 L Albumin 2.3 L 01/15/22 01/15/22 01/15/22 06:20 06:21 06:21 MCV MCH MCHC RDW Plt Count MPV Immature Gran % (Auto) Neut % (Auto) Lymph % (Auto) [place] % (Auto) Eos % (Auto) Baso % (Auto) Lymph # (Auto) [place] # (Auto) Eos # (Auto) Baso # (Auto) Abs Immat Gran (auto) Absolute Neuts (auto) Absolute Nucleated RBC Nucleated RBC % (auto) Smear Tech's Comments PT INR Anion Gap 11 L Estim Creat Clear Calc 152.0 Estimated GFR > 60 Random Glucose 112 Calcium 8.1 L Magnesium 1.9 Total Bilirubin Direct Bilirubin AST ALT Alkaline Phosphatase Ammonia 58 H Total Protein Albumin 01/15/22 12:06 MCV MCH MCHC RDW Plt Count MPV Immature Gran % (Auto) Neut % (Auto) Lymph % (Auto) [place] % (Auto) Eos % (Auto) Baso % (Auto) Lymph # (Auto) [place] # (Auto) Eos # (Auto) Baso # (Auto) Abs Immat Gran (auto) Absolute Neuts (auto) Absolute Nucleated RBC Nucleated RBC % (auto) Smear Tech's Comments PT INR Anion Gap 15 Estim Creat Clear Calc 126.9 Estimated GFR > 60 Random Glucose 129 H Calcium 8.2 L Magnesium Total Bilirubin Direct Bilirubin AST ALT Alkaline Phosphatase Ammonia Total Protein Albumin Microbiology Microbiology Results: Microbiology 01/11/22 15:40 Gram Stain - Final Peritoneal Fluid Routine Culture - Final No growth after 2 days Anaerobic Culture - Preliminary No growth to date. Assessment and Plan (1) Alcoholic cirrhosis of liver with ascites: Status: Acute (2) Hyponatremia: Status: Acute (3) Pneumonia: Status: Acute Plan 26-year-old male with recently diagnosed alcoholic hepatitis presents to the hospital with shortness of breath found to have a large pleural effusion # acute on chronic hyponatremia secondary to liver disease Sodium dropped to 125 Lasix discontinue water restriction, low-sodium diet Nephrology input appreciated , discharge when sodium start improve monitor BMP # Coughing 2/2 Atelactasis\pneumonia from pleural effusion Possible re-collection, atelectasis Turning into infection continue azithromycin and ceftriaxone To do incentive spirometry Cough medication # dyspnea 2/2 large left pleural effusion CT of the chest shows large left pleural effusion with complete collapse of the lingula and left lower lobe continue Lasix IR Did thoracentesis with removal of 1.2 L on 01/11, repeated on 01/14 repeated x-ray showed resolution of effusion with treatment atelectasis # Back pain Seems muscular around the area of thoracentesis To use pain medication as needed # alcoholic liver disease with ascites moderate amount paracentesis done removing 2.8 L of fluid no abdominal pain, afebrile, no leukocytosis, SBP unlikely GI input appreciated, continue to monitor and discharge when stable Spironolactone increased to 50 mg b.i.d. DC Lasix # hypomagnesemia, acute hypokalemia repleted Follow electrolyte levels # coagulopathy secondary to liver, INR of 2 at admission follow PT INR monitor for bleed # thrombocytopenia secondary to chronic liver disease follow CBC monitor for bleed DVT prophylaxis SCDS in setting of anticipated thoracocentesis and paracentesis the patient needs to stay in the hospital for treatment of worsening hyponatremia and follow up sodium levels. Quality Stroke Does the patient have a stroke diagnosis?: No VTE Prior VTE?: No VTE Risk Level:: Medical - moderate - high VTE Device Contraindication: N/A - Device Ordered VTE Drug Contraindication: Treatment Not Indicated
[2022-01-15] MEDS: guaiFENesin DM 100/10/5 ML 5 ML SYRUP PO (15:51)
--- NOTE | 2022-01-15 16:48 | MHC.CM.PN ---
NURSE EDUCATION REVIEWER NTOE, RENAL AND GI CONSULTES ELECTRONIC MEDICAL RECORD REVIEWED ALONG WITH CASE DISCUSSED WITH STAFF NURSE AND HOSPITLIST. RENAL AND GI CONSULT STILL HAVING DYSPNEA DOCUMENTATION (the patient needs to stay in the hospital for treatment of worsening hyponatremia and follow up sodium levels. ) DISCHARGE PLAN HOME WITH NO SERVICES EDUCATION REVIEWER TO CONTINUE TO FOLLOW FOR ANY CHANGE S IN DISCHARGE NEEDS AND FOLLOW UP
[2022-01-16 04:00] VITALS: BP 130/69; PULSE 104; RESP 14; TEMP 36.3; O2SAT 98
[2022-01-16] MEDS: Omeprazole 20 MG CAPSULE.DR PO (05:33)
[2022-01-16 06:21] LABS: Hematocrit 29.3 % (42.0-52.0); Hemoglobin 10.1 g/dl (14.0-18.0); Mean Corpuscular HGB Conc 34.5 g/dl (31.0-36.0); Mean Corpuscular Hemoglobin 39.3 pg (27.0-33.0); Mean Platelet Volume 9.6 fL (9.4-12.4); NRBC Pct Auto 0.1 /100WBC (0.0-0.2); Platelet Count 128 X10*3/uL (160-400); Red Blood Count 2.57 X10*6/uL (4.60-5.80); Red Cell Distribution Width 18.3 % (11.0-16.0); White Blood Count 16.1 X10*3/uL (4.8-10.8)
[2022-01-16 06:48] LABS: Anion Gap 14 (12-20); Blood Urea Nitrogen 36 mg/dL (9-16); Calcium 8.3 mg/dL (8.4-10.2); Carbon Dioxide 26 mmol/L (22-29); Chloride 88 mmol/L (96-108); Creatinine Clr Calc Pharmacy 99.3; Estimated Glomerular Filt Rate > 60; Glucose Random 100 mg/dL (60-115); Potassium 4.3 mmol/L (3.3-5.1); Sodium 124 mmol/L (135-145)
[2022-01-16 07:54] VITALS: BP 132/64; PULSE 102; RESP 18; TEMP 36.8; O2SAT 98
[2022-01-16] MEDS: Spironolactone 25 MG TABLET 50 MG PO (08:45)
[2022-01-16] MEDS: 0.9 % Sodium Chloride Flush 3 ML SYRINGE IVFLUSH ×3 (08:45→20:04)
[2022-01-16] MEDS: amLODIPine Besylate 10 MG TABLET PO (08:46)
[2022-01-16] MEDS: Benzonatate 100 MG CAPSULE PO ×3 (08:46→20:04)
[2022-01-16] MEDS: guaiFENesin LA 600 MG TAB.ER.12H PO ×2 (08:46→20:04)
[2022-01-16] MEDS: cloNIDine HCL 0.1 MG TABLET PO (08:46)
[2022-01-16] MEDS: Divalproex Sodium ER 500 MG TAB.ER.24H PO ×2 (08:47→20:03)
[2022-01-16] MEDS: Morphine Sulfate 4 MG/ML CARTRIDGE 2 MG IVPUSH (08:55)
[2022-01-16] MEDS: guaiFENesin DM 100/10/5 ML 5 ML SYRUP PO (08:55)
--- NOTE | 2022-01-16 10:53 | P.PNIM_ITS ---
Subjective Subjective Date of Service: 01/16/22 Interval History: cc: sob interval history:overall feeling better, less sob, less abd distension Cardiovascular Cardiovascular: Reports no additional cardiovascular complaints Gastrointestinal Gastrointestinal: Reports no additional gastrointestinal complaints Physical Exam Vital Signs: Vital Signs: Last Vital Signs Temp 98.3 F 01/16/22 07:54 Pulse 102 H 01/16/22 07:54 Resp 18 01/16/22 07:54 BP 132/64 01/16/22 07:54 Pulse Ox 98 01/16/22 07:54 BMI result Body Mass Index 24.6 General: AO X 3, no acute distress, juandiced Resp: CTA bilateral, no accessory muscles used CVS: S1,S2,RRR GI: soft, non tender, distended Neuro: motor grossly intact, alert Psych: appropriate affect, appropriate insight Objective Data Active Medications Amlodipine Besylate (Amlodipine Besylate 10 Mg Tablet) 10 mg PO DAILY [facility]; Protocol Last Admin: 01/16/22 08:46 Dose: 10 mg Documented by: SAUD Benzonatate (Benzonatate 100 Mg Capsule) 100 mg PO TID [facility] Last Admin: 01/16/22 08:46 Dose: 100 mg Documented by: SAUD Clonidine HCl (Clonidine Hcl 0.1 Mg Tablet) 0.1 mg PO DAILY [facility]; Protocol Last Admin: 01/16/22 08:46 Dose: 0.1 mg Documented by: SAUD Divalproex Sodium (Divalproex Sodium Er 500 Mg Tab.Er.24h) 500 mg PO BID [facility] Last Admin: 01/16/22 08:47 Dose: 500 mg Documented by: SAUD Docusate Sodium (Docusate Sodium 100 Mg Capsule) 100 mg PO DAILY PRN PRN Reason: Constipation Guaifenesin (Guaifenesin La 600 Mg Tab.Er.12h) 600 mg PO BID [facility] Last Admin: 01/16/22 08:46 Dose: 600 mg Documented by: SAUD Guaifenesin/Dextromethorphan (Guaifenesin Dm 100/10/5 Ml 5 Ml Syrup) 5 ml PO Q4H PRN PRN Reason: cough Last Admin: 01/16/22 08:55 Dose: 5 ml Documented by: SAUD Sodium Chloride (Ns) 1,000 mls @ 50 mls/hr IVCONT .Q20H [facility] Stop: 01/16/22 20:59 Lidocaine (Lidocaine 4 % Patch Adh..Patch) 2 patch TRANSDERMA DAILY [facility]; Protocol Last Admin: 01/16/22 08:47 Dose: Not Given Documented by: SAUD Non-Admin Reason: Patient Refused Morphine Sulfate (Morphine Sulfate 4 Mg/Ml Cartridge) 2 mg IVPUSH Q6H PRN; Protocol PRN Reason: Pain, Severe (Pain Scale 7-10) Last Admin: 01/16/22 08:55 Dose: 2 mg Documented by: SAUD Omeprazole (Omeprazole 20 Mg Capsule.Dr) 20 mg PO DAILY@0630 [facility] Last Admin: 01/16/22 05:33 Dose: 20 mg Documented by: MIKE Ondansetron HCl (Ondansetron Hcl 4 Mg/2 Ml Vial) 4 mg IVPUSH Q8H PRN PRN Reason: Nausea and Vomiting Pharmacy Consult (Consult Rx Perform Med Rec) 1 each MISCELLANE ONCE PRN PRN Reason: Consult order Potassium Chloride (Potassium Chloride Er 10 Meq Capsule.Er) 10 meq PO DAILY [facility] Last Admin: 01/16/22 08:46 Dose: 10 meq Documented by: SAUD Sodium Chloride (0.9 % Sodium Chloride Flush 3 Ml Syringe) 3 ml IVFLUSH QSHIFT [facility] Last Admin: 01/16/22 08:45 Dose: 3 ml Documented by: SAUD Labs CBC & Chem 7: 01/16/22 05:49 01/16/22 05:49 Labs: Laboratory Results - last 24 hr 01/15/22 01/16/22 01/16/22 12:06 05:49 05:49 MCV 114.0 H MCH 39.3 H MCHC 34.5 RDW 18.3 H Plt Count 128 L D MPV 9.6 Absolute Nucleated RBC 0.020 H Nucleated RBC % (auto) 0.1 Anion Gap 15 14 Estim Creat Clear Calc 126.9 99.3 Estimated GFR > 60 > 60 Random Glucose 129 H 100 Calcium 8.2 L 8.3 L Microbiology Microbiology Results: Microbiology 01/11/22 15:40 Gram Stain - Final Peritoneal Fluid Routine Culture - Final No growth after 2 days Anaerobic Culture - Preliminary No growth to date. Assessment and Plan (1) Alcoholic cirrhosis of liver with ascites: Status: Acute (2) Hyponatremia: Status: Acute (3) Pneumonia: Status: Deleted Plan 26-year-old male with recently diagnosed alcoholic hepatitis presents to the hospital with shortness of breath found to have a large pleural effusion acute on chronic hyponatremia multifactorial liver disease, diuretics, poor solute intake Sodium dropped to 124 Lasix discontinued, aldactone discontinued continue free water restriction will give 500cc NS Nephrology following monitor BMP Coughing 2/2 Atelactasis\pleural effusion doubt bacterial pneumonia, will dc ceftin, azithro dyspnea 2/2 large left pleural effusion due to hepatitis CT of the chest shows large left pleural effusion with complete collapse of the lingula and left lower lobe IR Did thoracentesis with removal of 1.2 L on 01/11, repeated on 01/14 repeated x-ray showed resolution of effusion with treatment atelectasis acute on chronic alcoholic hepatitis with ascites, thrombocytopenia, elevated inr paracentesis done removing 2.8 L of fluid no abdominal pain, afebrile, no leukocytosis, PMN<250, SBP unlikely GI input appreciated, continue to monitor and discharge when stable hypomagnesemia, acute hypokalemia repleted JANNET creatinine almost doubled from 0.68 on 01/14/22 to 1.24 today, likely prerenal, holding aldactone, giving 500cc ns, monitor DVT prophylaxis scds due to coagulopathy the patient needs to stay in the hospital for treatment of worsening h yponatremia and follow up sodium levels. Quality Stroke Does the patient have a stroke diagnosis?: No VTE Prior VTE?: No VTE Risk Level:: Medical - moderate - high VTE Device Contraindication: N/A - Device Ordered VTE Drug Contraindication: Treatment Not Indicated
--- NOTE | 2022-01-16 11:16 | PM.PNNEP ---
Subjective Subjective Date of Service: 01/16/22 Interval history: Seen AM. Events noted. All recent data reviewed Physical Exam Vital Signs: Vital Signs: Last Vital Signs Temp 98.3 F 01/16/22 07:54 Pulse 102 H 01/16/22 07:54 Resp 18 01/16/22 07:54 BP 132/64 01/16/22 07:54 Pulse Ox 98 01/16/22 07:54 BMI result Body Mass Index 24.6 Const: General: no acute distress Eyes: EOM: EOMs intact bilaterally Neck: Neck: Yes supple Resp: Auscultation: diminished lung sounds Cardio: Rate: regular rate GI: Other: Ascites Neuro: General: moves all extremities Objective Data Labs CBC & Chem 7: 01/16/22 05:49 01/16/22 05:49 Labs: Laboratory Results - last 24 hr 01/15/22 01/16/22 01/16/22 12:06 05:49 05:49 WBC 16.1 H RBC 2.57 L Hgb 10.1 L Hct 29.3 L MCV 114.0 H MCH 39.3 H MCHC 34.5 RDW 18.3 H Plt Count 128 L D MPV 9.6 Absolute Nucleated RBC 0.020 H Nucleated RBC % (auto) 0.1 Sodium 125 L 124 L Potassium 4.1 4.3 Chloride 89 L 88 L Carbon Dioxide 25 26 Anion Gap 15 14 BUN 29 H 36 H Creatinine 0.97 1.24 Estim Creat Clear Calc 126.9 99.3 Estimated GFR > 60 > 60 Random Glucose 129 H 100 Calcium 8.2 L 8.3 L Microbiology Microbiology Results: Microbiology 01/11/22 15:40 Peritoneal Fluid Gram Stain - Final 01/11/22 15:40 Peritoneal Fluid Routine Culture - Final No growth after 2 days 01/11/22 15:40 Peritoneal Fluid Anaerobic Culture - Preliminary No growth to date. Procedures Date of Service Date of Service: 01/16/22 Assessment & Plan Assessment and plan (1) Acute kidney failure: Status: Acute Assessment and Plan: JANNET due to compromise in renal perfusion Had been hyponatremic Hold Spironolactone Urine Na ordered 25 % Albumin 25 G 6 hourly X 3days Daily weights; Labs AM Shall closely follow up Time Spent With Patient Time: Total time spent is greater than 50% in coordination of care (as documented) at patient's floor/unit and/or counseling patient: Progress Note: Quality Stroke Does the patient have a stroke diagnosis?: No
[2022-01-16] MEDS: Lactulose 20 GM/30 ML SOLUTION PO ×2 (11:28→20:03)
[2022-01-16] MEDS: Albumin Human 25 % 100 ML IV ×2 (11:39→18:23)
[2022-01-16 11:58] VITALS: BP 125/64; PULSE 110; RESP 18; TEMP 36.3; O2SAT 99
[2022-01-16 12:36] LABS: Sodium Urine Random < 20.0 mmol/L
[2022-01-16] MEDS: 0.9 % Sodium Chloride 500 ML 50 ML IVCONT (13:34)
[2022-01-16 16:00] VITALS: BP 114/60; PULSE 104; RESP 16; TEMP 36.3; O2SAT 96
[2022-01-16 19:57] VITALS: BP 122/63; PULSE 100; RESP 16; TEMP 36.4; O2SAT 98
[2022-01-16 23:37] VITALS: BP 113/58; PULSE 101; RESP 16; TEMP 36.9; O2SAT 98
[2022-01-17] VITALS (8 sets, daily range): BP systolic 107–132; BP diastolic 56–73; PULSE 72–114; RESP 14–21; TEMP 36.2–37.4; O2SAT 96–108
[2022-01-17] MEDS: Albumin Human 25 % 100 ML IV ×4 (00:44→17:18)
[2022-01-17 05:42] LABS: Hematocrit 25.1 % (42.0-52.0); Mean Corpuscular HGB Conc 35.9 g/dl (31.0-36.0); Mean Platelet Volume 9.3 fL (9.4-12.4); NRBC Pct Auto 0.2 /100WBC (0.0-0.2); Red Blood Count 2.25 X10*6/uL (4.60-5.80); Red Cell Distribution Width 18.4 % (11.0-16.0); White Blood Count 9.8 X10*3/uL (4.8-10.8)
[2022-01-17 05:44] LABS: Mean Corpuscular Volume 111.6 fL (80.0-98.0); Platelet Count 79 X10*3/uL (160-400)
[2022-01-17] MEDS: Omeprazole 20 MG CAPSULE.DR PO (05:51)
[2022-01-17 06:08] LABS: Alanine Aminotransferase 8 U/L (0-40); Alkaline Phosphatase 196 U/L (39-117); Anion Gap 15 (12-20); Aspartate Amino Transferase 42 U/L (5-37); Bilirubin Direct 6.2 mg/dL (0.0-0.5); Bilirubin Total 8.3 mg/dL (0.0-1.0); Blood Urea Nitrogen 44 mg/dL (9-16); Calcium 8.9 mg/dL (8.4-10.2); Carbon Dioxide 25 mmol/L (22-29); Chloride 90 mmol/L (96-108); Creatinine Clr Calc Pharmacy 100.9; Estimated Glomerular Filt Rate > 60; Glucose Fasting 112 mg/dL (60-99); Potassium 3.9 mmol/L (3.3-5.1); Sodium 126 mmol/L (135-145); Total Protein 6.5 g/dL (6.5-8.0)
[2022-01-17] MEDS: guaiFENesin DM 100/10/5 ML 5 ML SYRUP PO ×2 (08:45→14:57)
[2022-01-17] MEDS: Lactulose 20 GM/30 ML SOLUTION PO ×2 (08:45→19:14)
[2022-01-17] MEDS: Benzonatate 100 MG CAPSULE PO ×3 (08:45→20:35)
[2022-01-17] MEDS: guaiFENesin LA 600 MG TAB.ER.12H PO ×2 (08:45→20:32)
[2022-01-17] MEDS: Divalproex Sodium ER 500 MG TAB.ER.24H PO ×2 (08:46→20:32)
[2022-01-17] MEDS: amLODIPine Besylate 10 MG TABLET PO (08:46)
[2022-01-17] MEDS: cloNIDine HCL 0.1 MG TABLET PO (08:46)
[2022-01-17] MEDS: Morphine Sulfate 4 MG/ML CARTRIDGE 2 MG IVPUSH ×2 (08:46→14:57)
[2022-01-17] MEDS: 0.9 % Sodium Chloride Flush 3 ML SYRINGE IVFLUSH ×2 (08:47→14:57)
--- NOTE | 2022-01-17 10:01 | P.PNIM_ITS ---
Subjective Subjective Date of Service: 01/17/22 Interval History: chief complaint, coughing and difficulty breathing breathing back to baseline sodium mildly improved to 126 Cr stable at 1.2 No reported other overnight events. Systemic review: No fever, chills but has reporting back pain No chest pain, palpitation dyspnea improved significantly No abdominal pain, nausea or vomiting no more burning with urination No any rash or wounds Physical Exam Vital Signs: Vital Signs: Last Vital Signs Temp 99.3 F 01/17/22 08:00 Pulse 114 H 01/17/22 08:00 Resp 18 01/17/22 08:46 BP 132/63 01/17/22 08:00 Pulse Ox 98 01/17/22 08:00 BMI result Body Mass Index 24.6 Const: Other: Constitutional : Alert, oriented, jaundiced, Not in distress Neck : Normal inspection, Supple Cardiovascular : RRR, S1 S2, no bilateral lower extremity edema Respiratory : fair bilateral air entry, fine basal crackles on LLL, no wheezes Gastrointestinal: soft, lax, Normal bowel sounds, Non tender, mildly distended with small amount of ascites fluid Skin : Warm, Dry musculoskeletal; much less tenderness in the back on the left side around the thoracentesis area. Neurological : Alert & oriented x3, No focal deficit Objective Data Active Medications Amlodipine Besylate (Amlodipine Besylate 10 Mg Tablet) 10 mg PO DAILY [facility]; Protocol Last Admin: 01/17/22 08:46 Dose: 10 mg Documented by: COTEMA Benzonatate (Benzonatate 100 Mg Capsule) 100 mg PO TID [facility] Last Admin: 01/17/22 08:45 Dose: 100 mg Documented by: COTEMA Clonidine HCl (Clonidine Hcl 0.1 Mg Tablet) 0.1 mg PO DAILY [facility]; Protocol Last Admin: 01/17/22 08:46 Dose: 0.1 mg Documented by: COTEMA Divalproex Sodium (Divalproex Sodium Er 500 Mg Tab.Er.24h) 500 mg PO BID [facility] Last Admin: 01/17/22 08:46 Dose: 500 mg Documented by: COTEMA Docusate Sodium (Docusate Sodium 100 Mg Capsule) 100 mg PO DAILY PRN PRN Reason: Constipation Guaifenesin (Guaifenesin La 600 Mg Tab.Er.12h) 600 mg PO BID [facility] Last Admin: 01/17/22 08:45 Dose: 600 mg Documented by: ROBBI Guaifenesin/Dextromethorphan (Guaifenesin Dm 100/10/5 Ml 5 Ml Syrup) 5 ml PO Q4H PRN PRN Reason: cough Last Admin: 01/17/22 08:45 Dose: 5 ml Documented by: DASIAEMA Albumin Human (Kedbumin 25 %) 100 mls @ 100 mls/hr IV Q6H [facility] Stop: 01/19/22 06:59 Last Infusion: 01/17/22 06:49 Dose: 0 mls/hr Documented by: MIKE Lactulose (Lactulose 20 Gm/30 Ml Solution) 20 gm PO BID [facility] Last Admin: 01/17/22 08:45 Dose: 20 gm Documented by: ROBBI Lidocaine (Lidocaine 4 % Patch Adh..Patch) 2 patch TRANSDERMA DAILY [facility]; Protocol Last Admin: 01/17/22 08:41 Dose: Not Given Documented by: ROBBI Non-Admin Reason: Patient Refused Morphine Sulfate (Morphine Sulfate 4 Mg/Ml Cartridge) 2 mg IVPUSH Q6H PRN; Protocol PRN Reason: Pain, Severe (Pain Scale 7-10) Last Admin: 01/17/22 08:46 Dose: 2 mg Documented by: ROBBI Omeprazole (Omeprazole 20 Mg Capsule.Dr) 20 mg PO DAILY@0630 [facility] Last Admin: 01/17/22 05:51 Dose: 20 mg Documented by: MIKE Ondansetron HCl (Ondansetron Hcl 4 Mg/2 Ml Vial) 4 mg IVPUSH Q8H PRN PRN Reason: Nausea and Vomiting Pharmacy Consult (Consult Rx Perform Med Rec) 1 each MISCELLANE ONCE PRN PRN Reason: Consult order Potassium Chloride (Potassium Chloride Er 10 Meq Capsule.Er) 10 meq PO DAILY [facility] Last Admin: 01/17/22 08:46 Dose: 10 meq Documented by: ROBBI Sodium Chloride (0.9 % Sodium Chloride Flush 3 Ml Syringe) 3 ml IVFLUSH QSHIFT [facility] Last Admin: 01/17/22 08:47 Dose: 3 ml Documented by: ROBBI Labs CBC & Chem 7: 01/17/22 05:34 01/17/22 05:34 Labs: Laboratory Results - last 24 hr 0301/17/22 01/17/22 11:55 05:34 05:34 MCV 111.6 H MCH 40.0 H MCHC 35.9 RDW 18.4 H Plt Count 79 L D MPV 9.3 L Absolute Nucleated RBC 0.020 H Nucleated RBC % (auto) 0.2 Anion Gap 15 Estim Creat Clear Calc 100.9 Estimated GFR > 60 Fasting Glucose 112 H Calcium 8.9 D Total Bilirubin 8.3 H Direct Bilirubin 6.2 H AST 42 H ALT 8 Alkaline Phosphatase 196 H D Total Protein 6.5 Albumin 3.0 L D Ur Random Sodium < 20.0 Microbiology Microbiology Results: Microbiology 01/11/22 15:40 Gram Stain - Final Peritoneal Fluid Routine Culture - Final No growth after 2 days Anaerobic Culture - Final NO GROWTH AFTER 5 DAYS Assessment and Plan (1) Acute kidney failure: Status: Acute (2) Alcoholic cirrhosis of liver with ascites: Status: Acute (3) Hyponatremia: Status: Acute Plan 26-year-old male with recently diagnosed alcoholic hepatitis presents to the hospital with shortness of breath found to have a large pleural effusion JANNET creatinine almost doubled from 0.68 on 01/14/22 to 1.2 today likely prerenal, holding aldactone acute on chronic hyponatremia multifactorial liver disease, diuretics, poor solute intake Sodium improved to 126 Lasix discontinued, aldactone discontinued continue free water restriction Nephrology following monitor BMP Coughing 2/2 Atelactasis\pleural effusion doubt bacterial pneumonia, will dc ceftin, azithro dyspnea 2/2 large left pleural effusion due to hepatitis CT of the chest shows large left pleural effusion with complete collapse of the lingula and left lower lobe IR Did thoracentesis with removal of 1.2 L on 01/11, repeated on 01/14 repeated x-ray showed resolution of effusion with treatment atelectasis acute on chronic alcoholic hepatitis with ascites, thrombocytopenia, elevated inr paracentesis done removing 2.8 L of fluid no abdominal pain, afebrile, no leukocytosis, PMN<250, SBP unlikely GI input appreciated, continue to monitor and discharge when stable Hypomagnesemia, acute hypokalemia repleted, follow BMP DVT prophylaxis SCDs due to coagulopathy The patient needs to stay in the hospital for treatment of JANNET, hyponatremia and follow up sodium levels. Quality Stroke Does the patient have a stroke diagnosis?: No VTE Prior VTE?: No VTE Risk Level:: Medical - moderate - high VTE Device Contraindication: N/A - Device Ordered VTE Drug Contraindication: Treatment Not Indicated
--- NOTE | 2022-01-17 10:33 | P.PNNP_ITS ---
Subjective Subjective Date of Service: 01/17/22 Interval history: Events noted; All recent data reviewed; D/W Hospitalist Physical Exam 2 Vital Signs: Vital Signs: Last Vital Signs Temp 99.3 F 01/17/22 08:00 Pulse 114 H 01/17/22 08:00 Resp 18 01/17/22 08:46 BP 132/63 01/17/22 08:00 Pulse Ox 98 01/17/22 08:00 BMI result Body Mass Index 24.6 Const: General: alert Orientation/consciousness: patient oriented x3 Neck: Neck: Yes supple Resp: Auscultation: diminished lung sounds Cardio: Rate: regular rate GI: Other: Ascites Neuro: General: patient oriented x3 and moves all extremities Objective Data Labs CBC & Chem 7: 01/17/22 05:34 01/17/22 05:34 Labs: Laboratory Results - last 24 hr 01/16/22 01/17/22 01/17/22 11:55 05:34 05:34 WBC 9.8 RBC 2.25 L Hgb 9.0 L Hct 25.1 L MCV 111.6 H MCH 40.0 H MCHC 35.9 RDW 18.4 H Plt Count 79 L D MPV 9.3 L Absolute Nucleated RBC 0.020 H Nucleated RBC % (auto) 0.2 Sodium 126 L Potassium 3.9 Chloride 90 L Carbon Dioxide 25 Anion Gap 15 BUN 44 H Creatinine 1.22 Estim Creat Clear Calc 100.9 Estimated GFR > 60 Fasting Glucose 112 H Calcium 8.9 D Total Bilirubin 8.3 H Direct Bilirubin 6.2 H AST 42 H ALT 8 Alkaline Phosphatase 196 H D Total Protein 6.5 Albumin 3.0 L D Ur Random Sodium < 20.0 Microbiology Microbiology Results: Microbiology 01/11/22 15:40 Peritoneal Fluid Gram Stain - Final 01/11/22 15:40 Peritoneal Fluid Routine Culture - Final No growth after 2 days 01/11/22 15:40 Peritoneal Fluid Anaerobic Culture - Final NO GROWTH AFTER 5 DAYS Procedures Date of Service Date of Service: 01/17/22 Assessment & Plan Assessment and plan (1) Acute kidney failure: Status: Acute Assessment and Plan: JANNET due to compromise in renal perfusion Had been hyponatremic Spironolactone on hold Urine Na < 20; DDx HRS 25 % Albumin 25 G 6 hourly X 3days Renal functions stable now No need for Midodrine now Daily weights; Labs AM Shall closely follow up Time Spent With Patient Time: Total time spent is greater than 50% in coordination of care (as documented) at patient's floor/unit and/or counseling patient: Progress Note: Quality Stroke Does the patient have a stroke diagnosis?: No
[2022-01-17 18:38] LABS: Ammonia 61 umol/L (13-55)
--- NOTE | 2022-01-17 18:58 | PC.NURSE ---
Patient observed to be more sleepy today. Pt still alert and oriented. Dr. Rodrigues made aware. Telephone order for stat ammonia lab draw. Ammonia level 61. Dr. Rodrigues made aware. Telephone order to give nightime lactulose now and stop PRN morphine. Will continue to monitor patient.
[2022-01-18] MEDS: 0.9 % Sodium Chloride Flush 3 ML SYRINGE IVFLUSH ×4 (00:29→20:11)
[2022-01-18] MEDS: Albumin Human 25 % 100 ML IV ×5 (00:29→23:43)
[2022-01-18 03:36] VITALS: BP 129/71; PULSE 108; RESP 18; TEMP 36.2; O2SAT 100
[2022-01-18] MEDS: Omeprazole 20 MG CAPSULE.DR PO (04:33)
[2022-01-18 06:22] LABS: C Reactive Protein 6.67 mg/dL (< or = 0.50)
[2022-01-18 08:00] VITALS: BP 129/63; PULSE 107; RESP 20; TEMP 36.6; O2SAT 96
[2022-01-18] MEDS: amLODIPine Besylate 10 MG TABLET PO (08:16)
[2022-01-18] MEDS: Lactulose 20 GM/30 ML SOLUTION PO ×2 (08:16→20:11)
[2022-01-18] MEDS: Divalproex Sodium ER 500 MG TAB.ER.24H PO ×2 (08:16→20:11)
[2022-01-18] MEDS: guaiFENesin DM 100/10/5 ML 5 ML SYRUP PO ×2 (08:16→15:31)
[2022-01-18] MEDS: Benzonatate 100 MG CAPSULE PO ×3 (08:17→20:11)
[2022-01-18] MEDS: guaiFENesin LA 600 MG TAB.ER.12H PO ×2 (08:17→20:11)
[2022-01-18] MEDS: cloNIDine HCL 0.1 MG TABLET PO (08:17)
[2022-01-18 11:13] LABS: Anion Gap 17 (12-20); Blood Urea Nitrogen 39 mg/dL (9-16); Calcium 9.3 mg/dL (8.4-10.2); Carbon Dioxide 24 mmol/L (22-29); Chloride 91 mmol/L (96-108); Creatinine Clr Calc Pharmacy 129.6; Estimated Glomerular Filt Rate > 60; Glucose Random 97 mg/dL (60-115); Potassium 3.7 mmol/L (3.3-5.1); Sodium 128 mmol/L (135-145)
[2022-01-18 11:21] VITALS: BP 117/68; PULSE 106; RESP 18; TEMP 36.7; O2SAT 96
--- NOTE | 2022-01-18 13:22 | P.PNIM_ITS ---
Subjective Subjective Date of Service: 01/18/22 Interval History: cc: abd pain interval history:weak, wants to go home, no sob, no abd pain Cardiovascular Cardiovascular: Reports no additional cardiovascular complaints Respiratory Respiratory: Reports no additional respiratory complaints Physical Exam Vital Signs: Vital Signs: Last Vital Signs Temp 98.0 F 01/18/22 11:21 Pulse 106 H 01/18/22 11:21 Resp 18 01/18/22 11:21 BP 117/68 01/18/22 11:21 Pulse Ox 96 01/18/22 11:21 BMI result Body Mass Index 24.6 General: AO X 3, juanidced, ill appearing Resp: CTA bilateral, no accessory muscles used CVS: S1,S2,RRR GI: soft, non tender, distended Neuro: motor grossly intact, alert Psych: appropriate affect, appropriate insight Objective Data Active Medications Amlodipine Besylate (Amlodipine Besylate 10 Mg Tablet) 10 mg PO DAILY [facility]; Protocol Last Admin: 01/18/22 08:16 Dose: 10 mg Documented by: DASIAEMA Benzonatate (Benzonatate 100 Mg Capsule) 100 mg PO TID [facility] Last Admin: 01/18/22 08:17 Dose: 100 mg Documented by: DASIAEMA Clonidine HCl (Clonidine Hcl 0.1 Mg Tablet) 0.1 mg PO DAILY [facility]; Protocol Last Admin: 01/18/22 08:17 Dose: 0.1 mg Documented by: DASIAEMA Divalproex Sodium (Divalproex Sodium Er 500 Mg Tab.Er.24h) 500 mg PO BID [facility] Last Admin: 01/18/22 08:16 Dose: 500 mg Documented by: DASIAEMA Docusate Sodium (Docusate Sodium 100 Mg Capsule) 100 mg PO DAILY PRN PRN Reason: Constipation Guaifenesin (Guaifenesin La 600 Mg Tab.Er.12h) 600 mg PO BID [facility] Last Admin: 01/18/22 08:17 Dose: 600 mg Documented by: DASIAEMA Guaifenesin/Dextromethorphan (Guaifenesin Dm 100/10/5 Ml 5 Ml Syrup) 5 ml PO Q4H PRN PRN Reason: cough Last Admin: 01/18/22 08:16 Dose: 5 ml Documented by: DASIAEMA Albumin Human (Kedbumin 25 %) 100 mls @ 100 mls/hr IV Q6H [facility] Stop: 01/19/22 06:59 Last Infusion: 01/18/22 13:03 Dose: 0 mls/hr Documented by: COTEMA Lactulose (Lactulose 20 Gm/30 Ml Solution) 20 gm PO BID [facility] Last Admin: 01/18/22 08:16 Dose: 20 gm Documented by: COTEMA Lidocaine (Lidocaine 4 % Patch Adh..Patch) 2 patch TRANSDERMA DAILY [facility]; Protocol Last Admin: 01/18/22 08:10 Dose: Not Given Documented by: ROBBI Non-Admin Reason: Patient Refused Omeprazole (Omeprazole 20 Mg Capsule.Dr) 20 mg PO DAILY@0630 [facility] Last Admin: 01/18/22 04:33 Dose: 20 mg Documented by: ANTOIC Ondansetron HCl (Ondansetron Hcl 4 Mg/2 Ml Vial) 4 mg IVPUSH Q8H PRN PRN Reason: Nausea and Vomiting Pharmacy Consult (Consult Rx Perform Med Rec) 1 each MISCELLANE ONCE PRN PRN Reason: Consult order Potassium Chloride (Potassium Chloride Er 10 Meq Capsule.Er) 10 meq PO DAILY [facility] Last Admin: 01/18/22 08:16 Dose: 10 meq Documented by: DASIAEMA Sodium Chloride (0.9 % Sodium Chloride Flush 3 Ml Syringe) 3 ml IVFLUSH QSHIFT [facility] Last Admin: 01/18/22 08:16 Dose: 3 ml Documented by: ROBBI Labs CBC & Chem 7: 01/17/22 05:34 01/18/22 05:43 Labs: Laboratory Results - last 24 hr 01/17/22 01/18/22 18:29 05:43 Anion Gap 17 Estim Creat Clear Calc 129.6 Estimated GFR > 60 Random Glucose 97 Calcium 9.3 Ammonia 61 H C-Reactive Protein 6.67 H Assessment and Plan (1) Acute kidney failure: Status: Acute (2) Alcoholic cirrhosis of liver with ascites: (3) Hyponatremia: Plan 26-year-old male with recently diagnosed alcoholic hepatitis presents to the hospital with shortness of breath found to have a large pleural effusion JANNET improving from 1.2 to 0.95 likely prerenal, holding aldactone, albumin day 3/3 monitor acute on chronic hyponatremia multifactorial liver disease, diuretics, poor solute intake Sodium improved to 128 Lasix discontinued, aldactone discontinued continue free water restriction Nephrology following monitor BMP Coughing 2/2 Atelactasis\pleural effusion doubt bacterial pneumonia, dced ceftin, azithro dyspnea 2/2 large left pleural effusion due to hepatitis CT of the chest shows large left pleural effusion with complete collapse of the lingula and left lower lobe IR Did thoracentesis with removal of 1.2 L on 01/11, repeated on 01/14 repeated x-ray showed resolution of effusion with treatment atelectasis acute on chronic alcoholic hepatitis with ascites, thrombocytopenia, elevated inr paracentesis done removing 2.8 L of fluid no abdominal pain, afebrile, no leukocytosis, PMN<250, SBP unlikely GI input appreciated, continue to monitor and discharge when stable complicated by metabolic encephalopathy (hepatic encephalopathy) continue lactulose for 2-3 bm/day Hypomagnesemia, acute hypokalemia repleted DVT prophylaxis SCDs due to coagulopathy The patient needs to stay in the hospital for treatment of JANNET, hyponatremia and follow up sodium levels. Quality Stroke Does the patient have a stroke diagnosis?: No VTE Prior VTE?: No VTE Risk Level:: Medical - moderate - high VTE Device Contraindication: N/A - Device Ordered VTE Drug Contraindication: Treatment Not Indicated
--- NOTE | 2022-01-18 13:55 | PM.PNNEP ---
Subjective Subjective Date of Service: 01/18/22 Principal diagnosis: Chart Reviewed. Events noted. Interval history: cc: abd pain interval history:wants to go home, no sob, no abd pain Physical Exam Vital Signs: Vital Signs: Last Vital Signs Temp 98.0 F 01/18/22 11:21 Pulse 106 H 01/18/22 11:21 Resp 18 01/18/22 11:21 BP 117/68 01/18/22 11:21 Pulse Ox 96 01/18/22 11:21 BMI result Body Mass Index 24.6 Neck: Neck: Yes normal visual inspection Resp: Effort & Inspection: able to speak in complete sentences Auscultation: clear to auscultation bilaterally Cardio: Jugular venous distension: no JVD Rate: tachycardic GI: Auscultation: normal bowel sounds : Male General Exam: Yes edema Extrem: Left upper extremity: edema Objective Data Labs CBC & Chem 7: 01/17/22 05:34 01/18/22 05:43 Labs: Laboratory Results - last 24 hr 01/17/22 01/18/22 18:29 05:43 Sodium 128 L Potassium 3.7 Chloride 91 L Carbon Dioxide 24 Anion Gap 17 BUN 39 H Creatinine 0.95 Estim Creat Clear Calc 129.6 Estimated GFR > 60 Random Glucose 97 Calcium 9.3 Ammonia 61 H C-Reactive Protein 6.67 H Microbiology Microbiology Results: Microbiology 01/11/22 15:40 Peritoneal Fluid Gram Stain - Final 01/11/22 15:40 Peritoneal Fluid Routine Culture - Final No growth after 2 days 01/11/22 15:40 Peritoneal Fluid Anaerobic Culture - Final NO GROWTH AFTER 5 DAYS Procedures Date of Service Date of Service: 01/18/22 Assessment & Plan Assessment and plan (1) Hyponatremia: Status: Acute (2) Acute kidney failure: Status: Acute Plan Problem List: JANNET, non-oliguric Hyponatremia JANNET due to compromise in renal perfusion Had been hyponatremic. Na improving with albumin infusion(s). 25 % Albumin Q6 hourly X 3days (Day 3) U-Na< 20 indicates appropriate diluting capability of kidneys. No evidence of ADH secretion. HRS in ddx Spironolactone on hold Renal functions stable now Monitor I/O's No need for Midodrine now No indication for Urea, Na improving. Continue with FW restriction. Sips of water to thirst Can consider boost/ansure for additional solute load. Daily weights; Labs AM Shall closely follow up Time Spent With Patient Time: Total time spent is greater than 50% in coordination of care (as documented) at patient's floor/unit and/or counseling patient: Time with patient: 25 - 35 minutes Progress Note: Quality Stroke Does the patient have a stroke diagnosis?: No
[2022-01-18 15:32] VITALS: BP 131/66; PULSE 111; RESP 20; TEMP 36.8; O2SAT 96
--- NOTE | 2022-01-18 16:15 | MHC.CM.PN ---
EMR REVIEWED, PER HOSPITALIST PT WILL REMAIN INPT FOR JANNET, HYPONATREMIA AND REPEAT LABS, PLAN CONT'S TO BE HOME NO SERVICES W/SELF TRANSPORT OR ARRANGE OTHER TRANSPORT IF NOT FEELING WELL.
[2022-01-18 19:16] VITALS: BP 130/69; PULSE 86; RESP 17; TEMP 36.1; O2SAT 96
[2022-01-18 23:28] VITALS: BP 111/56; PULSE 110; RESP 17; TEMP 36.2; O2SAT 97
[2022-01-19] VITALS (9 sets, daily range): BP systolic 108–118; BP diastolic 52–67; PULSE 87–165; RESP 17–20; TEMP 36.2–37.2; O2SAT 94–96
--- NOTE | 2022-01-19 | ECG_ITS ---
Test Reason : cp Blood Pressure : / mmHG Vent. Rate : 167 BPM Atrial Rate : 000 BPM P-R Int : 000 ms QRS Dur : 082 ms QT Int : 250 ms P-R-T Axes : 000 -18 -38 degrees QTc Int : 417 ms Supraventricular tachycardia Low voltage QRS Possible Anterolateral infarct (cited on or before 10-JAN-2022) Abnormal ECG When compared with ECG of 10-JAN-2022 20:09, No significant changes seen Referred By: John Garcia Electronically Signed By:Jose Gong
--- NOTE | 2022-01-19 | ECG_ITS ---
Test Reason : cp Blood Pressure : / mmHG Vent. Rate : 167 BPM Atrial Rate : 000 BPM P-R Int : 000 ms QRS Dur : 078 ms QT Int : 302 ms P-R-T Axes : 000 -20 -52 degrees QTc Int : 503 ms Supraventricular tachycardia Low voltage QRS Possible Anterolateral infarct (cited on or before 10-JAN-2022) Abnormal ECG When compared with ECG of 10-JAN-2022 20:09, T wave inversion now evident in Inferior leads Nonspecific T wave abnormality no longer evident in Lateral leads SVT present now Referred By: Claude Fortune Electronically Signed By:Jose Gong
--- NOTE | 2022-01-19 04:01 | PM.EVENT ---
Event Note Date of Service: 01/19/22 Event Note: Tachycardia: HR in 160s; pt appears dehydrated. pt asymptomatic; BP stable; stat labs showed na128, k 3.5; mag pending; trop 3.5; TSH -> 6.7; free t4 pending. Echo cardiology consult telemetry Lactate 2.8; given IV fluids. repeat EKG showed SVT-> did not improve with vagal maneuvers; given 5mg metoprolol IV x1. Held patient's amlodipine in order to provide room for blood pressure for sathya blocking agents.
[2022-01-19] MEDS: Morphine Sulfate 2 MG/ML CARTRIDGE 1 MG IVPUSH (04:21)
[2022-01-19] MEDS: 0.9 % Sodium Chloride 500 ML IV (04:25)
[2022-01-19 04:39] LABS: Basophils Percent Auto 0.4 % (0-2); Eosinophils Absolute Auto 0.1 X10*3/uL (0.0-0.4); Eosinophils Percent Auto 0.8 % (0-4); Hematocrit 25.1 % (42.0-52.0); Hemoglobin 8.7 g/dl (14.0-18.0); Imm Gran Abs Auto 0.23 X10*3/uL (0.00-0.03); Imm Gran Pct Auto 2.7 % (0.0-0.4); Lymphocytes Absolute Auto 1.7 X10*3/uL (1.2-4.9); Lymphocytes Percent Auto 19.4 % (20-40); MANUAL DIFF FLAG SCAN; Mean Corpuscular HGB Conc 34.7 g/dl (31.0-36.0); Mean Corpuscular Hemoglobin 40.1 pg (27.0-33.0); Monocytes Absolute Auto 1.7 X10*3/uL (0.1-1.2); Monocytes Percent Auto 20.3 % (2-11); NRBC Pct Auto 0.4 /100WBC (0.0-0.2); Neutrophils Absolute Auto 4.8 x10*3/uL (2.0-8.3); Neutrophils Percent Auto 56.4 % (45-73); Red Blood Count 2.17 X10*6/uL (4.60-5.80); Red Cell Distribution Width 20.1 % (11.0-16.0); SCAN SMEAR FLAG 1; White Blood Count 8.6 X10*3/uL (4.8-10.8)
[2022-01-19 04:42] LABS: Mean Corpuscular Volume 115.7 fL (80.0-98.0); Platelet Count 91 X10*3/uL (160-400)
[2022-01-19 04:52] LABS: Anion Gap 20 (12-20); Blood Urea Nitrogen 33 mg/dL (9-16); Calcium 9.4 mg/dL (8.4-10.2); Carbon Dioxide 20 mmol/L (22-29); Chloride 92 mmol/L (96-108); Creatinine Clr Calc Pharmacy 136.8; Estimated Glomerular Filt Rate > 60; Glucose Random 109 mg/dL (60-115); Potassium 3.5 mmol/L (3.3-5.1); Sodium 128 mmol/L (135-145)
[2022-01-19 04:55] LABS: Troponin-I High Sensitivity < 3.5 ng/L (<3.5-35.0)
[2022-01-19 04:59] LABS: SLIDE REVIEW VERIFIED
[2022-01-19 05:20] LABS: Lactic Acid 2.8 mmol/L (0.5-2.0)
--- NOTE | 2022-01-19 05:40 | PC.NURSE ---
RECEIVED IN TRANSFER FROM [place] [id number] WITH RAPID HR,SVT,HR 165.PT COMF.DENIES PALPITATIONS,NO SOB.BP 113/59.MED WITH LOPRESSOR 5MG IV STAT UPON ARRIVAL TO FLOOR.HR DECREASED TO 98-102,BP 118/64.SR//STACH ON MONITOR.
[2022-01-19] MEDS: Metoprolol Tartrate 5 MG/5 ML VIAL IVPUSH (05:56)
[2022-01-19] MEDS: 0.9 % Sodium Chloride 1,000 ML 999 ML IV (06:04)
[2022-01-19] MEDS: Omeprazole 20 MG CAPSULE.DR PO (06:28)
[2022-01-19] MEDS: Albumin Human 25 % 100 ML IV (06:29)
[2022-01-19 06:34] LABS: Reflex Lactate? Lactic Acid Added
[2022-01-19 08:43] LABS: ~Lactic Acid-LAB USE ONLY 2.8 mmol/L (0.5-2.0)
[2022-01-19] MEDS: cloNIDine HCL 0.1 MG TABLET PO (09:25)
[2022-01-19] MEDS: Benzonatate 100 MG CAPSULE PO ×3 (09:25→22:31)
[2022-01-19] MEDS: guaiFENesin LA 600 MG TAB.ER.12H PO ×2 (09:25→20:47)
[2022-01-19] MEDS: Divalproex Sodium ER 500 MG TAB.ER.24H PO ×2 (09:25→20:47)
[2022-01-19] MEDS: 0.9 % Sodium Chloride Flush 3 ML SYRINGE IVFLUSH ×3 (09:26→20:47)
[2022-01-19 09:49] LABS: Reflex Lactate? 2 Y
--- NOTE | 2022-01-19 09:58 | PM.CNCAR ---
History of Present Illness History of Present Illness Date of Service: 01/19/22 Chief complaint: Large pleural effusion, ascites Narrative: This is a cardiology consultation regarding supraventricular tachycardia. Overnight, telemetry had revealed supraventricular tachycardia and hence we have been asked to see him. Patient was also has a history of alcoholic hepatitis. He has various ongoing medical issues including pleural effusion, abdominal ascites, electrolyte abnormalities, coagulopathy thrombocytopenia among others. Overall, no specific cardiac concerns at this time from patient. He denies any chest pain of anginal-type or palpitations or any acute shortness of breath. Even prior to admission, he has not had any palpitations anginal-type symptoms or other major cardiac concerns. He denies any history of coronary disease myocardial infarction. Overnight, it seems that he got IV beta blockers. Review of Systems Review of Systems: Yes all other systems are reviewed and are negative Constitutional: Constitutional: Reports as per HPI Eyes: Eyes: Reports as per HPI ENT: Reports as per HPI Cardiovascular: Cardiovascular: Reports as per HPI, Reports no additional cardiovascular complaints, Denies acrocyanosis, Denies cool extremities, Denies chest pain, Denies leg edema, Denies lightheadedness, Denies palpitations and Denies dyspnea Respiratory: Respiratory: Reports no additional respiratory complaints and Denies dyspnea Gastrointestinal: Gastrointestinal: Reports no additional gastrointestinal complaints Genitourinary: Genitourinary: Reports no additional male genitourinary complaints Musculoskeletal: Musculoskeletal: Reports no additional musculoskeletal complaints Neurologic: Reports system reviewed and no additional complaints, except as documented Psychiatric: Psychiatric: Reports no additional psychiatric complaints Endocrine: Endocrine: Reports no additional endocrine complaints and Denies palpitations Hematologic/Lymphatic: Hematologic/Lymphatic: Reports no additional hematologic/lymphatic complaints Allergic/Immunologic: Allergic/Immunologic: Reports no additional allergic/immunologic complaints [facility] Past Medical History Medical History Alcoholic cirrhosis of liver with ascites Alcoholic hepatitis HTN (hypertension) Hyponatremia Thrombocytopenia Family History Family History Other No family history of coronary artery disease Surgical History Surgical History No pertinent past surgical history Social History Social History Household Members: None Housing: House Alcohol intake: former Patient Tobacco Use Status: Never used Tobacco service: No Current occupational status: employed Meds Allergies Allergy/AdvReac Type Severity Reaction Status Date / Time No Known Allergies Allergy Unverified 01/10/22 15:53 Active Medications: Current Medications Amlodipine Besylate (Amlodipine Besylate 10 Mg Tablet) 10 mg PO DAILY [facility]; Protocol Last Admin: 01/18/22 08:16 Dose: 10 mg Documented by: Benzonatate (Benzonatate 100 Mg Capsule) 100 mg PO TID [facility] Last Admin: 01/19/22 09:25 Dose: 100 mg Documented by: Clonidine HCl (Clonidine Hcl 0.1 Mg Tablet) 0.1 mg PO DAILY [facility]; Protocol Last Admin: 01/19/22 09:25 Dose: 0.1 mg Documented by: Divalproex Sodium (Divalproex Sodium Er 500 Mg Tab.Er.24h) 500 mg PO BID [facility] Last Admin: 01/19/22 09:25 Dose: 500 mg Documented by: Docusate Sodium (Docusate Sodium 100 Mg Capsule) 100 mg PO DAILY PRN PRN Reason: Constipation Guaifenesin (Guaifenesin La 600 Mg Tab.Er.12h) 600 mg PO BID [facility] Last Admin: 01/19/22 09:25 Dose: 600 mg Documented by: Guaifenesin/Dextromethorphan (Guaifenesin Dm 100/10/5 Ml 5 Ml Syrup) 5 ml PO Q4H PRN PRN Reason: cough Last Admin: 01/18/22 15:31 Dose: 5 ml Documented by: Lactulose (Lactulose 20 Gm/30 Ml Solution) 20 gm PO BID [facility] Last Admin: 01/19/22 09:26 Dose: Not Given Documented by: Lidocaine (Lidocaine 4 % Patch Adh..Patch) 2 patch TRANSDERMA DAILY [facility]; Protocol Last Admin: 01/19/22 09:25 Dose: Not Given Documented by: Omeprazole (Omeprazole 20 Mg Capsule.Dr) 20 mg PO DAILY@0630 [facility] Last Admin: 01/19/22 06:28 Dose: 20 mg Documented by: Ondansetron HCl (Ondansetron Hcl 4 Mg/2 Ml Vial) 4 mg IVPUSH Q8H PRN PRN Reason: Nausea and Vomiting Pharmacy Consult (Consult Rx Perform Med Rec) 1 each MISCELLANE ONCE PRN PRN Reason: Consult order Potassium Chloride (Potassium Chloride Er 10 Meq Capsule.Er) 10 meq PO DAILY [facility] Last Admin: 01/19/22 09:26 Dose: 10 meq Documented by: Sodium Chloride (0.9 % Sodium Chloride Flush 3 Ml Syringe) 3 ml IVFLUSH QSHIFT [facility] Last Admin: 01/19/22 09:26 Dose: 3 ml Documented by: Home Medications Medication Instructions Recorded Confirmed Last Taken Type amlodipine 5 mg tablet 2 tab PO DAILY 01/10/22 01/10/22 01/10/22 History clonidine HCl 0.1 mg tablet 1 tab PO DAILY 01/10/22 01/10/22 01/10/22 History divalproex 500 mg tablet,extended 1 tab PO BID 01/10/22 01/10/22 01/10/22 History release 24 hr potassium chloride 10 mEq 1 tab PO DAILY 01/10/22 01/10/22 01/10/22 History tablet,extended release Physical Exam Const: General: comfortable HENMT: Other: Unremarkable Neck: Neck: Yes normal visual inspection Chest: Chest palpation & inspection: normal inspection of the chest Resp: Auscultation: clear to auscultation bilaterally Cardio: Palpation: normal PMI Heart sounds: S1 normal heart sound present, S2 normal heart sound present, no gallops, no murmurs and no rubs GI: Other: Distended Palpation (GI): Soft to palpation Back/Spine/Pelvis: Other: unremarkable Skin: General skin exam: no rashes or lesions noted Neuro: Cognition (Neuro): normal cognition Extrem: General: Yes normal to inspection Psych: Appearance: grossly normal Objective Labs and Meds Result diagrams: 01/19/22 04:29 01/19/22 04:29 Lab results: Laboratory Results - last 24 hr 01/18/22 01/19/22 01/19/22 05:43 04:29 04:29 WBC 8.6 RBC 2.17 L Hgb 8.7 L Hct 25.1 L MCV 115.7 H MCH 40.1 H MCHC 34.7 RDW 20.1 H Plt Count 91 L MPV 10.0 Immature Gran % (Auto) 2.7 H Neut % (Auto) 56.4 Lymph % (Auto) 19.4 L [place] % (Auto) 20.3 H Eos % (Auto) 0.8 Baso % (Auto) 0.4 Lymph # (Auto) 1.7 [place] # (Auto) 1.7 H Eos # (Auto) 0.1 Baso # (Auto) 0.0 Abs Immat Gran (auto) 0.23 H Absolute Neuts (auto) 4.8 Absolute Nucleated RBC 0.030 H Nucleated RBC % (auto) 0.4 H Smear Tech's Comments VERIFIED Sodium 128 L 128 L Potassium 3.7 3.5 Chloride 91 L 92 L Carbon Dioxide 24 20 L Anion Gap 17 20 BUN 39 H 33 H Creatinine 0.95 0.90 Estim Creat Clear Calc 129.6 136.8 Estimated GFR > 60 > 60 Random Glucose 97 109 Lactic Acid Lactic Acid F/U @ 2Hr Calcium 9.3 9.4 Troponin I High Sens TSH 6.70 H 01/19/22 01/19/22 01/19/22 04:29 04:29 07:36 WBC RBC Hgb Hct MCV MCH MCHC RDW Plt Count MPV Immature Gran % (Auto) Neut % (Auto) Lymph % (Auto) [place] % (Auto) Eos % (Auto) Baso % (Auto) Lymph # (Auto) [place] # (Auto) Eos # (Auto) Baso # (Auto) Abs Immat Gran (auto) Absolute Neuts (auto) Absolute Nucleated RBC Nucleated RBC % (auto) Smear Tech's Comments Sodium Potassium Chloride Carbon Dioxide Anion Gap BUN Creatinine Estim Creat Clear Calc Estimated GFR Random Glucose Lactic Acid 2.8 H* Lactic Acid F/U @ 2Hr 2.8 H* Calcium Troponin I High Sens < 3.5 TSH ECG Interpretation: EKG with sinus tachycardia, 119/Min; cannot exclude old anterior infarct; nonspecific ST-T changes. Imaging Radiologist's impression: Impressions Chest X-Ray 01/19/22 05:20 IMPRESSION: Small left pleural effusion. Left basilar airspace opacities could represent atelectasis or pneumonia. Assessment and Plan (1) SVT (supraventricular tachycardia): Status: Acute (2) Alcohol abuse: Status: Acute Plan Telemetry reviewed from the time of tachycardia. Narrow complex rhythm in the 160s. Could be either reentrant tachycardia or atrial tachycardia. Currently in mild sinus tachycardia. He needs to be evaluated for cardiomyopathy related to alcohol. This time, can use beta-blockers for preventing any recurrent episodes. High sensitivity troponin is within normal limits. Echocardiogram to be completed. Will follow-up. Procedures Date of Service Date of Service: 01/19/22
[2022-01-19] MEDS: nadoloL 20 MG TABLET 10 MG PO (11:31)
[2022-01-19] MEDS: oxyCODONE HCl Immed Release 5 MG TABLET PO (11:32)
--- NOTE | 2022-01-19 12:14 | HO.PM.IMPN ---
Subjective Subjective Date of Service: 01/19/22 Interval History: cc: abd pain interval history:weak, wants to go home, no sob, no abd pain, had svt this AM but was asymptomatic Cardiovascular Cardiovascular: Reports no additional cardiovascular complaints Respiratory Respiratory: Reports no additional respiratory complaints Physical Exam Vital Signs: Vital Signs: Last Vital Signs Temp 98.8 F 01/19/22 11:41 Pulse 109 H 01/19/22 11:41 Resp 17 01/19/22 11:41 BP 117/55 L 01/19/22 11:41 Pulse Ox 94 01/19/22 11:41 BMI result Body Mass Index 24.6 General: AO X 3, juanidced, ill appearing Resp:? CTA bilateral, no accessory muscles used CVS: S1,S2,RRR GI: soft, non tender,? distended Neuro:? motor grossly intact, alert Psych: appropriate affect, appropriate insight? Objective Data Active Medications Benzonatate (Benzonatate 100 Mg Capsule) 100 mg PO TID [facility] Last Admin: 01/19/22 09:25 Dose: 100 mg Documented by: RONDA Clonidine HCl (Clonidine Hcl 0.1 Mg Tablet) 0.1 mg PO DAILY [facility]; Protocol Last Admin: 01/19/22 09:25 Dose: 0.1 mg Documented by: RONDA Divalproex Sodium (Divalproex Sodium Er 500 Mg Tab.Er.24h) 500 mg PO BID [facility] Last Admin: 01/19/22 09:25 Dose: 500 mg Documented by: RONDA Docusate Sodium (Docusate Sodium 100 Mg Capsule) 100 mg PO DAILY PRN PRN Reason: Constipation Guaifenesin (Guaifenesin La 600 Mg Tab.Er.12h) 600 mg PO BID [facility] Last Admin: 01/19/22 09:25 Dose: 600 mg Documented by: RONDA Guaifenesin/Dextromethorphan (Guaifenesin Dm 100/10/5 Ml 5 Ml Syrup) 5 ml PO Q4H PRN PRN Reason: cough Last Admin: 01/18/22 15:31 Dose: 5 ml Documented by: COTEMA Lactulose (Lactulose 20 Gm/30 Ml Solution) 20 gm PO BID [facility] Last Admin: 01/19/22 09:26 Dose: Not Given Documented by: RONDA Non-Admin Reason: held per MD Garcia Lidocaine (Lidocaine 4 % Patch Adh..Patch) 2 patch TRANSDERMA DAILY [facility]; Protocol Last Admin: 01/19/22 09:25 Dose: Not Given Documented by: RONDA Non-Admin Reason: Patient Refused Nadolol (Nadolol 20 Mg Tablet) 10 mg PO DAILY [facility]; Protocol Last Admin: 01/19/22 11:31 Dose: 10 mg Documented by: RONDA Omeprazole (Omeprazole 20 Mg Capsule.Dr) 20 mg PO DAILY@0630 [facility] Last Admin: 01/19/22 06:28 Dose: 20 mg Documented by: DAGMAR Ondansetron HCl (Ondansetron Hcl 4 Mg/2 Ml Vial) 4 mg IVPUSH Q8H PRN PRN Reason: Nausea and Vomiting Pharmacy Consult (Consult Rx Perform Med Rec) 1 each MISCELLANE ONCE PRN PRN Reason: Consult order Potassium Chloride (Potassium Chloride Er 10 Meq Capsule.Er) 10 meq PO DAILY [facility] Last Admin: 01/19/22 09:26 Dose: 10 meq Documented by: RONDA Sodium Chloride (0.9 % Sodium Chloride Flush 3 Ml Syringe) 3 ml IVFLUSH QSHIFT [facility] Last Admin: 01/19/22 09:26 Dose: 3 ml Documented by: RONDA Labs CBC & Chem 7: 01/19/22 04:29 01/19/22 04:29 Labs: Laboratory Results - last 24 hr 01/19/22 01/19/22 01/19/22 04:29 04:29 04:29 MCV 115.7 H MCH 40.1 H MCHC 34.7 RDW 20.1 H Plt Count 91 L MPV 10.0 Immature Gran % (Auto) 2.7 H Neut % (Auto) 56.4 Lymph % (Auto) 19.4 L [place] % (Auto) 20.3 H Eos % (Auto) 0.8 Baso % (Auto) 0.4 Lymph # (Auto) 1.7 [place] # (Auto) 1.7 H Eos # (Auto) 0.1 Baso # (Auto) 0.0 Abs Immat Gran (auto) 0.23 H Absolute Neuts (auto) 4.8 Absolute Nucleated RBC 0.030 H Nucleated RBC % (auto) 0.4 H Smear Tech's Comments VERIFIED Anion Gap 20 Estim Creat Clear Calc 136.8 Estimated GFR > 60 Random Glucose 109 Lactic Acid 2.8 H* Lactic Acid F/U @ 2Hr Calcium 9.4 TSH 6.70 H 01/19/22 07:36 MCV MCH MCHC RDW Plt Count MPV Immature Gran % (Auto) Neut % (Auto) Lymph % (Auto) [place] % (Auto) Eos % (Auto) Baso % (Auto) Lymph # (Auto) [place] # (Auto) Eos # (Auto) Baso # (Auto) Abs Immat Gran (auto) Absolute Neuts (auto) Absolute Nucleated RBC Nucleated RBC % (auto) Smear Tech's Comments Anion Gap Estim Creat Clear Calc Estimated GFR Random Glucose Lactic Acid Lactic Acid F/U @ 2Hr 2.8 H* Calcium TSH Assessment and Plan (1) Acute kidney failure: Status: Acute (2) Alcoholic cirrhosis of liver with ascites: (3) Hyponatremia: Plan 26-year-old male with recently diagnosed alcoholic hepatitis presents to the hospital with shortness of breath found to have a large pleural effusion JANNET improving from 1.2 to 0.9 likely prerenal, holding aldactone, albumin day 01/03 monitor SVT dc amlodipine, start nadolol, echo, monitor lactic acidosis due to liver disease, not sepsis acute on chronic hyponatremia multifactorial liver disease, diuretics, poor solute intake Sodium improved to 128 Lasix discontinued, aldactone discontinued continue free water restriction Nephrology following monitor BMP Coughing 2/2 Atelactasis\pleural effusion doubt bacterial pneumonia, dced ceftin, azithro dyspnea 2/2 large left pleural effusion due to hepatitis CT of the chest shows large left pleural effusion with complete collapse of the lingula and left lower lobe IR Did thoracentesis with removal of 1.2 L on 01/11, repeated on 01/14 repeated x-ray showed resolution of effusion with treatment atelectasis acute on chronic alcoholic hepatitis with ascites, thrombocytopenia, elevated inr paracentesis done removing 2.8 L of fluid no abdominal pain, afebrile, no leukocytosis, PMN<250, SBP unlikely GI input appreciated, continue to monitor and discharge when stable complicated by metabolic encephalopathy (hepatic encephalopathy) continue lactulose for 2-3 bm/day Hypomagnesemia, acute hypokalemia repleted DVT prophylaxis SCDs due to coagulopathy The patient needs to stay in the hospital for SVT, hyponatremia and follow up sodium levels, close monitoring on teele Quality Stroke Does the patient have a stroke diagnosis?: No VTE Prior VTE?: No VTE Risk Level:: Medical - moderate - high VTE Device Contraindication: N/A - Device Ordered VTE Drug Contraindication: Treatment Not Indicated
--- NOTE | 2022-01-19 16:32 | PM.PNNEP ---
Subjective Subjective Date of Service: 01/19/22 Principal diagnosis: Chart Reviewed. Events noted. Interval history: cc: abd pain CHart Reviewed. Events noted. Noted SVT this am. Cardiology following. Physical Exam Vital Signs: Vital Signs: Last Vital Signs Temp 98.1 F 01/19/22 15:09 Pulse 96 01/19/22 15:09 Resp 17 01/19/22 15:09 BP 111/52 L 01/19/22 15:09 Pulse Ox 95 01/19/22 15:09 BMI result Body Mass Index 24.6 Const: Orientation/consciousness: patient oriented x3 Neck: Neck: Yes normal visual inspection, Yes trachea midline and Yes no JVD Chest: Chest palpation & inspection: normal inspection of the chest Resp: Effort & Inspection: normal respiratory effort GI: Auscultation: normal bowel sounds Neuro: General: patient oriented x3 and no focal motor deficits Extrem: Other: no cyanosis Objective Data Labs CBC & Chem 7: 01/19/22 04:29 01/19/22 04:29 Labs: Laboratory Results - last 24 hr 01/19/22 01/19/22 01/19/22 04:29 04:29 04:29 WBC 8.6 RBC 2.17 L Hgb 8.7 L Hct 25.1 L MCV 115.7 H MCH 40.1 H MCHC 34.7 RDW 20.1 H Plt Count 91 L MPV 10.0 Immature Gran % (Auto) 2.7 H Neut % (Auto) 56.4 Lymph % (Auto) 19.4 L [place] % (Auto) 20.3 H Eos % (Auto) 0.8 Baso % (Auto) 0.4 Lymph # (Auto) 1.7 [place] # (Auto) 1.7 H Eos # (Auto) 0.1 Baso # (Auto) 0.0 Abs Immat Gran (auto) 0.23 H Absolute Neuts (auto) 4.8 Absolute Nucleated RBC 0.030 H Nucleated RBC % (auto) 0.4 H Smear Tech's Comments VERIFIED Sodium 128 L Potassium 3.5 Chloride 92 L Carbon Dioxide 20 L Anion Gap 20 BUN 33 H Creatinine 0.90 Estim Creat Clear Calc 136.8 Estimated GFR > 60 Random Glucose 109 Lactic Acid 2.8 H* Lactic Acid F/U @ 2Hr Calcium 9.4 Troponin I High Sens TSH 6.70 H 01/19/22 01/19/22 04:29 07:36 WBC RBC Hgb Hct MCV MCH MCHC RDW Plt Count MPV Immature Gran % (Auto) Neut % (Auto) Lymph % (Auto) [place] % (Auto) Eos % (Auto) Baso % (Auto) Lymph # (Auto) [place] # (Auto) Eos # (Auto) Baso # (Auto) Abs Immat Gran (auto) Absolute Neuts (auto) Absolute Nucleated RBC Nucleated RBC % (auto) Smear Tech's Comments Sodium Potassium Chloride Carbon Dioxide Anion Gap BUN Creatinine Estim Creat Clear Calc Estimated GFR Random Glucose Lactic Acid Lactic Acid F/U @ 2Hr 2.8 H* Calcium Troponin I High Sens < 3.5 TSH Microbiology Microbiology Results: Microbiology 01/11/22 15:40 Peritoneal Fluid Gram Stain - Final 01/11/22 15:40 Peritoneal Fluid Routine Culture - Final No growth after 2 days 01/11/22 15:40 Peritoneal Fluid Anaerobic Culture - Final NO GROWTH AFTER 5 DAYS Procedures Date of Service Date of Service: 01/19/22 Assessment & Plan Assessment and plan (1) Hyponatremia: Status: Acute (2) Acute kidney failure: Status: Acute Plan Problem List: JANNET, non-oliguric Hyponatremia JANNET due to compromise in renal perfusion Had been hyponatremic. Na improved with albumin 25 % Albumin Q6 hourly X 3days (Day 3) - completed. Repeat urine studies added. HRS in ddx Spironolactone on hold Renal functions stable now. With hemodynamic support, he will further correct S-Na and dilute urine appropriately. Monitor I/O's No indication for Urea Continue with FW restriction. Sips of water to thirst Can consider boost/ensure for additional solute load. Daily weights; renal panel in am. Shall follow along with you. Time Spent With Patient Time: Total time spent is greater than 50% in coordination of care (as documented) at patient's floor/unit and/or counseling patient: Time with patient: 25 - 35 minutes Progress Note: Quality Stroke Does the patient have a stroke diagnosis?: No
[2022-01-19] MEDS: Lactulose 20 GM/30 ML SOLUTION PO (20:47)
[2022-01-20 03:27] VITALS: BP 118/67; PULSE 87; RESP 20; TEMP 36.1; O2SAT 95
[2022-01-20] MEDS: Omeprazole 20 MG CAPSULE.DR PO (05:29)
[2022-01-20 07:20] LABS: Hematocrit 25.4 % (42.0-52.0); Hemoglobin 8.7 g/dl (14.0-18.0); Mean Corpuscular HGB Conc 34.3 g/dl (31.0-36.0); Mean Corpuscular Volume 119.8 fL (80.0-98.0); Mean Platelet Volume 9.9 fL (9.4-12.4); Platelet Count 104 X10*3/uL (160-400); Red Blood Count 2.12 X10*6/uL (4.60-5.80); Red Cell Distribution Width 20.6 % (11.0-16.0)
[2022-01-20 07:37] LABS: Alanine Aminotransferase 7 U/L (0-40); Albumin Level 3.3 g/dL (3.5-5.0); Alkaline Phosphatase 143 U/L (39-117); Anion Gap 16 (12-20); Aspartate Amino Transferase 30 U/L (5-37); Bilirubin Direct 6.5 mg/dL (0.0-0.5); Bilirubin Total 9.1 mg/dL (0.0-1.0); Blood Urea Nitrogen 35 mg/dL (9-16); Carbon Dioxide 24 mmol/L (22-29); Chloride 94 mmol/L (96-108); Creatinine Clr Calc Pharmacy 141.5; Estimated Glomerular Filt Rate > 60; Glucose Fasting 81 mg/dL (60-99); Magnesium 2.1 mg/dL (1.6-2.6); Potassium 3.5 mmol/L (3.3-5.1); Sodium 130 mmol/L (135-145); Total Protein 6.3 g/dL (6.5-8.0)
[2022-01-20 07:41] VITALS: BP 108/55; PULSE 91; RESP 18; TEMP 36.4; O2SAT 98
[2022-01-20] MEDS: Divalproex Sodium ER 500 MG TAB.ER.24H PO (10:13)
[2022-01-20] MEDS: 0.9 % Sodium Chloride Flush 3 ML SYRINGE IVFLUSH (10:13)
[2022-01-20] MEDS: cloNIDine HCL 0.1 MG TABLET PO (10:13)
[2022-01-20] MEDS: guaiFENesin LA 600 MG TAB.ER.12H PO (10:13)
[2022-01-20] MEDS: Benzonatate 100 MG CAPSULE PO (10:13)
[2022-01-20] MEDS: nadoloL 20 MG TABLET 10 MG PO (10:14)
[2022-01-20] MEDS: Lactulose 20 GM/30 ML SOLUTION PO (10:14)
[2022-01-20 11:02] VITALS: BP 110/64; PULSE 91; RESP 18; TEMP 36.6; O2SAT 99
--- NOTE | 2022-01-20 11:05 | PM.DS ---
DS: Providers Provider Date of Service: 01/20/22 Date of admission: 01/10/22 23:23 Primary care physician: Vitaly Urbano MD Consults: 01/10/22 23:21 Consult to Gastroenterology Routine Consulting Provider: Gunnar Silva Reason for consultation: ascites, SOB Has provider been notified: No 01/14/22 08:41 Consult to Nephrology Routine Consulting Provider: Onur Bell Reason for consultation: Hyponatremia in alcoholic liver disease 01/19/22 03:57 Consult to Cardiology Routine Consulting Provider: Marquez Mclaughlin Reason for consultation: tachy DS: Diagnosis Discharge Diagnosis (1) Hyponatremia: Status: Acute (2) Acute kidney failure: Status: Acute DS: Summary Hospital Course Hospital Course: admission note HPI This is a 26-year-old male with a recently diagnosed alcoholic hepatitis who presents to the hospital with worsening shortness of breath and cough.? Patient reports that he has had a cough for few months, but then developed worsening shortness of breath for the past 1 month.? He had an x-ray done at his PCPs office on 01/07 which showed new left basilar airspace disease and small to moderate pleural effusion, he then went to his doctor for follow-up on 01/10 and had a chest ultrasound done which showed moderate to large right pleural effusion and partially visualized perihepatic ascites.? Due to his severe symptoms including dyspnea? at rest and tachycardia patient was sent to the ED. ?patient denies having any chest pain but has left upper quadrant pain, denies any fever but has chills,? no nausea or vomiting, no diarrhea constipation, no urinary symptoms and no lower extremity edema.? He reports that his abdominal distention is not increased more than usual, he is jaundice but reports that has improved since his diagnosis of? liver failure in August.? He denies having any headache, no change in vision, no weakness numbness or tingling.? On arrival to the ED patient's vitals are significant for heart rate of 123, respiratory rate of 16, satting? 100% on room air.? Has a temp of 97.7 degrees Labs are significant for WBC count of 11.6, hemoglobin of 10.3, hematocrit 29.5, INR of 2.0, plt ct of 102, sodium of 130, potassium of 3.2, Mag of 1.5, total bili of 8.0, direct bili of 5.6, AST of 40, alk-phos of 142, although in of 2.7.? D-dimer of [id number] ?patient received CT angiogram of the chest which showed no evidence of PE, large left pleural effusion with complete collapse of the left lingula and left lower lobe, large volume ascites ?patient will be admitted for further? management Hospital course Patient was admitted for dyspnea due to acute on chronic alcoholic hepatitis with thromboctopenia, metabolic encephalopathy, ascites, large left pleural effusion, elevated INR. Further complicated by acute kidney injury and acute on chronic hyponatremia. Initially there was consideration for superimposed pneumonia and patient was treated with IV antibiotics, however, this was discontinued as patient no further evidence of pneumonia. His paracentesis did not reveal SBP, he also underwent thoracentesis with significant improvement in his shortness of breath. Patient's spironolactone was increased. He continues to have pleural and peritoneal fluid, but is feeling better. For his acute kidney injury patient responded to IV fluids and has resolved. course was complicated by SVT, patients amldoipnie was held and nadolol was started, svt did not recur, he should obtain echo as outpatient. for his hyponateremia he was fluid restricted and sodium improved to 130 at discharge. patient was noted to have lactic acidosis, this was due to liver disease. for his metabolic encephalopathy due to alcoholic hepatitis he was started on lactulose had multiple bowel movements and mental status improved. He should continue lactulose for goal of 2-3 bowel movements per day. Patient's hypomagnesemia and hypo kalemia were repleted. Although patient remains severely chronically ill with a guarded prognosis he is medically stable will be discharged home. Alcohol abstinence has been stressed. He should follow up with Gastroenterology, Nephrology, Cardiology. Time Spent with Patient Time attestation: Total time spent providing and/or coordinating discharge services: Discharge coordination time: Greater than 30 minutes Quality: Stroke Does the patient have a stroke diagnosis?: No Physical Exam Vital Signs: Vital Signs: Last Vital Signs Temp 97.9 F 01/20/22 11:02 Pulse 91 01/20/22 11:02 Resp 18 01/20/22 11:02 BP 110/64 01/20/22 11:02 Pulse Ox 99 01/20/22 11:02 BMI result Body Mass Index 24.6 General: AO X 3, no acute distress, juandiced Resp: CTA bilateral, no accessory muscles used CVS: S1,S2,RRR GI: soft, non tender, distended Neuro: motor grossly intact, alert Psych: appropriate affect, appropriate insight DS: Data Data Completed and Pending Labs on day of discharge: Laboratory Results - last 24 hr 01/20/22 01/20/22 06:33 06:33 WBC 9.0 RBC 2.12 L Hgb 8.7 L Hct 25.4 L MCV 119.8 H MCH 41.0 H MCHC 34.3 RDW 20.6 H Plt Count 104 L MPV 9.9 Absolute Nucleated RBC 0.000 Nucleated RBC % (auto) 0.0 Sodium 130 L Potassium 3.5 Chloride 94 L Carbon Dioxide 24 Anion Gap 16 BUN 35 H Creatinine 0.87 Estim Creat Clear Calc 141.5 Estimated GFR > 60 Fasting Glucose 81 Calcium 9.0 Magnesium 2.1 Total Bilirubin 9.1 H Direct Bilirubin 6.5 H AST 30 ALT 7 Alkaline Phosphatase 143 H D Total Protein 6.3 L Albumin 3.3 L Discharge Plan Discharge Patient Disposition: Home, Self-Care Discharge Diagnosis: Pleural effusion, abdominal ascites Pneumonia Low sodium level Referrals: Vitaly Urbano MD [Primary Care Provider] - 1 Week Discharge Medications: New spironolactone 25 mg Tablet 50 mg PO BID@0900,1800 30 Days 0RF Protocol: Hold for SBP< HOLD for SBP < : 90 benzonatate 100 mg Capsule 100 mg PO TID 7 Days Qty: 21 0RF omeprazole 20 mg Capsule,Delayed Release(Dr/Ec) 20 mg PO DAILY@0630 30 Days Qty: 30 0RF nadolol 20 mg Tablet 10 mg PO DAILY Qty: 30 0RF Protocol: Hold for SBP/HR < HOLD for SBP < : 90 HOLD for HR < : 60 lactulose 20 gram/30 mL Solution 20 g PO DAILY Qty: 30 0RF Rx Instructions: goal 2-3 bm/day Continued clonidine HCl 0.1 mg tablet 1 tab PO DAILY 0RF potassium chloride 10 mEq tablet extended release 1 tab PO DAILY 0RF divalproex 500 mg tablet extended release 24 hr 1 tab PO BID 0RF Discontinued amlodipine 5 mg tablet 2 tab PO DAILY 0RF spironolactone 25 mg tablet 1 tab PO DAILY 0RF Discharge Orders: Discharge Order (Routine); Ordered 01/20/22 Ordered By: John Garcia Diet: advance to usual diet and low salt diet Activity on Discharge: As tolerated Stand Alone Forms: Patient Portal Discharge page Other Ambulatory Orders: Basic Metabolic Panel (Routine) Timeframe: 1 Week Facility: [facility] - Location: Laboratory Ordered By: Attila Rodrigues Basic Metabolic Panel (Routine) Timeframe: 2 Days Facility: [facility] - Location: Laboratory Ordered By: Attila GRAHAM echo transthoracic complete (Routine) Timeframe: 1 Week Facility: [facility] - Location: Cardiology Ordered By: John Garcia Care Plan Goals: Read below Health Concerns: Read below Plan of Treatment: Read below Assessment: You were admitted to the hospital for evaluation of cough. Foun Your sodium level was noted to be low. Evaluated by Nephrology team who recommended low-salt diet, water restriction and follow-up as outpatient. Seen by mechanical sound technician Dr. Silva who recommended increasing spironolactone and to follow-up in the office to start planning for liver transplant Start spironolactone as prescribed Start omeprazole To follow-up with Dr. Silva in the office as scheduled To follow-up with Dr. Perez in Nephrology office for monitoring of low sodium Will repeat blood test in 3 days and next week you also had SVT and were started on nadolol, you should obtain an echocardiogram outpatient avoid all alcohol Patient Instructions: Lactulose (By mouth), Cirrhosis (GEN), Hyponatremia (DC)
--- NOTE | 2022-01-20 11:09 | MHC.CM.PN ---
pt dcd home no skilled services orderd by
== END 2022-01-20 13:07 | disposition home or self-care (01) | DRG 433 ==
LOC: HO.ED 21:25 → HO.EDOVER 01-11 02:27 → HO.S3 01-11 18:59 → HO.IMC 01-19 05:31
PROVIDERS: Hospitalist; Internal Medicine; Internal Medicine Nephrology; Nurse Practitioner Family; Radiology Diagnostic Radiology; Student in an Organized Health Care Education/Training Program; Admitting Provider Internal Medicine; Emergency Provider Emergency Medicine Emergency Medical Services; PCP Internal Medicine; Visit Provider Internal Medicine
PROC: 0W9B3ZZ Drainage of Left Pleural Cavity, Percutaneous Approach (ICD-10-PCS; 2022-01-11 11:30)
PROC: 0W9B3ZZ Drainage of Left Pleural Cavity, Percutaneous Approach (ICD-10-PCS; principal; 2022-01-14 10:00)
DX: K70.11 Alcoholic hepatitis with ascites (principal); J90 Pleural effusion, not elsewhere classified; E87.1 Hypo-osmolality and hyponatremia; D68.9 Coagulation defect, unspecified; J98.11 Atelectasis; I47.1 Supraventricular tachycardia; N17.9 Acute kidney failure, unspecified; F10.11 Alcohol abuse, in remission; D69.59 Other secondary thrombocytopenia; Z20.822 Contact with and (suspected) exposure to COVID-19; E83.42 Hypomagnesemia; Z79.899 Other long term (current) drug therapy
CPT/HCPCS: 32555; 36415; 49083; 71045; 71046; 71275; 80048; 80076; 81003; 82140; 83605; 83615; 83735; 84157; 84300; 84443; 84484; 85025; 85027; 85379; 85610; 86140; 87071; 87073; 87205; 87635; 89051; 93005; 96365; 96366; 96375; 99285; C1729; J0456; J0696; J1940; J2270; J3430; J3475; P9047; Q9967

== ENCOUNTER 2022-01-22 10:09 | Outpatient (REF) | payer OTHER, SELFPAY ==
[2022-01-22 11:23] LABS: Anion Gap 17 (12-20); Blood Urea Nitrogen 27 mg/dL (9-16); Calcium 9.2 mg/dL (8.4-10.2); Carbon Dioxide 22 mmol/L (22-29); Chloride 94 mmol/L (96-108); Estimated Glomerular Filt Rate > 60; Glucose Random 95 mg/dL (60-115); Potassium 3.9 mmol/L (3.3-5.1); Sodium 129 mmol/L (135-145)
== END 2022-01-22 10:10 | disposition home or self-care (01) ==
LOC: HO.LAB 10:09
PROVIDERS: PCP Internal Medicine; Visit Provider Student in an Organized Health Care Education/Training Program
DX: E87.1 Hypo-osmolality and hyponatremia (principal)
CPT/HCPCS: 36415; 80048

== ENCOUNTER 2022-01-25 15:47 | Outpatient (REF) | payer OTHER, SELFPAY ==
--- NOTE | ~2022-01-25 | XR_ITS ---
EXAMINATION: XR CHEST CLINICAL INFORMATION: Pleural effusion COMPARISON: Previous chest x-ray was recent January 2022 and chest CTA January 2022 TECHNIQUE: 2 views of the chest were obtained. FINDINGS: The cardiac and mediastinal contours are stable. There is a moderate left pleural effusion. This is increased from most recent chest x-ray 01/19/2022. There is no right pleural effusion. There is no pneumothorax. There may be compressive atelectasis or consolidation of the adjacent left lung. The right lung is clear. Bony structures are normal. XR/XR chest 2V IMPRESSION: Moderate left pleural effusion increased from most recent exam 01/19/2022.
== END 2022-01-25 15:48 | disposition home or self-care (01) ==
LOC: HO.XRAY 15:47
PROVIDERS: PCP Internal Medicine; Visit Provider Internal Medicine
DX: J90 Pleural effusion, not elsewhere classified (principal)
CPT/HCPCS: 71046

== ENCOUNTER 2022-01-28 09:53 | Outpatient (REF) | payer OTHER, SELFPAY ==
[2022-01-28 10:10] LABS: MANUAL DIFF FLAG NO
[2022-01-28 10:23] LABS: Ammonia 25 umol/L (13-55)
[2022-01-28 10:46] LABS: Basophils Absolute Auto 0.1 X10*3/uL (0.0-0.2); Basophils Percent Auto 0.8 % (0-2); Eosinophils Absolute Auto 0.1 X10*3/uL (0.0-0.4); Eosinophils Percent Auto 1.2 % (0-4); Hemoglobin 8.6 g/dl (14.0-18.0); Imm Gran Abs Auto 0.04 X10*3/uL (0.00-0.03); Imm Gran Pct Auto 0.5 % (0.0-0.4); Lymphocytes Absolute Auto 1.4 X10*3/uL (1.2-4.9); Lymphocytes Percent Auto 18.2 % (20-40); Mean Corpuscular HGB Conc 33.1 g/dl (31.0-36.0); Mean Corpuscular Hemoglobin 41.3 pg (27.0-33.0); Mean Platelet Volume 9.5 fL (9.4-12.4); Monocytes Absolute Auto 1.3 X10*3/uL (0.1-1.2); Monocytes Percent Auto 17.1 % (2-11); Neutrophils Absolute Auto 4.8 x10*3/uL (2.0-8.3); Neutrophils Percent Auto 62.2 % (45-73); Platelet Count 161 X10*3/uL (160-400); Red Blood Count 2.08 X10*6/uL (4.60-5.80); Red Cell Distribution Width 15.4 % (11.0-16.0); White Blood Count 7.6 X10*3/uL (4.8-10.8)
[2022-01-28 10:58] LABS: INTERNATIONAL NORM RATIO 1.7 (0.9-1.1); Prothrombin Time 19.8 SEC (9.9-13.0)
[2022-01-28 11:09] LABS: Sodium 128 mmol/L (135-145)
[2022-01-28 11:15] LABS: Alanine Aminotransferase 7 U/L (0-40); Alkaline Phosphatase 142 U/L (39-117); Aspartate Amino Transferase 31 U/L (5-37); Bilirubin Direct 7.1 mg/dL (0.0-0.5); Bilirubin Total 9.9 mg/dL (0.0-1.0)
[2022-01-28 11:31] LABS: Anion Gap 13 (12-20); Blood Urea Nitrogen 15 mg/dL (9-16); Calcium 9.2 mg/dL (8.4-10.2); Carbon Dioxide 22 mmol/L (22-29); Chloride 98 mmol/L (96-108); Estimated Glomerular Filt Rate > 60; Glucose Random 91 mg/dL (60-115); Potassium 4.5 mmol/L (3.3-5.1); Sodium 128 mmol/L (135-145)
== END 2022-01-28 09:54 | disposition home or self-care (01) ==
LOC: HO.LAB 09:53
PROVIDERS: Student in an Organized Health Care Education/Training Program; Absent Provider Internal Medicine; PCP Internal Medicine; Visit Provider Internal Medicine
DX: K70.9 Alcoholic liver disease, unspecified (principal); K70.31 Alcoholic cirrhosis of liver with ascites; E87.1 Hypo-osmolality and hyponatremia; R74.8 Abnormal levels of other serum enzymes
CPT/HCPCS: 36415; 80048; 80076; 82140; 84295; 85025; 85610

== ENCOUNTER 2022-02-07 09:32 | Day surgery (SDC) | payer OTHER, SELFPAY ==
--- NOTE | ~2022-02-07 | US_ITS ---
EXAMINATION: US GUIDED PLEURAL EFFUSION DRAINAGE, LEFT CLINICAL INFORMATION: Alcoholic cirrhosis with left pleural effusion. COMPARISON: 01/25/2022 and 01/14/2022 TECHNIQUE: Ultrasound-guided left thoracentesis. FINDINGS: Informed consent was obtained from the patient prior to the procedure. During this process, the procedure and potential alternatives were explained, along with the intended outcome and benefits. The risks of the procedure, as well as the risk of not doing the procedure, were discussed. The patient was given the opportunity to ask questions regarding the procedure and appeared competent to make medical decisions. A signed consent form which documents this discussion was placed in the medical record. Using sterile technique and ultrasound guidance, a 4-Upper Sorbian Yueh needle was directed into the left pleural space from a posterior approach. A total of 1.1 L of greenish fluid was drained. The procedure was stopped due to patient's complaint of coughing and inability to continue. There is some residual pleural fluid present at end of drainage. US/US thoracentesis IMPRESSION: Left thoracentesis with removal of 1.1 L of fluid.
--- NOTE | ~2022-02-07 | US_ITS ---
EXAMINATION: ULTRASOUND-GUIDED PARACENTESIS CLINICAL INFORMATION: Alcoholic hepatitis with ascites COMPARISON: January 11, 2022 TECHNIQUE: Ultrasound-guided paracentesis FINDINGS: Informed consent was obtained from the patient prior to the procedure. During this process, the procedure and potential alternatives were explained, along with the intended outcome and benefits. The risks of the procedure, as well as the risk of not doing the procedure, were discussed. The patient was given the opportunity to ask questions regarding the procedure and appeared competent to make medical decisions. A signed consent form which documents this discussion was placed in the medical record. Using sterile technique and ultrasound guidance a 5 Kazakh Yueh catheter was directed into the left lower quadrant. A total of 4.1 L of slightly cloudy greenish fluid was removed. Patient tolerated procedure without difficulty. US/US paracentesis abd w/image IMPRESSION: Paracentesis with removal of 4.1 L of fluid.
--- NOTE | ~2022-02-07 | XR_ITS ---
EXAMINATION: XR CHEST CLINICAL INFORMATION: Status post left thoracentesis COMPARISON: January 25, 2022 TECHNIQUE: AP portable view of the chest was obtained. FINDINGS: There remains a left pleural effusion with basilar disease status post thoracentesis with removal of 1.1 L of fluid. No pneumothorax is evident. Artifact overlying the lower left chest from bandage is seen. Right hemithorax unremarkable. Heart normal size. No evidence of pulmonary edema. XR/XR chest 1V IMPRESSION: No pneumothorax status post left thoracentesis with what appears be a residual moderate amount of pleural fluid with basilar atelectasis.
[2022-02-07 09:57] VITALS: BMI 23.7
[2022-02-07] MEDS: Lidocaine HCl 1 % MPF 5 ML VIAL SUBCUT ×2 (12:56→13:00)
[2022-02-07 13:20] VITALS: BP 110/68; PULSE 96; RESP 17; TEMP 36.4; O2SAT 96
[2022-02-07 13:35] VITALS: BP 109/70; PULSE 96; RESP 20; O2SAT 96
[2022-02-07 13:51] VITALS: BP 114/72; PULSE 98; RESP 17; O2SAT 96
[2022-02-07 14:06] VITALS: BP 105/63; PULSE 96; RESP 17; TEMP 37.2; O2SAT 97
[2022-02-07 14:21] VITALS: BP 102/58; PULSE 95; RESP 17; TEMP 36.1; O2SAT 97
== END 2022-02-07 14:28 | disposition home or self-care (01) ==
PROVIDERS: Radiology Diagnostic Radiology; PCP Internal Medicine; Visit Provider Internal Medicine
DX: K70.11 Alcoholic hepatitis with ascites (principal); J90 Pleural effusion, not elsewhere classified; I10 Essential (primary) hypertension
CPT/HCPCS: 32555; 49083; 71045

== ENCOUNTER → 2022-02-20 10:20 | Outpatient (REF) | payer OTHER, SELFPAY ==
--- NOTE | 2022-02-20 10:23 | CA_ITS ---
Transthoracic Echocardiogram Patient (Last, First, Middle): Dwayne Espinosa D Gender: Male Date of : 1995 Age: 27 Procedure Date: 02/20/2022 Procedure Type: Transthoracic Echocardiogram Location: OP Height: 185.42 cm Weight: 72.58 kg BSA: 1.96 m2 Heart Rate: bpm BP: 106 / 60 mmHg Physical Sciences Professor: LATRICE Referring MD: Marquez Mclaughlin MD Speeder Hand: Jesus Cooper MD Symptoms: svt Study Quality: Fair ECG Rhythm: Sinus Conclusions: - Normal cardiac study with large left-sided pleural effusion Findings Left Ventricle Normal left ventricular size, thickness, and systolic function. The visually estimated ejection fraction is between 60-65%. Spectral Doppler is indicative of a normal filling pattern. Right Ventricle Normal right ventricular cavity size and systolic function. Atria The left atrium is normal in size. Interatrial shunt cannot be excluded. The right atrium is normal in size. Aortic Valve The aortic valve structure and function is likely normal. There is no aortic valve stenosis. There is no aortic valve regurgitation. Mitral Valve Normal mitral valve structure and function. There is trace mitral valve regurgitation. There is no mitral valve stenosis. Pulmonic Valve The pulmonic valve was not well visualized. Tricuspid Valve Likely normal tricuspid valve structure and function. There is trace tricuspid valve regurgitation. The right ventricular systolic pressure is normal. The right ventricular systolic pressure is 19 mmHg. Normal right atrial pressure. Great Vessels All visible segments of the aorta are normal in size. The pulmonary artery was not well visualized. Venous The inferior vena cava is normal in size and collapses greater than 50% with inspiration. Pericardium/Pleural There is no evidence of pericardial effusion. There is a large left sided pleural effusion. Prior Study Comparison Changes noted compared to prior study dated: 01/02/2018. large pleural effusion of unclear significance noted Measurements 2D Linear Measurements IVSd: 0.92 0.6-0.9/0.6-1.0 cm LVIDd: 4.22 3.9-5.3/4.2-5.9 cm LVIDd Index: 2.15 2.4-3.2/2.2-3.1 cm/m2 LVIDs: 3.22 2.0-3.6 cm LVPWd: 0.89 0.7-1.1 cm LA Diam: 2.70 2.7-3.8/3.0-4.0 cm LAIDs Index: 1.38 1.5-2.3 cm/m2 LV Mass: 150.21 67-162/88-224 g LV Mass Index: 76.64 43-95/49-115 g/m2 LVOT Diam: 2.10 3.0+(-)1.3 cm 2D Systolic Function EF 4C: 63.60 >55% EF 2C: 63.30 >55% EF BiP: 63.10 >55% Mitral Valve MV Pk E: 0.81 MV PK A: 0.61 MV Decel Time: 239.00 E/A: 1.30 E'Lateral: 15.10 E'Medial: 10.10 E/E' Med: 8.00 E/E' Lat: 5.30 PHT: 70.00 MVA PHT: 3.14 Decel Rusk: 3.36 Aortic Valve AoV Pk Aleksandr: 1.16 AoV Mn Aleksandr: 0.92 AoV VTI: 0.21 AoV Pk Grad: 5.00 Aov Mn Grad: 4.00 IHSAN Cont.VTI: 3.03 LVOT LVOT Pk Aleksandr: 1.02 LVOT Mn Aleksandr: 0.77 LVOT VTI: 0.18 LVOT Pk Grad: 4.00 LVOT Mn Grad: 3.00 LVOT Diam: 2.10 LVOT Area: 3.46 Diastolic Function MV Pk E: 0.81 MV Pk A: 0.61 E/A: 1.30 E'Medial: 10.10 E/E' Med: 8.00 E' Laterial: 15.10 E/E' Lat: 5.30 Right Ventricle TAPSE (mm): 20.00 TVS' Aleksandr: 15.40 Tricuspid Valve TR Pk Aleksandr: 2.00 TR Pk Grad: 16.00 RA Press: 3.00 RVSP: 19.00 Great Vessels Aorta Sinus of Valsalva: 3.23 2.0-3.[address] Ridge: 2.48 1.7-3.4 cm Ao Asc: 2.80 2.1-3.4 cm Ao Arch: 2.70 Updated in Other Vendor System with Status of Final Jesus Cooper MD electronically signed on 02/20/2022 12:35:46 PM with status of Final
== END ==
LOC: HO.CARD 10:20
PROVIDERS: PCP Internal Medicine; Visit Provider Internal Medicine
DX: I47.1 Supraventricular tachycardia (principal)
CPT/HCPCS: 93306

== ENCOUNTER 2022-02-22 15:03 | Outpatient (REF) | payer OTHER, SELFPAY ==
[2022-02-22 15:58] LABS: Basophils Absolute Auto 0.1 X10*3/uL (0.0-0.2); Basophils Percent Auto 0.9 % (0-2); Eosinophils Absolute Auto 0.1 X10*3/uL (0.0-0.4); Eosinophils Percent Auto 1.6 % (0-4); Hematocrit 26.7 % (42.0-52.0); Hemoglobin 8.7 g/dl (14.0-18.0); Imm Gran Abs Auto 0.02 X10*3/uL (0.00-0.03); Imm Gran Pct Auto 0.2 % (0.0-0.4); Lymphocytes Percent Auto 22.3 % (20-40); MANUAL DIFF FLAG SCAN; Mean Corpuscular HGB Conc 32.6 g/dl (31.0-36.0); Mean Corpuscular Hemoglobin 34.4 pg (27.0-33.0); Mean Corpuscular Volume 105.5 fL (80.0-98.0); Mean Platelet Volume 8.8 fL (9.4-12.4); Monocytes Absolute Auto 1.8 X10*3/uL (0.1-1.2); Monocytes Percent Auto 20.8 % (2-11); Neutrophils Absolute Auto 4.8 x10*3/uL (2.0-8.3); Neutrophils Percent Auto 54.2 % (45-73); Platelet Count 232 X10*3/uL (160-400); Red Blood Count 2.53 X10*6/uL (4.60-5.80); Red Cell Distribution Width 11.9 % (11.0-16.0); SCAN SMEAR FLAG 1; White Blood Count 8.9 X10*3/uL (4.8-10.8)
[2022-02-22 16:17] LABS: Ethanol < 10 mg/dL
[2022-02-22 16:22] LABS: Alanine Aminotransferase 6 U/L (0-40); Albumin Level 2.6 g/dL (3.5-5.0); Alkaline Phosphatase 194 U/L (39-117); Anion Gap 11 (12-20); Aspartate Amino Transferase 34 U/L (5-37); Bilirubin Total 2.9 mg/dL (0.0-1.0); Blood Urea Nitrogen 7 mg/dL (9-16); Calcium 8.9 mg/dL (8.4-10.2); Carbon Dioxide 23 mmol/L (22-29); Chloride 100 mmol/L (96-108); Estimated Glomerular Filt Rate > 60; Glucose Random 84 mg/dL (60-115); Iron 35 mcg/dL (45-160); Potassium 4.5 mmol/L (3.3-5.1); Sodium 129 mmol/L (135-145); Total Protein 9.3 g/dL (6.5-8.0)
[2022-02-22 16:26] LABS: INTERNATIONAL NORM RATIO 1.6 (0.9-1.1); Prothrombin Time 18.5 SEC (9.9-13.0)
[2022-02-22 16:27] LABS: SLIDE REVIEW VERIFIED
[2022-02-22 16:35] LABS: Percent Iron Saturation 17 % (15-50); Total Iron Binding Capacity 202 mcg/dL (228-428); Unsaturated Iron Binding 167 ug/dL
[2022-02-22 16:39] LABS: Syphilis Screen Nonreactive (Nonreactive)
[2022-02-22 16:40] LABS: Ferritin 1312 ng/mL (20-250)
[2022-02-22 16:47] LABS: Appearance Urine HAZY; Color Urine ORANGE; Glucose Urine UA NEG (NEG); Leukocyte Esterase Urine NEG (NEG); Nitrite Urine NEG (NEG); Specific Gravity - Urine 1.015 (1.005-1.025); Urine Blood NEG (NEG); Urine Ketones 5 MG/DL (NEG); Urine Protein TRACE MG/DL (NEG-TRACE)
[2022-02-22 17:01] LABS: Amphetamine Screen Urine Not Detected (Not Detect); Barbiturates, Urine Not Detected (Not Detect); Benzodiazepines Screen Urine Not Detected (Not Detect); Cannabinoid Screen Urine Not Detected (Not Detect); Cocaine Screen Urine Not Detected (Not Detect); Fentanyl, urine Not Detected (Not Detect); Opiate Screen Urine Not Detected (Not Detect); Phencyclidine Screen Urine Not Detected (Not Detect)
[2022-02-23 09:57] LABS: Ethylene Glycol NONE DETECTED (NONE DETECTED)
[2022-02-25 04:59] LABS: HBc Num1 0.41 S/CO (0.00-0.79); HBsAGNum1 1.08 S/CO (0.00-0.99); HIV AB/AG Nonreactive (Nonreactive); Hepatitis B Core Antibody Nonreactive (Nonreactive); ~HepC Num1 0.16 S/CO (0.00-0.79); ~Hepatitis B Surface Antibody NONREACTIVE (Nonreactive); ~Hepatitis C Antibody Nonreactive (Nonreactive)
[2022-02-25 05:49] LABS: HBsAGNum2 Nonreactive; HBsAGNum3 Nonreactive; Hepatitis B Surface Antigen NEGATIVE (Negative)
[2022-02-25 13:17] LABS: Alpha Fetoprotein 3.2 ng/mL (<6.1)
[2022-02-25 18:02] LABS: Cytomegalovirus Ab IgG <0.60 U/mL; Cytomegalovirus Ab IgM <30.00 AU/mL
[2022-02-25 19:17] LABS: Mumps Virus IgG Antibody >300.00 AU/mL; Varicella IgG Antibody >4000.00 index
[2022-02-26 16:12] LABS: TS Negative Control Passed; TS Panel A 1; TS Panel B 1; TS Positive Control Passed; TSpotTB Negative (Negative)
[2022-02-26 22:28] LABS: EBV-VCA IgM Ab <36.00 U/mL
[2022-02-27 03:48] LABS: Hepatitis A Antibody IgG Nonreactive (Nonreactive); ~Hepatitis A Antibody IgG 0.94 S/CO (0.00-0.99)
[2022-02-27 10:25] LABS: Toxoplasma IgG Antibody <7.20 IU/mL; Toxoplasma IgM Antibody <8.00 AU/mL
== END 2022-02-22 15:04 | disposition home or self-care (01) ==
LOC: HO.LAB 15:03
PROVIDERS: PCP Internal Medicine; Visit Provider Physician Assistant
DX: Z01.818 Encounter for other preprocedural examination (principal); Z01.84 Encounter for antibody response examination; Z11.59 Encounter for screening for other viral diseases; Z11.4 Encounter for screening for human immunodeficiency virus [HIV]; K70.30 Alcoholic cirrhosis of liver without ascites
CPT/HCPCS: 80053; 80307; 81003; 82077; 82105; 82693; 82728; 83540; 85025; 85610; 86481; 86644; 86645; 86664; 86665; 86704; 86706; 86708; 86735; 86762; 86765; 86777; 86778; 86780; 86787; 86803; 86900; 86901; 87340; 87389

== ENCOUNTER 2022-04-04 14:18 | Outpatient (REF) | payer OTHER, SELFPAY ==
[2022-04-04 16:28] LABS: Anion Gap 12 (12-20); Blood Urea Nitrogen 11 mg/dL (9-16); Calcium 10.7 mg/dL (8.4-10.2); Carbon Dioxide 25 mmol/L (22-29); Chloride 103 mmol/L (96-108); Estimated Glomerular Filt Rate > 60; Potassium 4.8 mmol/L (3.3-5.1); Sodium 135 mmol/L (135-145)
== END 2022-04-04 14:19 | disposition home or self-care (01) ==
LOC: HO.LAB 14:18
PROVIDERS: Absent Provider Internal Medicine Nephrology; PCP Internal Medicine; Referring Provider Internal Medicine; Visit Provider Nurse Practitioner Family
DX: K70.11 Alcoholic hepatitis with ascites (principal); K70.31 Alcoholic cirrhosis of liver with ascites; J90 Pleural effusion, not elsewhere classified; I47.1 Supraventricular tachycardia
CPT/HCPCS: 36415; 80051; 82310; 82565; 84520

== ENCOUNTER 2022-05-09 10:54 | Outpatient (REF) | payer OTHER, SELFPAY ==
[2022-05-09 11:31] LABS: Calcium 11.4 mg/dL (8.4-10.2)
== END 2022-05-09 10:55 | disposition home or self-care (01) ==
LOC: HO.LNP 10:54
PROVIDERS: Visit Provider Internal Medicine
DX: E83.52 Hypercalcemia (principal)
CPT/HCPCS: 82310

== ENCOUNTER 2022-05-16 11:38 | Outpatient (REF) | payer OTHER, SELFPAY ==
[2022-05-16 11:55] LABS: Calcium 10.6 mg/dL (8.4-10.2)
== END 2022-05-16 11:39 | disposition home or self-care (01) ==
LOC: HO.LNP 11:38
PROVIDERS: Visit Provider Internal Medicine
DX: E83.52 Hypercalcemia (principal)
CPT/HCPCS: 82310

== ENCOUNTER 2022-08-08 09:13 | Outpatient (REF) | payer OTHER, SELFPAY ==
[2022-08-08 09:40] LABS: MANUAL DIFF FLAG NO
[2022-08-08 09:44] LABS: Basophils Percent Auto 0.6 % (0-2); Eosinophils Absolute Auto 0.2 X10*3/uL (0.0-0.4); Eosinophils Percent Auto 2.3 % (0-4); Hematocrit 38.1 % (42.0-52.0); Hemoglobin 13.3 g/dl (14.0-18.0); Imm Gran Abs Auto 0.02 X10*3/uL (0.00-0.03); Imm Gran Pct Auto 0.3 % (0.0-0.4); Lymphocytes Absolute Auto 2.5 X10*3/uL (1.2-4.9); Lymphocytes Percent Auto 34.8 % (20-40); Mean Corpuscular HGB Conc 34.9 g/dl (31.0-36.0); Mean Corpuscular Hemoglobin 30.4 pg (27.0-33.0); Mean Corpuscular Volume 87.2 fL (80.0-98.0); Mean Platelet Volume 9.7 fL (9.4-12.4); Monocytes Absolute Auto 1.1 X10*3/uL (0.1-1.2); Neutrophils Absolute Auto 3.3 x10*3/uL (2.0-8.3); Platelet Count 177 X10*3/uL (160-400); Red Blood Count 4.37 X10*6/uL (4.60-5.80); White Blood Count 7.1 X10*3/uL (4.8-10.8)
[2022-08-08 09:48] LABS: Ammonia 52 umol/L (13-55)
[2022-08-08 09:50] LABS: INTERNATIONAL NORM RATIO 1.2 (0.9-1.1); Prothrombin Time 14.2 SEC (10.0-13.1)
[2022-08-08 10:06] LABS: Alanine Aminotransferase 16 U/L (0-40); Albumin Level 4.4 g/dL (3.5-5.0); Alkaline Phosphatase 79 U/L (39-117); Anion Gap 14 (12-20); Aspartate Amino Transferase 22 U/L (5-37); Bilirubin Direct 0.3 mg/dL (0.0-0.5); Bilirubin Total 0.6 mg/dL (0.0-1.0); Blood Urea Nitrogen 20 mg/dL (9-16); Calcium 9.8 mg/dL (8.4-10.2); Carbon Dioxide 25 mmol/L (22-29); Chloride 103 mmol/L (96-108); Estimated Glomerular Filt Rate > 60; Glucose Random 98 mg/dL (60-115); Potassium 4.4 mmol/L (3.3-5.1); Sodium 138 mmol/L (135-145); Total Protein 7.6 g/dL (6.5-8.0)
[2022-08-08 10:34] LABS: HBS Num1 2.92 mIU/mL (0-7.99); HBc Num1 0.23 S/CO (0.00-0.79); HBsAGNum1 0.39 S/CO (0.00-0.99); Hepatitis B Core Antibody Nonreactive (Nonreactive); Hepatitis B Surface Antigen Negative (Negative); ~Hepatitis B Surface Antibody NONREACTIVE (Nonreactive)
[2022-08-09 05:56] LABS: Hepatitis A Antibody IgM 0.14 Index (0-0.79); ~Hepatitis A Antibody IgM Nonreactive (Nonreactive)
[2022-08-12 14:02] LABS: Alpha Fetoprotein 5.7 ng/mL (<6.1)
[2022-08-14 04:38] LABS: Hepatitis A Antibody IgG Nonreactive (Nonreactive); ~Hepatitis A Antibody IgG 0.45 S/CO (0.00-0.99)
== END 2022-08-08 09:14 | disposition home or self-care (01) ==
LOC: HO.LAB 09:13
PROVIDERS: PCP Internal Medicine; Visit Provider Internal Medicine
DX: K70.31 Alcoholic cirrhosis of liver with ascites (principal)
CPT/HCPCS: 36415; 80048; 80076; 82105; 82140; 85025; 85610; 86704; 86706; 86708; 86709; 87340

== ENCOUNTER 2022-08-22 10:35 | Outpatient (REF) | payer OTHER, SELFPAY ==
[2022-08-22 11:04] LABS: MANUAL DIFF FLAG NO
[2022-08-22 11:57] LABS: Basophils Absolute Auto 0.1 X10*3/uL (0.0-0.2); Basophils Percent Auto 0.8 % (0-2); Eosinophils Absolute Auto 0.2 X10*3/uL (0.0-0.4); Imm Gran Abs Auto 0.04 X10*3/uL (0.00-0.03); Imm Gran Pct Auto 0.5 % (0.0-0.4); Lymphocytes Percent Auto 35.7 % (20-40); Mean Corpuscular Hemoglobin 30.8 pg (27.0-33.0); Mean Corpuscular Volume 87.9 fL (80.0-98.0); Mean Platelet Volume 9.8 fL (9.4-12.4); Monocytes Absolute Auto 1.3 X10*3/uL (0.1-1.2); Monocytes Percent Auto 15.8 % (2-11); Neutrophils Absolute Auto 3.8 x10*3/uL (2.0-8.3); Neutrophils Percent Auto 45.2 % (45-73); Platelet Count 253 X10*3/uL (160-400); Red Blood Count 4.55 X10*6/uL (4.60-5.80); Red Cell Distribution Width 12.6 % (11.0-16.0); White Blood Count 8.4 X10*3/uL (4.8-10.8)
[2022-08-22 12:14] LABS: INTERNATIONAL NORM RATIO 1.2 (0.9-1.1); Prothrombin Time 13.6 SEC (10.0-13.1)
[2022-08-22 12:25] LABS: Alanine Aminotransferase 17 U/L (0-40); Albumin Level 4.6 g/dL (3.5-5.0); Alkaline Phosphatase 101 U/L (39-117); Anion Gap 14 (12-20); Aspartate Amino Transferase 25 U/L (5-37); Bilirubin Total 0.7 mg/dL (0.0-1.0); Blood Urea Nitrogen 15 mg/dL (9-16); Calcium 10.2 mg/dL (8.4-10.2); Carbon Dioxide 25 mmol/L (22-29); Chloride 102 mmol/L (96-108); Estimated Glomerular Filt Rate > 60; Glucose Random 80 mg/dL (60-115); Potassium 4.9 mmol/L (3.3-5.1); Sodium 136 mmol/L (135-145)
== END 2022-08-22 10:36 | disposition home or self-care (01) ==
LOC: HO.LAB 10:35
PROVIDERS: Absent Provider Physician Assistant; PCP Internal Medicine; Visit Provider Internal Medicine Nephrology
DX: Z01.818 Encounter for other preprocedural examination (principal); K70.11 Alcoholic hepatitis with ascites; K70.31 Alcoholic cirrhosis of liver with ascites
CPT/HCPCS: 36415; 80053; 85025; 85610

== ENCOUNTER 2022-09-19 08:59 | Outpatient (REF) | payer OTHER, SELFPAY ==
[2022-09-24 01:18] LABS: FIB-ALT 11 U/L (9-46); FIB-Alpha-2-Macroglobulin 214 mg/dL (106-279); FIB-Apolipoprotein A1 117 mg/dL (94-176); FIB-GGT 51 U/L (3-70); FIB-Haptoglobin 132 mg/dL (43-212); FIB-Total Bilirubin 0.4 mg/dL (0.2-1.2); Liver Fibrosis Score 0.22; Liver Fibrosis Stage F0-F1; Nec Inflam Act Grade A0; Nec Inflam Act Score 0.03
== END 2022-09-19 09:00 | disposition home or self-care (01) ==
LOC: HO.LAB 08:59
PROVIDERS: PCP Internal Medicine; Visit Provider Internal Medicine
DX: K70.9 Alcoholic liver disease, unspecified (principal)
CPT/HCPCS: 36415; 81596

== ENCOUNTER 2022-09-23 12:06 | Day surgery (SDC) | payer OTHER, SELFPAY ==
--- NOTE | 2022-09-20 14:00 | P.CONAN_ITS ---
Documented by User: Mary Barros NP 09/20/22 14:07 HPI - Anesthesia Eval Consult details Narrative: 27yo M for Upper Endoscopy Significant ETOH abuse with cirrhosis, ascites. Follows [facility] transplant services. Pt reports sobriety for one year at 08/2022 GI appointment hx of pleural effusion with thora during 01/2022 [facility] admit Also had SVT during 01/2022 inpatient. Cardiology office visit 04/2022 - stable on nadolol, no SOB PMFSH Active Problems Active Problems: All Active Problems (Updated 04/04/22 @ 15:21 by Lucretia Dixon, STENOGRAPHIC COURT REPORTER-C) Pleural effusion, left (Acute) Alcoholic cirrhosis of liver with ascites (Acute) Alcohol abuse (Acute) SVT (supraventricular tachycardia) (Acute) Hyponatremia (Acute) Acute kidney failure (Acute) Past Medical History Medical History (Updated 04/04/22 @ 15:21 by Lucretia Dixon, EVELIN-C) Alcoholic cirrhosis of liver with ascites Alcoholic hepatitis HTN (hypertension) Hyponatremia Thrombocytopenia Family History Family History Other No family history of coronary artery disease Surgical History Surgical History No pertinent past surgical history Social History Social History Household Members: None Housing: House Alcohol intake: former Patient Tobacco Use Status: Never used Tobacco Advance Directives: No Advance Directives Information Provided: Yes service: No Current occupational status: employed Meds Allergies Allergy/AdvReac Type Severity Reaction Status Date / Time No Known Allergies Allergy Verified 02/07/22 09:55 Home Medications Medication Instructions Recorded Confirmed Last Taken Type clonidine HCl 0.1 mg tablet 1 tab PO DAILY 01/10/22 04/04/22 09/23/22 History divalproex 500 mg tablet,extended 1 tab PO BID 01/10/22 04/04/22 09/23/22 History release 24 hr potassium chloride 10 mEq 1 tab PO DAILY 01/10/22 04/04/22 09/23/22 History tablet,extended release Exam Exam Date and Time: September 20, 2022 1400 Pertinent Lab Results Pertinent Lab Results: Laboratory Tests 08/22/22 08/22/22 11:02 11:02 WBC 8.4 Hgb 14.0 Hct 40.0 L Plt Count 253 D Sodium 136 Potassium 4.9 Chloride 102 Carbon Dioxide 25 BUN 15 Creatinine 0.91 Narrative Narrative: ECHO 02/2022 Conclusions: - Normal cardiac study with large left-sided pleural effusion? ? Findings Left Ventricle Normal left ventricular size, thickness, and systolic function. The visually estimated ejection fraction is between 60-65%.? Spectral Doppler is indicative of a normal filling pattern. . EKG 01/2022 Vent. Rate : 167 BPM ? ? Atrial Rate : 000 BPM ?? P-R Int : 000 ms? QRS Dur : 082 ms ? ? QT Int : 250 ms ? ? ? P-R-T Axes : 000 -18 -38 degrees ?? QTc Int : 417 ms ? Supraventricular tachycardia Low voltage QRS Possible Anterolateral infarct (cited on or before 10-JAN-2022) Abnormal ECG When compared with ECG of 10-JAN-2022 20:09, No significant changes seen Assessment and Plan Assessment Anesthesia Assessment: Chart Reviewed Documented by User: Saturnino Huston MD 09/23/22 12:33 [facility] Past Medical History Medical History (Updated 04/04/22 @ 15:21 by Lucretia Dixon NP-C) Alcoholic cirrhosis of liver with ascites Alcoholic hepatitis HTN (hypertension) Hyponatremia Thrombocytopenia Family History Family History Other No family history of coronary artery disease Family history of problems with anesthesia: No Surgical History Surgical History No pertinent past surgical history History of Problems with Anesthesia: No Social History Social History Household Members: None Housing: House Alcohol intake: former Patient Tobacco Use Status: Never used Tobacco Advance Directives: No Advance Directives Information Provided: Yes service: No Current occupational status: employed Meds Allergies Allergy/AdvReac Type Severity Reaction Status Date / Time No Known Allergies Allergy Verified 02/07/22 09:55 Home Medications Medication Instructions Recorded Confirmed Last Taken Type clonidine HCl 0.1 mg tablet 1 tab PO DAILY 01/10/22 04/04/22 09/23/22 History divalproex 500 mg tablet,extended 1 tab PO BID 01/10/22 04/04/22 09/23/22 History release 24 hr potassium chloride 10 mEq 1 tab PO DAILY 01/10/22 04/04/22 09/23/22 History tablet,extended release Exam Airway Mallampati Class: II TM Dist: >3cm Neck ROM: Full Assessment and Plan Assessment Anesthesia Assessment: Anesthesia Plan Discussed Final Anesthetic Review Family History of Problems with Anesthesia: No History of Problems with Anesthesia: No NPO: Yes ASA Class: III Final Preanesthetic Review: No Changes in Pt Med Stat, Meds/Allgs Chart Reviewed, Consent Obtained/Reviewed and Anes Risks/Benef Reviewed Patient Risk: Intermediate Procedure Risk: Low Anesthetic Plan Anesthetic Plan: MAC: Disposition: Standard PACU
[2022-09-23 12:30] VITALS: BP 125/80; PULSE 87; RESP 18; TEMP 36.3; O2SAT 98; BMI 23.7
[2022-09-23] MEDS: Lactated Ringers 1,000 ML 100 ML IVCONT (12:50)
[2022-09-23 13:29] VITALS: BP 99/57; PULSE 86; RESP 16; TEMP 36.3; O2SAT 97
--- NOTE | 2022-09-23 13:38 | P.BOP_ITS ---
Brief Operative Note Date of Service: 09/23/22 Pre-op diagnosis: Alcohol-related liver disease Post-op diagnosis: other (Hiatal hernia, GERD) Procedure: EGD with biopsies Surgeon: Gunnar Silva Anesthesia: MAC Was an Precision Mechanical Instrument Maker used for this Procedure?: No Estimated blood loss (mL): 2.0 Pathology: other (A. EG Junction at 40cm) Condition: stable Disposition: PACU
[2022-09-23 13:44] VITALS: BP 99/59; PULSE 81; RESP 16; TEMP 36.1; O2SAT 97
[2022-09-23 13:59] VITALS: BP 114/76; PULSE 83; RESP 16; TEMP 36.4; O2SAT 100
--- NOTE | 2022-09-23 23:36 | OP_ITS ---
SURGEON: Gunnar Silva MD INDICATIONS: The patient presents for evaluation of underlying alcohol-related liver disease. Full consent has been obtained from him for this, including risks of bleeding and perforation. PREOPERATIVE DIAGNOSIS: Alcohol-related liver disease. POSTOPERATIVE DIAGNOSIS: PROCEDURE PERFORMED: Esophagogastroduodenoscopy with biopsies. ESTIMATED BLOOD LOSS: COMPLICATIONS: ANESTHESIA: Monitored anesthesia care. ASSISTANTS: SPECIMENS: POSTOPERATIVE DIAGNOSES: Alcohol-related liver disease, small hiatal hernia, rule out Goodman's esophagus. DESCRIPTION OF PROCEDURE: The patient was placed in the left lateral decubitus position. The Olympus video gastroscope was passed in the posterior oropharynx and upper esophagus under direct vision. The scope was passed slowly to the distal esophagus. The gastroesophageal junction appeared at 40 cm. There was some slight irregularity consistent with reflux and possibly less than 1 cm areas of Goodman's mucosa. The entire esophagus was carefully inspected, and there was no evidence of any varices nor esophagitis. The scope entered into the stomach. There was a minimal hiatal hernia. The scope was advanced to the pylorus and the duodenum was cannulated to the descending portion. The duodenum including the bulb appeared normal without mass or ulceration. The scope was withdrawn back into the stomach. The gastric antrum and body appeared normal with good peristalsis. The scope was retroflexed visualizing the proximal stomach carefully, which appeared normal without any sign of gastric mass, ulceration, gastropathy, nor varices. Of note, there was a small amount of retained old food in the proximal stomach. The scope was straightened and withdrawn back into the esophagus. Again, there was no evidence of any varices. Biopsies were obtained at the EG junction at 40 cm. Proximal to this, the esophageal mucosa appeared normal. The scope was withdrawn from the patient. He tolerated the procedure well and was returned to the recovery area in stable condition. IMPRESSION: Minimal hiatal hernia with associated reflux, rule out Goodman's esophagus. PLAN: The results of the biopsies will be checked. At this point I have advised him that from the standpoint of his liver disease he could stop his nadolol as there is no evidence of any varices. However, he was started on it for his SVT, and therefore his stopping the nadolol would be up to his primary care physician and/or emulsion coater. I did advise him to continue omeprazole for the time being. He will need to get vaccinated for his hepatitis A and B. He has been able to come off lactulose without any problems. He has also cut the spironolactone down to 100 mg daily and thus far is doing well with that. I did advise him to continue to cut down on the spironolactone as tolerated He will be seen in followup in the office. He is scheduled for an ultrasound with elastography later this month as well. Of note, his previous significant liver disease has seemingly greatly improved now that he has been abstinent from alcohol for over 1 year now. There does not appear to be any liver dysfunction based on recent laboratories. This has been discussed with his mother. MD MILAGRO Russ/MIRTA / [id number] MTDD
== END 2022-09-23 15:13 | disposition home or self-care (01) ==
PROVIDERS: PCP Internal Medicine; Visit Provider Internal Medicine
PROC: 0DJ08ZZ Inspection of Upper Intestinal Tract, Via Natural or Artificial Opening Endoscopic (ICD-10-PCS; CPT 43235; principal; 2022-09-23 13:30)
DX: K70.31 Alcoholic cirrhosis of liver with ascites (principal); K70.10 Alcoholic hepatitis without ascites; K21.9 Gastro-esophageal reflux disease without esophagitis; K44.9 Diaphragmatic hernia without obstruction or gangrene; I10 Essential (primary) hypertension; Z79.899 Other long term (current) drug therapy
CPT/HCPCS: 43239; 88305

== ENCOUNTER 2022-10-24 12:42 | Outpatient (REF) | payer OTHER, SELFPAY ==
--- NOTE | ~2022-10-24 | US_ITS ---
EXAMINATION: US COMPLETE ABDOMEN WITH LIVER ELASTOGRAPHY CLINICAL INFORMATION: Alcohol liver damage COMPARISON: None. TECHNIQUE: Real-time imaging of the abdominal viscera. Noninvasive ultrasound liver fibrosis assessment is performed using Madelaine ElastPQ point quantification shear wave elastography (2D-SWE) with a C5-2 MHz transducer. Multiple elastography samples are obtained. FINDINGS: PANCREAS: Normal. The visualized pancreatic head and body are normal in appearance. The remainder of the pancreas is obscured from visualization by the overlying bowel gas. ABDOMINAL AORTA: The proximal, middle, and distal aortic segments are normal in caliber. INFERIOR VENA CAVA: Visualized portions are normal. LIVER: The liver demonstrates normal size, contour and increased echogenicity. No focal lesion or intrahepatic biliary duct dilatation. The right lobe measures 16.7 cm in length. The left lobe measures 9.6 cm in length. Portal flow is hepatopedal Shear wave liver elastography median stiffness is 1.96 m/s (reference: normal median stiffness is 1.3 m/s or less). IQR/median stiffness to assess sampling precision is 0.15 (reference: good quality data set is IQR/median stiffness of 0.15 or less). GALLBLADDER: There are echogenic sludge balls seen along the inner gallbladder wall. The largest sludge ball measuring 1.8 x 1.5 1.6 cm. Gallbladder wall thickness measures 0.3 cm. COMMON BILE DUCT: Normal in caliber measuring 0.4 cm in diameter. RIGHT KIDNEY: Normal. No hydronephrosis. No renal calculi or focal parenchymal lesions. The kidney measures 10.8 cm in maximum dimension. LEFT KIDNEY: Normal. No hydronephrosis. No renal calculi or focal parenchymal lesions. The kidney measures 12.2 cm in maximum dimension. SPLEEN: The spleen is enlarged. The spleen measures 14.1 cm in maximum dimension. FREE FLUID: None. US/US abdomen comp w elastography IMPRESSION: 1. Diffuse hepatic steatosis without focal lesion. Several echogenic sludge balls in the gallbladder with mild wall thickening. Mild splenomegaly. 2. Liver elastography: Median liver stiffness measures 1.96 ms/ corresponding to cACLD (suggestive), REFERENCE: Society of Radiologists in Ultrasound Liver Stiffness Thresholds (2020): LIVER STIFFNESS THRESHOLDS: *Liver Stiffness equal or less than 1.3 m/s: High probability of being normal. *Liver Stiffness less than 1.7 m/s: In the absence of other known clinical signs, rules out compensated advanced chronic liver disease. *Liver Stiffness 1.7-2.1 m/s: Suggestive of compensated advanced chronic liver disease but need further test for confirmation. *Liver Stiffness over 2.1 m/s: Rules in compensated advanced chronic liver disease. *Liver Stiffness over 2.4 m/s: Suggestive of clinically significant portal hypertension. QUALITY OF DATA SET: *IQR/Median value equal or less than 0.15 implies a quality data set. *IQR/Median value over 0.15 implies a poor quality data set. SIGNIFICANT CHANGE FROM PRIOR EXAM: Significant change if liver stiffness measurement is 10% or greater from prior exam. OTHER CONSIDERATIONS: The stage of liver fibrosis may be overestimated in the setting of acute hepatitis, liver inflammation, elevated liver function tests, hepatic vascular congestion, obstructive cholestasis, non-fasting state, and infiltrative diseases such as amyloidosis and lymphoma. In some patients with NAFLD, the liver stiffness thresholds for compensated advanced chronic liver disease may be lower. In causes other than viral hepatitis and NAFLD, liver stiffness thresholds are not well established.
== END 2022-10-24 12:43 | disposition home or self-care (01) ==
LOC: HO.US 12:42
PROVIDERS: Visit Provider Internal Medicine
DX: K70.9 Alcoholic liver disease, unspecified (principal)
CPT/HCPCS: 76705; 76981

== ENCOUNTER 2023-02-21 08:43 | Outpatient (REF) | payer BC, SELFPAY ==
[2023-02-21 11:29] LABS: MANUAL DIFF FLAG NO
[2023-02-21 11:57] LABS: Basophils Percent Auto 0.8 % (0-2); Eosinophils Absolute Auto 0.2 X10*3/uL (0.0-0.4); Eosinophils Percent Auto 2.8 % (0-4); Hematocrit 39.2 % (42.0-52.0); Hemoglobin 13.1 g/dl (14.0-18.0); INTERNATIONAL NORM RATIO 1.1 (0.9-1.1); Imm Gran Abs Auto 0.02 X10*3/uL (0.00-0.03); Imm Gran Pct Auto 0.4 % (0.0-0.4); Lymphocytes Absolute Auto 1.8 X10*3/uL (1.2-4.9); Lymphocytes Percent Auto 32.8 % (20-40); Mean Corpuscular HGB Conc 33.4 g/dl (31.0-36.0); Mean Corpuscular Hemoglobin 28.4 pg (27.0-33.0); Mean Platelet Volume 10.6 fL (9.4-12.4); Monocytes Absolute Auto 0.7 X10*3/uL (0.1-1.2); Monocytes Percent Auto 13.1 % (2-11); Neutrophils Absolute Auto 2.7 x10*3/uL (2.0-8.3); Neutrophils Percent Auto 50.1 % (45-73); Platelet Count 188 X10*3/uL (160-400); Prothrombin Time 13.1 SEC (10.0-13.1); Red Blood Count 4.61 X10*6/uL (4.60-5.80); Red Cell Distribution Width 13.2 % (11.0-16.0); White Blood Count 5.3 X10*3/uL (4.8-10.8)
[2023-02-21 12:20] LABS: Alanine Aminotransferase 27 U/L (0-40); Albumin Level 4.1 g/dL (3.5-5.0); Alkaline Phosphatase 86 U/L (39-117); Anion Gap 11 (12-20); Aspartate Amino Transferase 23 U/L (5-37); Bilirubin Direct 0.1 mg/dL (0.0-0.5); Bilirubin Total 0.3 mg/dL (0.0-1.0); Blood Urea Nitrogen 16 mg/dL (9-16); Carbon Dioxide 25 mmol/L (22-29); Chloride 109 mmol/L (96-108); Estimated Glomerular Filt Rate > 60; Glucose Random 90 mg/dL (60-115); Potassium 4.2 mmol/L (3.3-5.1); Sodium 141 mmol/L (135-145)
[2023-02-21 12:49] LABS: Hepatitis A Antibody IgG REACTIVE (Nonreactive); ~Hepatitis A Antibody IgG 5.17 S/CO (0.00-0.99)
[2023-02-21 13:08] LABS: HBS Num1 > 1000.00 mIU/mL (0-7.99); ~Hepatitis B Surface Antibody REACTIVE (Nonreactive)
== END 2023-02-21 08:44 | disposition home or self-care (01) ==
LOC: HO.WFDLDS 08:43
PROVIDERS: Visit Provider Internal Medicine
DX: K70.9 Alcoholic liver disease, unspecified (principal)
CPT/HCPCS: 36415; 80048; 80076; 85025; 85610; 86706; 86708

== ENCOUNTER 2023-05-07 08:53 | Outpatient (REF) | payer BC, SELFPAY | END 2023-05-07 08:54 | disposition home or self-care (01) | LOC: HO.WFDLDS 08:53 | PROVIDERS: Visit Provider Internal Medicine | DX: Z13.89 Encounter for screening for other disorder (principal) ==

== ENCOUNTER 2023-05-09 09:27 | Outpatient (REF) | payer BC, SELFPAY | END 2023-05-09 09:28 | disposition home or self-care (01) | LOC: HO.LAB 09:27 | PROVIDERS: PCP Internal Medicine; Visit Provider Internal Medicine | DX: K70.9 Alcoholic liver disease, unspecified (principal); K74.00 Hepatic fibrosis, unspecified | CPT/HCPCS: 36415; 82105 ==

== ENCOUNTER 2023-05-12 08:08 | Outpatient (REF) | payer BC, SELFPAY ==
--- NOTE | ~2023-05-12 | MR_ITS ---
EXAMINATION: MR ABDOMEN WITHOUT AND WITH CONTRAST CLINICAL INFORMATION: Alcoholic liver damage. COMPARISON: Abdominal ultrasound 10/24/2022 TECHNIQUE: MR abdomen was performed without and with use of 10 mL intravenous Gadavist gadolinium contrast. Postcontrast images are performed in multiphase dynamic sequences. Imaging was performed in 3 planes. FINDINGS: LUNG BASES: Left basilar atelectasis. LIVER, GALLBLADDER, AND BILIARY TREE: The liver is enlarged. Measures 20.1 cm in sagittal dimension. Normal surface contour. No focal hepatic lesion. No biliary ductal dilatation is present. Tumefactive sludge in the gallbladder. Trace perihepatic free fluid. PANCREAS: No ductal dilatation. SPLEEN: Mildly enlarged. Measures 14.4 cm in sagittal dimension. ADRENAL GLANDS: No adrenal mass. KIDNEYS AND URETERS: The kidneys are symmetric in size and enhancement. No hydronephrosis. No perinephric stranding. GASTROINTESTINAL TRACT: No bowel obstruction. No ascites or fluid collection. LYMPH NODES: No bulky abdominal lymphadenopathy. VASCULAR: Normal caliber abdominal aorta. MR/MR abdomen wo/w con IMPRESSION: Hepatosplenomegaly. Trace perihepatic free fluid. Sludge in the gallbladder.
== END 2023-05-12 08:09 | disposition home or self-care (01) ==
LOC: HO.MRI 08:08
PROVIDERS: PCP Internal Medicine; Visit Provider Internal Medicine
DX: K74.00 Hepatic fibrosis, unspecified (principal); K70.9 Alcoholic liver disease, unspecified
CPT/HCPCS: 74183

== ENCOUNTER 2023-10-13 08:49 | Outpatient (AMB) | payer BC, SELFPAY ==
--- NOTE | 2023-10-13 08:53 | MHC.OFFVIS ---
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 In 2021, he was admitted to hospital for various medical issues including alcoholic hepatitis, pleural effusion, ascites, electrolyte issues, coagulopathy, thrombocytopenia among others. In that setting, he had narrow complex tachycardia on telemetry thought to be either reentrant tachycardia or atrial tachycardia. He was on some beta-blockers. Since that time of discharge, gradually has been improving. He states that he has stopped drinking completely. He states he has turned his life around. Overall, he feels great and this is the best he has felt in a long time. 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 Physical activity has no limitations. No cardiac symptoms. ON LICENSE OF [facility] Medical History Alcoholic cirrhosis of liver with ascites Alcoholic hepatitis HTN (hypertension) Hyponatremia Thrombocytopenia Surgical History No pertinent past surgical history Family History Other No family history of coronary artery disease Social History Household Members: None Housing: House Alcohol intake: former Patient Tobacco Use Status: Never used Tobacco service: No Current occupational status: employed Review of Systems Const Denies weakness ENT Denies dizziness Card Denies chest pain, Denies chest pain with activity, Denies syncope, Denies rapid heart rate, Denies pedal edema, Denies edema, Denies leg edema, Denies lightheadedness, Denies palpitations, Denies dyspnea, Denies dyspnea on exertion and Denies orthopnea Resp Denies cough, Denies dyspnea and Denies dyspnea on exertion GI Denies hematochezia and Denies change in stool character Musc Denies abnormal gait, Denies muscle cramps, Denies muscle weakness, Denies numbness, Denies radiating pain into limb and Denies tingling Neuro Denies abnormal gait, Denies dizziness, Denies syncope, Denies numbness, Denies tingling and Denies weakness Endo Denies palpitations Physical Exam Vital Signs: Last Vital Signs Pulse 74 10/13/23 08:54 BP 128/84 10/13/23 08:54 BMI result Body Mass Index 28.5 Const General: comfortable and no acute distress Orientation/consciousness: patient oriented x3 HEENT Other: Unremarkable Head: Yes normal to inspection Neck Neck: Yes normal visual inspection Chest Chest palpation & inspection: normal inspection of the chest Resp Auscultation: clear to auscultation bilaterally Cardio Palpation: normal PMI Heart sounds: S1 normal heart sound present, S2 normal heart sound present, no gallops, no murmurs and no rubs GI Palpation (GI): Soft to palpation Back/Spine/Pelvis Other: unremarkable Skin General skin exam: no rashes or lesions noted Neuro General: patient oriented x3 Extrem General: Yes normal to inspection Psych Mental Status: mental status grossly normal Office Procedures EKG Details: EKG with sinus rhythm at 74/Min; no significant ST-T changes and otherwise unremarkable. [place]. [address]-[id number], Complete Assessment & Plan Assessment & Plan (1) SVT (supraventricular tachycardia): Code(s): I47.1 - Supraventricular tachycardia Plan Based on telemetry, thought to be either reentrant tachycardia or atrial tachycardia. Echocardiogram with LVEF of 60-60%. No significant valvular issues. No pulmonary hypertension. Overall, atrial arrhythmias probably related to acute medical issues at the time of hospitalization. No clinically significant recurrences. He also feels fine with no concerns. No specific workup or treatment at this time. He has already stopped drinking completely which is a good thing. Otherwise, stable and he will contact us as needed. Coding Level of Care Code Est Pt Level 3 (49536) Diagnoses SVT (supraventricular tachycardia) I47.1 CPT Codes EKG - CPT: 03752-[id number], Complete ([id number])
[2023-10-13 08:54] VITALS: BP 128/84; PULSE 74; BMI 28.5
== END 2023-10-13 09:49 | disposition home or self-care (01) ==
PROVIDERS: Visit Provider Internal Medicine
DX: I47.1 Supraventricular tachycardia (principal)
CPT/HCPCS: 93010; 99213

== ENCOUNTER → 2023-10-13 08:49 | Outpatient (BNVA) | payer BC, SELFPAY | PROVIDERS: Visit Provider Internal Medicine | DX: I47.10 Supraventricular tachycardia, unspecified (principal) | CPT/HCPCS: 93005 ==

== ENCOUNTER 2023-10-31 10:45 | Outpatient (REF) | payer BC, SELFPAY ==
[2023-10-31 10:50] LABS: MANUAL DIFF FLAG NO
[2023-10-31 11:36] LABS: Appearance Urine Clear; Basophils Absolute Auto 0.1 X10*3/uL (0.0-0.2); Basophils Percent Auto 0.7 % (0-2); Color Urine Yellow; Eosinophils Absolute Auto 0.1 X10*3/uL (0.0-0.4); Eosinophils Percent Auto 1.9 % (0-4); Glucose Urine UA Negative (Negative); Hemoglobin 14.1 g/dl (14.0-18.0); Imm Gran Abs Auto 0.03 X10*3/uL (0.00-0.03); Imm Gran Pct Auto 0.4 % (0.0-0.4); Leukocyte Esterase Urine Negative (Negative); Lymphocytes Percent Auto 26.1 % (20-40); Mean Corpuscular HGB Conc 33.6 g/dl (31.0-36.0); Mean Corpuscular Hemoglobin 28.7 pg (27.0-33.0); Mean Corpuscular Volume 85.5 fL (80.0-98.0); Mean Platelet Volume 10.7 fL (9.4-12.4); Monocytes Absolute Auto 0.6 X10*3/uL (0.1-1.2); Monocytes Percent Auto 8.3 % (2-11); Neutrophils Absolute Auto 4.7 x10*3/uL (2.0-8.3); Neutrophils Percent Auto 62.6 % (45-73); Nitrite Urine Negative (Negative); Platelet Count 212 X10*3/uL (160-400); Red Blood Count 4.91 X10*6/uL (4.60-5.80); Red Cell Distribution Width 13.2 % (11.0-16.0); Specific Gravity - Urine 1.025 (1.005-1.025); Urine Blood Negative (Negative); Urine Ketones Trace mg/dL (Negative); Urine Protein Negative (Neg-Trace); White Blood Count 7.5 X10*3/uL (4.8-10.8)
[2023-10-31 11:41] LABS: Bacteria Urine None Seen (None Seen); Hyaline Casts Urine 0-2 /LPF (0-2); RBC Urine 0-2 /HPF (0-2); Squamous Epithelial Cell Urine 0-2 /HPF (0-2); WBC Urine 0-5 /HPF (0-5)
[2023-10-31 11:48] LABS: Alanine Aminotransferase 20 U/L (0-40); Albumin Level 4.2 g/dL (3.5-5.0); Alkaline Phosphatase 70 U/L (39-117); Anion Gap 13 (12-20); Aspartate Amino Transferase 23 U/L (5-37); Bilirubin Total 0.3 mg/dL (0.0-1.0); Blood Urea Nitrogen 11 mg/dL (9-16); Carbon Dioxide 23 mmol/L (22-29); Chloride 109 mmol/L (96-108); Cholesterol 198 mg/dL (<200); Estimated Glomerular Filt Rate > 60; Glucose Random 93 mg/dL (60-115); HDL Cholesterol 37 mg/dL (>40); LDL Cholesterol Calculated 125 mg/dL (<100); Potassium 3.8 mmol/L (3.3-5.1); Sodium 141 mmol/L (135-145); Total Protein 6.9 g/dL (6.5-8.0); Triglycerides 183 mg/dL (<150)
== END 2023-10-31 10:46 | disposition home or self-care (01) ==
LOC: HO.LNP 10:45
PROVIDERS: Visit Provider Internal Medicine
DX: Z00.00 Encounter for general adult medical examination without abnormal findings (principal); I10 Essential (primary) hypertension; E78.00 Pure hypercholesterolemia, unspecified; R94.5 Abnormal results of liver function studies; D69.6 Thrombocytopenia, unspecified
CPT/HCPCS: 80053; 80061; 81001; 85025

== ENCOUNTER 2024-08-17 10:17 | Outpatient (REF) | payer BC, SELFPAY ==
[2024-08-17 10:36] LABS: MANUAL DIFF FLAG NO
[2024-08-17 10:56] LABS: Basophils Percent Auto 0.5 % (0-2); Eosinophils Absolute Auto 0.2 X10*3/uL (0.0-0.4); Eosinophils Percent Auto 2.4 % (0-4); Hematocrit 42.8 % (42.0-52.0); Hemoglobin 14.2 g/dl (14.0-18.0); Imm Gran Abs Auto 0.02 X10*3/uL (0.00-0.03); Imm Gran Pct Auto 0.3 % (0.0-0.4); Lymphocytes Absolute Auto 1.6 X10*3/uL (1.2-4.9); Mean Corpuscular HGB Conc 33.2 g/dl (31.0-36.0); Mean Corpuscular Hemoglobin 27.4 pg (27.0-33.0); Mean Corpuscular Volume 82.6 fL (80.0-98.0); Mean Platelet Volume 10.1 fL (9.4-12.4); Monocytes Absolute Auto 0.5 X10*3/uL (0.1-1.2); Monocytes Percent Auto 8.1 % (2-11); Neutrophils Percent Auto 63.7 % (45-73); Platelet Count 180 X10*3/uL (160-400); Red Blood Count 5.18 X10*6/uL (4.60-5.80); Red Cell Distribution Width 13.5 % (11.0-16.0); White Blood Count 6.3 X10*3/uL (4.8-10.8)
[2024-08-17 10:58] LABS: INTERNATIONAL NORM RATIO 1.1 (0.9-1.1); Prothrombin Time 12.5 SEC (10.9-12.4)
[2024-08-17 11:32] LABS: Alanine Aminotransferase 18 U/L (0-40); Albumin Level 4.4 g/dL (3.5-5.0); Alkaline Phosphatase 74 U/L (39-117); Aspartate Amino Transferase 16 U/L (5-37); Bilirubin Direct 0.1 mg/dL (0.0-0.5); Bilirubin Total 0.4 mg/dL (0.0-1.0); Total Protein 7.1 g/dL (6.5-8.0)
[2024-08-19 10:19] LABS: Alpha Fetoprotein 3.8 ng/mL (<6.1)
[2024-08-24 15:53] LABS: FIB-ALT 16 U/L (9-46); FIB-Alpha-2-Macroglobulin 136 mg/dL (106-279); FIB-Apolipoprotein A1 124 mg/dL (94-176); FIB-GGT 38 U/L (3-90); FIB-Haptoglobin 157 mg/dL (43-212); FIB-Total Bilirubin 0.4 mg/dL (0.2-1.2); Liver Fibrosis Score 0.08; Liver Fibrosis Stage F0; Nec Inflam Act Grade A0; Nec Inflam Act Score 0.04; Reference ID 5164815
== END 2024-08-17 10:18 | disposition home or self-care (01) ==
LOC: HO.LAB 10:17
PROVIDERS: PCP Internal Medicine; Visit Provider Internal Medicine
DX: K74.00 Hepatic fibrosis, unspecified (principal); K70.9 Alcoholic liver disease, unspecified
CPT/HCPCS: 36415; 80076; 81596; 82105; 85025; 85610

== ENCOUNTER 2024-08-24 10:17 | Outpatient (REF) | payer BC, SELFPAY ==
--- NOTE | ~2024-08-24 | US_ITS ---
EXAMINATION: US ABDOMEN DOPPLER, US ABDOMEN COMPLETE WITH LIVER ELASTOGRAPHY CLINICAL INFORMATION: Liver fibrosis COMPARISON: Ultrasound from 10/24/2022 TECHNIQUE: Real-time imaging of the abdominal viscera. Noninvasive ultrasound liver fibrosis assessment is performed using Madelaine ElastPQ point quantification shear wave elastography (pSWE) with a C5-2 MHz transducer. Multiple elastography samples are obtained. Color and spectral Doppler evaluation of the hepatic vasculature. FINDINGS: LIVER: The liver demonstrates normal size, contour and increased echogenicity. No focal lesion or intrahepatic biliary duct dilatation. The right lobe measures 16.0 cm in length. The left lobe measures 8.2 cm in length. Portal flow is towards the liver (hepatopetal). Shear wave liver elastography median stiffness is 1.08 m/s (reference: normal median stiffness is 1.3 m/s or less). Previously 1.96 IQR/median stiffness to assess sampling precision is 0.13 (reference: good quality data set is IQR/median stiffness of 0.15 or less). SPLENIC VEIN: Patent with normal waveforms. HEPATIC VEINS: Patent with normal waveforms. PORTAL VEINS: Patent with normal waveforms and hepatopetal flow. HEPATIC ARTERIES: Normal upstroke and diastolic flow. INFERIOR VENA CAVA: Patent with normal waveforms. GALLBLADDER: Multiple calcified stones seen within the gallbladder. No distention, wall thickening or pericholecystic fluid COMMON BILE DUCT: Normal in caliber measuring 0.3 cm in diameter. PANCREAS: Normal. The visualized pancreatic head and body are normal in appearance. The remainder of the pancreas is obscured from visualization by the overlying bowel gas. RIGHT KIDNEY: Normal. No hydronephrosis. No renal calculi or focal parenchymal lesions. The kidney measures 10.8 cm in maximum dimension. LEFT KIDNEY: Normal. No hydronephrosis. No renal calculi or focal parenchymal lesions. The kidney measures 11.4 cm in maximum dimension. SPLEEN: The spleen measures 13.8 cm in maximum dimension. ABDOMINAL AORTA: The visualized proximal segment is normal in caliber. INFERIOR VENA CAVA: Visualized portions are normal. FREE FLUID: None. US/US duplex arterial venous comp IMPRESSION: 1. Echogenic liver parenchyma consistent with hepatic steatosis/fibrosis. Median elastography value has significantly improved, currently 1.08 which is within normal limits. 2. Hepatic vasculature is patent 3. Cholelithiasis Electronically signed by: Catarino Tapia MD 09/02/2024 11:08 AM EDT RP
--- NOTE | ~2024-08-24 | US_ITS ---
EXAMINATION: US ABDOMEN DOPPLER, US ABDOMEN COMPLETE WITH LIVER ELASTOGRAPHY CLINICAL INFORMATION: Liver fibrosis COMPARISON: Ultrasound from 10/24/2022 TECHNIQUE: Real-time imaging of the abdominal viscera. Noninvasive ultrasound liver fibrosis assessment is performed using Madelaine ElastPQ point quantification shear wave elastography (pSWE) with a C5-2 MHz transducer. Multiple elastography samples are obtained. Color and spectral Doppler evaluation of the hepatic vasculature. FINDINGS: LIVER: The liver demonstrates normal size, contour and increased echogenicity. No focal lesion or intrahepatic biliary duct dilatation. The right lobe measures 16.0 cm in length. The left lobe measures 8.2 cm in length. Portal flow is towards the liver (hepatopetal). Shear wave liver elastography median stiffness is 1.08 m/s (reference: normal median stiffness is 1.3 m/s or less). Previously 1.96 IQR/median stiffness to assess sampling precision is 0.13 (reference: good quality data set is IQR/median stiffness of 0.15 or less). SPLENIC VEIN: Patent with normal waveforms. HEPATIC VEINS: Patent with normal waveforms. PORTAL VEINS: Patent with normal waveforms and hepatopetal flow. HEPATIC ARTERIES: Normal upstroke and diastolic flow. INFERIOR VENA CAVA: Patent with normal waveforms. GALLBLADDER: Multiple calcified stones seen within the gallbladder. No distention, wall thickening or pericholecystic fluid COMMON BILE DUCT: Normal in caliber measuring 0.3 cm in diameter. PANCREAS: Normal. The visualized pancreatic head and body are normal in appearance. The remainder of the pancreas is obscured from visualization by the overlying bowel gas. RIGHT KIDNEY: Normal. No hydronephrosis. No renal calculi or focal parenchymal lesions. The kidney measures 10.8 cm in maximum dimension. LEFT KIDNEY: Normal. No hydronephrosis. No renal calculi or focal parenchymal lesions. The kidney measures 11.4 cm in maximum dimension. SPLEEN: The spleen measures 13.8 cm in maximum dimension. ABDOMINAL AORTA: The visualized proximal segment is normal in caliber. INFERIOR VENA CAVA: Visualized portions are normal. FREE FLUID: None. US/US abdomen comp w elastography IMPRESSION: 1. Echogenic liver parenchyma consistent with hepatic steatosis/fibrosis. Median elastography value has significantly improved, currently 1.08 which is within normal limits. 2. Hepatic vasculature is patent 3. Cholelithiasis Electronically signed by: Catarino Tapia MD 09/02/2024 11:08 AM EDT RP
== END 2024-08-24 10:18 | disposition home or self-care (01) ==
LOC: HO.US 10:17
PROVIDERS: PCP Internal Medicine; Visit Provider Internal Medicine
DX: K74.00 Hepatic fibrosis, unspecified (principal); K70.9 Alcoholic liver disease, unspecified
CPT/HCPCS: 76700; 76981; 93975

== ENCOUNTER 2024-11-05 10:43 | Outpatient (REF) | payer BC, SELFPAY ==
[2024-11-05 10:50] LABS: MANUAL DIFF FLAG NO
[2024-11-05 11:10] LABS: Basophils Absolute Auto 0.1 X10*3/uL (0.0-0.2); Basophils Percent Auto 0.8 % (0-2); Eosinophils Absolute Auto 0.2 X10*3/uL (0.0-0.4); Eosinophils Percent Auto 2.7 % (0-4); Imm Gran Abs Auto 0.01 X10*3/uL (0.00-0.03); Imm Gran Pct Auto 0.2 % (0.0-0.4); Lymphocytes Absolute Auto 1.8 X10*3/uL (1.2-4.9); Lymphocytes Percent Auto 28.5 % (20-40); Mean Corpuscular HGB Conc 33.3 g/dl (31.0-36.0); Mean Corpuscular Hemoglobin 27.8 pg (27.0-33.0); Mean Corpuscular Volume 83.3 fL (80.0-98.0); Mean Platelet Volume 10.7 fL (9.4-12.4); Monocytes Absolute Auto 0.5 X10*3/uL (0.1-1.2); Monocytes Percent Auto 8.7 % (2-11); Neutrophils Absolute Auto 3.7 x10*3/uL (2.0-8.3); Neutrophils Percent Auto 59.1 % (45-73); Platelet Count 210 X10*3/uL (160-400); Red Cell Distribution Width 13.4 % (11.0-16.0); White Blood Count 6.2 X10*3/uL (4.8-10.8)
[2024-11-05 11:58] LABS: Alanine Aminotransferase 25 U/L (0-40); Albumin Level 4.4 g/dL (3.5-5.0); Alkaline Phosphatase 71 U/L (39-117); Anion Gap 9 (12-20); Aspartate Amino Transferase 22 U/L (5-37); Bilirubin Direct 0.1 mg/dL (0.0-0.5); Bilirubin Total 0.4 mg/dL (0.0-1.0); Blood Urea Nitrogen 11 mg/dL (9-16); Calcium 8.6 mg/dL (8.4-10.2); Carbon Dioxide 23 mmol/L (22-29); Chloride 112 mmol/L (96-108); Cholesterol 207 mg/dL (<200); Estimated Glomerular Filt Rate > 60; Glucose Fasting 92 mg/dL (60-99); HDL Cholesterol 32 mg/dL (>40); LDL Cholesterol Calculated 140 mg/dL (<100); Potassium 4.1 mmol/L (3.3-5.1); Sodium 140 mmol/L (135-145); Total Protein 7.2 g/dL (6.5-8.0); Triglycerides 178 mg/dL (<150)
--- OUTSIDE RECORDS SUMMARY | 2024-11-05 12:20 | XMS_ITS ---
Author Name [facility] Organization Unknown Problems Problem Status Onset Date Problem Type Date of Resolution Source Encounter for pre-employment examination active EncounterDiagnosisAct CT_THS TANYA
== END 2024-11-05 10:44 | disposition home or self-care (01) ==
LOC: HO.LNP 10:43
PROVIDERS: Visit Provider Internal Medicine
DX: Z00.00 Encounter for general adult medical examination without abnormal findings (principal); I10 Essential (primary) hypertension; E78.00 Pure hypercholesterolemia, unspecified; R94.5 Abnormal results of liver function studies; D69.6 Thrombocytopenia, unspecified
CPT/HCPCS: 80053; 80061; 80076; 82248; 85025

== ENCOUNTER 2024-11-12 12:12 | Outpatient (REF) | payer BC, SELFPAY ==
[2024-11-12 12:22] LABS: Appearance Urine Clear; Color Urine Yellow; Glucose Urine UA Negative (Negative); Leukocyte Esterase Urine Negative (Negative); Nitrite Urine Negative (Negative); PH 6.5 (5.0-9.0); Urine Blood Negative (Negative); Urine Ketones Negative (Negative); Urine Protein Negative (Neg-Trace)
[2024-11-12 12:24] LABS: Bacteria Urine None Seen (None Seen); Hyaline Casts Urine 0-2 /LPF (0-2); RBC Urine 0-2 /HPF (0-2); Squamous Epithelial Cell Urine 0-2 /HPF (0-2); WBC Urine 0-5 /HPF (0-5)
== END 2024-11-12 12:13 | disposition home or self-care (01) ==
LOC: HO.LNP 12:12
PROVIDERS: Visit Provider Internal Medicine
DX: Z00.00 Encounter for general adult medical examination without abnormal findings (principal); E78.00 Pure hypercholesterolemia, unspecified; I10 Essential (primary) hypertension
CPT/HCPCS: 81001

== ENCOUNTER 2025-06-29 13:18 | Outpatient (REF) | payer BC, SELFPAY ==
--- OUTSIDE RECORDS SUMMARY | 2024-06-14 08:27 | XMS_ITS ---
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 Name Role Phone Vitaly Urbano Primary Care Provider [phone] REASON FOR VISIT referral for Walk-in Encounters Encounter Location Date Provider Diagnosis Vitaly Urbano MD [address] [place] [phone] 06/14/2024 Vitaly Urbano Plan Of Treatment Next Appt Details Provider Name:Vitaly locke, 11/10/2025 07:45:00 AM, [address] [place] [address], Suite [facility], [place], [place], [phone], Provider Name:Vitaly locke, 11/17/2025 01:00:00 PM, [address] [place] [address], [address] [place] [address], [phone], Progress Notes * ANDRÉS MONK DDOB: [birth year] (29 yo M)Acc No.[id number]:06/14/2024 Patient: ANDRÉS FOLEY :1995 A ge:29 Y S ex:Male Address:[address] [place] [address], [id number] * true * Date: Generated for Pablo flower/Sera/Polinaitting on: 0 06/29/2025 02:01 PM EDT
--- OUTSIDE RECORDS SUMMARY | 2024-11-05 03:45 | XMS_ITS ---
Author Organization Vitaly Urbano MD Address [address] [place], [place] [id number] Care Team Providers Care Biofuels Manager Name Role Phone Vitaly Urbano Primary Care Provider [phone] Results Component Value Reference Range Notes Complete Blood Count Auto Di ff Reviewed date:11/05/2024 11:46:55 AM Interpretation: Performing Lab:[facility], [address] [place] [phone] Notes/Report: White Blood Count 6.2 4.8-10.8 X10*3/uL Red Blood Count 5.40 4.60-5.80 X10*6/uL Hemoglobin 15.0 14.0-18.0 g/dl Hematocrit 45.0 42.0-52.0 % Mean Corpuscular Volume 83.3 80.0-98.0 fL Mean Corpuscular Hemoglobin 27.8 27.0-33.0 pg Mean Corpuscular HGB Conc 33.3 31.0-36.0 g/dl Red Cell Distribution Width 13.4 11.0-16.0 % Platelet Count 210 160-400 X10*3/uL Mean Platelet Volume 10.7 9.4-12.4 fL Neutrophils Percent Auto 59.1 45-73 % Imm Gran Pct Auto 0.2 0.0-0.4 % Lymphocytes Percent Auto 28.5 20-40 % Monocytes Percent Auto 8.7 2-11 % Eosinophils Percent Auto 2.7 0-4 % Basophils Percent Auto 0.8 0-2 % NRBC Pct Auto 0.0 0.0-0.2 /100WBC Neutrophils Absolute Auto 3.7 2.0-8.3 x10*3/u L Imm Gran Abs Auto 0.01 0.00-0.03 X10*3/uL Lymphocytes Absolute Auto 1.8 1.2-4.9 X10*3/u L Monocytes Absolute Auto 0.5 0.1-1.2 X10*3/uL Eosinophils Absolute Auto 0.2 0.0-0.4 X10*3/u L Basophils Absolute Auto 0.1 0.0-0.2 X10*3/uL NRBC Abs Auto 0.000 0.0-0.012 X10*3/uL Comprehensive [place]. Panel Fa st Reviewed date:11/05/2024 12:14:36 PM Interpretation: Performing Lab:[facility], [address] [place] [phone] Notes/Report: Sodium 140 135-145 mmol/L Potassium 4.1 3.3-5.1 mmol/L Chloride 112 96-108 mmol/L Carbon Dioxide 23 22-29 mmol/L Anion Gap 9 12-20 Blood Urea Nitrogen 11 9-16 mg/dL Creatinine 0.82 0.5-1.4 mg/dL Estimated Glomerular Filt Rate > 60 Chronic Kidney Disease: Estimated GFR < 60 mL/min/1.73m2 Severe Kidney Disease: Estimated GFR < 15 mL/min/1.73m2 Glucose Fasting 92 60-99 mg/dL Calcium 8.6 8.4-10.2 mg/dL Bilirubin Total 0.4 0.0-1.0 mg/dL Aspartate Amino Transferase 22 5-37 U/L Alanine Aminotransferase 25 0-40 U/L Total Protein 7.2 6.5-8.0 g/dL Albumin Level 4.4 3.5-5.0 g/dL Alkaline Phosphatase 71 39-117 U/L Liver Panel Reviewed date:11/05/2024 12:09:50 PM Interpretation: Performing Lab:[address] [id number] Notes/Report: Bilirubin Direct 0.1 0.0-0.5 mg/dL Lipid Panel Reviewed date:11/05/2024 12:09:33 PM Interpretation: Performing Lab:[address] [phone] Notes/Report: Triglycerides 178 <150 mg/dL Desirable Triglyceride: less than 150 mg/dL Borderline High Triglyceride 150-199 mg/dL High Triglyceride: 200-499 mg/dL Very High Triglyceride: greater than or equal to 5OO mg/dL Cholesterol 207 <200 mg/dL Desirable Cholesterol: less than 200 mg/dL Borderline High Cholesterol: 200-239 mg/dL High Cholesterol: greater than 239 mg/dL LDL Cholesterol Calculated 140 <100 mg/dL Desirable LDL: less than 100 mg/dL Near Optimal/Above Optimal LDL: 110-129 mg/dL Borderline High LDL: 130-159 mg/dL High LDL: 160-189 mg/dL Very High LDL: greater than or equal to 190 mg/dL HDL Cholesterol 32 >40 mg/dL Desirable HDL: greater than 40 mg/dL Note: This HDL assay may give artificially low results in patients with liver disease. REASON FOR VISIT yearly fasting labs Encounters Encounter Location Date Provider Diagnosis Vitaly Urbano MD [address] [place] [address] [address] [place], [place] [phone] 11/05/2024 Vitaly Urbano Blood tests for rout ine general physical examination Z00.00 ; Essential hypertension I10 ; Pure hypercholesterolemia E78.00 ; Elevated LFTs R94.5 and Thrombocytopenia D69.6 Assessments Encounter Date Diagnosis (ICD Code) Assessment Notes Treatment Notes Treatment Clinical Notes Section Notes 11/05/2024 Blood tests for rout ine general physical examination (ICD-10 - Z00.00) 11/05/2024 Essential hypertensi on (ICD-10 - I10) 11/05/2024 Pure hypercholesterolemia (ICD-10 - E78.00) 11/05/2024 Elevated LFTs (ICD-1 0 - R94.5) 11/05/2024 Thrombocytopenia (IC D-10 - D69.6) Plan Of Treatment Next Appt Details Provider Name:Vitaly Jameson ier, 11/10/2025 07:45:00 AM, [address], [address], [place], [place], [phone], Provider Name:Vitaly Jameson ier, 11/17/2025 01:00:00 PM, [address], [address], [place], [place], [phone], Progress Notes * ANDRÉS MONK DDOB: [birth year] (30 yo M)Acc No.[id number]:11/05/2024 Progress Note Patient: ANDRÉS FOLEY Provider: Virginia Urbano MD :1995 A ge:29 Y S ex:Male Date:11/05/2024 Address:[address] [place], [place] [phone] Subjective: * Chief Complaints: * 1 . Yearly fasting labs. * Medical History: Objective: * Vitals: Assessment: * Assessment: 1. B lood tests for routine general physical examination - Z00.00 (Primary) 2 .?Essential hypertension - I10 3 . P ure hypercholesterolemia - E78.00 ? 4 . E levated LFTs - R94.5 5 . T hrombocytopenia - D69.6 ? Plan: * Treatment: 2. E ssential hypertension L AB: UA ClnCatch+Micro w/rflx Cult (Order Cancelled) L AB: Complete Blood Count Auto Diff (Collection Date & Time - 11/05/2024 07:45 AM) L AB: Comprehensive [place]. Panel Fast (Collection Date & Time - 11/05/2024 07:45 AM) L AB: Liver Panel (Collection Date & Time - 11/05/2024 07:45 AM) L AB: Lipid Panel (Collection Date & Time - 11/05/2024 07:45 AM) 3. P ure hypercholesterolemia L AB: UA ClnCatch+Micro w/rflx Cult (Order Cancelled) L AB: Complete Blood Count Auto Diff (Collection Date & Time - 11/05/2024 07:45 AM) L AB: Comprehensive [place]. Panel Fast (Collection Date & Time - 11/05/2024 07:45 AM) L AB: Liver Panel (Collection Date & Time - 11/05/2024 07:45 AM) L AB: Lipid Panel (Collection Date & Time - 11/05/2024 07:45 AM) 4. E levated LFTs L AB: UA ClnCatch+Micro w/rflx Cult (Order Cancelled) L AB: Complete Blood Count Auto Diff (Collection Date & Time - 11/05/2024 07:45 AM) L AB: Comprehensive [place]. Panel Fast (Collection Date & Time - 11/05/2024 07:45 AM) L AB: Liver Panel (Collection Date & Time - 11/05/2024 07:45 AM) L AB: Lipid Panel (Collection Date & Time - 11/05/2024 07:45 AM) 5. T hrombocytopenia L AB: UA ClnCatch+Micro w/rflx Cult (Order Cancelled) L AB: Complete Blood Count Auto Diff (Collection Date & Time - 11/05/2024 07:45 AM) L AB: Comprehensive [place]. Panel Fast (Collection Date & Time - 11/05/2024 07:45 AM) L AB: Liver Panel (Collection Date & Time - 11/05/2024 07:45 AM) L AB: Lipid Panel (Collection Date & Time - 11/05/2024 07:45 AM) * Procedure Codes: 3 6415 VENIPUNCT, ROUTINE* * * The named appointment provid er may or may not be the originator of this progress note, and it is not deemed complete until electronically signed by the appointment provider. Sign off status: Pending * Provider: Virginia Urbano MD Date: 0 11/05/2024 Generated for Pablo flower/Sera/Polinaitting on: 0 06/29/2025 02:01 PM EDT
--- OUTSIDE RECORDS SUMMARY | 2024-11-12 05:30 | XMS_ITS ---
Author Organization Vitaly Urbano MD Address [address] [place], [place] [id number] Care Team Providers Care Simulation Tech Name Role Phone Vitaly Urbano Primary Care Provider [phone] Allergies No Known Allergies Results Component Value Reference Range Notes UA ClnCatch+Micro w/rflx Cul t Reviewed date:11/12/2024 05:09:48 PM Interpretation: Performing Lab:[facility], [address] [place] [phone] Notes/Report: Urine, Clean Catch Color Urine Yellow Appearance Urine Clear PH 6.5 5.0-9.0 Glucose Urine UA Negative Negative mg/dL Urine Blood Negative Negative Specific [place] - Urine 1.020 1.005-1.025 Urine Protein Negative Neg-Trace mg/dL Urine Ketones Negative Negative mg/dL Nitrite Urine Negative Negative Leukocyte Esterase Urine Negative Negative RBC Urine 0-2 0-2 /HPF WBC Urine 0-5 0-5 /HPF Squamous Epithelial Cell Urine 0-2 0-2 /HPF Bacteria Urine None Seen None Seen Hyaline Casts Urine 0-2 0-2 /LPF REASON FOR VISIT annual visit Medications Medication SIG (Take, Route, Frequency, Duration) Notes Start Date End Date Status amLODIPine Besylate 5 MG TAKE 2 TABLETS BY MOUTH DAILY for 26 Not-Taking MagOx 400 400 (241.3 Mg) MG 1 tablet with food Orally Once a day for 30 day(s) 06/05/2021 Not-Taking Magnesium Oxide 400 MG TAKE 1 TABLET BY MOUTH EVERY DAY WITH FOOD for 30 Not-Taking Valsartan 160 MG 1 tablet Orally Once a day for 90 days Not-Taking Naltrexone HCl 50 MG 1 tablet Orally Onc e a day for 30 day(s) 06/05/2021 Not-Taking Clotrimazole 1 % 1 application Externally Twice a day for 14 day(s) 11/28/2023 Not-Taking LORazepam 0.5 MG 1 tablet at bedtime as needed Orally Once a day for 1 days 03/18/2022 Not-Taking Benzonatate 100 MG TAKE 1 CAPSULE BY [facility] THREE TIMES A DAY FOR 10 DAYS NEEDED for 10 Not-Taking Social History Tobacco Use: Social History Observation Description Date Details (start date - stop date) Never Smoker NA - NA Tobacco Use/Smoking Question Answer Notes Patient is a nonsmoker Additional Findings: Tobacco Non-User Cu rrent non-smoker, currently using no form of tobacco Alcohol Screen Question Answer Notes Did you have a drink containing alcohol in the p ast year? No Points 0 Interpretation Negative Section Notes: drinks one to 2 drinks twice per week. no risk of hepatitis 06-05-21 was in [facility] Pancreatitis stopped drinking 3 weeks ago 08-10-21 Patient states had 2 beers last weekend. stopped alcohol 2-3 months ago 11-10-23 no alcohol since 01-22 Vital Signs Blood pressure systolic 142 mm Hg 11/12/19 25 Blood pressure diastolic 88 mm Hg 025 Height 72.5 in 11/12/2024 Weight 237 lbs 11/12/2024 BMI 31.70 kg/m2 11/12/2024 weight is up 3 pounds since 05-31-24 Encounters Encounter Location Date Provider Diagnosis Vitaly Urbano MD [address] [place], [place] [id number] 11/12/2024 Vitaly Urbano Essential hypertensi on I10 ; Annual physical exam Z00.00 ; Pure hypercholesterolemia E78.00 ; Elevated LFTs R94.5 and Depression screening Z13.31 Assessments Encounter Date Diagnosis (ICD Code) Assessment Notes Treatment Notes Treatment Clinical Notes Section Notes 11/12/2024 Essential hypertensi on (ICD-10 - I10) borderline. will observe 11/12/2024 Annual physical exam (ICD-10 - Z00.00) labs reviewed and discused with patient 11/12/2024 Pure hypercholesterolemia (ICD-10 - E78.00) not high enough to treat, will continue to monitor 11/12/2024 Elevated LFTs (ICD-1 0 - R94.5) has completely resolved 11/12/2024 Depression screening (ICD-10 - Z13.31) negative screen Plan Of Treatment Treatment Notes Assessment Notes Essential hypertension borderline. will observe Annual physical exam labs reviewed and d iscused with patient Pure hypercholesterolemia not high enoug h to treat, will continue to monitor Elevated LFTs has completely resol bushra Depression screening negative screen Next Appt Details Follow Up: 1 Year, Reason: Provider Name:Vitaly locke, 11/10/2025 07:45:00 AM, [address] [place] [address], [address], [place], [place], [phone], Provider Name:Vitaly locke, 11/17/2025 01:00:00 PM, [address] [place] [address], [address], [place], [place], [phone], Progress Notes * ANDRÉS MONK DDOB: [birth year] (29 yo M)Acc No.[id number]:11/12/2024 Progress Notes Patient: ANDRÉS FOLEY Eloina Provider: Virginia Urbano MD :1995 A ge:29 Y S ex:Male Date:11/12/2024 Address:[address] [place] [address], [facility] [id number] Subjective: * Chief Complaints: * A nnual visit * HPI: D epression Screening: PHQ-9 L ittle interest or pleasure in doing things N ot at all, F eeling down, depressed, or hopeless N ot at all, T rouble falling or staying asleep, or sleeping too much N ot at all, F eeling tired or having little energy N ot at all, P oor appetite or overeating N ot at all, F eeling bad about yourself or that you are a failure, or have let yourself or your family down N ot at all, T rouble concentrating on things, such as reading the newspaper or watching television N ot at all, M oving or speaking so slowly that other people could have noticed; or the opposite, being so fidgety or restless that you have been moving around a lot more than usual N ot at all, T houghts that you would be better off or of hurting yourself in some way N ot at all, T otal Score 0 . I nterpretation and Intervention D epression Screening Findings N egative, F ollow-Up for Depression : review of PHQ-9 found negative result, no follow-up needed. patient is a 29 yo male here or annual visit with review of recent labs and follow up of chronic issues, here for yearly exam. is doing well. no alcohol. C ommunication Needs: Communication Needs D oes the patient have a hearing impairment N o, D oes the patient have a vision impairment? N o, D oes the patient have a cognition impairment? N o. * ROS: G eneral/Constitutional: Patient denies f atigue , headache. C hange in appetite?denies. C hills d enies. F ever d enies. O phthalmologic: Blurred vision d enies. D ischarge d enies. P ain d enies. E NT: Patient denies d ecreased sense of smell , any loss of taste , sore throat. D ecreased hearing d enies. S ore throat d enies. S wollen glands d enies. E ndocrine: Cold intolerance d enies. E xcessive thirst d enies. H eat intolerance d enies. W eight loss d enies. R espiratory: Cough d enies. S hortness of breath at rest d enies. S hortness of breath with exertion d enies. W heezing d enies. C ardiovascular: Chest pain at rest d enies. C hest pain with exertion?denies. I rregular heartbeat d enies. S hortness of breath d enies. ? G astrointestinal: Abdominal pain d enies. C hange in bowel habits d enies. D iarrhea d enies. N ausea d enies. R ectal bleeding d enies. V omiting d enies . G enitourinary: Blood in urine d enies. D ifficulty urinating d enies. F requent urination d enies. M usculoskeletal: Patient denies m uscle aches. P ainful joints d enies. W eakness d enies. P eripheral Vascular: Patient denies r ed and blue toes. S kin: Dry skin d enies. I tching d enies. D enies?Mole(s), changes in moles, new moles or any lesions of concern. D enies P hotosensitivity. R gilbert d enies. N eurologic: Dizziness d enies. F ainting d enies. H eadache?denies. * Medical History: * Surgical History: * Hospitalization/Major Diagno stic Procedure: * Family History: F ather: alive 62 yrs. M other: alive 58 yrs. 1 sister(s) . . Father-Healthy Mother Healthy, Denies mental health/substance abuse family history, Denies mental health/substance abuse family history, Denies mental health/substance abuse family history. * Social History: T obacco Use: T obacco Use/Smoking P atient is a n onsmoker, A dditional Findings: Tobacco Non-User C urrent non-smoker, currently using no form of tobacco. D rugs/Alcohol: A lcohol Screen D id you have a drink containing alcohol in the past year? N o, P oints 0 , I nterpretation N egative. M iscellaneous: n o Caffeine. no Children. Community involvements: yes. Exercise: yes, walk and cardio jog hikes. Home smoke detector use: yes. Living with: alone. Occupation: weeks/months/years, works full-time. no Travel outside of the [place]. d rinks one to 2 drinks twice per week. no risk of hepatitis 06-05-21 was in [facility] Pancreatitis stopped drinking 3 weeks ago 08-10-21 Patient states had 2 beers last weekend. stopped alcohol 2-3 months ago 11-10-23 no alcohol since 01-22. * Medications: N ot-Taking/PRNClotrimazole 1 % Cream 1 application Externally Twice a dayLORazepam 0.5 MG Tablet 1 tablet at bedtime as needed Orally Once a dayBenzonatate 100 MG Capsule TAKE 1 CAPSULE BY MOUTH THREE TIMES A DAY FOR 10 DAYS NEEDED Naltrexone HCl 50 MG Tablet 1 tablet Orally Once a dayamLODIPine Besylate 5 MG Tablet TAKE 2 TABLETS BY MOUTH DAILY MagOx 400 400 (241.3 Mg) MG Tablet 1 tablet with food Orally Once a dayMagnesium Oxide 400 MG Tablet TAKE 1 TABLET BY MOUTH EVERY DAY WITH FOOD Valsartan 160 MG Tablet 1 tablet Orally Once a dayMedication List reviewed and reconciled with the patientNot-Taking/PRN Clotrimazole 1 % Cream 1 application Externally Twice a dayNot-Taking/PRN LORazepam 0.5 MG Tablet 1 tablet at bedtime as needed Orally Once a dayNot-Taking/PRN Benzonatate 100 MG Capsule TAKE 1 CAPSULE BY MOUTH THREE TIMES A DAY FOR 10 DAYS NEEDED Not-Taking/PRN Naltrexone HCl 50 MG Tablet 1 tablet Orally Once a dayNot-Taking/PRN amLODIPine Besylate 5 MG Tablet TAKE 2 TABLETS BY MOUTH DAILY Not-Taking/PRN MagOx 400 400 (241.3 Mg) MG Tablet 1 tablet with food Orally Once a dayNot-Taking/PRN Magnesium Oxide 400 MG Tablet TAKE 1 TABLET BY MOUTH EVERY DAY WITH FOOD Not-Taking/PRN Valsartan 160 MG Tablet 1 tablet Orally Once a dayMedication List reviewed and reconciled with the patient * Allergies: N .K.D.A.yes[Allergies Verified] Objective: * Vitals: H t: 72.5, Wt:237, BMI:31.70, BP:142/88, Repeat BP:136/88 weight is up 3 pounds since 05-31-24. * P ast Orders: L ab:Comprehensive [place]. Panel Fast (Order Date - 11/05/2024) (Collection Date - 11/05/2024) Value Reference Range Sodium 140 135-145 - mmol/L Bilirubin Total 0.4 0.0-1.0 - mg/dL Aspartate Amino Transferase 22 5-37 - U/L Alanine Aminotransferase 25 0-40 - U/L Total Protein 7.2 6.5-8.0 - g/dL Albumin Level 4.4 3.5-5.0 - g/dL Alkaline Phosphatase 71 39-117 - U/L Potassium 4.1 3.3-5.1 - mmol/L Chloride 112 H 96-108 - mmol/L Carbon Dioxide 23 22-29 - mmol/L Anion Gap 9 L 12-20 - Blood Urea Nitrogen 11 9-16 - mg/dL Creatinine 0.82 0.5-1.4 - mg/dL Estimated Glomerular Filt Rate > 60 - Glucose Fasting 92 60-99 - mg/dL Calcium 8.6 8.4-10.2 - mg/dL L ab:Liver Panel (Order Date - 11/05/2024) (Collection Date - 11/05/2024) Value Reference Range Bilirubin Direct 0.1 0.0-0.5 - mg/dL L ab:Lipid Panel (Order Date - 11/05/2024) (Collection Date - 11/05/2024) Value Reference Range Triglycerides 178 H <150 - mg/dL Cholesterol 207 H <200 - mg/dL LDL Cholesterol Calculated 140 H <100 - mg/dL HDL Cholesterol 32 L >40 - mg/dL L ab:Hold Gold (Order Date - 11/05/2024) (Collection Date - 11/05/2024) Value Reference Range Hold Gold See Note - L ab:Complete Blood Count Auto Diff (Order Date 11/05/2024) (Collection Date - 11/05/2024) Value Reference Range White Blood Count 6.2 4.8-10.8 - X10*3/uL Red Blood Count 5.40 4.60-5.80 - X10*6/uL Hemoglobin 15.0 14.0-18.0 - g/dl Hematocrit 45.0 42.0-52.0 - % Mean Corpuscular Volume 83.3 80.0-98.0 - fL Mean Corpuscular Hemoglobin 27.8 27.0-33.0 - pg Mean Corpuscular HGB Conc 33.3 31.0-36.0 - g/ dl Red Cell Distribution Width 13.4 11.0-16.0 - % Platelet Count 210 160-400 - X10*3/uL Mean Platelet Volume 10.7 9.4-12.4 - fL Neutrophils Percent Auto 59.1 45-73 - % Imm Gran Pct Auto 0.2 0.0-0.4 - % Lymphocytes Percent Auto 28.5 20-40 - % Monocytes Percent Auto 8.7 2-11 - % Eosinophils Percent Auto 2.7 0-4 - % Basophils Percent Auto 0.8 0-2 - % NRBC Pct Auto 0.0 0.0-0.2 - /100WBC Neutrophils Absolute Auto 3.7 2.0-8.3 - x10* 3/uL Imm Gran Abs Auto 0.01 0.00-0.03 - X10*3/uL Lymphocytes Absolute Auto 1.8 1.2-4.9 - X10* 3/uL Monocytes Absolute Auto 0.5 0.1-1.2 - X10*3/ uL Eosinophils Absolute Auto 0.2 0.0-0.4 - X10* 3/uL Basophils Absolute Auto 0.1 0.0-0.2 - X10*3/ uL NRBC Abs Auto 0.000 0.0-0.012 - X10*3/uL * Examination: G eneral Examination: GENERAL APPEARANCE: w ell developed, well nourished, in no acute distress. HEAD: n ormocephalic, atraumatic. EYES: p upils equal, round, reactive to light and accommodation, sclera non-icteric. EARS: n ormal. ORAL CAVITY: m uc[place] moist. THROAT: c lear. NECK/THYROID: n adrian supple, full range of motion, no cervical lymphadenopathy, no bruits. SKIN: w arm and dry, no suspicious lesions. HEART: r egular rate and rhythm, S1, S2 normal, no murmurs.? LUNGS: c lear to auscultation bilaterally. ABDOMEN: s oft, nontender, nondistended, bowel sounds present, normal, no organomegaly , no masses palpable. RECTAL EXAM: n ot done. MALE GENITOURINARY: c ircumcised , no penile lesions or discharge. EXTREMITIES: n o clubbing, cyanosis, or edema. NEUROLOGIC: n onfocal, motor strength normal upper and lower extremities, sensory exam intact. Assessment: * Assessment: 1. A nnual physical exam - Z00.00 (Primary) 2 . E ssential hypertension - I10 3 .?Pure hypercholesterolemia - E78.00 4 . E levated LFTs - R94.5 5 . D epression screening - Z13.31 Plan: * Treatment: 2. E ssential hypertension L AB: UA ClnCatch+Micro w/rflx Cult Notes: borderline. will observe 3. P ure hypercholesterolemia L AB: UA ClnCatch+Micro w/rflx Cult Notes: not high enough to treat, will continue to monitor 4. E levated LFTs Notes: has completely resolved 5. D epression screening Notes: negative screen * Procedure Codes: * Preventive Medicine: Counseling: C are goal follow-up plan: C ounseling for abnormal BMI provided?Yes, A pee Normal BMI Follow-up G tammy encouragement to exercise. * Follow Up: 1 Year * * Sign off status: Completed true * Provider: Virginia Urbano MD Date: 0 11/12/2024 Generated for Pablo flower/Sera/Polinaitting on: 0 06/29/2025 02:00 PM EDT History and Physical Notes * HPI (History of Present Illness) Category Sub-Category Detail Notes Category Not es Depression Screening PHQ-9 Little inte rest or pleasure in doing things: Not at all patient is a 29 yo male here or annual visit with review of recent labs and follow up of chronic issues, here for yearly exam. is doing well. no alcohol Feeling down, depressed, or hopeless: No t at all Trouble falling or staying asleep, or sl eeping too much: Not at all Feeling tired or having little energy: N ot at all Poor appetite or overeating: Not at all Feeling bad about yourself o r that you are a failure, or have let yourself or your family down: Not at all Trouble concentrating on thi ngs, such as reading the newspaper or watching television: Not at all Moving or speaking so slowly that other people could have noticed; or the opposite, being so fidgety or restless that you have been moving around a lot more than usual: Not at all Thoughts that you would be b dorothy off or of hurting yourself in some way: Not at all Total Score: 0 Interpretation and Intervention Depression Scree [place] Findings: Negative Follow-Up for Depression: : review of PH Q-9 found negative result, no follow-up needed Communication Needs Communication Needs Does the patient have a hearing impairment: No Does the patient have a vision impairmen t?: No Does the patient have a cognition impair ment?: No Examination Category Sub-Category Detail Notes Category Not es General Examination GENERAL APPEARANCE: well dev eloped, well nourished, in no acute distress HEAD: normocephalic, atrau matic EYES: pupils equal, round, reactive to light and accommodation, sclera non-icteric EARS: normal THROAT: clear NECK/THYROID: neck supple, full ra nge of motion, no cervical lymphadenopathy, no bruits HEART: regular rate and rhy thm, S1, S2 normal, no murmurs LUNGS: clear to auscultatio n bilaterally ABDOMEN: soft, nontender, non distended, bowel sounds present, normal, no organomegaly , no masses palpable NEUROLOGIC: nonfocal, motor stre ngth normal upper and lower extremities, sensory exam intact SKIN: warm and dry, no brodie picious lesions EXTREMITIES: no clubbing, cyanosi s, or edema MALE GENITOURINARY: circumcised , no pen ile lesions or discharge RECTAL EXAM: not done ORAL CAVITY: mucosa moist
--- NOTE | ~2025-06-29 | US_ITS ---
EXAMINATION: US CHEST HISTORY: SUBCUTANEOUS MASS - RIGHT CHEST COMPARISON: There are no prior studies available for comparison. FINDINGS: Sonographic examination of a palpable abnormality at the 5:00 position in the right breast was performed. No sonographic abnormality is identified. US/US chest IMPRESSION: No sonographic abnormality is seen to correspond to the palpable findings at the 5:00 position in the right breast. Further evaluation with mammogram should be considered. Electronically signed by: Gunnar Romo MD 06/29/2025 02:43 PM EDT
--- OUTSIDE RECORDS SUMMARY | 2025-06-29 14:00 | XMS_ITS | Patient Health Record ---
Author Organization Vitaly Urbano MD Address [address] [place], [place] [id number] Care Team Providers Care Stem Cleaning Machine Feeder Name Role Phone Vitaly Urbano Primary Care Provider Allergies No Known Allergies Results Component Value Reference Range Notes Complete Blood Count Auto Di ff Reviewed date:11/05/2024 11:46:55 AM Interpretation: Performing Lab:[facility], [place], [address] [place] [phone] Notes/Report: White Blood Count 6.2 4.8-10.8 X10*3/uL [...] NRBC Abs Auto 0.000 0.0-0.012 X10*3/uL Comprehensive Wilson. Panel Fa st Reviewed date:11/05/2024 12:14:36 PM Interpretation: Performing Lab:[facility], [place], [address] [place] [phone] Notes/Report: Sodium 140 135-145 mmol/L Potassium 4.1 [...] Panel Reviewed date:11/05/2024 12:09:50 PM Interpretation: Performing Lab:[facility], [place], [address] [place] [phone] Notes/Report: Bilirubin Direct 0.1 0.0-0.5 mg/dL Lipid Panel Reviewed date:11/05/2024 12:09:33 PM Interpretation: Performing Lab:[address] [phone] Notes/Report: Triglycerides 178 <150 mg/dL Desirable Triglyceride: [...] low results in patients with liver disease. UA ClnCatch+Micro w/rflx Cul t Reviewed date:11/12/2024 05:09:48 PM Interpretation: Performing Lab:[address] [phone] Notes/Report: Urine, Clean Catch Color Urine Yellow Appearance Urine Clear PH 6.5 5.0-9.0 Glucose Urine UA Negative Negative mg/dL Urine Blood Negative Negative Specific Proctor - Urine 1.020 1.005-1.025 Urine Protein Negative Neg-Trace mg/dL Urine Ketones Negative Negative mg/dL Nitrite Urine Negative Negative Leukocyte Esterase Urine Negative Negative RBC Urine 0-2 0-2 /HPF WBC Urine 0-5 0-5 /HPF Squamous Epithelial Cell Urine 0-2 0-2 /HPF Bacteria Urine None Seen None Seen Hyaline Casts Urine 0-2 0-2 /LPF US abdomen comp w elastograp hy Reviewed date:09/02/2024 12:36:33 PM Interpretation: Performing Lab: Notes/Report: [address] [address] Ultrasound Report Signed Patient: Andrés Espinosa MR#: [id number] : 1995 Acct:[id number] Age/Sex: 29 / M ADM Date: 08/24/24 Loc: HO.US Attending Dr: Chris Silva MD Ordering Physician: Chris Silva MD Date of Service: 08/24/24 Procedure(s): US abdomen comp w elastography Accession Number(s): [id number] cc: Vitaly Urbano MD; Chris Silva MD EXAMINATION: US ABDOMEN DOPPLER, US ABDOMEN COMPLETE WITH LIVER ELASTOGRAPHY CLINICAL INFORMATION: Liver fibrosis COMPARISON: Ultrasound from 10/24/2022 TECHNIQUE: Real-time imaging of the abdominal viscera. Noninvasive ultrasound liver fibrosis assessment is performed using [employer] Elast[employer] point quantification shear wave elastography (pSWE) with a C5-2 MHz transducer. Multiple elastography samples are obtained. Color and spectral Doppler evaluation of the hepatic vasculature. FINDINGS: LIVER: The liver demonstrates normal size, contour and increased echogenicity. No focal lesion or intrahepatic biliary duct dilatation. The right lobe measures 16.0 cm in length. The left lobe measures 8.2 cm in length. Portal flow is towards the liver (hepatopetal). Shear wave liver elastography median stiffness is 1.08 m/s (reference: normal median stiffness is 1.3 m/s or less). Previously 1.96 IQR/median stiffness to assess sampling precision is 0.13 (reference: good quality data set is IQR/median stiffness of 0.15 or less). SPLENIC VEIN: Patent with normal waveforms. HEPATIC VEINS: Patent with normal waveforms. PORTAL VEINS: Patent with normal waveforms and hepatopetal flow. HEPATIC ARTERIES: Normal upstroke and diastolic flow. INFERIOR VENA CAVA: Patent with normal waveforms. GALLBLADDER: Multiple calcified stones seen within the gallbladder. No distention, wall thickening or pericholecystic fluid COMMON BILE DUCT: Normal in caliber measuring 0.3 cm in diameter. PANCREAS: Normal. The visualized pancreatic head and body are normal in appearance. The remainder of the pancreas is obscured from visualization by the overlying bowel gas. RIGHT KIDNEY: Normal. No hydronephrosis. No renal calculi or focal parenchymal lesions. The kidney measures 10.8 cm in maximum dimension. LEFT KIDNEY: Normal. No hydronephrosis. No renal calculi or focal parenchymal lesions. The kidney measures 11.4 cm in maximum dimension. SPLEEN: The spleen measures 13.8 cm in maximum dimension. ABDOMINAL AORTA: The visualized proximal segment is normal in caliber. INFERIOR VENA CAVA: Visualized portions are normal. FREE FLUID: None. US/US abdomen comp w elastography IMPRESSION: 1. Echogenic liver parenchyma consistent with hepatic steatosis/fibrosis. Median elastography value has significantly improved, currently 1.08 which is within normal limits. 2. Hepatic vasculature is patent 3. Cholelithiasis Electronically signed by: Catarino Tapia MD 09/02/2024 11:08 AM EDT RP Dictated By: Catarino Tapia MD Signed By: <Electronically signed by Catarino Tapia MD in OV> 09/02/24 1108 DD/ 1034 TD/TT: 08/24/24 1059 Industrial Electrician: [place] [address] Ultrasound Report Signed Patient: Shahzad Espinosa MR#: [id number] : 1995 Acct:[id number] Age/Sex: 29 / M ADM Date: 08/24/24 Loc: .US Attending Dr: Chris Silva MD Ordering Physician: Chris Silva MD Date of Service: 08/24/24 Procedure(s): US abdomen comp w elastography Accession Number(s): [id number] cc: Vitaly Urbano MD; Chris Silva MD EXAMINATION: US ABDOMEN DOPPLER, US ABDOMEN COMPLETE WITH LIVER ELASTOGRAPHY CLINICAL INFORMATION: Liver fibrosis COMPARISON: Ultrasound from 10/24/2022 TECHNIQUE: Real-time imaging of the abdominal viscera. Noninvasive ultrasound liver fibrosis assessment is performed using [employer] ElastPQ point quantification shear wave elastography (pSWE) with a C5-2 MHz transducer. Multiple elastography samples are obtained. Color and spectral Doppler evaluation of the hepatic vasculature. FINDINGS: LIVER: The liver demonstrates normal size, contour and increased echogenicity. No foc al lesion or intrahepatic biliary duct dilatation. The right lobe measu res 16.0 cm in length. The left lobe measures 8.2 cm in length. Portal flow is towar ds the liver (hepatopetal). Shear wave liver elastography median stiffness is 1.08 m/s (reference: normal median stiffn ess is 1.3 m/s or less). Previously 1.96 IQR/median stiffness to assess sampling precision is 0.13 (reference: good quality data se t is IQR/median stiffness of 0.15 or less). SPLENIC VEIN: Patent with normal waveforms. HEPATIC VEINS: Paten t with normal waveforms. PORTAL VEINS: Patent with normal waveforms and hepatopetal flow. HEPATIC ARTERIES: Normal upstroke and diastolic flow. INFERIOR VENA CAVA: Patent with normal waveforms. GALLBLADDER: Multipl e calcified stones seen within the gallbladder. No distention, wall thickening or pericholecystic fluid COMMON BILE DUCT: Normal in caliber measuring 0.3 cm in diameter. PANCREAS: Normal. Th e visualized pancreatic head and body are normal in appearance. The remainder of the pancreas is obscured from visualization by the overlying bowel gas. RIGHT KIDNEY: Normal . No hydronephrosis. No renal calculi or focal parenchymal lesions. The kidney measures 10.8 cm in maximum dimension. LEFT KIDNEY: Normal. No hydronephrosis. No renal calculi or focal parenchymal lesions. The kidney measures 11.4 cm in maximum dimension. SPLEEN: The spleen measures 13.8 cm in maximum dimension. ABDOMINAL AORTA: The visualized proximal segment is normal in caliber. INFERIOR VENA CAVA: Visualized portions are normal. FREE FLUID: None. US/US abdomen comp w elastography IMPRESSION: 1. Echogenic liver parenchyma consistent with hepatic steatosis/fibrosis. Median elastography value has significantly improved, currently 1.08 which is within normal limits. 2. Hepatic vasculatu re is patent 3. Cholelithiasis Electronically jade d by: Catarino aTpia MD 09/02/2024 11:08 AM EDT RP Dictated By: Catarino Tapia MD Signed By: <Electronically signed by Catarino Tapia MD in OV> 09/02/24 1108 DD/ 1034 TD/TT: 08/24/24 1059 Industrial Electrician: US duplex arterial venous co mp Reviewed date:09/02/2024 12:36:06 PM Interpretation: Performing Lab: Notes/Report: [address] [address] Ultrasound Report Signed Patient: Andrés Espinosa MR#: [id number] : 1995 Acct:[id number] Age/Sex: 29 / M ADM Date: 08/24/24 Loc: .US Attending Dr: Chris Silva MD Ordering Physician: Chris Silva MD Date of Service: 08/24/24 Procedure(s): US duplex arterial venous comp Accession Number(s): [id number] cc: Vitaly Urbano MD; Chris Silva MD EXAMINATION: US ABDOMEN DOPPLER, US ABDOMEN COMPLETE WITH LIVER ELASTOGRAPHY CLINICAL INFORMATION: Liver fibrosis COMPARISON: Ultrasound from 10/24/2022 TECHNIQUE: Real-time imaging of the abdominal viscera. Noninvasive ultrasound liver fibrosis assessment is performed using [employer] ElastPQ point quantification shear wave elastography (pSWE) with a C5-2 MHz transducer. Multiple elastography samples are obtained. Color and spectral Doppler evaluation of the hepatic vasculature. FINDINGS: LIVER: The liver demonstrates normal size, contour and increased echogenicity. No focal lesion or intrahepatic biliary duct dilatation. The right lobe measures 16.0 cm in length. The left lobe measures 8.2 cm in length. Portal flow is towards the liver (hepatopetal). Shear wave liver elastography median stiffness is 1.08 m/s (reference: normal median stiffness is 1.3 m/s or less). Previously 1.96 IQR/median stiffness to assess sampling precision is 0.13 (reference: good quality data set is IQR/median stiffness of 0.15 or less). SPLENIC VEIN: Patent with normal waveforms. HEPATIC VEINS: Patent with normal waveforms. PORTAL VEINS: Patent with normal waveforms and hepatopetal flow. HEPATIC ARTERIES: Normal upstroke and diastolic flow. INFERIOR VENA CAVA: Patent with normal waveforms. GALLBLADDER: Multiple calcified stones seen within the gallbladder. No distention, wall thickening or pericholecystic fluid COMMON BILE DUCT: Normal in caliber measuring 0.3 cm in diameter. PANCREAS: Normal. The visualized pancreatic head and body are normal in appearance. The remainder of the pancreas is obscured from visualization by the overlying bowel gas. RIGHT KIDNEY: Normal. No hydronephrosis. No renal calculi or focal parenchymal lesions. The kidney measures 10.8 cm in maximum dimension. LEFT KIDNEY: Normal. No hydronephrosis. No renal calculi or focal parenchymal lesions. The kidney measures 11.4 cm in maximum dimension. SPLEEN: The spleen measures 13.8 cm in maximum dimension. ABDOMINAL AORTA: The visualized proximal segment is normal in caliber. INFERIOR VENA CAVA: Visualized portions are normal. FREE FLUID: None. US/US duplex arterial venous comp IMPRESSION: 1. Echogenic liver parenchyma consistent with hepatic steatosis/fibrosis. Median elastography value has significantly improved, currently 1.08 which is within normal limits. 2. Hepatic vasculature is patent 3. Cholelithiasis Electronically signed by: Catarino Tapia MD 09/02/2024 11:08 AM EDT RP Dictated By: Catarino Tapia MD Signed By: <Electronically signed by Catarino Tapia MD in OV> 09/02/24 1108 DD/ 1034 TD/TT: 08/24/24 1059 Industrial Electrician: [place] [address] Ultrasound Report Signed Patient: Shahzad Espinosa MR#: [id number] : 1995 Acct:[id number] Age/Sex: 29 / M ADM Date: 08/24/24 Loc: .US Attending Dr: Chris Silva MD Ordering Physician: Chris Silva MD Date of Service: 08/24/24 Procedure(s): US dup racheal arterial venous comp Accession Number(s): [id number] cc: Vitaly Urbano MD; Chris Silva MD EXAMINATION: US ABDOMEN DOPPLER, US ABDOMEN COMPLETE WITH LIVER ELASTOGRAPHY CLINICAL INFORMATION: Liver fibrosis COMPARISON: Ultrasound from 10/24/2022 TECHNIQUE: Real-time imaging of the abdominal viscera. Noninvasive ultrasound liver fibrosis assessment is performed using [employer] ElastPQ point quantification shear wave elastography (pSWE) with a C5-2 MHz transducer. Multiple elastography samples are obtained. Color and spectral Doppler evaluation of the hepatic vasculature. FINDINGS: LIVER: The liver demonstrates normal size, contour and increased echogenicity. No foc al lesion or intrahepatic biliary duct dilatation. The right lobe measu res 16.0 cm in length. The left lobe measures 8.2 cm in length. Portal flow is towar ds the liver (hepatopetal). Shear wave liver elastography median stiffness is 1.08 m/s (reference: normal median stiffn ess is 1.3 m/s or less). Previously 1.96 IQR/median stiffness to assess sampling precision is 0.13 (reference: good quality data se t is IQR/median stiffness of 0.15 or less). SPLENIC VEIN: Patent with normal waveforms. HEPATIC VEINS: Paten t with normal waveforms. PORTAL VEINS: Patent with normal waveforms and hepatopetal flow. HEPATIC ARTERIES: Normal upstroke and diastolic flow. INFERIOR VENA CAVA: Patent with normal waveforms. GALLBLADDER: Multipl e calcified stones seen within the gallbladder. No distention, wall thickening or pericholecystic fluid COMMON BILE DUCT: Normal in caliber measuring 0.3 cm in diameter. PANCREAS: Normal. Th e visualized pancreatic head and body are normal in appearance. The remainder of the pancreas is obscured from visualization by the overlying bowel gas. RIGHT KIDNEY: Normal . No hydronephrosis. No renal calculi or focal parenchymal lesions. The kidney measures 10.8 cm in maximum dimension. LEFT KIDNEY: Normal. No hydronephrosis. No renal calculi or focal parenchymal lesions. The kidney measures 11.4 cm in maximum dimension. SPLEEN: The spleen measures 13.8 cm in maximum dimension. ABDOMINAL AORTA: The visualized proximal segment is normal in caliber. INFERIOR VENA CAVA: Visualized portions are normal. FREE FLUID: None. US/US duplex arterial venous comp IMPRESSION: 1. Echogenic liver parenchyma consistent with hepatic steatosis/fibrosis. Median elastography value has significantly improved, currently 1.08 which is within normal limits. 2. Hepatic vasculatu re is patent 3. Cholelithiasis Electronically jade d by: Catarino Tapia MD 09/02/2024 11:08 AM EDT Dictated By: Catarino Tapia MD Signed By: <Electronically signed by Catarino Tapia MD in OV> 09/02/24 1108 DD/ 1034 TD/TT: 08/24/24 1059 Industrial Electrician: Tali Mary Reviewed date:11/05/2024 11:16:54 AM Interpretation: Performing Lab:[facility], [place], [address] [place] [phone] Notes/Report: Tali Mary See Note Specimen held untested for 24 hours; Call to request Chemistry testing. Reason For Referral No Information Medications Medication SIG (Take, Route, Frequency, Duration) [...] Once a day for 90 days Not-Taking Clotrimazole 1 % 1 application Externally Twice a day for 14 day(s) 11/28/2023 Not-Taking LORazepam 0.5 MG 1 tablet at bedtime as needed Orally Once a day for 1 days 03/18/2022 Not-Taking Benzonatate 100 MG TAKE 1 CAPSULE BY [facility] THREE TIMES A DAY FOR 10 DAYS NEEDED for 10 Not-Taking Naltrexone HCl 50 MG 1 tablet Orally Onc e a day for 30 day(s) 06/05/2021 Not-Taking Immunizations Vaccine Route Administration Date Status Comme nts Fluarix Quadrivalent IM Intramuscular 12/20/2014 Administe red Fluarix Quadrivalent IM Intramuscular 08/12/2017 Administe red Fluarix Quadrivalent Unknown 08/07/2020 Administered At his work SARS-COV-2 Pfizer Unknown 03/16/2021 Administered SARS-COV-2 Pfizer Unknown 01/26/2021 Administered Hepatitis B Unknown 10/15/2022 Administered Hepatitis B Unknown 11/07/2022 Administered Hepatitis A (adult) Unknown 10/15/2022 Administered Fluarix Quadrivalent - 150 IM Intramuscular 10/31/2023 Administered DECLINED, FLU Unknown 07/25/2014 Refused Fluarix Quadrivalent Unknown 12/02/2016 Refused Fluarix Quadrivalent Unknown 06/12/2020 Refused Fluarix Quadrivalent Unknown 10/19/2021 Refused Flu Vaccine Unknown 12/20/2014 Pending Social History Tobacco Use: Social History Observation [...] twice per week. no risk of hepatitis drinks one to 2 drinks twice per week. no risk of hepatitis drinks one to 2 drinks twice per week. no risk of hepatitis drinks one to 2 drinks twice per week. no risk of hepatitis 8-3-21 was in [facility] Pancreatitis stopped drinking 3 weeks ago drinks one to 2 drinks twice per week. no risk of hepatitis 8-3-21 was in [facility] Pancreatitis stopped drinking 3 weeks ago 08-10-21 Patient states had 2 beers last weekend. drinks one to 2 drinks twice per week. no risk of hepatitis 8-3-21 was in [facility] Pancreatitis stopped drinking 3 weeks ago 08-10-21 Patient states had 2 beers last weekend. stopped alcohol 2-3 months ago drinks one to 2 drinks twice per week. no risk of hepatitis 8-3-21 was in [facility] Pancreatitis stopped drinking 3 weeks ago 08-10-21 Patient states had 2 beers last weekend. stopped alcohol 2-3 months ago 11-10-23 no alcohol since 01-22 drinks one to 2 drinks twice per week. no risk of hepatitis 8-3-21 was in [facility] Pancreatitis stopped drinking 3 weeks ago 08-10-21 Patient states had 2 beers last weekend. stopped alcohol 2-3 months ago 11-10-23 no alcohol since 01-22 Problems Problem Type SNOMED Code ICD Code Onset Dates Problem Status W/U Status Risk Notes Problem 901622300 Thrombocytopenia (D69.6) Active confirmed Problem 77723347 Balanitis (N48.1) Active confirmed Problem 868874974 Hypomagnesemia (E83.42) Active confir med Problem 93375691 Hypercalcemia (E83.52) Active confirme d Problem 6492323 Primary insomnia (F51.01) Active confirmed Problem Acute alcoholic liver disease (1478558) Alcoholic hepatitis with ascites (K70.11) Active confirmed Problem Alcoholic cirrhosis (102267481) Alcoholic cirrhosis of liver with ascites (K70.31) Active confirmed Problem 46960417 Essential hypert ension (I10) Active confirmed Problem 05523752 Alcohol abuse (F10.10) Active confirme d Problem 360969728 Seizure disorder (G40.909) Active confirmed Problem 386711202 High triglycerid es (E78.1) Active confirmed Problem 210487148 Pure hypercholesterolemia (E78.00) Active confirmed Problem 824180888 Elevated LFTs (R94.5) Active confirme d Problem Genital warts (795500678) Genital warts (A63.0) Active confirmed Problem 116584189 Non-traumatic rhabdomyolysis (M62.82) Active confirmed Problem 488582272 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 Problem 785370618 History of ETOH abuse (F10.11) Active confirmed Vital Signs Blood pressure diastolic 88 mm Hg 11/12/2024 iain ght is up 3 pounds since 05-31-24 Height 72.5 in 11/12/2024 weight is up 3 pounds since 05-31-24 Blood pressure systolic 142 mm Hg 11/12/2024 weig ht is up 3 pounds since 05-31-24 Weight 237 lbs 11/12/2024 weight is up 3 pounds since 05-31-24 BMI 31.70 kg/m2 11/12/2024 weight is up 3 pounds since 05-31-24 Encounters Encounter Location Date Provider Diagnosis Vitaly Urbano MD [address] [place] [address] Drive [address] [place] [id number] 11/05/2024 Vitaly Urbano Blood tests for rout ine general physical examination Z00.00 ; Essential hypertension I10 ; Pure hypercholesterolemia E78.00 ; Elevated LFTs R94.5 and Thrombocytopenia D69.6 Vitaly Urbano MD [address] [place] [address] Drive [address] [place] [id number] 11/12/2024 Vitaly Urbano Essential hypertensi on I10 ; Annual physical exam Z00.00 ; Pure hypercholesterolemia E78.00 ; Elevated LFTs R94.5 and Depression screening Z13.31 Assessments Encounter Date Diagnosis (ICD Code) Assessment Notes Treatment Notes Treatment Clinical Notes Section Notes 11/05/[address] ine general physical examination (ICD-10 - Z00.00) 11/05/2024 Essential hypertensi on (ICD-10 - I10) 11/12/2024 Essential hypertensi on (ICD-10 - I10) borderline. will observe 11/12/2024 Annual physical exam (ICD-10 - Z00.00) labs reviewed and discused with patient 11/05/2024 Pure hypercholesterolemia (ICD-10 - E78.00) 11/12/2024 Pure hypercholesterolemia (ICD-10 - E78.00) not high enough to treat, will continue to monitor 11/05/2024 Elevated LFTs (ICD-1 0 - R94.5) 11/12/2024 Elevated LFTs (ICD-1 0 - R94.5) has completely resolved 11/05/2024 Thrombocytopenia (IC D-10 - D69.6) 11/12/2024 Depression screening (ICD-10 - Z13.31) negative screen Plan Of Treatment Pending Test Test Name Order Date XR CHEST 2 VIEW PA & LAT 01/24/2022 Stress Test 12/30/2017 EEG 02/18/2017 ECHO 12/30/2017 MR hip LT wo/w con 09/25/2021 MR hip LT w con 09/17/2021 US drain thoracentesis 01/10/2022 XR hip LT min 2V 09/14/2021 XR lumbar spine 4V min 06/06/2022 XR chest 2V 01/07/2022 Next Appt Details Provider Name:Vitaly Jameson ier, 11/10/2025 07:45:00 AM, [address] [place] [address], [place] [address], [place], [place], [phone], Provider Name:Vitaly Jameson ier, 11/17/2025 01:00:00 PM, [address] [place] [address], Suite [facility], [place], [place], [phone], Insurance Providers Payer Name Payer Address Payer Phone Subscriber Number Group Number Insured Name Patient Relationship to Insured Coverage Start Date Coverage End Date [employer] [address] [place], [place] [id number] ANDRÉS ESPINOSA Self - patient is the insured Medical (General) History Medical History History ICD Code needs us alternate mri liver every 6 mon ths
--- OUTSIDE RECORDS SUMMARY | 2025-06-29 14:00 | XMS_ITS | Encounter Summary ---
Author Organization [facility] Address [address] [place] [address] Phone Care Team Providers Care Pipe Smoker Machine Operator Name Role Phone Vitaly Urbano MD Primary Care Provider Gunnar Silva MD Unavailable [phone] Ronn Molina DO Unavailable Encounter Details Date Type Department Care Team (Late st Contact Info) Description 03/06/2022 Procedure Pass MRI, [facility] [address] [place] [address] Social History Tobacco Use Types Packs/Day Years Used Date Smoking Tobacco: Never Smokeless Tobacco: Never Alcohol Use Standard Drinks/Week Comments Not Currently 0 (1 standard drink = 0.6 oz pur e alcohol) Last drink 06/2021 Sex and Gender Information Value Date Recorded Sex Assigned at Not on file Legal Sex Male 12:53 PM EDT Gender Identity Not on file Sexual Orientation Not on file documented as of this encounter Plan of Treatment Not on file documented as of this encounter Visit Diagnoses Not on filedocumented in this encounter Care Teams Pipe Smoker Machine Operator Relationship Specialty Start Date End Date Vitaly Urbano MD [address] [place] [address] [place] [address] PCP - General Internal Medicine 01/31/22 Gunnar Silva MD [address] [place] [address] Gastroenterology 02/24/22 Ronn Molina DO [address] [place] [address] Internal Medicine 02/24/22 documented as of this encounter Additional Source Comments The information contained in this document represents components of the legal health record. It is not the complete legal health record.[facility]
--- OUTSIDE RECORDS SUMMARY | 2025-06-29 14:01 | XMS_ITS | Clinical Summary ---
Author Organization [facility] Address [place] [address] Care Team Providers Care Industrial Services Worker Name Role Phone Unavailable Primary Care Provider Unavailabl e Social History Tobacco Use Types Packs/Day Years Used Date Smoking Tobacco: Never Assessed Sex and Gender Information Value Date Recorded Sex Assigned at Not on file Legal Sex Male 10:01 AM EDT Gender Identity Not on file Sexual Orientation Not on file Last Filed Vital Signs Vital Sign Reading Time Taken Comments Blood Pressure 140/82 08/30/2024 11:56 AM EDT Pulse - - Temperature - - Respiratory Rate - - Oxygen Saturation - - Inhaled Oxygen Concentration - - Weight - - Height 185.4 cm (6' 1 ) 08/30/2024 11:56 AM EDT Body Mass Index - - Plan of Treatment Health Maintenance Due Date Last Done Comments Hepatitis A Vaccines (1 of 2 - Risk 2-dose series) 01/15/2012 COVID-19 Vaccine (2 - season) 2024 03/16/2021 Cholesterol Screening (Lipid Panel) 08/30/2024 HIV Screening 08/30/2024 Hepatitis C Screening 08/30/2024 Social Influencers of Health Screening 08/30/2024 Depression Screening 11/03/2024 Hypertension/CHF/CAD Annual BMP Blood Test 03/02/2025 03/02/2024, 05/03/2022 Influenza Vaccine (#1) 2025 08/07/2020, 2016 DTaP,Tdap,and Td Vaccines (2 - Td or Tdap) 11/16/2029 11/16/2019 Hepatitis B Vaccines Completed 12/02/2016, 1993, 1993, Additional history exists HIB Vaccines Aged Out No longer eligi ble based on patient's age to complete this topic HPV Vaccines Aged Out No longer eligi ble based on patient's age to complete this topic IPV Vaccines Aged Out No longer eligi ble based on patient's age to complete this topic MMR Vaccines Aged Out No longer eligi ble based on patient's age to complete this topic Meningococcal ACWY Vaccine Aged Out N o longer eligible based on patient's age to complete this topic Meningococcal B Vaccine Aged Out No l onger eligible based on patient's age to complete this topic Pneumococcal Vaccine: Pediatrics (0 to 5 Years) and At-Risk Patients (6 to 49 Years) Aged Out No longer eligible based on patient's age to complete this topic RSV Immunization Patients Under 20 months Aged Out No longer eligible based on patient's age to complete this topic Varicella Vaccines Aged Out No longer eligible based on patient's age to complete this topic
--- OUTSIDE RECORDS SUMMARY | 2025-06-29 14:01 | XMS_ITS ---
Author Name [facility] Organization Unknown Problems Problem Status Onset Date Problem Type Date of Resolution Source Encounter for pre-employment examination active EncounterDiagnosisAct [id number] TANYA Encounters Encounter Type Encounter Reason Primary Diagnosis Location Date Ambulatory Encounter for screening for cardiovascular disorders Encounter for screening for cardiovascular disorders [facility] 08/30/2024 Ambulatory Encounter for pre-employment examination Encounter for pre-employment examination [facility] 08/30/2024 Ambulatory Encounter for pre-employment examination Encounter for pre-employment examination [facility] 08/30/2024 Care Team Organization Name Specialty Phone Email Start Date End Da te [facility] 09/2024 [facility] 07/2024 [facility] 4 05/17/2025 [facility] 4
--- OUTSIDE RECORDS SUMMARY | 2025-06-29 14:02 | XMS_ITS | Clinical Summary ---
Author Organization [facility] Address [address] [place] [id number] Care Team Providers Care Analytical Consultant Name Role Phone Unavailable Primary Care Provider Unavailabl e Social History Tobacco Use Types Packs/Day Years Used Date Smoking Tobacco: Never Assessed Sex and Gender Information Value Date Recorded Sex Assigned at Male 08/30/2024 10:07 AM EDT Gender Identity Not on file Sexual Orientation Not on file Job Start Date Occupation Industry Not on file Not on file Not on file Last Filed Vital Signs [...] Maintenance Due Date Last Done Comments Hepatitis C Screening 1993 Depression Screening 2005 Preventative Health Evaluation 2011 COVID-19 Vaccine ( season) 2024 03/16/2021 Influenza Vaccine (#1) 2025 DTap / Tdap / Td (2 - Td or Tdap) 11/16/2029 11/16/2019 Hepatitis B Vaccines Completed 12/02/2016, 1993, 1993, Additional history exists Pneumococcal Vaccine Aged Out No long er eligible based on patient's age to complete this topic RSV Ped < 20 months Aged Out No longe r eligible based on patient's age to complete this topic [employer] Other 02/18/1992 [address] [facility] [address] Attn: [place] [address]
--- OUTSIDE RECORDS SUMMARY | 2025-06-29 14:02 | XMS_ITS | Clinical Summary ---
Author Organization [facility] Facility Address [address] [address] Care Team Providers Care Financial Services Counselor Name Role Phone Vitaly Urbano MD Primary Care Provider [phone] Allergies No known active allergies Medications divalproex (DEPAKOTE) 500 MG 24 hr tablet Take 500 mg by mouth in the morning and 500 mg in the evening. 11/18/2021 Active nadolol (CORGARD) 20 MG tablet Take 0.5 mg by mouth 1 (one) time each day 01/20/2022 Active omeprazole (PriLOSEC) [address] capsule Take 1 capsule by mouth 1 (one) time each day 01/15/2022 Active cloNIDine (CATAPRES) 0.1 MG tablet Take 0.1 mg by mouth 1 (one) time each day 10/23/2021 Active spironolactone (ALDACTONE) 50 MG tablet Take 100 mg by mouth 1 (one) time each day 4 tablets in the am and 2 tablets in th pm Active lactulose (CEPHULAC) 10 g packet Take 15 g by mouth in the morning and 15 g in the evening and 15 g before bedtime. Active Active Problems Problem Noted Date Diagnosed Date Other iron deficiency anemia 08/28/2022 Acute alcoholic liver disease 01/29/2022 Alcohol abuse 01/29/2022 Liver enzymes level above reference range 2021 Essential hypertension 01/29/2022 History of alcohol abuse 01/29/2022 Hypomagnesemia 01/29/2022 Idiopathic aseptic necrosis of left femur 2021 Acute nontraumatic kidney injury 01/29/2022 Primary insomnia 01/29/2022 Pure hypercholesterolemia 01/29/2022 Pure hyperglyceridemia 01/29/2022 Rhabdomyolysis 01/29/2022 Seizure disorder 01/29/2022 Thrombocytopenia 01/29/2022 Social History Tobacco Use Types Packs/Day Years Used Date Smoking Tobacco: Never Smokeless Tobacco: Never Tobacco Cessation:Counseling Given: Not Answered Alcohol Use Standard Drinks/Week Comments Not Currently 0 (1 standard drink = 0.6 oz pur e alcohol) Sex and Gender Information Value Date Recorded Sex Assigned at Not on file Legal Sex Male 10:35 AM EDT Gender Identity Not on file Sexual Orientation Not on file Last Filed Vital Signs Vital Sign Reading Time Taken Comments Blood Pressure 111/65 08/27/2022 1:09 PM EDT Pulse 69 08/27/2022 1:09 PM EDT Temperature - - Respiratory Rate - - Oxygen Saturation - - Inhaled Oxygen Concentration - - Weight 81.6 kg (180 lb) 08/27/2022 1:09 PM EDT Height - - Body Mass Index - - Plan of Treatment Health Maintenance Due Date Last Done Comments Pneumococcal Vaccine: Peds ( 0 to 5 Years) and At-Risk Patients (6 to 49 Years) (1 of 2 - PCV) 01/15/2012 Influenza Vaccine (#1) 2025 , 08/12/2017, 12/20/2014 Hepatitis B Vaccine Completed 11/07/2022, 10/15/2022, 12/02/2016, Additional history exists Insurance [employer] Care Teams Financial Services Counselor Relationship Specialty Start Date End Date Vitaly Urbano MD [id number] [place], [place] PCP - General Internal Medicine 01/21/22
--- OUTSIDE RECORDS SUMMARY | 2025-06-29 14:02 | XMS_ITS | Patient Health Record ---
Author Organization [facility] Address [address] [place] [address] Care Team Providers Care Tank Pumper Panelboard Name Role Phone Sundeep RODRIGUEZ, Vitaly Primary Care Provider Gunnar Eastman Unavailable [phone] Allergies No Known Allergies Results Component Value Reference Range Notes Prothrombin Time INR Reviewed date:08/17/2024 06:59:58 PM Interpretation: Performing Lab:[facility], [address] [place] [phone] Notes/Report: Prothrombin Time 12.5 10.9-12.4 SEC INTERNATIONAL NORM RATIO 1.1 0.9-1.1 INTERNATIONAL NORMALIZED RATIO (INR) REFERENCE RANGES Reference Range For patients not on anticoagulant therapy: 0.9 - 1.1 INR ranges for oral anticoagulant therapy: For prevention and treatment of venous thrombosis and pulmonary embolism: 2.0 - 3.0 For acute myocardial infarction with aspirin therapy: 2.0 - 3.0 For acute myocardial infarction without aspirin therapy: 3.0 - 4.0 For patients with mechanical prosthetic heart valves: 2.5 - 3.5 Liver Fibrosis Pnl Reviewed date:08/25/2024 07:02:39 PM Interpretation: Performing Lab:[facility], [address] [place] [phone] Notes/Report: Liver Fibrosis Score 0.08 Liver Fibrosis Stage F0 Liver Fibrosis Interpretation SEE NOTE no fibrosis Fibro Test Score (f) Metavir Score f>=0 and f<=0.21 : F0 (no fibrosis) f>0.21 and f<=0.27 : F0-F1 (no fibrosis) f>0.27 and f<=0.31 : F1 (minimal fibrosis) f>0.31 and f<=0.48 : F1-F2 (minimal fibrosis) f>0.48 and f<=0.58 : F2 (moderate fibrosis) f>0.58 and f<=0.72 : F3 (advanced fibrosis) f>0.72 and f<=0.74 : F3-F4 (advanced fibrosis) f>0.74 and f<=1.00 : F4 (severe fibrosis) Nec Inflam Act Score 0.04 Nec Inflam Act Grade A0 Nec Inflam Act Interpretation SEE NOTE no activity ActiTest Score (a) Metavir Score a>=0 and a<=0.17 : A0 (no activity) a>0.17 and a<=0.29 : A0-A1 (no activity) a>0.29 and a<=0.36 : A1 (minimal activity) a>0.36 and a<=0.52 : A1-A2 (minimal activity) a>0.52 and a<=0.60 : A2 (significant activity) a>0.60 and a<=0.62 : A2-A3 (significant activity) a>0.62 and a<=1.00 : A3 (severe activity) JAC-Tankf-6-Macroglobulin 136 106-279 mg/dL FIB-Haptoglobin 157 43-212 mg/dL FIB-Apolipoprotein A1 124 94-176 mg/dL FIB-Total Bilirubin 0.4 0.2-1.2 mg/dL FIB-GGT 38 3-90 U/L FIB-ALT 16 9-46 U/L Reference ID [id number] Footnote SEE NOTE The reliability of results is dependent on compliance with the preanalytical and analytical conditions recommended by [employer]. The tests have to be deferred for: acute hemolysis, acute hepatitis, acute inflammation, extra hepatic cholestasis. The advice of a specialist should be sought for interpretation in chronic hemolysis and Gilbert's syndrome. The test interpretation is not validated in liver transplant patients. Isolated extreme values of one of the components should lead to caution in interpreting the results. In case of discordance between a biopsy result and a test, it is recommended to seek the advice of a specialist. The causes of these discordances could be due to a flaw of the test or to a flaw in the biopsy: i.e. a liver biopsy has a 33% variability rate for one fibrosis stage. FibroTest is interpretable for chronic hepatitis B and C, alcoholic and non alcoholic steatosis. ActiTest is interpretable for chronic hepatitis B and C. The performance characteristics have been determined by [facility]. It has not been cleared or approved by the U.S. Food and Drug Administration. Performance characteristics refer to the analytical performance of the test. [employer], the associated logo, milog and all associated [employer] domínguez are the registered trademarks of [employer]. All third constitution party domínguez - (R) and (TM) - are the property of their respective owners. (C) 4284-6061 [employer]. All rights reserved. THIS TEST WAS PERFORMED AT: [facility] [address] [place] [address] CATIE LAWSON MD,PHD,KENDRICK US abdomen comp w elastograp hy Reviewed date:02/23/2025 10:51:03 PM Interpretation: Performing Lab: Notes/Report: [address] [address] Ultrasound Report Signed Patient: Andrés Espinosa MR#: [id number] : 1995 Acct:[id number] Age/Sex: 29 / M ADM Date: 08/24/24 Loc: HO.US Attending Dr: Gunnar Silva MD Ordering Physician: Gunnar Silva MD Date of Service: 08/24/24 Procedure(s): US abdomen comp w elastography Accession Number(s): [id number] cc: Vitaly Ferris MD; Gunnar Silva MD EXAMINATION: US ABDOMEN DOPPLER, US [...] 09/02/24 1108 DD/ 1034 TD/TT: 08/24/24 1059 [employer] Systems Administrator: US duplex arterial venous co mp Reviewed date:10/24/2024 01:22:28 PM Interpretation: Performing Lab: Notes/Report: [address] [address] Ultrasound Report Signed Patient: Andrés Espinosa MR#: [id number] : 1995 Acct:[id number] Age/Sex: 29 / M ADM Date: 08/24/24 Loc: HO.US Attending Dr: Gunnar Silva MD Ordering Physician: Gunnar Silva MD Date of Service: 08/24/24 Procedure(s): US duplex arterial venous comp Accession Number(s): [id number] cc: Vitaly Ferris MD; Gunnar Silva MD EXAMINATION: US ABDOMEN DOPPLER, US [...] 09/02/24 1108 DD/ 1034 TD/TT: 08/24/24 1059 [employer] Systems Administrator: Complete Blood Count Auto Di ff Reviewed date:08/17/2024 06:58:29 PM Interpretation: Performing Lab:[facility], [address] [place] [phone] Notes/Report: White Blood Count 6.3 4.8-10.8 X10*3/uL Red Blood Count 5.18 4.60-5.80 X10*6/uL Hemoglobin 14.2 14.0-18.0 g/dl Hematocrit 42.8 42.0-52.0 % Mean Corpuscular Volume 82.6 80.0-98.0 fL Mean Corpuscular Hemoglobin 27.4 27.0-33.0 pg Mean Corpuscular HGB Conc 33.2 31.0-36.0 g/dl Red Cell Distribution Width 13.5 11.0-16.0 % Platelet Count 180 160-400 X10*3/uL Mean Platelet Volume 10.1 9.4-12.4 fL Neutrophils Percent Auto 63.7 45-73 % Imm Gran Pct Auto 0.3 0.0-0.4 % Lymphocytes Percent Auto 25.0 20-40 % Monocytes Percent Auto 8.1 2-11 % Eosinophils Percent Auto 2.4 0-4 % Basophils Percent Auto 0.5 0-2 % NRBC Pct Auto 0.0 0.0-0.2 /100WBC Neutrophils Absolute Auto 4.0 2.0-8.3 x10*3/u L Imm Gran Abs Auto 0.02 0.00-0.03 X10*3/uL Lymphocytes Absolute Auto 1.6 1.2-4.9 X10*3/u L Monocytes Absolute Auto 0.5 0.1-1.2 X10*3/uL Eosinophils Absolute Auto 0.2 0.0-0.4 X10*3/u L Basophils Absolute Auto 0.0 0.0-0.2 X10*3/uL NRBC Abs Auto 0.000 0.0-0.012 X10*3/uL Liver Panel Reviewed date:08/17/2024 06:59:46 PM Interpretation: Performing Lab:[facility], [address] [place] [phone] Notes/Report: Bilirubin Total 0.4 0.0-1.0 mg/dL Bilirubin Direct 0.1 0.0-0.5 mg/dL Aspartate Amino Transferase 16 5-37 U/L Alanine Aminotransferase 18 0-40 U/L Total Protein 7.1 6.5-8.0 g/dL Albumin Level 4.4 3.5-5.0 g/dL Alkaline Phosphatase 74 39-117 U/L Alpha Fetoprotein Reviewed date:08/25/2024 07:02:26 PM Interpretation: Performing Lab:[facility], [address] [place] [phone] Notes/Report: Alpha Fetoprotein 3.8 <6.1 ng/mL This test was performed using the Junior Maris chemiluminescent method. Values obtained from different assay methods cannot be used interchangeably. AFP levels, regardless of value, should not be interpreted as absolute evidence of the presence or absence of disease. THIS TEST WAS PERFORMED AT: [facility] [address] [place] [phone] HARITHA ALVARADO MD Reason For Referral Referring Provider First Name Vitaly Referring Provider Last Name Sundeep Referring Provider Speciality Internal M edicine Referred Organization [facility] Referred Provider Gunnar Silva Referred Address [address] [place] [address],[place] [address],[place], [place],[address], Referred Provider Specialty Gastroentero logy General Notes Lucretia Kohler 024 04:19:32 PM EDT > call Dr. Ferris's office to request an [facility] referral for visit with Dr. Silva on 08-17-2024, Lucretia Kohler 07/01/2024 01:50:57 PM EDT > REQESTED REFERRAL FROM DR FERRIS'S OFFICE Referral Priority Routine Immunizations Vaccine Route Administration Date Status Comme nts Influenza Unknown 08/14/2021 Refused Social History Tobacco Use: Social History Observation Description Date Details (start date - stop date) Never Smoker NA - NA Tobacco Use/Smoking Question Answer Notes Patient is a nonsmoker Alcohol Screen Question Answer Notes Did you have a drink containing alcohol in the p ast year? No Points 0 Interpretation Negative Section Notes: Heavy EtOH-in rhab in 2020; describes sobriety since 06/2021 at the 08/14/2021 OV Nonsmoker No IVDA Heavy EtOH-in rehab in 2020; describes sobriety since 06/2021 at the 08/14/2021 OV Nonsmoker No IVDA Heavy EtOH-in rehab in 2020; describes sobriety since 06/2021 at the 01/2022 OV Nonsmoker No IVDA Heavy EtOH-in rehab in 2020; describes sobriety since 06/2021 at the 01/2022 OV Nonsmoker No IVDA Heavy EtOH-in rehab in 2020; describes sobriety since 06/2021 at the 01/2022 OV Nonsmoker No IVDA Heavy EtOH-in rehab in 2020; describes sobriety since 06/2021 at the 01/2022 OV Nonsmoker No IVDA Heavy EtOH-in rehab in 2020; describes sobriety since 06/2021 at the 01/2022 OV Nonsmoker No IVDA Problems Problem Type SNOMED Code ICD Code Onset Dates Problem Status W/U Status Risk Notes Problem 015450208 Alcoholic hepatitis without ascites (K70.10) Active confirmed Problem 803390459 Alcoholic cirrhosis of liver with ascites (K70.31) Active confirmed Problem 03879992 Liver disease, unspecified (K76.9) Active confirmed Problem 006658516 Elevated liver enzymes (R74.8) Active confirmed Problem 65221676 Alcoholic liver disease (K70.9) Active confirmed Problem 9501961041059882 Ascites due to alcoholic cirrhosis (K70.31) Active confirmed Problem 47326187 Jaundice (R17) Active confirmed Problem Alcoholic liver damage (93397059) Alcohol liver damage (K70.9) Active confirmed Problem 76702398 Alcoholic liver damage (K70.9) Active confirmed Problem 87064417 Liver fibrosis (K74.00) Active confirmed Problem Gastroesophageal reflux disease (617677193) Gastroesophageal reflux disease, unspecified whether esophagitis present (K21.9) Active confirmed Vital Signs Blood pressure diastolic 00 mm Hg 08/17/2024 Height 73 in 08/17/2024 Blood pressure systolic 00 mm Hg 08/17/2024 Weight 234 lbs 08/17/2024 BMI 30.87 kg/m2 08/17/2024 Encounters Encounter Location Date Provider Diagnosis [facility] [address] [place] [address] 08/17/2024 Gunnar Silva Liver fibrosis K74.00 and Alcoholic liver damage K70.9 [facility] [address] [place] [address] 12/09/2024 Gunnar Silva Assessments Encounter Date Diagnosis (ICD Code) Assessment Notes Treatment Notes Treatment Clinical Notes Section Notes 08/17/2024 Alcoholic liver damage (ICD-10 - K70.9) Overall, Shahzad appears quite well. His previous liver disease has remained quite stable and his liver function has remained normal as his sobriety continues. We did Have a detailed discussion today regarding the importance of long-term sobriety from all alcohol and drugs. He remains motivated to do that. I shall check a followup abdominal ultrasound with elastography and Doppler studies to indirectly assess for any liver fibrosis and/or portal hypertension. I shall also check followup laboratories including alpha-fetoprotei n level. We did review that he should have these studies done at least yearly given his previous history of liver disease. I don't think he requires an upper endoscopy at this time given no sign of varices in 2021 and no evidence of any progressive liver disease since that time. If the upcoming ultrasound and laboratories do not show any indirect evidence of cirrhosis I would then simply continue with a yearly ultrasound and laboratories. If things remain well I'll plan to see Shahzad in one year for a followup office visit. I did advise him to certainly call if any problems or questions I can be of assistance with an interim. Shahzad was comfortable with this plan. Thank you again for allowing me to participate in Shahzad's care. I shall continue to keep you advised of his progress. 08/17/2024 Liver fibrosis (ICD-10 - K74.00) Overall, Shahzad appears quite well. His previous liver disease has remained quite stable and his liver function has remained normal as his sobriety continues. We did Have a detailed discussion today regarding the importance of long-term sobriety from all alcohol and drugs. He remains motivated to do that. I shall check a followup abdominal ultrasound with elastography and Doppler studies to indirectly assess for any liver fibrosis and/or portal hypertension. I shall also check followup laboratories including alpha-fetoprotei n level. We did review that he should have these studies done at least yearly given his previous history of liver disease. I don't think he requires an upper endoscopy at this time given no sign of varices in 2021 and no evidence of any progressive liver disease since that time. If the upcoming ultrasound and laboratories do not show any indirect evidence of cirrhosis I would then simply continue with a yearly ultrasound and laboratories. If things remain well I'll plan to see Shahzad in one year for a followup office visit. I did advise him to certainly call if any problems or questions I can be of assistance with an interim. Shahzad was comfortable with this plan. Thank you again for allowing me to participate in Shahzad's care. I shall continue to keep you advised of his progress. Plan Of Treatment Pending Test Test Name Order Date CHEM 7 PROFILE 08/14/2021 CHEM 7 PROFILE 01/25/2022 CHEM 7 PROFILE 02/06/2023 CHEM 7 PROFILE 08/05/2022 CHEM 7 PROFILE 08/10/2021 CHEM 7 PROFILE 08/24/2021 LIVER PROFILE 08/05/2022 LIVER PROFILE 08/10/2021 LIVER PROFILE 08/24/2021 LIVER PROFILE 08/17/2024 LIVER PROFILE 08/14/2021 LIVER PROFILE 08/21/2021 LIVER PROFILE 01/25/2022 LIVER PROFILE 02/06/2023 AMYLASE 08/10/2021 LIPASE 08/10/2021 IRON + IBC (FE) 08/10/2021 FERRITIN 08/10/2021 CBC w DIFF 02/06/2023 CBC w DIFF 08/10/2021 CBC w DIFF 08/05/2022 CBC w DIFF 08/24/2021 CBC w DIFF 08/17/2024 CBC w DIFF 01/25/2022 PROTHROMBIN TIME (PT, INR) 01/25/2022 PROTHROMBIN TIME (PT, INR) 08/10/2021 PROTHROMBIN TIME (PT, INR) 08/24/2021 PROTHROMBIN TIME (PT, INR) 08/14/2021 PROTHROMBIN TIME (PT, INR) 08/21/2021 HEPATITIS A,B,C PROFILE 08/10/2021 HEPATITIS B PROFILE 08/05/2022 [id number] (A1A) 08/10/2021 ALPHA-FETOPROTEIN,TUMOR MARKER 1 ALPHA-FETOPROTEIN,TUMOR MARKER 3 ALPHA-FETOPROTEIN,TUMOR MARKER 4 ALPHA-FETOPROTEIN,TUMOR MARKER 2 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 ANTINUCLEAR AB SCREEN (CHRIS) 06/2021 US ABDOMEN COMP WITH ELASTOGRAPHY 2021 US ABDOMEN COMP WITH ELASTOGRAPHY 2020 Prothrombin Time INR 02/06/2023 Alpha Fetoprotein 03/15/2023 Liver Fibrosis Pnl 08/22/2022 Hepatitis A Antibody IgG 08/05/2022 Hepatitis B Surface Antibody 02/06/2023 Hepatitis A IgG 02/06/2023 Future Test Test Name Order Date UPPER GI ENDOSCOPY 08/27/2022 Next Appt Details Provider Name:Gunnar Silva , 08/18/2025 09:00:00 AM, [address] [place] [address], [place] [address], [place], [address], Insurance Providers Payer Name Payer Address Payer Phone Subscriber Number Group Number Insured Name Patient Relationship to Insured Coverage Start Date Coverage End Date [facility] [employer] [address] [place] [address] [phone] [id number] ANDRÉS ESPINOSA Self - patient is the insured Medical (General) History Medical History History ICD Code Hypertension Seizures X 2 in 2019--? from EtOH Denies CT,DM,CVA,Lung disease,renal dise ase Alcohol abuse with associate d EtOH-pancreatitis in 05/2021 and EtOH-hepatitis with jaundice in 08/2021 with a total bilirubin as high as 24. He was treated with an outpatient course of prednisolone for the EtOH-hepatitis. His liver w/u was otherwise negative in 08/2021. Reports no alcohol since 07/2021 as of the 01/2022 OV. [place] [facility] [place] for as cites and a left-sided pleural effusion--had a paracentesis and thoracentesis---on diuretics and being followed by Renal---going for a F/U CXR on 01/25 SVT 01/2022-started on Nadolol Seeing nephrology for the ascites--had h ypontremia He is being seen at [facility] liver [place] clinic since February of 2022 EGD in 09/2022 was negative for varices or portal gastropathy. There was some mild reflux but biopsies were negative for Goodman's esophagus. There was no esophagitis. Surgical History Surgery Date(Month/Year)
--- OUTSIDE RECORDS SUMMARY | 2025-06-29 14:02 | XMS_ITS | Clinical Summary ---
Author Organization [facility] Address [address] [facility] [address] [place] [phone] Phone Care Team Providers Care Retail Sales Professional Name Role Phone Vitaly Urbano MD Primary Care Provider Gunnar Silva MD Unavailable [phone] Ronn Molina DO Unavailable Allergies No known active allergies Medications No known medications Immunizations Immunization Administration Dates Next Due COVID-19 (Pre-08/25) Pfizer Vaccine, mRNA, PF 03/16/2021 Hepatitis B 12/02/2016, 3,1993,1992 INFLUENZA, SPLIT VIRUS, TRIVALENT PF 08/07/2020, 08/12/2017 Tdap 11/16/2019 Family History Relation Status Comments Father Alive Mother Alive Sister Alive Social History Tobacco Use Types Packs/Day Years Used Date Smoking Tobacco: Never Smokeless Tobacco: Never Tobacco Cessation:[place] Given: Not Answered Alcohol Use Standard Drinks/Week Comments Not Currently 0 (1 standard drink = 0.6 oz pur e alcohol) Last drink 06/2021 Education Answer Date Recorded Are you interested in more education? Not on jillian e 02/27/2023 Are you concerned about learning? Not on file 02/27/2023 No 02/27/2023 No 02/27/2023 Digital Access Answer Date Recorded No 03/29/2023 No 03/29/2023 No 03/29/2023 Reliable internet access at home? Not on file 03/29/2023 Device with a working camera? Not on file Sex and Gender Information Value Date Recorded Sex Assigned at Not on file Legal Sex Male 12:53 PM EDT Gender Identity Not on file Sexual Orientation Not on file Last Filed Vital Signs Vital Sign Reading Time Taken Comments Blood Pressure 135/83 03/02/2024 10:25 AM EDT Pulse 58 03/02/2024 10:25 AM EDT Temperature 35.8 C (96.5 F) 03/02/2024 10:25 AM EDT Respiratory Rate 18 02/22/2022 11:32 AM EDT Oxygen Saturation 100% 03/02/2024 10:25 AM EDT Inhaled Oxygen Concentration - - Weight 101.6 kg (224 lb) 03/02/2024 10:25 AM EDT Height 182.9 cm (6' 0.01 ) 02/28/2022 1:00 PM ED T Body Mass Index 30.37 02/28/2022 1:00 PM EDT Plan of Treatment Health Maintenance Due Date Last Done Comments DEPRESSION SCREENING 2005 HIV ONE-TIME SCREENING (18-6 5 YEARS) 2011 COVID-19 VACCINE ( - 2023-2 5 season) 2024 03/16/2021, 02/16/2021, 01/23/2021 Adult Td,Tdap Booster 11/16/2029 11/16/2019 HEPATITIS C SCREENING Completed 02/20/2022 SMOKING STATUS SCREENING (On ce After 26 Yrs) Completed 02/28/2023 HEPATITIS A VACCINES Aged Out No long er eligible based on patient's age to complete this topic HIB VACCINES Aged Out No longer eligi ble based on patient's age to complete this topic MENINGOCOCCAL VACCINES (ACWY) Aged Out No longer eligible based on patient's age to complete this topic MENINGOCOCCAL VACCINES (B) Aged Out N o longer eligible based on patient's age to complete this topic PNEUMOCOCCAL VACCINES (0-49 years) Aged Out No longer eligible b ased on patient's age to complete this topic Medical Devices Not on file Insurance [facility] [address] [place] [address] [place] [address] [facility] Care Teams Retail Sales Professional Relationship Specialty Start Date End Date Vitaly Urbano MD [address] [place] [address] [address] [place] [address] PCP - General Internal Medicine 01/31/22 Gunnar Silva MD [address] [place] [address] Drive [address] [place] [address] Gastroenterology 02/24/22 Ronn Molina DO [address] [place] [address] Internal Medicine 02/24/22 Additional Source Comments The information contained in this document represents components of the legal health record. It is not the complete legal health record.[facility]
== END 2025-06-29 13:19 | disposition home or self-care (01) ==
LOC: HO.HMGCX 13:18
PROVIDERS: PCP Internal Medicine; Visit Provider Physician Assistant Medical
DX: D48.5 Neoplasm of uncertain behavior of skin (principal)
CPT/HCPCS: 76604

== ENCOUNTER → 2025-06-29 13:19 | Outpatient (BNV) | payer BC, SELFPAY | PROVIDERS: PCP Internal Medicine; Visit Provider Radiology Diagnostic Radiology | DX: R22.2 Localized swelling, mass and lump, trunk (principal) | CPT/HCPCS: 76604 ==